=== PATIENT | female | born 2005 | race Caucasian/White ===

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

== ENCOUNTER → 2023-01-26 | Outpatient (CLI) | payer OTHER, SELFPAY | END | disposition home or self-care (01) | PROVIDERS: PCP Pediatrics; Referring Provider Physician Assistant; Visit Provider Physician Assistant | DX: R59.9 Enlarged lymph nodes, unspecified (principal); J02.9 Acute pharyngitis, unspecified | CPT/HCPCS: 87070 ==

== ENCOUNTER → 2024-11-27 | Outpatient (CLI) | payer OTHER, SELFPAY ==
[2024-11-29 06:07] LABS: Chlamydia By Nucleic Acid AMP Negative (Negative); Gonococcus By Nucleic Acid AMP Negative (Negative)
== END | disposition home or self-care (01) ==
LOC: BWCLAB 09:25
PROVIDERS: PCP Pediatrics; Referring Provider Nurse Practitioner Women's Health; Visit Provider Nurse Practitioner Women's Health
DX: Z11.3 Encounter for screening for infections with a predominantly sexual mode of transmission (principal); N89.8 Other specified noninflammatory disorders of vagina
CPT/HCPCS: 87070; 87077; 87186; 87205; 87491; 87591

== ENCOUNTER → 2025-01-10 | Outpatient (CLI) | payer OTHER, SELFPAY ==
[2025-01-10 17:33] LABS: Amphetamine Urine NEGATIVE (<1000 ng/mL); Barbiturate Urine NEGATIVE (< 200 ng/mL); Benzodiazepine Urine NEGATIVE (< 200 ng/mL); Buprenorphine Urine NEGATIVE (< 200 ng/mL); Cocaine Urine NEGATIVE (< 300 ng/mL); Fentanyl, Urine NEGATIVE; Methadone Urine NEGATIVE (< 300 ng/mL); Opiates Urine NEGATIVE (< 300 ng/mL); Oxycodone, Urine NEGATIVE (< 100 ng/mL); PCP Urine NEGATIVE (< 25 ng/mL); THC Urine NEGATIVE (< 50 ng/mL)
[2025-01-14 22:06] LABS: Chlamydia By Nucleic Acid AMP Negative (Negative); Gonococcus By Nucleic Acid AMP Negative (Negative)
[2025-01-16 08:26] LABS: HPV Reflexed? NOT INDICATED
== END | disposition home or self-care (01) ==
LOC: LABSPEC 16:28
PROVIDERS: Obstetrics & Gynecology; PCP Pediatrics; Referring Provider Nurse Practitioner Women's Health; Visit Provider Nurse Practitioner Women's Health
DX: Z34.00 Encounter for supervision of normal first pregnancy, unspecified trimester (principal); F12.90 Cannabis use, unspecified, uncomplicated
CPT/HCPCS: 80307; 87086; 87088; 87491; 87591; 88175; G0145

== ENCOUNTER → 2025-01-21 | Outpatient (CLI) | payer OTHER, SELFPAY ==
[2025-01-21 16:16] LABS: Absolute Lymphocyte Count 2.89 X10^3/uL (0.83-4.51); Absolute Neutrophil Count 8.4 X10^3/uL (2.0-7.7); Basophil# 0.07 X10^3/uL; Basophil% 0.6 % (0-1); Eosinophil# 0.23 X10^3/uL; Eosinophils% 1.8 % (0-5); Hematocrit 40.7 % (37-47); Hemoglobin 14.2 g/dL (12.0-15.0); Lymphocyte # 2.89 X10^3/ul (0.83-4.51); Lymphocyte % 23.2 % (19-41); Mean Corp Hgb Conc 34.9 g/dL (32-36); Mean Corpuscular Hgb 30.5 pg (27.0-32.0); Mean Corpuscular Volume 87.5 fL (81-99); Mean Platelet Vol. 9.4 fl (6.2-12.0); Monocyte# 0.82 X10^3/uL; Monocyte% 6.6 % (0-10); NRBC Flagged by Analyzer 0 % (0-5); Neutrophil # 8.38 X10^3/uL (2.7-7.7); Neutrophil % 67.4 % (47-70); Platelet Count 332 K/mm3 (150-450); RBC Distribution Width CV 12.4 % (11.6-14.6); Red Blood Count 4.65 M/mm3 (4.2-5.4); White Blood Count 12.4 K/mm3 (4.4-11.0)
[2025-01-21 17:02] LABS: HIV Nonreactive (Nonreactive); Hepatitis B Surface Antigen Nonreactive (Nonreactive); Hepatitis C Antibody Nonreactive (Nonreactive); Rubella IgG REAC (Nonreactive); Syphilis Antibodies Nonreactive (Nonreactive)
[2025-01-21 17:16] LABS: hCG Titer Quant., Serum 47887 mIU/mL (<9 non-preg)
== END | disposition home or self-care (01) ==
LOC: LAB 15:31
PROVIDERS: Nurse Practitioner Women's Health; PCP Pediatrics; Referring Provider Obstetrics & Gynecology; Visit Provider Obstetrics & Gynecology
DX: Z34.00 Encounter for supervision of normal first pregnancy, unspecified trimester (principal)
CPT/HCPCS: 36415; 83036; 84702; 85025; 86703; 86762; 86780; 86803; 86850; 86900; 86901; 87340

== ENCOUNTER → 2025-03-26 | Outpatient (CLI) | payer OTHER, SELFPAY ==
--- NOTE | 2025-03-26 15:26 | US_ITS ---
PROCEDURE: OB ANATOMY SCAN 03/26/2025 REASON FOR EXAM: ANATOMY/CERVICAL LENGTH TECHNIQUE: OB ANATOMY SCAN. Transabdominal and transvaginal imaging of the maternal pelvis and a > 14 week gestation with image documentation. COMPARISON: None. FINDINGS FETUS: There is a single living intrauterine gestation. POSITION: position is cephalic. HEART RATE: The heart rate is 144 BPM and regular. BIOMETRICS: Based on composite biometry, the composite estimated gestational age by ultrasound is 20 weeks 1 day. LMP gestational age: 20 weeks 0 days LMP LAZARA: August 13, 2025 Sonographic gestational age: 20 weeks 1 day Sonographic LAZARA: August 12, 2025 ANATOMIC SURVEY: The visualized anatomy is unremarkable. No gross anatomic abnormality is identified, including intracranial structures, orbits, profile, nose/lips, 4 chamber heart, fluid-filled stomach and urinary bladder, kidneys, spine, 3-vessel cord, cord insertion, and extremities. PLACENTA: The placenta is posterior, grade 0, with central cord insertion. No demonstrated evidence of abruption. The lower margin of the placenta is 1.7 cm away from the internal os compatible with a low lying placenta. AMNIOTIC FLUID: Within normal limits. Maximum vertical pocket (MVP) measuring 6.0 cm. CERVIX: Long and closed measuring 4.1 cm in length. Unremarkable as visualized. SONOGRAPHIC MEASUREMENTS: Bi-Parietal Diameter (BPD): 4.7 cm; 20 weeks 1 day Head Circumference (HC): 17.5 cm; 20 weeks 0 days Abdominal Circumference (AC): 15.5 cm; 20 weeks 5 days Femur Length (FL): 3.3 cm; 20 weeks 2 days Estimated weight: 355 grams +/-53 grams (0 lb, 13 oz) EFW percentile: 71.1 % US/OB Anatomy Scan IMPRESSION: 1. Single living intrauterine gestation estimated at 20 weeks 1 day by today's ultrasound criteria. Size equals dates. 2. Low-lying placenta. Reading Location: [id number]
== END | disposition home or self-care (01) ==
LOC: US 15:25
PROVIDERS: PCP Pediatrics; Referring Provider Obstetrics & Gynecology; Visit Provider Obstetrics & Gynecology
DX: Z34.00 Encounter for supervision of normal first pregnancy, unspecified trimester (principal)
CPT/HCPCS: 76805

== ENCOUNTER → 2025-05-09 | Outpatient (CLI) | payer OTHER, SELFPAY ==
[2025-05-09 12:28] LABS: Hematocrit 39.3 % (37-47); Hemoglobin 13.4 g/dL (12.0-15.0); Immature Granulocytes Count 0.120 X10^3/uL (0.0-0.0); Mean Corp Hgb Conc 34.1 g/dL (32-36); Mean Corpuscular Volume 91.0 fL (81-99); Mean Platelet Vol. 9.9 fl (6.2-12.0); NRBC Flagged by Analyzer 0 % (0-5); Platelet Count 288 K/mm3 (150-450); RBC Distribution Width CV 12.4 % (11.6-14.6); RBC Distribution Width SD 41.0 fl (35.1-43.9); Red Blood Count 4.32 M/mm3 (4.2-5.4); White Blood Count 11.1 K/mm3 (4.4-11.0)
[2025-05-09 13:47] LABS: Glucose Challenge Gest 1H 50g 85 mg/dL (70-140); HIV Nonreactive (Nonreactive); Syphilis Antibodies Nonreactive (Nonreactive)
== END | disposition home or self-care (01) ==
PROVIDERS: Advanced Practice Midwife; PCP Pediatrics; Referring Provider Obstetrics & Gynecology; Visit Provider Obstetrics & Gynecology
DX: O99.212 Obesity complicating pregnancy, second trimester (principal); Z3A.22 22 weeks gestation of pregnancy; Z13.1 Encounter for screening for diabetes mellitus
CPT/HCPCS: 36415; 82950; 85025; 86703; 86780

== ENCOUNTER → 2025-05-21 | Outpatient (CLI) | payer OTHER, SELFPAY ==
--- NOTE | 2025-05-21 16:13 | US_ITS ---
PROCEDURE: OB LIMITED WITH BIOMETRICS 05/21/2025 REASON FOR EXAM: PLACENTA LOCATION TECHNIQUE: Procedure Code: [id number] Modality: US Procedure: OB LIMITED WITH BIOMETRICS. Transabdominal imaging of the maternal pelvis and a > 14 week gestation with image documentation. FINDINGS FETUS: There is a single living intrauterine gestation. POSITION: position is cephalic. HEART RATE: The heart rate is 148 BPM and regular. BIOMETRICS: Based on composite biometry, the composite estimated gestational age by ultrasound is 28 weeks 4 days. LMP gestational age: 28 weeks 0 days LMP LAZARA: August 13, 2025 Sonographic gestational age: 28 weeks 4 days Sonographic LAZARA: August 09, 2025 ANATOMIC SURVEY: anatomy survey not performed. PLACENTA: The placenta is posterior, grade 2. No demonstrated evidence of previa or abruption. AMNIOTIC FLUID: Within normal limits. MAGO measuring 9.9 cm. Deepest vertical pocket (DVP) measuring 3.5 cm. CERVIX: Long and closed measuring 4.5 cm in length. Unremarkable as visualized. SONOGRAPHIC MEASUREMENTS: Bi-Parietal Diameter (BPD): 7.2 cm; 29 weeks 0 days Head Circumference (HC): 26.6 cm; 29 weeks 0 days Abdominal Circumference (AC): 23.9 cm; 28 weeks 2 days Femur Length (FL): 5.3 cm; 28 weeks 0 days Estimated weight: 1204 grams +/- 178 grams (2 lb, 7 oz) EFW percentile: 48.5 % MATERNAL OVARIES: Not visualized. US/OB Limited With Biometrics IMPRESSION: 1. Single living intrauterine gestation estimated at 28 weeks 4 days by today's ultrasound criteria. Size equals dates with normal interval growth. 2. No acute abnormality detected. Reading Location: [id number]
== END | disposition home or self-care (01) ==
LOC: US 16:12
PROVIDERS: PCP Pediatrics; Referring Provider Advanced Practice Midwife; Visit Provider Advanced Practice Midwife
DX: O99.212 Obesity complicating pregnancy, second trimester (principal); O44.40 Low lying placenta NOS or without hemorrhage, unspecified trimester; Z3A.22 22 weeks gestation of pregnancy
CPT/HCPCS: 76816

== ENCOUNTER → 2025-06-17 | Outpatient (CLI) | payer OTHER, SELFPAY | END | disposition home or self-care (01) | LOC: LABSPEC 16:23 | PROVIDERS: PCP Pediatrics; Visit Provider Advanced Practice Midwife | DX: O99.891 Other specified diseases and conditions complicating pregnancy (principal); R30.0 Dysuria; Z3A.00 Weeks of gestation of pregnancy not specified | CPT/HCPCS: 87086; 87088 ==

== ENCOUNTER → 2025-07-18 | Outpatient (CLI) | payer OTHER, SELFPAY | END | disposition home or self-care (01) | LOC: LABSPEC 16:08 | PROVIDERS: PCP Pediatrics; Visit Provider Obstetrics & Gynecology | DX: Z34.03 Encounter for supervision of normal first pregnancy, third trimester (principal) | CPT/HCPCS: 87077; 87081; 87186 ==

== ENCOUNTER 2025-08-07 14:55 | Inpatient (IN) | payer OTHER, SELFPAY ==
[2025-08-07] VITALS (43 sets, daily range): BP systolic 101–157; BP diastolic 50–95; PULSE 73–137; RESP 14–16; TEMP 36.2–36.9; O2SAT 81–100; BMI 36.2
[2025-08-07] MEDS: Lactated Ringers 1,000 ML 50 ML IV (15:25)
[2025-08-07] MEDS: Penicillin G Pot 5,000,000 UNITS in 0.9% Normal Saline (100mL MB+) 100 ML 150 UNITS IV (15:36)
[2025-08-07 15:51] LABS: Hematocrit 40.3 % (37-47); Hemoglobin 14.1 g/dL (12.0-15.0); Immature Granulocytes Count 0.190 X10^3/uL (0.0-0.0); Mean Corp Hgb Conc 35.0 g/dL (32-36); Mean Corpuscular Volume 85.4 fL (81-99); Mean Platelet Vol. 9.4 fl (6.2-12.0); NRBC Flagged by Analyzer 0 % (0-5); Platelet Count 314 K/mm3 (150-450); RBC Distribution Width CV 13.1 % (11.6-14.6); RBC Distribution Width SD 40.8 fl (35.1-43.9); Red Blood Count 4.72 M/mm3 (4.2-5.4); White Blood Count 17.1 K/mm3 (4.4-11.0)
--- OUTSIDE RECORDS SUMMARY | 2025-08-07 16:55 | XMS RPT_ITS | CCD ---
Author Organization [facility] Care Team Providers Care Juvenile Justice Specialist Name Role Phone Dr. Isi Justice Primary Care Provider Dr. Isi Justice Referring Provider Rosamaria MARIANO, MONTSERRAT Portillo Attending Provider Ann SPLITTER HEAD, SPLITTER HEAD-C Yahaira Attending Provider Isi Justice MD Primary Care Provider ISI JUSTICE Primary Care Unavailable JUAN SCRUGGS Attending Unavailable ISI JUSTICE Referring Unavailable ISI JUSTICE Primary Care Unavailable BRYAN CALLAHAN Attending Unavailable Isi Justice MD Primary Care Provider Dr. Isi Justice MD Primary Care Provider Dr. Isi Justice MD Referring Provider Ann SPLITTER HEAD-CYahaira Attending Provider Ann SPLITTER HEAD-C, Yahaira Referring Provider Dr. Nida Martinez DC Attending Provider Dr. Eugenia Moncada DO Attending Provider Dr. Viki Case MD Attending Provider Dr. Viki Case MD Referring Provider [phone] Ann SPLITTER HEAD-C, Yahaira Other Provider [phone] Dr. Isi Justice MD Primary Care Provider Dr. Isi Justice MD Referring Provider Ann SPLITTER HEAD-C, Yahaira Attending Provider [phone] Anthony SPLITTER HEAD-C, Yahaira Referring Provider [phone] Kiran Nicole DO, Dr. Bello Referring Provider Nitin MERINO, Gabriela Attending Provider [phone] Reshma GUIDO, Dr. Snowden Primary Care Provider Reshma GUIDO, Dr. Snowden Referring Provider Ann SPLITTER HEAD-C, Yahaira Attending Provider [phone] Dossi DC, Dr. Alva Attending Provider [phone] Reshma GUIDO, Dr. Snowden Primary Care Physician Reshma GUIDO, Dr. Snowden Referring Provider [phone] Dossi DC, Dr. Alva Attending Physician [phone] Kiran Nicole DO, Dr. Bello Attending Physician Ann SPLITTER HEAD-C, Yahaira Attending Physician [phone] Nitin MERINO, Gabriela Attending Physician [phone] Manpreet GUIDO, Dr. Drew Attending Physician Manpreet GUIDO, Dr. Drew Referring Provider Nitin MERINO, Gabriela Referring Provider [phone] Reshma GIUDO, Dr. Snowden Primary Care Physician Reshma GUIDO, Dr. Snowden Referring Provider [phone] Dosjeremias HOFFMAN, Dr. Alva Attending Physician [phone] Reshma GUIDO, Dr. Snowden Primary Care Physician Reshma GUIDO, Dr. Snowden Referring Provider [phone] Kiran Nicole DO, Dr. Bello Attending Physician Seifjennifer, Isi Referring Unavailable Ann SPLITTER HEAD, Yahaira Attending Unavailable Seifried, Isi Primary Care Unavailable Seifried, Isi Referring Unavailable Nida Martinez Attending Unavailable Seifried, Isi Primary Care Unavailable Seifried, Isi Referring Unavailable Gabriela Taveras Attending Unavailable Seifried, Isi Primary Care Unavailable Seifried, Isi Primary Care Unavailable Seifried, Isi Referring Unavailable Gabriela Taveras Attending Unavailable Seifried, Isi Primary Care Unavailable Viki Case Attending Unavailable ZarinaonyViki Referring Unavailable Anthony SPLITTER HEAD, Yahaira Attending Unavailable Anthony SPLITTER HEAD, Yahaira Referring Unavailable Seifried, Isi Primary Care Unavailable Vande Velde Eugenia Referring Unavailabl e Seifried, Isi Primary Care Unavailable Vande VeldeEugenia Attending Unavailabl e Seifried, Isi Primary Care Unavailable Seifried, Isi Referring Unavailable Dossi, Nida Attending Unavailable Seifried, Isi Referring Unavailable Seifried, Isi Primary Care Unavailable Eugenia Moncada Attending Unavailabl e Seifried, Isi Referring Unavailable Dossi, Nida Attending Unavailable Seifried, Isi Primary Care Unavailable Seifried, Isi Referring Unavailable Seifried, Isi Primary Care Unavailable Eugenia Moncada Attending Unavailabl e Seifried, Isi Referring Unavailable Dossi, Nida Attending Unavailable Seifried, Isi Primary Care Unavailable Seifried, Isi Referring Unavailable Viki Case Attending Unavailable Seifried, Isi Primary Care Unavailable Seifried, Isi Referring Unavailable Dossi, Nida Attending Unavailable Seifried, Isi Primary Care Unavailable Seifried, Isi Referring Unavailable Dossi, Nida Attending Unavailable Seifried, Isi Primary Care Unavailable Seifried, Isi Referring Unavailable Seifried, Isi Primary Care Unavailable Eugenia Moncada Attending Unavailabl e Gabriela Taveras Attending Unavailable Seifried, Isi Primary Care Unavailable Ann SPLITTER HEAD, Yahaira Attending Unavailable Anthony SPLITTER HEAD, Yahaira Referring Unavailable Seifried, Isi Primary Care Unavailable Seifried, Isi Primary Care Unavailable Seifried, Isi Referring Unavailable Viki Case Attending Unavailable Seifried, Isi Referring Unavailable Dossi, Nida Attending Unavailable Seifried, Isi Primary Care Unavailable Anthony SPLITTER HEAD, Yahaira Consulting Unavailable Viki Case Attending Unavailable Viki Case Referring Unavailable Seifried, Isi Primary Care Unavailable Seifried, Isi Primary Care Unavailable Gabriela Taveras Attending Unavailable Gabriela Taveras Referring Unavailable Seifried, Isi Primary Care Unavailable Seifried, Isi Referring Unavailable Ann SPLITTER HEAD, Yahaira Attending Unavailable Seifried, Isi Primary Care Unavailable Seifried, Isi Referring Unavailable Dosjeremias, Nida Attending Unavailable Seifried, Isi Primary Care Unavailable Seifried, Isi Referring Unavailable Gabriela Taveras Attending Unavailable Seifried, Isi Primary Care Unavailable Seifried, Isi Referring Unavailable Dossi, Nida Attending Unavailable Seifried, Isi Referring Unavailable Ann SPLITTER HEAD, Yahaira Attending Unavailable Seifried, Isi Primary Care Unavailable Reshma GUIDO, Dr. Snowden Primary Care Physician Dr. Eugenia Moncada DO Attending Physician Dr. Eugenia Moncada DO Referring Provider Dr. Isi Justice MD Referring Provider Dr. Nida Martinez DC Attending Physician Gabriela Taveras CNM Attending Physician [phone] Dr. Viki Case MD Attending Physician Dr. Viki Case MD Referring Provider [phone] Gabriela Taveras CNM Referring Provider [phone] Allergies Allergy Classification Reported Allergen(s) Allergy Type Date of Onset Reaction(s) Facility (20 sources) nickel; Translations: [NICKEL] Drug Allergy 12-28-2018 [facility] (1 source) nickel Drug Allergy 07-09-2025 [facility] Medications Current Medications Medication Drug Class(es) Dates Sig (Normalized) Sig (Original) famotidine 20 mg oral tablet (1 source) Histamine-2 Receptor Antagonist Start: 07-05-2025 take 1 tablet by mouth twice daily Famotidine (Pepcid) 20 mg tablet Active 20 mg PO TWICE A DAY 60 July 04, 2025 11:00pm Complies with drug therapy Start: 07-05-2025 take 1 tablet by deng th twice daily Famotidine (Pepcid) 20 mg tablet Active 20 mg PO TWICE A DAY 60 July 04, 2025 11:00pm Complies with drug therapy Magnesium (19 sources) Start: 11-27-2024 take 1 tablet by deng th once daily Magnesium 250 mg tablet Active 250 mg PO daily November 26, 2024 11:00pm Complies with drug therapy Start: 11-27-2024 take 1 tablet by deng th once daily Start: 11-27-2024 take 1 tablet by deng th once daily Magnesium 250 mg tablet Active 250 mg PO daily November 27, 2024 12:00am Complies with drug therapy Start: 11-27-2024 take 1 tablet by deng once daily Magnesium 250 mg tablet Active 250 mg PO daily November 27, 2024 12:00am metoclopramide 10 mg oral tablet (14 sources) Dopamine-2 Receptor Antagonist Start: 02-13-2025 take 1 tablet by mouth at bedtime as needed for nausea and vomiting Metoclopramide Hcl (Reglan) 10 mg tablet Active 10 mg PO before meals and at bedtime as needed for nausea and vomiting 60 3 February 12, 2025 11:00pm Complies with drug therapy Multivit 99-Iict-Cenhyl 1-Dha (Pnv-Dha) 27 mg iron-1 mg -300 mg capsule (18 sources) Start: 12-18-2024 Multivit 96-Qune-Hfzdtl 1-Dha (Pnv-Dha) 27 mg iron-1 mg -300 mg capsule Active NMA PO December 17, 2024 11:00pm Complies with drug therapy Start: 12-18-2024 Start: 12-18-2024 Multivit 47-Ir on-Folate 1-Dha (Pnv-Dha) 27 mg iron-1 mg -300 mg capsule Active NMA PO December 18, 2024 12:00am Complies with drug therapy Start: 12-18-2024 Multivit 47-Ir on-Folate 1-Dha (Pnv-Dha) 27 mg iron-1 mg -300 mg capsule Active NMA PO December 18, 2024 12:00am saccharomyces boulardii 250 mg oral capsule (20 sources) Start: 11-27-2024 End: 12-18-2024 take 1 capsule by mouth at bedtime Saccharomyces Boulardii (Digest Probiotic (S.Boulardii)) 250 mg capsule Active 250 mg PO AT BEDTIME December 18, 2024 10:06am Complies with drug therapy Completed/Discontinued Medications Medication Drug Class(es) Dates Sig (Normalized) Sig (Original) acetaminophen 325 mg / oxyCODONE hydrochloride 5 mg oral tablet (20 sources) Opioid Agonist Start: 04-25-2020 End: 04-30-2020 Oxycodone-Acetaminoph en 1 TABLET tablet Discontinued 1 - 2 {tbl} PO EVERY 6 HOURS NEEDED as needed for Pain 30 01April 25, 2020 April 28, 2020 11:00pm April 29, 2020 11:02pm Postoperative pain Other acute postprocedural pain Start: 04-25-2020 End: 04-30-2020 take 1 tablet by mouth every six hours as needed Oxycodone-Acetaminophen Discontinued 1 - 2 TABLET PO EVERY 6 HOURS NEEDED 30 01April 25, 2020 10:21am April 30, 2020 12:02am amoxicillin 500 mg oral capsule (20 sources) Penicillin-class Antibacterial Start: 01-13-2023 End: 01-23-2023 take 1 capsule by mouth three times daily Amoxicillin 500 mg capsule Discontinued 500 mg PO THREE TIMES A DAY 30 10 January 12, 2023 11:00pm January 21, 2023 11:00pm January 22, 2023 11:04pm Start: 01-16-2021 End: 01-26-2021 take 1000 mg by mouth twice daily Amoxicillin Discontinued 1000 MG PO TWICE A DAY 40 January 16, 2021 11:14am January 26, 2021 12:01am Start: 01-16-2021 End: 01-26-2021 take 2 capsules by mouth twice daily Amoxicillin 500 mg capsule Discontinued 1000 mg PO TWICE A DAY 40 January 15, 2021 11:00pm January 24, 2021 11:00pm January 25, 2021 11:01pm amoxicillin 875 mg / clavulanate 125 mg oral tablet (20 sources) Penicillin-class Antibacterial Start: 04-15-2023 End: 04-25-2023 Amoxicillin-Pot Clavulanate 875-125 mg tablet Discontinued 1 {tbl} PO Q12H 20 10 April 14, 2023 11:00pm April 23, 2023 11:00pm April 24, 2023 11:03pm Acute sinusitis, unspecified Start: 02-02-2023 End: 02-12-2023 take 1 tablet by mouth twice daily amoxicillin-clavulanic acid (AUGMENTIN) 875-125 mg per tablet Indications: Streptococcal pharyngitis Take 1 tablet by mouth twice daily for 10 days. 20 tablet 0 02/02/2023 02/12/2023 Active Comment on above: Take 1 tablet by deng twice daily for 10 days. Desogestrel-Ethinyl Estradiol (20 sources) Progestin, Estrogen Start: 10-27-2023 End: 05-22-2024 take 0.15 tablet by mouth once daily Desogestrel-Ethinyl Estradiol (Apri) 0.15-0.03 mg tablet Discontinued 1 {tbl} PO daily 84 4 October 27, 2023 12:00am May 22, 2024 8:10am Start: 10-27-2023 End: 05-22-2024 take 0.15 tablet by mouth once daily Desogestrel-Ethinyl Estradiol (Apri) 0.15-0.03 mg tablet Discontinued 1 {tbl} PO daily 84 4 October 27, 2023 1:00am May 22, 2024 9:10am Start: 10-27-2023 End: 05-22-2024 take 0.15 tablet by mouth once daily Desogestrel-Ethinyl Estradiol (Apri) 0.15-0.03 mg tablet Discontinued 1 {tbl} PO daily 84 October 27, 2023 1:00am May 22, 2024 9:10am Start: 11-29-2019 End: 03-11-2020 Desogestrel-Ethinyl Estradio l (Apri) 0.15-0.03 mg tablet Discontinued 1 TABLET PO daily 84 November 29, 2019 2:44pm March 11, 2020 1:22pm Start: 11-29-2019 End: 03-11-2020 take 0.15 tablet by mouth once daily Desogestrel-Ethinyl Estradiol (Apri) 0.15-0.03 mg tablet Discontinued 1 {tbl} PO daily 84 November 28, 2019 11:00pm March 11, 2020 12:22pm Start: 11-29-2019 End: 03-11-2020 take 0.15 tablet by mouth once daily Desogestrel-Ethinyl Estradiol (Apri) 0.15-0.03 mg tablet Discontinued 1 {tbl} PO daily 84 4 November 29, 2019 12:00am March 11, 2020 1:22pm Start: 11-29-2019 End: 03-11-2020 take 0.15 tablet by mouth once daily Desogestrel-Ethinyl Estradiol (Apri) 0.15-0.03 mg tablet Discontinued 1 {tbl} PO daily 84 November 29, 2019 12:00am March 11, 2020 1:22pm dexamethasone 4 mg oral tablet (20 sources) Corticosteroid Start: 09-09-2021 End: 10-05-2021 take 1 tablet by mouth once daily Dexamethasone (Decadron) 4 mg tablet Discontinued 4 mg PO DAILY 5 0 September 09, 2021 12:00am October 05, 2021 8:15am Norgestimate-Ethiny l Estradiol (20 sources) Progestin, Estrogen Start: 10-06-2022 End: 10-27-2023 Norgestimate-Ethin yl Estradiol (Sprintec (28)) 0.25-35 mg-mcg tablet Discontinued 1 {tbl} PO daily 84 October 06, 2022 2:08pm October 27, 2023 8:21am Start: 10-06-2022 End: 10-27-2023 Norgestimate-Ethinyl Estradi ol (Sprintec (28)) 0.25-35 mg-mcg tablet Discontinued 1 {tbl} PO daily 84 4 October 06, 2022 3:08pm October 27, 2023 9:21am Start: 10-06-2022 End: 10-27-2023 Norgestimate-Ethinyl Estradi ol (Sprintec (28)) 0.25-35 mg-mcg tablet Discontinued 1 {tbl} PO daily 84 October 06, 2022 3:08pm October 27, 2023 9:21am Start: 10-05-2021 End: 10-06-2022 Norgestimate-Ethinyl Estradi ol (Sprintec (28)) 0.25-35 mg-mcg tablet Discontinued 1 {tbl} PO daily 84 October 05, 2021 8:32am October 06, 2022 2:08pm Start: 10-05-2021 End: 10-06-2022 Norgestimate-Ethinyl Estradi ol (Sprintec (28)) 0.25-35 mg-mcg tablet Discontinued 1 {tbl} PO daily 84 October 05, 2021 9:32am October 06, 2022 3:08pm Start: 10-05-2021 End: 10-06-2022 Norgestimate-Ethinyl Estradi ol (Sprintec (28)) 0.25-35 mg-mcg tablet Discontinued 1 {tbl} PO daily 84 October 05, 2021 9:32am October 06, 2022 3:08pm Start: 10-05-2021 take 1 tablet by deng once daily Norgestimate-Ethinyl Estradiol (Sprintec (28)) 0.25-35 mg-mcg tablet Active 1 TABLET PO daily 84 October 05, 2021 9:32am Start: 10-01-2020 End: 10-05-2021 Norgestimate-Ethinyl Estradi ol (Sprintec (28)) 0.25-35 mg-mcg tablet Discontinued 1 {tbl} PO daily 84 October 01, 2020 1:38pm October 05, 2021 8:32am Start: 10-01-2020 End: 10-05-2021 Norgestimate-Ethinyl Estradi ol (Sprintec (28)) 0.25-35 mg-mcg tablet Discontinued 1 {tbl} PO daily 84 4 October 01, 2020 2:38pm October 05, 2021 9:32am Start: 10-01-2020 End: 10-05-2021 Norgestimate-Ethinyl Estradi ol (Sprintec (28)) 0.25-35 mg-mcg tablet Discontinued 1 {tbl} PO daily 84 October 01, 2020 2:38pm October 05, 2021 9:32am Start: 10-01-2020 End: 10-05-2021 take 1 tablet by mouth once daily Norgestimate-Ethinyl Estradiol (Sprintec (28)) 0.25-35 mg-mcg tablet Discontinued 1 TABLET PO daily 84 October 01, 2020 2:38pm October 05, 2021 9:32am Start: 03-11-2020 End: 10-01-2020 take 1 tablet by mouth once daily Norgestimate-Ethinyl Estradiol (Sprintec (28)) 0.25-35 mg-mcg tablet Discontinued 1 TABLET PO daily 84 March 11, 2020 1:22pm October 01, 2020 2:38pm Start: 03-11-2020 End: 10-01-2020 Norgestimate-Ethinyl Estradi ol (Sprintec (28)) 0.25-35 mg-mcg tablet Discontinued 1 {tbl} PO daily 84 2 March 10, 2020 11:00pm October 01, 2020 1:38pm Start: 03-11-2020 End: 10-01-2020 Norgestimate-Ethinyl Estradi ol (Sprintec (28)) 0.25-35 mg-mcg tablet Discontinued 1 {tbl} PO daily 84 March 11, 2020 12:00am October 01, 2020 2:38pm Start: 03-11-2020 End: 10-01-2020 Norgestimate-Ethinyl Estradi ol (Sprintec (28)) 0.25-35 mg-mcg tablet Discontinued 1 {tbl} PO daily 84 March 11, 2020 12:00am October 01, 2020 2:38pm Start: 09-11-2019 End: 11-29-2019 take 1 tablet by mouth once daily Norgestimate-Ethinyl Estradiol (Sprintec (28)) 0.25-35 mg-mcg tablet Discontinued 1 TABLET PO daily September 11, 2019 10:12am November 29, 2019 2:45pm Start: 09-11-2019 End: 11-29-2019 Norgestimate-Ethinyl Estradi ol (Sprintec (28)) 0.25-35 mg-mcg tablet Discontinued 1 {tbl} PO daily 28 September 11, 2019 12:00am November 29, 2019 1:45pm Start: 09-11-2019 End: 11-29-2019 Norgestimate-Ethinyl Estradi ol (Sprintec (28)) 0.25-35 mg-mcg tablet Discontinued 1 {tbl} PO daily 28 September 11, 2019 1:00am November 29, 2019 2:45pm Start: 09-11-2019 End: 11-29-2019 Norgestimate-Ethinyl Estradi ol (Sprintec (28)) 0.25-35 mg-mcg tablet Discontinued 1 {tbl} PO daily September 11, 2019 1:00am November 29, 2019 2:45pm fluconazole 150 mg oral tablet (20 sources) Azole Antifungal Start: 11-29-2024 End: 12-18-2024 take 1 tablet by mouth every other day Fluconazole 150 mg tablet Discontinued 150 mg PO .COMPLEX 3 0 November 29, 2024 10:31am December 18, 2024 10:06am 150 mg PO take one po every other day x 3 doses. Start: 08-01-2024 End: 11-27-2024 Fluconazole 150 mg tablet Di scontinued 150 mg PO .COMPLEX 2 0 September 25, 2024 3:23pm November 27, 2024 7:17am 150 mg PO take one po now and repeat in 3 days ibuprofen 400 mg oral tablet (20 sources) Nonsteroidal Anti-inflammatory Drug Start: 11-13-2017 End: 09-11-2019 take 1 tablet by mouth every four hours as needed for pain Ibuprofen 400 MG tablet Discontinued 400 mg PO EVERY 4 HOURS NEEDED as needed for Mild Pain (-11/12) 0 November 13, 2017 12:00am September 11, 2019 8:59am ketotifen 0.25 mg/ml ophthalmic solution (3 sources) Histamine-1 Receptor Inhibitor Start: 01-20-2022 ketotifen fumarate (ZADITOR) 0.025 % (0.035 %) ophthalmic solution Indications: Seasonal allergies Use 1 Drop in both eyes twice daily. 5 mL 5 01/20/2022 Active Comment on above: Use 1 Drop in both e yes twice daily. levocetirizine dihydrochloride 5 mg oral tablet (3 sources) Histamine-1 Receptor Antagonist Start: 01-20-2022 take 1 tablet by mouth once daily levocetirizine (XYZAL) 5 mg tablet Indications: Seasonal allergies Take 1 tablet by mouth once daily. 30 tablet 5 01/20/2022 Active Comment on above: Take 1 tablet by deng th once daily. mometasone furoate 1 mg/ml topical cream (3 sources) Corticosteroid Start: 08-26-2021 mometasone (ELOCON) 0.1 % cream Indications: Dyshidrosis (pompholyx) Apply to affected area once daily. APPLY TO AFFECTED AREA 45 g 0 08/26/2021 Active Comment on above: Apply to affected ar ea once daily. APPLY TO AFFECTED AREA nitrofurantoin, macrocrystals 25 mg / nitrofurantoin, monohydrate 75 mg oral capsule (20 sources) Nitrofuran Antibacterial Start: 04-11-2021 End: 04-16-2021 take 1 capsule by mouth every twelve hours at mealtime Nitrofurantoin Monohyd/M-Cryst 100 mg capsule Discontinued 100 mg PO Q12H 10 5 0 April 10, 2021 11:00pm April 14, 2021 11:00pm April 15, 2021 11:01pm must administer with a meal/food Start: 09-03-2020 End: 09-10-2020 take 1 capsule by mouth every twelve hours at mealtime Nitrofurantoin Monohyd/M-Cryst 100 mg capsule Discontinued 1 NMA PO Q12H 14 7 0 September 03, 2020 12:00am September 09, 2020 12:00am September 10, 2020 12:02am administer with a meal/food; swallow whole; do not open, crush, dissolve , or chew Start: 07-08-2020 End: 07-15-2020 take 1 capsule by mouth every twelve hours at mealtime Nitrofurantoin Monohyd/M-Cryst 100 mg capsule Discontinued 1 NMA PO Q12H 14 7 0 July 08, 2020 12:00am July 14, 2020 12:00am July 15, 2020 12:02am administer with a meal/food; swallow whole; do not open, crush, dissolve , or chew NORGESTIMATE-ETHINYL ESTRADIOL ORAL (3 sources) Start: 09-11-2019 NORGESTIMATE-ETHINYL ESTRADIOL ORAL Norgestimate-Ethinyl Estradiol Norgestimate-Ethinyl Estradiol Active 1 TAB daily September 11, 2019 9:12am 09-11-2019 [facility] (86365) 0 09/11/2019 Active Comment on above: Norgestimate-Ethinyl Estradiol Norgestimate-Ethinyl Estradiol Active 1 TAB daily September 11, 2019 9:12am 09-11-2019 [facility] (12016) nystatin [id number] unt/ml oral suspension (20 sources) Polyene Antifungal Start: 08-23-2019 End: 09-17-2019 take 1 dose by mouth every six hours Nystatin Discontinued 5 ML PO EVERY 6 HOURS 500 August 23, 2019 6:17pm September 17, 2019 1:08am swish and swallow, not eating/drinking for 30 minutes after each dose Start: 08-23-2019 End: 09-17-2019 take 1 dose by mouth every six hours Nystatin 100,000 unit/mL suspension Discontinued 5 mL PO EVERY 6 HOURS 500 25 0 August 23, 2019 12:00am September 16, 2019 12:00am September 17, 2019 12:08am swish and swallow, not eating/drinking for 30 minutes after each dose ondansetron 8 mg oral tablet (20 sources) Serotonin-3 Receptor Antagonist Start: 04-25-2020 End: 08-05-2020 take 1 tablet by mouth every eight hours as needed for nausea Ondansetron Hcl 8 MG tablet Discontinued 8 mg PO EVERY 8 HOURS NEEDED as needed for Nausea 20 0 April 24, 2020 11:00pm August 05, 2020 12:35pm oxyCODONE hydrochloride 5 mg oral tablet (20 sources) Opioid Agonist Start: 11-13-2017 End: 10-14-2018 take 1 tablet by mouth every six hours as needed for pain Oxycodone 5 MG tablet Discontinued 5 mg PO EVERY 6 HOURS NEEDED as needed for Severe Pain (-06/14) 16 5 0 November 13, 2017 8:54am October 14, 2018 12:14pm Appendicitis Unspecified appendicitis phenazopyridine hydrochloride 200 mg oral tablet (20 sources) Start: 04-11-2021 End: 04-13-2021 take 1 tablet by mouth three times daily Phenazopyridine (Pyridium) 200 mg tablet Discontinued 200 mg PO THREE TIMES A DAY 6 2 0 April 10, 2021 11:00pm April 11, 2021 11:00pm April 12, 2021 11:01pm pain Start: 09-03-2020 End: 10-01-2020 take 1 tablet by mouth three times daily at mealtime for pain Phenazopyridine (Pyridium) 100 mg tablet Discontinued 100 mg PO THREE TIMES A DAY as needed for pain 7 0 0 September 03, 2020 12:00am October 01, 2020 1:36pm administer with a full glass of water after each meal sertraline 50 mg oral tablet (20 sources) Serotonin Reuptake Inhibitor Start: 09-11-2019 End: 04-11-2021 take 1 tablet by mouth once daily Sertraline (Zoloft) 50 mg tablet Discontinued 50 mg PO DAILY September 11, 2019 12:00am April 11, 2021 12:10pm Comment on above: Take 1 tablet by deng th once daily. sulfamethoxazole 800 mg / trimethoprim 160 mg oral tablet (20 sources) Dihydrofolate Reductase Inhibitor Antibacterial, Sulfonamide Antimicrobial Start: 06-08-2021 End: 06-15-2021 Sulfamethoxazole- Trimethoprim (Bactrim Ds) 800-160 mg tablet Discontinued 1 {tbl} PO Q12H 14 0 June 07, 2021 11:00pm June 15, 2021 8:01am triamcinolone acetonide 0.055 mg/actuat metered dose nasal spray (3 sources) Corticosteroid Start: 01-20-2022 take 2 spray(s) by inhalation once daily at bedtime triamcinolone acetonide (NASACORT AQ) 55 mcg nasal inhaler Indications: Seasonal allergies Use 2 Sprays in the nose daily at bedtime. 16.9 mL 5 01/20/2022 Active Comment on above: Use 2 Sprays in the nose daily at bedtime. Problems Active Problems Problem Classification Problem Date Documented Da te Episodic/Chronic Allergic reactions (1 source) Eczema; Translations: [Dermatitis, unspecified] Episodic Anxiety disorders (3 sources) Anxiety; Translations: [Anxiety disorder, unspecified] Onset: 11-05-2020 11-05-2020 Chronic Inflammation; infection of eye (except that caused by tuberculosis or sexually transmitteddisease) (1 source) Allergic conjunctivitis; Translations: [Acute atopic conjunctivitis, unspecified eye] Episodic Inflammatory diseases of female pelvic organs (7 sources) Vaginitis; Translations: [Acute vaginitis] 11-27-2024 Episodic Menstrual disorders (20 sources) Menorrhagia; Translations: [Excessive and frequent menstruation with regular cycle] Onset: 01-10-2025 Chronic Comment on above: OCP +UPT Other bone disease and musculoskeletal deformities (20 sources) Segmental and somatic dysfunction; Translations: [Segmental and somatic dysfunction of cervical region] 05-22-2024 Episodic Other bone disease and musculoskeletal deformities (1 source) Segmental and somatic dysfunction of sacral region; Translations: [Segmental and somatic dysfunction of sacral region] Onset: 06-24-2025 Episodic Other bone disease and musculoskeletal deformities (1 source) Segmental and somatic dysfunction of lumbar region; Translations: [Segmental and somatic dysfunction of lumbar region] Onset: 06-24-2025 Episodic Other bone disease and musculoskeletal deformities (1 source) Segmental and somatic dysfunction of pelvic region; Translations: [Segmental and somatic dysfunction of pelvic region] Onset: 06-24-2025 Episodic Other bone disease and musculoskeletal deformities (1 source) Segmental and somatic dysfunction of thoracic region; Translations: [Segmental and somatic dysfunction of thoracic region] Onset: 06-24-2025 Episodic Other bone disease and musculoskeletal deformities (1 source) Segmental and somatic dysfunction of cervical region; Translations: [Segmental and somatic dysfunction of cervical region] Onset: 06-24-2025 Episodic Other complications of (20 sources) Maternal obesity complicating , childbirth and the puerperium, antepartum; Translations: [Obesity complicating , unspecified trimester] 12-18-2024 Chronic Comment on above: [id number] Other complications of (1 source) Obesity complicating , second trimester; Translations: [Obesity complicating , second trimester] Onset: 06-17-2025 Chronic Other complications of (1 source) Obesity complicating , unspecified trimester; Translations: [Obesity complicating , unspecified trimester] Onset: 01-10-2025 Chronic Other and delivery including normal (20 sources) Normal ; Translations: [Encounter for supervision of normal first , unspecified trimester] Onset: 01-10-2025 12-18-2024 Episodic Comment on above: , LAZARA 08/05/25Tricia discussed NIPT & Car rier testing PRR, , LAZARA , Adri Kelly Declines NIPT & Barriga ier testing; declines AFP PRR, , LAZARA , Adri Kelly. Low lying placenta <2cm from os, pelvic rest, report bleeding and rpt US 28 wk. Other skin disorders (20 sources) Acne; Translations: [Acne, unspecified] 09-11-2019 Episodic Other upper respiratory disease (2 sources) Seasonal allergy; Translations: [Other seasonal allergic rhinitis] Chronic Other upper respiratory disease (1 source) Allergic rhinitis due to pollen; Translations: [Allergic rhinitis due to pollen] Chronic Other upper respiratory disease (1 source) Other seasonal allergic rhinitis; Translations: [Seasonal allergies] Onset: 02-23-2022 Chronic Other upper respiratory infections (20 sources) Acute maxillary sinusitis; Translations: [Acute maxillary sinusitis, unspecified] Onset: 02-02-2023 Episodic Residual codes; unclassified (1 source) 31 weeks gestation of ; Translations: [31 weeks gestation of ] Onset: 06-17-2025 Episodic Residual codes; unclassified (1 source) 30 weeks gestation of ; Translations: [30 weeks gestation of ] Onset: 06-05-2025 Episodic Residual codes; unclassified (1 source) 28 weeks gestation of ; Translations: [28 weeks gestation of ] Onset: 05-23-2025 Episodic Residual codes; unclassified (1 source) 26 weeks gestation of ; Translations: [26 weeks gestation of ] Onset: 05-09-2025 Episodic Substance-related disorders (20 sources) Marijuana user; Translations: [Cannabis use, unspecified, uncomplicated] Onset: 06-17-2025 01-14-2025 Episodic Comment on above: laquita one time 19st birthday, discussed random drug testing with pt. NEG at [facility] Unclassified (1 source) Other specified diseases and conditions complicating ; Translations: [Other specified diseases and conditions complicating ] Onset: 07-01-2025 Viral infection (2 sources) Disease caused by 2019-nCoV; Translations: [COVID-19] Episodic Past or Other Problems Problem Classification Problem Date Documented Date Episodic/Chronic Blindness and vision defects (3 sources) Myopia; Translations: [Myopia, unspecified eye] Onset: 10-08-2013 10-08-2013 Episodic Immunizations and screening for infectious disease (1 source) Encounter for screening for infections with a predominantly sexual mode of transmission; Translations: [Encounter for screening for infections with a predominantly sexual mode of transmission] Onset: 2024 Episodic Other skin disorders (2 sources) Acne, unspecified; Translations: [Other acne] Onset: 01-10-2025 Episodic Residual codes; unclassified (1 source) 22 weeks gestation of ; Translations: [22 weeks gestation of ] Onset: 04-09-2025 Episodic Results Test Name Value Interpretation Reference Range Facility Chiropractic Reporton 2024 Chiropractic Report [facility] [address] [place] [address] [id number] OFFICE VISIT Date of Service: 07/09/25 MR#: [id number] Acct: [id number] Name: REESE PASTOR Rep #: [id number] : 2005 Provider: DALTON Casas Age/Sex: 19/F Location: [facility] [place] Status: Signed Intake Vital Signs 06/17/25 14:21 07/05/25 15:54 Height 5 ft 9 in 5 ft 9 in Weight: 240 lb BMI 35.4 BP 130/79 H Intake Visit Reasons: ADJUSTMENT 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: B/L hip pain, LBP, pelvic and pubic pain Plant Mechanic Required: No Accompanied by: Self Is patient in pain?: Yes Pain scale (1-10): 3 Allergies nickel Allergy (Mild, Verified 07/09/25 13:24) unknown Medications ???Medication ???Instructions ???Recorded ???Confirmed ???Type magnesium 250 mg tablet 250 mg PO QDAY 11/27/24 07/09/25 H istory Saccharomyces boulardii 250 mg 250 mg PO QHS 12/18/24 07/09/25 Hi story capsule (Digest Probiotic (S.boulardii)) multivitamin no.47-iron fum 27 cap PO 12/18/24 07/09/25 History mg-folate no.1 1 mg-dha 300 mg capsule (PNV-DHA) metoclopramide HCl 10 mg tablet 10 mg PO QACHS PRN nausea and 02/0307/09/25 Rx (Reglan) vomiting #60 tabs famotidine 20 mg tablet (Pepcid) 20 mg PO BID #60 tabs 07/05/2512/28 Rx PFSH Medical History Acne Dysmenorrhea Seasonal allergies Hx of recurrent urinary tract infection Chronic neck and back pain Asthma Surgical History [place] teeth extracted H/O shoulder surgery History of appendectomy Family History Mother Hypertension Gestational diabetes 2nd only Grandmother Hypertension Maternal Blood clot in leg Diabetes Paternal Grandfather Cancer, Onset Age: 70 Paternal- Smoker Social History adopted: No household members: significant other housing: house number of children: 0 current occupational status: employed current occupation: [employer] current occupational exposures/hazards: No pets and animals: Yes pets and animals: dog(s) and farm animals history of recent travel: No sexually active: Yes Smoking Status: Never smoker alcohol intake: current alcohol intake frequency: holidays/special occasions only details: Not while substance use type: marijuana and other details: Pt tried a gummy one time 19st birthday. Didn't like it. 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 Pt. is currently 35 weeks . Continued pelvic pressure and dull achy pubic pain. Recent low back and B/L hip dull and achy pain especially after being awake and moving for couple hours. Generalized back tightness. Denies sharp pain. Rates pain 3 out of ten today. Her neck and upper back get tight and sore often. She denies new injury, numbness, tingling or radiculopathy. She treats her pain at home with ice and stretching. She states chiropractic treatments are effective to relieve her pain but it gradually returns. Location: neck and low back Duration: intermittent Aggravating or associated factors: sleeping, walking, Relieving factors: chiro Pain Quality: aching and dull Exam Musc General: Yes normal posture, normal gait, joint tenderness and decreased range of motion; No muscle weakness Cervical Spine: Yes normal cervical lordosis, Yes cervical muscular tenderness right greater than left lower , Yes cervical spasm right greater than left lower trapezius and paracervical muscles and Yes misalignment misalignment: C5, C6 and C7 Thoracic/Lumber: Yes thoracic and lumbar spine normal to inspection, Yes paraspinal tenderness on the left greater than right (upper thoracic, lumbopelvic), Yes thoraco-lumbar spasm bilaterally (lumbar paraspinal L3-L5) in the lower lumbar, on the right greater than left (trap) and on the left greater than right (QL) and Yes misalignment T3, T4, T5, T6, L3, L4, L5, RIL and LIL Sacrum: Yes misalignment (left) Yes Office Procedures Procedures - Chiropractic Procedures Manipulatio (more content not included)... Normal [facility] - Chemistry and C hemistry - challengeOrdered By: Viki Case on 07-05-2025 Glucose Ql (U) Negative [facility] - UrinalysisOrder ed By: Viki Case on 07-05-2025 Protein Ql (U) Negative [facility] Elevator Constructor Office Visit Reporton 07-05-2025 Elevator Constructor Office Visit Report [facility] [address], [address] [place] [address] OFFICE VISIT Date of Service: 07/05/25 MR#: [id number] Acct: [id number] Name: REESE WILLIS Rep #: [id number] : 2005 Provider: Dr. Viki rankin MD Age/Sex: 19/F [place] [facility] [place]: Signed Intake Vital Signs 05/23/25 11:25 06/17/25 14:21 07/05/25 15:54 Height 5 ft 9 in 5 ft 9 in 5 ft 9 in Weight: 240 lb BMI 35.4 BP 130/79 H Intake Visit Reasons: 34wk ob Plant Mechanic Required: No Is patient in pain?: No Allergies nickel Allergy (Mild, Verified 07/05/25 15:56) unknown Medications ???Medication ???Instructions ???Recorded ???Confirmed ???Type magnesium 250 mg tablet 250 mg PO QDAY 11/27/24 07/05/25 H istory Saccharomyces boulardii 250 mg 250 mg PO QHS 12/18/24 07/05/25 Hi story capsule (Digest Probiotic (S.boulardii)) multivitamin no.47-iron fum 27 cap PO 12/18/24 07/05/25 History mg-folate no.1 1 mg-dha 300 mg capsule (PNV-DHA) metoclopramide HCl 10 mg tablet 10 mg PO QACHS PRN nausea and 02/0307/05/25 Rx (Reglan) vomiting #60 tabs famotidine 20 mg tablet (Pepcid) 20 mg PO BID #60 tabs 07/05/25 Rx Last Menstrual Period: 10/29/24 Zika: Zika virus screening: Negative : No PFSH PFSH Medical History Acne Dysmenorrhea Seasonal allergies Hx of recurrent urinary tract infection Chronic neck and back pain Asthma Surgical History [place] teeth extracted H/O shoulder surgery History of appendectomy Family History Mother Hypertension Gestational diabetes 2nd only Grandmother Hypertension Maternal Blood clot in leg Diabetes Paternal Grandfather Cancer, Onset Age: 70 Paternal- Smoker Social History adopted: No household members: significant other housing: house number of children: 0 current occupational status: employed 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 Didn't like it. 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 OB Visit LAZARA Calculator Estimated Delivery Date Method Current WG Current Estimate 08/13/25 Ultrasound #1 34w 3d Other Estimates 08/05/25 LMP (Certain) 35w 4d Expected Delivery Route/Plan Labor Preferences- CB/BF classes: [] labor support person: [] labor intervention preferences: [] pain management options preferred: [] cut cord/dad catch: [] : [] PP control planned: [] discussed possible routes of delivery and associated risks: [] special requests: [] Specific Issue/Plans Covid status: unvaccinated Flu vaccine: unvaccinated Tdap vaccine: not up to date Rhogam: [] LARC form signed: [] Problem list reviewed and updated with the most current plan of care details and appropriate orders placed. Relevant counseling for the gestational age provided. Continue routine care and follow up unless otherwise noted in visit notes/problem list details Initial Weight: Not Recorded Date -???-???-???-???-???- ???-???-???-???-???-? ??-???- EGA Weight BP Urine Prot -???-???-???-???-???- ???-???-???-???-???-? ??-???- Glucose FHR FuHt Pres Dilation -???-???-???-???-???- ???-???-???-???-???-? ??-???- Effaced St Visit Note 01/10/25 -???-???-???-???-???- ???-???-???-???-???-? ??-???- 9w 2d 220 lb 6 oz 134/80 -???-???-???-???-???- ???-???-???-???-???-? ??-???- 178 -???-???-???-???-???- ???-???-???-???-???-? ??-???- JV- CRL is 8 day (more content not included)... Normal [facility] Reporton 2024 Chiropractic Report [facility] [address] [place] [address] OFFICE VISIT Date of Service: 06/24/25 MR#: [id number] Acct: [id number] Name: REESE WILLIS Rep #: [id number] : 2005 Provider: DALTON Casas Age/Sex: 19/F Location: [facility] [place] Status: Signed Intake Vital Signs 05/23/25 11:25 06/17/25 14:21 Height 5 ft 9 in 5 ft 9 in Weight: 238 lb 5 oz BMI 35.2 BP 117/75 Intake Visit Reasons: ADJUSTMENT 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: pubis pain Is patient in pain?: Yes (pubic bone) Pain scale (1-10): 7 Allergies nickel Allergy (Mild, Verified 06/24/25 13:04) unknown Medications ???Medication ???Instructions ???Recorded ???Confirmed ???Type magnesium 250 mg tablet 250 mg PO QDAY 11/27/24 06/24/25 H istory Saccharomyces boulardii 250 mg 250 mg PO QHS 12/18/24 06/24/25 Hi story capsule (Digest Probiotic (S.boulardii)) multivitamin no.47-iron fum 27 cap PO 12/18/24 06/24/25 History mg-folate no.1 1 mg-dha 300 mg capsule (PNV-DHA) metoclopramide HCl 10 mg tablet 10 mg PO QACHS PRN nausea and 02/0306/24/25 Rx (Reglan) vomiting #60 tabs PFSH Medical History Acne Dysmenorrhea Seasonal allergies Hx of recurrent urinary tract infection Chronic neck and back pain Asthma Surgical History [place] teeth extracted H/O shoulder surgery History of appendectomy Family History Mother Hypertension Gestational diabetes 2nd only Grandmother Hypertension Maternal Blood clot in leg Diabetes Paternal Grandfather Cancer, Onset Age: 70 Paternal- Smoker Social History adopted: No household members: significant other housing: house number of children: 0 current occupational status: employed 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 Didn't like it. 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 Pt. is currently 33 weeks . She states she continues to experience pubic pain and pressure especially when rolling over in bed and when she first stands up from sitting, L>R. She states this is a sharp pain and rates it 7/10 when it occurs. She also c/o some neck and upper back tightness equal bilaterally. She states she experiences pelvic pressure when she lifts her legs to put her pants on. She denies new injury, numbness, tingling or radiculopathy. She treats her pain at home with ice and stretching. She states chiropractic treatments are effective to relieve her pain but it gradually returns. Location: neck and low back Duration: intermittent Aggravating or associated factors: sleeping, walking Relieving factors: chiro Pain Quality: aching and dull Exam Musc General: Yes normal posture, normal gait, joint tenderness and decreased range of motion; No muscle weakness Cervical Spine: Yes normal cervical lordosis, Yes cervical muscular tenderness left greater than right diffuse paracervical muscle, trapezius and other, Yes cervical spasm left greater than right diffuse trapezius, paracervical muscles and intrinsics and Yes misalignment misalignment: C2, C3, C4, C5 and C6 Thoracic/Lumber: Yes thoracic and lumbar spine normal to inspection, Yes paraspinal tenderness on the left greater than right (upper thoracic, lumbopelvic), Yes thoraco-lumbar spasm bilaterally (lumbar paraspinal L3-L5) in the lower lumbar and on the left greater than right (trap, QL) and Yes misalignment T3, T4, T5, T6, L3, L4, L5, RIL and LIL Sacrum: Yes misalignment (left) Yes Office Procedures Procedures - Chiropractic Procedures Manipulation: Cervical C5, Lumbar L4, Sacrum (left) and Thoracic T4 Manipulation (more content not included)... Normal [facility] Urine Cultureon 06-19-2025 URC Mixed Gram Positive Organisms [place] Count 11,000-25,000 MIXC Mixed contaminants. Submit a new specimen if indicated. Normal [facility] Comment on above: Performed By: #### M [id number] #### [facility] [address] [place] [address]. [place], [place], [id number] Urine cultureOrdered By: Pablo Taveras on 06-18-2025 Bacteria identified Cx Nom (U) Positive Abnormal [facility] - Chemistry and C hemistry - challengeOrdered By: Gabriela Taveras on 06-17-2025 Bilirubin Ql (U) Negative [facility] Glucose Ql (U) Negative [facility] Ketones Ql (U) Negative [facility] pH (U) 8 [pH] [facility] Specific gravity (U) [Rel density] 1.010 [facility] Urobilinogen (U) [Mass/Vol] Negative [facility] - Hematology and Cell countsOrdered By: Gabriela Taveras on 06-17-2025 Hemoglobin Ql (U) Negative [facility] - Specimen inform ationOrdered By: Gabriela Taveras on 06-17-2025 Clarity (U) Cloudy [facility] Color (U) YELLOW [facility] - UrinalysisOrder ed By: Gabriela Taveras on 06-17-2025 Nitrite Ql (U) Negative [facility] Protein Ql (U) Negative [facility] No Panel InformationOrdered By: Gabriela Taveras on 06-17-2025 Urine Leukocytes Positive [facility] Urine Non-Hemolyzed Blood [facility] Elevator Constructor Office Visit Reporton 06-17-2025 Elevator Constructor Office Visit Report [facility] [address], [address] [place] [address] OFFICE VISIT Date of Service: 06/17/25 MR#: [id number] Acct: [id number] Name: REESE MCDONALD Rep #: [id number] : 2005 Provider: WILBER Chavira ams Age/Sex: 19/F [place] [facility] [place]: Signed Intake Vital Signs 05/09/25 10:59 06/05/25 14:54 06/17/25 14:21 Height 5 ft 9 in 5 ft 9 in 5 ft 9 in Weight: 238 lb 5 oz BMI 35.2 BP 117/75 Intake Visit Reasons: 32 WK OB 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 Is patient in pain?: No Allergies nickel Allergy (Mild, Verified 06/17/25 14:19) unknown Medications ???Medication ???Instructions ???Recorded ???Confirmed ???Type magnesium 250 mg tablet 250 mg PO QDAY 11/27/24 06/17/25 H istory Saccharomyces boulardii 250 mg 250 mg PO QHS 12/18/24 06/17/25 Hi story capsule (Digest Probiotic (S.boulardii)) multivitamin no.47-iron fum 27 cap PO 12/18/24 06/17/25 History mg-folate no.1 1 mg-dha 300 mg capsule (PNV-DHA) metoclopramide HCl 10 mg tablet 10 mg PO QACHS PRN nausea and 02/0306/17/25 Rx (Reglan) vomiting #60 tabs Last Menstrual Period: 10/29/24 : No Have you fallen in the past year?: No PFSH PFSH Medical History Acne Dysmenorrhea Seasonal allergies Hx of recurrent urinary tract infection Chronic neck and back pain Asthma Surgical History [place] teeth extracted H/O shoulder surgery History of appendectomy Family History Mother Hypertension Gestational diabetes 2nd only Grandmother Hypertension Maternal Blood clot in leg Diabetes Paternal Grandfather Cancer, Onset Age: 70 Paternal- Smoker Social History adopted: No household members: significant other housing: house number of children: 0 current occupational status: employed current occupation: [employer] current occupational exposures/hazards: No pets and animals: Yes pets and animals: dog(s) and farm animals history of recent travel: No sexually active: Yes Smoking Status: Never smoker alcohol intake: current alcohol intake frequency: holidays/special occasions only details: Not while substance use type: marijuana and other details: Pt tried a gummy one time 19st birthday. Didn't like it. 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 OB Visit LAZARA Calculator Estimated Delivery Date Method Current WG Current Estimate 08/13/25 Ultrasound #1 31w 6d Other Estimates 08/05/25 LMP (Certain) 33w 0d Expected Delivery Route/Plan Labor Preferences- CB/BF classes: [] labor support person: [] labor intervention preferences: [] pain management options preferred: [] cut cord/dad catch: [] : [] PP control planned: [] discussed possible routes of delivery and associated risks: [] special requests: [] Specific Issue/Plans Covid status: unvaccinated Flu vaccine: unvaccinated Tdap vaccine: not up to date Rhogam: [] LARC form signed: [] Problem list reviewed and updated with the most current plan of care details and appropriate orders placed. Relevant counseling for the gestational age provided. Continue routine care and follow up unless otherwise noted in visit notes/problem list details Initial Weight: Not Recorded Date -???-???-???-???-???- ???-???-???-???-???-? ??-???- EGA Weight BP Urine Prot -???-???-???-???-???- ???-???-???-???-???-? ??-???- Glucose FHR FuHt Pres Dilation -???-???-???-???-???- ???-???-???-???-???-? ??-???- Effaced St Visit Note 01/10/25 -???-???-???-???-???- ???-???-???-???-???-? ??-???- 9w 2d 220 lb 6 oz 134/80 -???-???-???-???-???- ???-???-???-???-???-? ??-???- 178 -???-???-???-???-???- ???-???-???-???-???-? ??-???- JV- CRL is 8 days off from LMP. declines NIPT. wants to return for new ob labs. 06 (more content not included)... Normal [facility] Urine cultureOrdered By: Pablo Taveras on 06-17-2025 Bacteria identified Cx Nom (U) Positive Abnormal [facility] - Chemistry and C hemistry - challengeOrdered By: Eugenia Nicole on 06-05-2025 Glucose Ql (U) Negative [facility] - UrinalysisOrder ed By: Eugenia Nicole on 06-05-2025 Protein Ql (U) Negative [facility] Elevator Constructor Office Visit Reporton 06-05-2025 Elevator Constructor Office Visit Report [facility] [address], [address] [place] [address] OFFICE VISIT Date of Service: 06/05/25 MR#: [id number] Acct: [id number] Name: REESE MCDONALD Rep #: [id number] : 2005 Provider: Dr. Eugenia Cordoba DO Age/Sex: 19/F Location: [facility] [place] Status: Signed Intake Vital Signs 05/09/25 10:59 05/23/25 11:25 06/05/25 14:54 Height 5 ft 9 in 5 ft 9 in 5 ft 9 in Weight: 237 lb 2 oz BMI 35.0 BP 121/71 H Intake Visit Reasons: 30 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 Is patient in pain?: No Allergies nickel Allergy (Mild, Verified 06/05/25 14:57) unknown Medications ???Medication ???Instructions ???Recorded ???Confirmed ???Type magnesium 250 mg tablet 250 mg PO QDAY 11/27/24 06/05/25 H istory Saccharomyces boulardii 250 mg 250 mg PO QHS 12/18/24 06/05/25 Hi story capsule (Digest Probiotic (S.boulardii)) multivitamin no.47-iron fum 27 cap PO 12/18/24 06/05/25 History mg-folate no.1 1 mg-dha 300 mg capsule (PNV-DHA) metoclopramide HCl 10 mg tablet 10 mg PO QACHS PRN nausea and 02/0306/05/25 Rx (Reglan) vomiting #60 tabs Last Menstrual Period: 10/29/24 Zika: Zika virus screening: Negative : No Have you fallen in the past year?: No PFSH PFSH Medical History Acne Dysmenorrhea Seasonal allergies Hx of recurrent urinary tract infection Chronic neck and back pain Asthma Surgical History [place] teeth extracted H/O shoulder surgery History of appendectomy Family History Mother Hypertension Gestational diabetes 2nd only Grandmother Hypertension Maternal Blood clot in leg Diabetes Paternal Grandfather Cancer, Onset Age: 70 Paternal- Smoker Social History adopted: No household members: significant other housing: house number of children: 0 current occupational status: employed 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 Didn't like it. 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 OB Visit LAZARA Calculator Estimated Delivery Date Method Current WG Current Estimate 08/13/25 Ultrasound #1 30w 1d Other Estimates 08/05/25 LMP (Certain) 31w 2d Expected Delivery Route/Plan Labor Preferences- CB/BF classes: [] labor support person: [] labor intervention preferences: [] pain management options preferred: [] cut cord/dad catch: [] : [] PP control planned: [] discussed possible routes of delivery and associated risks: [] special requests: [] Specific Issue/Plans Covid status: unvaccinated Flu vaccine: unvaccinated Tdap vaccine: not up to date Rhogam: [] LARC form signed: [] Problem list reviewed and updated with the most current plan of care details and appropriate orders placed. Relevant counseling for the gestational age provided. Continue routine care and follow up unless otherwise noted in visit notes/problem list details Initial Weight: Not Recorded Date -???-???-???-???-???- ???-???-???-???-???-? ??-???- EGA Weight BP Urine Prot -???-???-???-???-???- ???-???-???-???-???-? ??-???- Glucose FHR FuHt Pres Dilation -???-???-???-???-???- ???-???-???-???-???-? ??-???- Effaced St Visit Note 01/10/25 -???-???-???-???-???- ???-???-???-???-???-? ??-???- 9w 2d 220 lb 6 oz 134/80 -???-???-???-???-???- ???-???-???-???-???-? ??-???- 178 -???-???-???-???-???- ???-???-???-???-???-? ??-???- JV- CRL is 8 days off from LMP. declines NIPT. wants to re (more content not included)... Normal [facility] Chiropractic Reporton 2024 Chiropractic Report [facility] [address] [place] [address] OFFICE VISIT Date of Service: 05/27/25 MR#: [id number] Acct: [id number] Name: REESE MCDONALD Rep #: [id number] : 2005 Provider: DALTON Casas Age/Sex: 19/F Location: [facility] [place] Status: Signed Intake Vital Signs 04/09/25 14:14 05/23/25 11:25 Height 5 ft 9 in 5 ft 9 in Intake Visit Reasons: ADJUSTMENT 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: pubic pain, neck discomfort Is patient in pain?: Yes (pubis, pelvis) Pain scale (1-10): 7 Allergies nickel Allergy (Mild, Verified 05/27/25 13:48) unknown Medications ???Medication ???Instructions ???Recorded ???Confirmed ???Type magnesium 250 mg tablet 250 mg PO QDAY 11/27/24 05/27/25 H istory Saccharomyces boulardii 250 mg 250 mg PO QHS 12/18/24 05/27/25 Hi story capsule (Digest Probiotic (S.boulardii)) multivitamin no.47-iron fum 27 cap PO 12/18/24 05/27/25 History mg-folate no.1 1 mg-dha 300 mg capsule (PNV-DHA) metoclopramide HCl 10 mg tablet 10 mg PO QACHS PRN nausea and 02/0305/27/25 Rx (Reglan) vomiting #60 tabs PFSH Medical History Acne Dysmenorrhea Seasonal allergies Hx of recurrent urinary tract infection Chronic neck and back pain Asthma Surgical History [place] teeth extracted H/O shoulder surgery History of appendectomy Family History Mother Hypertension Gestational diabetes 2nd only Grandmother Hypertension Maternal Blood clot in leg Diabetes Paternal Grandfather Cancer, Onset Age: 70 Paternal- Smoker Social History adopted: No household members: significant other housing: house number of children: 0 current occupational status: employed current occupation: [employer] current occupational exposures/hazards: No pets and animals: Yes pets and animals: dog(s) and farm animals history of recent travel: No sexually active: Yes Smoking Status: Never smoker alcohol intake: current alcohol intake frequency: holidays/special occasions only details: Not while substance use type: marijuana and other details: Pt tried a gummy one time 19st birthday. Didn't like it. 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 Pt. is currently 29 weeks . She states she continues to experience pubic pressure especially when rolling over in bed and when she first stands up from sitting. She states this is a sharp pain and rates it 7/10 when it occurs. She also c/o some neck and upper back tightness equal bilaterally. She states she experiences pelvic pressure when she lifts her legs to put her pants on. She denies new injury, numbness, tingling or radiculopathy. She treats her pain at home with ice and stretching. She states chiropractic treatments are effective to relieve her pain but it gradually returns. Location: neck and low back Duration: intermittent Aggravating or associated factors: sleeping, walking Relieving factors: chiro Pain Quality: aching and dull Exam Musc General: Yes normal posture, normal gait, joint tenderness and decreased range of motion; No muscle weakness Cervical Spine: Yes normal cervical lordosis, Yes cervical muscular tenderness left greater than right diffuse paracervical muscle, trapezius and other, Yes cervical spasm left greater than right diffuse trapezius, paracervical muscles and intrinsics and Yes misalignment misalignment: C2, C3, C4, C5 and C6 Thoracic/Lumber: Yes thoracic and lumbar spine normal to inspection, Yes paraspinal tenderness on the left greater than right (upper thoracic, lumbopelvic), Yes thoraco-lumbar spasm bilaterally (lumbar paraspinal L3-L5) in the lower lumbar and on the left greater than right (trap, QL) and Yes misalignment T3, T4, T5, T6, L3, L4, L5, RIL and LIL Sacrum: Yes misalignment (left) Yes Office Procedures Procedures - Chiropractic Procedures Manipulation: Cervical C5, Lumbar L4, Sacrum (left) and Thoracic T4 Manipulation: 3-4 regions (right) Patient Response: po (more content not included)... Normal [facility] - Chemistry and C hemistry - challengeOrdered By: Gabriela Taveras on 05-23-2025 Glucose Ql (U) Negative [facility] - UrinalysisOrder ed By: Gabriela Taveras on 05-23-2025 Protein Ql (U) Negative [facility] Elevator Constructor Office Visit Reporton 05-23-2025 Elevator Constructor Office Visit Report [facility], [address] [place] [address] OFFICE VISIT Date of Service: 05/23/25 MR#: [id number] Acct: [id number] Name: REESE MCDONALD Rep #: [id number] : 2005 Provider: WILBER Chavira ams Age/Sex: 19/F Location: [facility] [place] Status: Signed Intake Vital Signs 03/12/25 14:50 05/09/25 10:59 05/23/25 11:17 05/23/25 11:25 Height 5 ft 9 in 5 ft 9 in 5 ft 9 in 5 ft 9 in Weight: 233 lb BMI 34.4 BP 116/68 Intake Visit Reasons: 28 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 Is patient in pain?: No Allergies nickel Allergy (Mild, Verified 05/23/25 11:20) unknown Medications ???Medication ???Instructions ???Recorded ???Confirmed ???Type magnesium 250 mg tablet 250 mg PO QDAY 11/27/24 05/23/25 H istory Saccharomyces boulardii 250 mg 250 mg PO QHS 12/18/24 05/23/25 Hi story capsule (Digest Probiotic (S.boulardii)) multivitamin no.47-iron fum 27 cap PO 12/18/24 05/23/25 History mg-folate no.1 1 mg-dha 300 mg capsule (PNV-DHA) metoclopramide HCl 10 mg tablet 10 mg PO QACHS PRN nausea and 02/0305/23/25 Rx (Reglan) vomiting #60 tabs Last Menstrual Period: 10/29/24 Zika: Zika virus screening: Negative : No Have you fallen in the past year?: No PFSH PFSH Medical History Acne Dysmenorrhea Seasonal allergies Hx of recurrent urinary tract infection Chronic neck and back pain Asthma Surgical History [place] teeth extracted H/O shoulder surgery History of appendectomy Family History Mother Hypertension Gestational diabetes 2nd only Grandmother Hypertension Maternal Blood clot in leg Diabetes Paternal Grandfather Cancer, Onset Age: 70 Paternal- Smoker Social History adopted: No household members: significant other housing: house number of children: 0 current occupational status: employed 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 Didn't like it. 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 OB Visit LAZARA Calculator Estimated Delivery Date Method Current WG Current Estimate 08/13/25 Ultrasound #1 28w 2d Other Estimates 08/05/25 LMP (Certain) 29w 3d Expected Delivery Route/Plan Labor Preferences- CB/BF classes: [] labor support person: [] labor intervention preferences: [] pain management options preferred: [] cut cord/dad catch: [] : [] PP control planned: [] discussed possible routes of delivery and associated risks: [] special requests: [] Specific Issue/Plans Covid status: unvaccinated Flu vaccine: unvaccinated Tdap vaccine: not up to date Rhogam: [] LARC form signed: [] Problem list reviewed and updated with the most current plan of care details and appropriate orders placed. Relevant counseling for the gestational age provided. Continue routine care and follow up unless otherwise noted in visit notes/problem list details Initial Weight: Not Recorded Date -???-???-???-???-???- ???-???-???-???-???-? ??-???- EGA Weight BP Urine Prot -???-???-???-???-???- ???-???-???-???-???-? ??-???- Glucose FHR FuHt Pres Dilation -???-???-???-???-???- ???-???-???-???-???-? ??-???- Effaced St Visit Note 01/10/25 -???-???-???-???-???- ???-???-???-???-???-? ??-???- 9w 2d 220 lb 6 oz 134/80 -???-???-???-???-???- ???-???-???-???-???-? ??-???- 178 -???-???-???-???-???- ???-???-???-???-???-? ??-???- JV- CRL is 8 days off from LMP. declines (more content not included)... Normal [facility] OB Limited With Biometricson 05-21-2025 OB Limited With Biometrics [facility] Imaging Services [address] [place], [place] [id number] OB Limited With Biometrics MR#: [id number] Acct: [id number] Name: REESE MCDONALD Rep #: [id number] : 2005 F 19 From: Tennille Sherwood MD PCP: Dr. Isi Justice MD Status: [facility] CLI Study: OB Limited With Biometrics Date of Exam: 05/21 Exam# [id number] Ordering Dr: Gabriela Taveras CNM ADDENDUM by Dr. Tennille Sherwood MD on 05/29/25 at 2329 The lower margin of the placenta is 2.3 cm from the internal os. No evidence of a low lying placenta. Reading Location: [id number] 05/29/25 9050 Date cc: WILBER Taveras; Dr. Isi Justice MD * Signed PROCEDURE: OB LIMITED WITH BIOMETRICS 05/21/2025 REASON FOR EXAM: PLACENTA LOCATION TECHNIQUE: Procedure Code: USOBGROWTH Modality: US Procedure: OB LIMITED WITH BIOMETRICS. Transabdominal imaging of the maternal pelvis and a > 14 week gestation with image documentation. FINDINGS FETUS: There is a single living intrauterine gestation. POSITION: position is cephalic. HEART RATE: The heart rate is 148 BPM and regular. BIOMETRICS: Based on composite biometry, the composite estimated gestational age by ultrasound is 28 weeks 4 days. LMP gestational age: 28 weeks 0 days LMP LAZARA: August 13, 2025 Sonographic gestational age: 28 weeks 4 days Sonographic LAZARA: August 09, 2025 ANATOMIC SURVEY: anatomy survey not performed. PLACENTA: The placenta is posterior, grade 2. No demonstrated evidence of previa or abruption. AMNIOTIC FLUID: Within normal limits. MAGO measuring 9.9 cm. Deepest vertical pocket (DVP) measuring 3.5 cm. CERVIX: Long and closed measuring 4.5 cm in length. Unremarkable as visualized. SONOGRAPHIC MEASUREMENTS: Bi-Parietal Diameter (BPD): 7.2 cm; 29 weeks 0 days Head Circumference (HC): 26.6 cm; 29 weeks 0 days Abdominal Circumference (AC): 23.9 cm; 28 weeks 2 days Femur Length (FL): 5.3 cm; 28 weeks 0 days Estimated weight: 1204 grams +/- 178 grams (2 lb, 7 oz) EFW percentile: 48.5 % MATERNAL OVARIES: Not visualized. US/OB Limited With Biometrics IMPRESSION: 1. Single living intrauterine gestation estimated at 28 weeks 4 days by today's ultrasound criteria. Size equals dates with normal interval growth. 2. No acute abnormality detected. Reading Location: [facility] [place] CC: WILBER Taveras; Dr. Isi Justice MD Java Security Architect: Signed Normal [facility] Absolute lymphocyte countOrd ered By: Gabriela Taveras on 05-09-2025 Lymphocytes Auto (Unsp spec) [#/Vol] 1.66 10*3/uL 0.83-4.51 [facility] Absolute neutrophil countOrd ered By: Gabriela Taveras on 05-09-2025 Neutrophils (Bld) [#/Vol] 8.5 10*3/uL High 2.0-7.7 [facility] Automated lymphocyte count a s percentage of total leukocytesOrdered By: Gabriela Taveras on 05-09-2025 Lymphocytes/100 WBC Auto (Unsp spec) 14.9 % Low 19-41 [facility] Basophil percentageOrdered B y: Gabriela Taveras on 05-09-2025 Basophils/100 WBC (Bld) 0.5 % 0-1 [facility] CBC W/Diff, Automatedon Absolute Lymph 1.66 X10 3/uL Normal 0.83-4.51 [facility] Comment on above: Performed By: #### L 3890.6006, L501.0250, L509.8002, L100.0100 ####[facility] [address] [place], [address] Absolute Neut 8.5 X10 3/uL High 2.0-7.7 [facility] Comment on above: Performed By: #### L 3890.6006, L501.0250, L509.8002, L100.0100 ####[facility] [address] [place], [address] Basophils/100 WBC (Bld) 0.5 % Normal 0-1 [facility] Comment on above: Performed By: #### L 3890.6006, L501.0250, L509.8002, L100.0100 ####[facility] [address] [place], [address] Eosinophils/100 WBC (Bld) 0.6 % Normal 0-5 [facility] Comment on above: Performed By: #### L 3890.6006, L501.0250, L509.8002, L100.0100 ####[facility] [address] [place], [address] Erythrocyte distribution width (RBC) [Ratio] 12.4 % Normal 11.6-14.6 [facility] Comment on above: Performed By: #### L 3890.6006, L501.0250, L509.8002, L100.0100 ####[facility] [address] [place], [address] Hematocrit (Bld) [Volume fraction] 39.3 % Normal 37-47 [facility] Comment on above: Performed By: #### L 3890.6006, L501.0250, L509.8002, L100.0100 ####[facility] [address] [place], [address] Hemoglobin (Bld) [Mass/Vol] 13.4 g/dL Normal 12.0-15.0 [facility] Comment on above: Performed By: #### L 3890.6006, L501.0250, L509.8002, L100.0100 ####[facility] [address] [place], [address] IG% 1.100 High 0.0-0.9 [facility] Comment on above: Result Comment: IG% - Immature Granulocytes (promyelocytes, myelocytes and metamyelocytes) > 1% indicates that a LEFT SHIFT is Present. Performed By: #### L 3890.6006, L501.0250, L509.8002, L100.0100 ####[facility] [address] [place], [address] Lymphocytes/100 WBC (Bld) 14.9 % Low 19-41 [facility] Comment on above: Performed By: #### L 3890.6006, L501.0250, L509.8002, L100.0100 ####[facility] [address] [place], [address] MCH (RBC) [Entitic mass] 31.0 pg Normal 27.0-32.0 [facility] Comment on above: Performed By: #### L 3890.6006, L501.0250, L509.8002, L100.0100 ####[facility] [address] [place], [address] MCHC (RBC) [Mass/Vol] 34.1 g/dL Normal 32-36 [facility] Comment on above: Performed By: #### L 3890.6006, L501.0250, L509.8002, L100.0100 ####[facility] [address] [place], [address] MCV (RBC) [Entitic vol] 91.0 fL Normal 81-99 [facility] Comment on above: Performed By: #### L 3890.6006, L501.0250, L509.8002, L100.0100 ####[facility] [address] [place], [address] Monocytes/100 WBC (Bld) 7.0 % Normal 0-10 [facility] Comment on above: Performed By: #### L 3890.6006, L501.0250, L509.8002, L100.0100 ####[facility] [address] [place], [address] Neutrophils/100 WBC (Bld) 75.9 % High 47-70 [facility] Comment on above: Performed By: #### L 3890.6006, L501.0250, L509.8002, L100.0100 ####[facility] [address] [place], [address] Nucleated RBC (Bld) [#/Vol] 0 10*3/uL Normal 0-5 [facility] Comment on above: Performed By: #### L 3890.6006, L501.0250, L509.8002, L100.0100 ####[facility] [address] [place], [address] Platelet mean volume (Bld) [Entitic vol] 9.9 fL Normal 6.2-12.0 [facility] Comment on above: Performed By: #### L 3890.6006, L501.0250, L509.8002, L100.0100 ####[facility] [address] [place], [address] Platelets (Bld) [#/Vol] 288 10*3/uL Normal 150-450 [facility] Comment on above: Performed By: #### L 3890.6006, L501.0250, L509.8002, L100.0100 ####[facility] [address] [place], [address] RBC (Bld) [#/Vol] 4.32 10*6/uL Normal 4.2-5.4 [facility] Comment on above: Performed By: #### L 3890.6006, L501.0250, L509.8002, L100.0100 ####[facility] [address] [place], [address] RDW SD 41.0 fl Normal 35.1-43.9 [facility] Comment on above: Performed By: #### L 3890.6006, L501.0250, L509.8002, L100.0100 ####[facility] [address] [place], [address] WBC (Bld) [#/Vol] 11.1 10*3/uL High 4.4-11.0 [facility] Comment on above: Performed By: #### L 3890.6006, L501.0250, L509.8002, L100.0100 ####[facility] [address] [place], [address] Eosinophil percentageOrdered By: Gabriela Taveras on 05-09-2025 Eosinophils/100 WBC (Bld) 0.6 % 0-5 [facility] Erythrocyte distribution wid th ratioOrdered By: Gabriela Taveras on 05-09-2025 Erythrocyte distribution width (RBC) [Ratio] 12.4 % 11.6-14.6 [facility] Erythrocyte distribution wid th standard deviationOrdered By: Gabriela Taveras on 05-09-2025 Erythrocyte distribution width (RBC) [Ratio] 41.0 fl 35.1-43.9 [facility] Glucose Challenge Gest 1H 50 [place] 05-09-2025 GLU GEST 50g 1H 85 mg/dL Normal 70-140 [facility] Comment on above: Performed By: #### L 3890.6006, L501.0250, L509.8002, L100.0100 ####[facility] [address] [place], [address] Glucose measurement at 2 yoana rs post-dose gestational glucose tolerance testOrdered By: Gabriela Taversa on 05-09-2025 Glucose [Mass/Vol] 85 mg/dL 70-140 [facility] HIVon 05-09-2025 HIV Non-Reactive Normal Nonreactive [facility] Comment on above: Result Comment: Non- Reactive Reactive Repeatedly reactive samples must be confirmed according to CDC recommended confirmatory algorithms. The subresults for either HIVAG or AHIV can be used as an aid in the selection of the confirmation algorithm for reactive samples. Send out specimens with Reactive results to [facility] for confirmation. Order the HIV antibody detection and differentiation: lc#[id number] Performed By: #### L 3890.6006, L501.0250, L509.8002, L100.0100 ####[facility] [address] [place], [address] Hematocrit Auto (Bld) [Volum e fraction]Ordered By: Gabriela Taveras on 05-09-2025 Hematocrit (Bld) [Volume fraction] 39.3 % 37-47 [facility] Hemoglobin measurementOrdere d By: Gabriela Taveras on 05-09-2025 Hemoglobin (Bld) [Mass/Vol] 13.4 g/dL 12.0-15.0 [facility] Immature granulocytes/100 WB C Auto (Bld)Ordered By: Gabriela Taveras on 05-09-2025 Immature granulocytes/100 WBC (Bld) 1.100 % High 0.0-0.9 [facility] Comment on above: IG% - Immature Granu locytes (promyelocytes, myelocytes and metamyelocytes) > 1% indicates that a LEFT SHIFT is Present. Laboratory - Chemistry and C hemistry - challengeOrdered By: Viki Case on 05-09-2025 Glucose Ql (U) Negative [facility] - UrinalysisOrder ed By: Viki Case on 05-09-2025 Protein Ql (U) Negative [facility] MCV (mean corpuscular volume ) determinationOrdered By: Gabriela Taveras on 05-09-2025 MCV (RBC) [Entitic vol] 91.0 fL 81-99 [facility] Mean corpuscular hemoglobin (MCH) determinationOrdered By: Gabriela Taveras on 05-09-2025 MCH (RBC) [Entitic mass] 31.0 pg 27.0-32.0 [facility] Mean corpuscular hemoglobin concentration (MCHC) determinationOrdered By: Gabriela Taveras on 05-09-2025 MCHC (RBC) [Mass/Vol] 34.1 g/dL 32-36 [facility] Mean platelet volume determi nationOrdered By: Gabriela Taveras on 05-09-2025 Platelet mean volume (Bld) [Entitic vol] 9.9 fL 6.2-12.0 [facility] Monocyte percentageOrdered B y: Gabriela Taveras on 05-09-2025 Monocytes/100 WBC (Bld) 7.0 % 0-10 [facility] Neutrophil percentageOrdered By: Gabriela Taveras on 05-09-2025 Neutrophils/100 WBC (Bld) 75.9 % High 47-70 [facility] No Panel InformationOrdered By: Gabriela Taveras on 05-09-2025 HIV (1&2) Antibody Non-Reactive Nonreactive [facility] Comment on above: Non-ReactiveReactive Repeatedly reactive samples must be confirmed according to CDC recommended confirmatory algorithms. The subresults for either HIVAG or AHIV can be used as an aid in the selection of the confirmation algorithm for reactive samples.Send out specimens with Reactive results to [facility] for confirmation.Order the HIV antibody detection and differentiation: #[id number] Nucleated red blood cell per centageOrdered By: Gabriela Taveras on 05-09-2025 Nucleated RBC/100 WBC (Bld) [Ratio] 0 % 0-5 [facility] Elevator Constructor Office Visit Reporton 05-09-2025 Elevator Constructor Office Visit Report [facility] [address], [address] [place] [address] OFFICE VISIT Date of Service: 05/09/25 MR#: [id number] Acct: [id number] Name: REESE MCDONALD Rep #: [id number] : 2005 Provider: Dr. 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 Is patient in pain?: No Allergies nickel Allergy (Mild, Verified 05/09/25 10:58) unknown Medications ???Medication ???Instructions ???Recorded ???Confirmed ???Type magnesium 250 mg tablet 250 mg PO QDAY 11/27/24 05/09/25 H istory Saccharomyces boulardii 250 mg 250 mg PO QHS 12/18/24 05/09/25 Hi story capsule (Digest Probiotic (S.boulardii)) multivitamin no.47-iron fum 27 cap PO 12/18/24 05/09/25 History mg-folate no.1 1 mg-dha 300 mg capsule (PNV-DHA) metoclopramide HCl 10 mg tablet 10 mg PO QACHS PRN nausea and 02/0305/09/25 Rx (Reglan) vomiting #60 tabs Last Menstrual Period: 10/29/24 Zika: Zika virus screening: Negative : No PFSH PFSH Medical History Acne Dysmenorrhea Seasonal allergies Hx of recurrent urinary tract infection Chronic neck and back pain Asthma Surgical History [place] teeth extracted H/O shoulder surgery History of appendectomy Family History Mother Hypertension Gestational diabetes 2nd only Grandmother Hypertension Maternal Blood clot in leg Diabetes Paternal Grandfather Cancer, Onset Age: 70 Paternal- Smoker Social History adopted: No household members: significant other housing: house number of children: 0 current occupational status: employed current occupation: [employer] current occupational exposures/hazards: No pets and animals: Yes pets and animals: dog(s) and farm animals history of recent travel: No sexually active: Yes Smoking Status: Never smoker alcohol intake: current alcohol intake frequency: holidays/special occasions only details: Not while substance use type: marijuana and other details: Pt tried a gummy one time 19st birthday. Didn't like it. 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 OB Visit LAZARA Calculator Estimated Delivery Date Method Current WG Current Estimate 08/13/25 Ultrasound #1 26w 2d Other Estimates 08/05/25 LMP (Certain) 27w 3d Expected Delivery Route/Plan Labor Preferences- CB/BF classes: [] labor support person: [] labor intervention preferences: [] pain management options preferred: [] cut cord/dad catch: [] : [] PP control planned: [] discussed possible routes of delivery and associated risks: [] special requests: [] Specific Issue/Plans Covid status: unvaccinated Flu vaccine: unvaccinated Tdap vaccine: not up to date Rhogam: [] LARC form signed: [] Problem list reviewed and updated with the most current plan of care details and appropriate orders placed. Relevant counseling for the gestational age provided. Continue routine care and follow up unless otherwise noted in visit notes/problem list details Initial Weight: Not Recorded Date -???-???-???-???-???- ???-???-???-???-???-? ??-???- EGA Weight BP Urine Prot -???-???-???-???-???- ???-???-???-???-???-? ??-???- Glucose FHR FuHt Pres Dilation -???-???-???-???-???- ???-???-???-???-???-? ??-???- Effaced St Visit Note 01/10/25 -???-???-???-???-???- ???-???-???-???-???-? ??-???- 9w 2d 220 lb 6 oz 134/80 -???-???-???-???-???- ???-???-???-???-???-? ??-???- 178 -???-???-???-???-???- ???-???-???-???-???-? ??-???- JV- CRL is 8 days off from LMP. declines NIPT. wants to return fo (more content not included)... Normal [facility] Platelet countOrdered By: Isra Taveras on 05-09-2025 Platelets (Bld) [#/Vol] 288 10*3/uL 150-450 [facility] RBC Auto (Bld) [#/Vol]Ordere d By: Gabriela Taveras on 05-09-2025 RBC (Bld) [#/Vol] 4.32 10*6/uL 4.2-5.4 [facility] Syphilis Antibodieson 2024 Syphilis Abs Non-Reactive Normal Nonreactive [facility] Comment on above: Performed By: #### L 3890.6006, L501.0250, L509.8002, L100.0100 ####[facility] [id number] [place], [place], [id number] White blood cell (WBC) count Ordered By: Gabriela Taveras on 05-09-2025 WBC (Bld) [#/Vol] 11.1 10*3/uL High 4.4-11.0 [facility] Chiropractic Reporton 2024 Chiropractic Report [facility] [address] [place] [id number] OFFICE VISIT Date of Service: 05/01/25 MR#: [id number] Acct: [id number] Name: REESE MCDONALD Rep #: [id number] : 2005 Provider: DALTON Casas Age/Sex: 19/F Location[place] [facility] [place] Status: Signed Intake Vital Signs 03/12/25 14:50 04/09/25 14:14 Height 5 ft 9 in 5 ft 9 in Weight: 223 lb 1 oz BMI 32.9 BP 124/76 H Intake Visit Reasons: ADJUSTMENT 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: 22wk OB Allergies nickel Allergy (Mild, Verified 04/09/25 14:10) unknown [facility] Medical History Acne Dysmenorrhea Seasonal allergies Hx of recurrent urinary tract infection Chronic neck and back pain Asthma Surgical History [place] teeth extracted H/O shoulder surgery History of appendectomy Family History Mother Hypertension Gestational diabetes 2nd only Grandmother Hypertension Maternal Blood clot in leg Diabetes Paternal Grandfather Cancer, Onset Age: 70 Paternal- Smoker Social History adopted: No household members: significant other housing: house number of children: 0 current occupational status: employed current occupation: [employer] current occupational exposures/hazards: No pets and animals: Yes pets and animals: dog(s) and farm animals history of recent travel: No sexually active: Yes Smoking Status: Never smoker alcohol intake: current alcohol intake frequency: holidays/special occasions only details: Not while substance use type: marijuana and other details: Pt tried a gummy one time 19st birthday. Didn't like it. 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 Pt. is currently 25 weeks . She states she continues to experience some neck and upper back tightness equal bilaterally which makes it difficult to sleep well. She states her low back is feeling great. She has been experiencing pelvic pressure over the last few weeks especially when she lifts her legs to put her pants on. She denies new injury, numbness, tingling or radiculopathy. She treats her pain at home with ice and stretching. She states chiropractic treatments are effective to relieve her pain. Location: neck and low back Duration: intermittent Aggravating or associated factors: sleeping, walking Relieving factors: chiro Pain Quality: aching and dull Exam Musc General: Yes normal posture, normal gait, joint tenderness and decreased range of motion; No muscle weakness Cervical Spine: Yes normal cervical lordosis, Yes cervical muscular tenderness left greater than right diffuse paracervical muscle, trapezius and other, Yes cervical spasm left greater than right diffuse trapezius, paracervical muscles and intrinsics and Yes misalignment misalignment: C2, C3, C4, C5 and C6 Thoracic/Lumber: Yes thoracic and lumbar spine normal to inspection, Yes paraspinal tenderness on the left greater than right (upper thoracic, lumbopelvic), Yes thoraco-lumbar spasm bilaterally (lumbar paraspinal L3-L5) in the lower lumbar and on the left greater than right (trap, QL) and Yes misalignment T3, T4, T5, T6, L3, L4, L5, RIL and LIL Sacrum: Yes misalignment (right) Yes Office Procedures Procedures - Chiropractic Procedures Manipulation: Cervical C5, Lumbar L4, Sacrum (right) and Thoracic T4 Manipulation: 3-4 regions Patient Response: positive Assessment and Plan Assessment and Plan (1) Segmental and somatic dysfunction of cervical region: Status: Acute (2) Segmental and somatic dysfunction of thoracic region: Status: Acute (3) Segmental and somatic dysfunction of lumbar region: Status: Acute (4) Segmental and somatic dysfunction of sacral region: Status: Acute (5) : Status: Acute Qualifiers: Weeks of gestation: 22 weeks Qualified Code(s): Z3A.22 - 22 weeks gestation of Comment: Declines NIPT Carrier testing; declines AFP Orders: Orders Chiropractic Treatments Today M99.01 - Segmental and somatic dysfunction of cervi (more content not included)... Normal [facility] - Chemistry and C hemistry - challengeOrdered By: Gabriela Taveras on 04-09-2025 Glucose Ql (U) Negative [facility] - UrinalysisOrder ed By: Gabriela Taveras on 04-09-2025 Protein Ql (U) Negative [facility] Elevator Constructor Office Visit Reporton 04-09-2025 Elevator Constructor Office Visit Report [facility] [address], [address] [place] [address] OFFICE VISIT Date of Service: 04/09/25 MR#: [id number] Acct: [id number] Name: REESE MCDONALD Rep #: [id number] : 2005 Provider: WILBER Chavira ams Age/Sex: 19/F [place] [facility] [place]: Signed Intake Vital Signs 03/12/25 14:50 04/09/25 14:14 Height 5 ft 9 in 5 ft 9 in Weight: 218 lb 223 lb 1 oz BMI 32.1 32.9 BP 113/72 124/76 H Intake Visit Reasons: 22 wk ob 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 Is patient in pain?: No Allergies nickel Allergy (Mild, Verified 04/09/25 14:10) unknown Medications ???Medication ???Instructions ???Recorded ???Confirmed ???Type magnesium 250 mg tablet 250 mg PO QDAY 11/27/24 04/09/25 H istory Saccharomyces boulardii 250 mg 250 mg PO QHS 12/18/24 04/09/25 Hi story capsule (Digest Probiotic (S.boulardii)) multivitamin no.47-iron fum 27 cap PO 12/18/24 04/09/25 History mg-folate no.1 1 mg-dha 300 mg capsule (PNV-DHA) metoclopramide HCl 10 mg tablet 10 mg PO QACHS PRN nausea and 02/0304/09/25 Rx (Reglan) vomiting #60 tabs Last Menstrual Period: 10/29/24 : No PFSH PFSH Medical History Acne Dysmenorrhea Seasonal allergies Hx of recurrent urinary tract infection Chronic neck and back pain Asthma Surgical History [place] teeth extracted H/O shoulder surgery History of appendectomy Family History Mother Hypertension Gestational diabetes 2nd only Grandmother Hypertension Maternal Blood clot in leg Diabetes Paternal Grandfather Cancer, Onset Age: 70 Paternal- Smoker Social History adopted: No household members: significant other housing: house number of children: 0 current occupational status: employed current occupation: [employer] current occupational exposures/hazards: No pets and animals: Yes pets and animals: dog(s) and farm animals history of recent travel: No sexually active: Yes Smoking Status: Never smoker alcohol intake: current alcohol intake frequency: holidays/special occasions only details: Not while substance use type: marijuana and other details: Pt tried a gummy one time 19st birthday. Didn't like it. 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 OB Visit LAZARA Calculator Estimated Delivery Date Method Current WG Current Estimate 08/13/25 Ultrasound #1 22w 0d Other Estimates 08/05/25 LMP (Certain) 23w 1d Expected Delivery Route/Plan Labor Preferences- CB/BF classes: [] labor support person: [] labor intervention preferences: [] pain management options preferred: [] cut cord/dad catch: [] : [] PP control planned: [] discussed possible routes of delivery and associated risks: [] special requests: [] Specific Issue/Plans Covid status: unvaccinated Flu vaccine: unvaccinated Tdap vaccine: not up to date Rhogam: [] LARC form signed: [] Problem list reviewed and updated with the most current plan of care details and appropriate orders placed. Relevant counseling for the gestational age provided. Continue routine care and follow up unless otherwise noted in visit notes/problem list details Initial Weight: Not Recorded Date -???-???-???-???-???- ???-???-???-???-???-? ??-???- EGA Weight BP Urine Prot -???-???-???-???-???- ???-???-???-???-???-? ??-???- Glucose FHR FuHt Pres Dilation -???-???-???-???-???- ???-???-???-???-???-? ??-???- Effaced St Visit Note 01/10/25 -???-???-???-???-???- ???-???-???-???-???-? ??-???- 9w 2d 220 lb 6 oz 134/80 -???-???-???-???-???- ???-???-???-???-???-? ??-???- 178 -???-???-???-???-???- ???-???-???-???-???-? ??-???- JV- CRL is 8 days off from LMP. declines NIPT. wants to return for new ob labs. 02/13/25 -???-???-???-???-???- ???-???-???-???- (more content not included)... Normal [facility] Reporton 2024 Chiropractic Report [facility] [address] [place] [address] OFFICE VISIT Date of Service: 04/03/25 MR#: [id number] Acct: [id number] Name: REESE MCDONALD Rep #: [id number] : 2005 Provider: DALTON Casas Age/Sex: 19/F Location: [facility] [place] Status: Signed Intake Vital Signs 02/13/25 09:50 03/12/25 14:50 Height 5 ft 9 in 5 ft 9 in Weight: 218 lb BMI 32.1 BP 113/72 Intake Visit Reasons: ADJUSTMENT 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: neck, upper back Allergies nickel Allergy (Mild, Verified 04/03/25 08:09) unknown Medications ???Medication ???Instructions ???Recorded ???Confirmed ???Type magnesium 250 mg tablet 250 mg PO QDAY 11/27/24 04/03/25 H istory Saccharomyces boulardii 250 mg 250 mg PO QHS 12/18/24 04/03/25 Hi story capsule (Digest Probiotic (S.boulardii)) multivitamin no.47-iron fum 27 cap PO 12/18/24 04/03/25 History mg-folate no.1 1 mg-dha 300 mg capsule (PNV-DHA) metoclopramide HCl 10 mg tablet 10 mg PO QACHS PRN nausea and 02/0304/03/25 Rx (Reglan) vomiting #60 tabs PFSH Medical History Acne Dysmenorrhea Seasonal allergies Hx of recurrent urinary tract infection Chronic neck and back pain Asthma Surgical History [place] teeth extracted H/O shoulder surgery History of appendectomy Family History Mother Hypertension Gestational diabetes 2nd only Grandmother Hypertension Maternal Blood clot in leg Diabetes Paternal Grandfather Cancer, Onset Age: 70 Paternal- Smoker Social History adopted: No household members: significant other housing: house number of children: 0 current occupational status: employed current occupation: [employer] current occupational exposures/hazards: No pets and animals: Yes pets and animals: dog(s) and farm animals history of recent travel: No sexually active: Yes Smoking Status: Never smoker alcohol intake: current alcohol intake frequency: holidays/special occasions only details: Not while substance use type: marijuana and other details: Pt tried a gummy one time 19st birthday. Didn't like it. 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 Pt. is currently 21 weeks . She states she continues to have difficulty sleeping well and has been experiencing some neck and upper back tightness equal bilaterally. She states her low back is feeling great. She did some yard work and swam yesterday so she is tired but feels good otherwise. She got stung by a bee yesterday and her left hand is swollen and painful. She denies new injury, numbness, tingling or radiculopathy. She treats her pain at home with ice and stretching. She states chiropractic treatments are effective to relieve her pain. Location: neck and low back Duration: intermittent Aggravating or associated factors: sleeping, walking, lifting Relieving factors: chiro Pain Quality: aching and dull Exam Musc General: Yes normal posture, normal gait, joint tenderness and decreased range of motion; No muscle weakness Cervical Spine: Yes normal cervical lordosis, Yes cervical muscular tenderness left greater than right diffuse paracervical muscle, trapezius and other, Yes cervical spasm left greater than right diffuse trapezius, paracervical muscles and intrinsics and Yes misalignment misalignment: C2, C3, C4, C5 and C6 Thoracic/Lumber: Yes thoracic and lumbar spine normal to inspection, Yes paraspinal tenderness on the left greater than right (upper thoracic, lumbopelvic), Yes thoraco-lumbar spasm bilaterally (lumbar paraspinal L3-L5) in the lower lumbar and on the left greater than right (trap, QL) and Yes misalignment T3, T4, T5, T6, L3, L4, L5, RIL and LIL Sacrum: Yes misalignment (right) Yes Office Procedures Procedures - Chiropractic Procedures Manipulation: Cervical C5, Lumbar L4, Sacrum (right) and Thoracic T4 Manipulation: 3-4 regions Patient Response: positive Details: marked inflammation on L hand from bee sting. (more content not included)... Normal [facility] OB Anatomy Scanon 03-26-2025 OB Anatomy Scan [facility] [address] [place] [address] OB Anatomy Scan MR#: [id number] Acct: [id number] Name: REESE MCDONALD Rep #: [id number] : 2005 F 19 From: Tennille Sherwood MD PCP: Dr. Isi Justice MD Status: REG CLI Study: OB Anatomy Scan Date of Exam: 03/26/25 Exam# [id number] Ordering Dr: Eugenia Moncada DO PROCEDURE: OB ANATOMY SCAN 03/26/2025 REASON FOR EXAM: ANATOMY/CERVICAL LENGTH TECHNIQUE: OB ANATOMY SCAN. Transabdominal and transvaginal imaging of the maternal pelvis and a > 14 week gestation with image documentation. COMPARISON: None. FINDINGS FETUS: There is a single living intrauterine gestation. POSITION: position is cephalic. HEART RATE: The heart rate is 144 BPM and regular. BIOMETRICS: Based on composite biometry, the composite estimated gestational age by ultrasound is 20 weeks 1 day. LMP gestational age: 20 weeks 0 days LMP LAZARA: August 13, 2025 Sonographic gestational age: 20 weeks 1 day Sonographic LAZARA: August 12, 2025 ANATOMIC SURVEY: The visualized anatomy is unremarkable. No gross anatomic abnormality is identified, including intracranial structures, orbits, profile, nose/lips, 4 chamber heart, fluid-filled stomach and urinary bladder, kidneys, spine, 3-vessel cord, cord insertion, and extremities. PLACENTA: The placenta is posterior, grade 0, with central cord insertion. No demonstrated evidence of abruption. The lower margin of the placenta is 1.7 cm away from the internal os compatible with a low lying placenta. AMNIOTIC FLUID: Within normal limits. Maximum vertical pocket (MVP) measuring 6.0 cm. CERVIX: Long and closed measuring 4.1 cm in length. Unremarkable as visualized. SONOGRAPHIC MEASUREMENTS: Bi-Parietal Diameter (BPD): 4.7 cm; 20 weeks 1 day Head Circumference (HC): 17.5 cm; 20 weeks 0 days Abdominal Circumference (AC): 15.5 cm; 20 weeks 5 days Femur Length (FL): 3.3 cm; 20 weeks 2 days Estimated weight: 355 grams +/-53 grams (0 lb, 13 oz) EFW percentile: 71.1 % US/OB Anatomy Scan IMPRESSION: 1. Single living intrauterine gestation estimated at 20 weeks 1 day by today's ultrasound criteria. Size equals dates. 2. Low-lying placenta. Reading Location: [id number] CC: Dr. Eugenia Moncada DO; Dr. Isi Justice MD Java Security Architect: Signed Normal [facility] - Chemistry and C hemistry - challengeOrdered By: Yahaira Juarez on 03-12-2025 Glucose Ql (U) Negative [facility] - UrinalysisOrder ed By: Yahaira Juarez on 03-12-2025 Protein Ql (U) Negative [facility] Elevator Constructor Office Visit Reporton 03-12-2025 Elevator Constructor Office Visit Report [facility] [address], [address] [place] [address] OFFICE VISIT Date of Service: 03/12/25 MR#: [id number] Acct: [id number] Name: REESE MCDONALD Rep #: [id number] : 2005 Provider: VERA campo Age/Sex: 19/F Location: [facility] [place] Status: Signed Intake Vital Signs 01/10/25 14:19 02/13/25 09:50 03/12/25 14:50 Height 5 ft 9 in 5 ft 9 in 5 ft 9 in Weight: 218 lb BMI 32.1 BP 113/72 Intake Visit Reasons: 18wk ob 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: 18 Week 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 Is patient in pain?: No Allergies nickel Allergy (Mild, Verified 03/12/25 14:51) unknown Medications ???Medication ???Instructions ???Recorded ???Confirmed ???Type magnesium 250 mg tablet 250 mg PO QDAY 11/27/24 03/12/25 H istory Saccharomyces boulardii 250 mg 250 mg PO QHS 12/18/24 03/12/25 Hi story capsule (Digest Probiotic (S.boulardii)) multivitamin no.47-iron fum 27 cap PO 12/18/24 03/12/25 History mg-folate no.1 1 mg-dha 300 mg capsule (PNV-DHA) metoclopramide HCl 10 mg tablet 10 mg PO QACHS PRN nausea and 02/0303/12/25 Rx (Reglan) vomiting #60 tabs Last Menstrual Period: 10/29/24 Zika: Zika virus screening: Negative : No PFSH PFSH Medical History Acne Dysmenorrhea Seasonal allergies Hx of recurrent urinary tract infection Chronic neck and back pain Asthma Surgical History [place] teeth extracted H/O shoulder surgery History of appendectomy Family History Mother Hypertension Gestational diabetes 2nd only Grandmother Hypertension Maternal Blood clot in leg Diabetes Paternal Grandfather Cancer, Onset Age: 70 Paternal- Smoker Social History adopted: No household members: significant other housing: house number of children: 0 current occupational status: employed current occupation: [employer] current occupational exposures/hazards: No pets and animals: Yes pets and animals: dog(s) and farm animals history of recent travel: No sexually active: Yes Smoking Status: Never smoker alcohol intake: current alcohol intake frequency: holidays/special occasions only details: Not while substance use type: marijuana and other details: Pt tried a gummy one time 19st birthday. Didn't like it. 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 frequency: daily duration: > 90 minutes/day cara/latter-day: None seatbelt use: always do you feel safe at home: Yes additional social history: Fiance- Robin- mechanical service specialist History 1 Elective abortions Hx Para 0 Spontaneous abortions Hx # Term Pregnancies Ectopic pregnancies Hx # Pregnancies Multiple births # of living children HPI 18wk ob Details: REESE MCDONALD is a 19 year old who presents for routine OB visit. OB Visit LAZARA Calculator Estimated Delivery Date Method Current WG Current Estimate 08/13/25 Ultrasound #1 18w 0d Other Estimates 08/05/25 LMP (Certain) 19w 1d Expected Delivery Route/Plan Labor Preferences- CB/BF classes: [] labor support person: [] labor intervention preferences: [] pain management options preferred: [] cut cord/dad catch: [] : [] PP control planned: [] discussed possible routes of delivery and associated risks: [] special requests: [] Specific Issue/Plans Covid status: unvaccinated Flu vaccine: unvaccinated Tdap vaccine: not up to date Rhogam: [] LARC form signed: [] Problem list reviewed and updated with the most current plan of care details and appropriate orders placed. Relevant counseling for the gestational age provided. Continue routine care and follow up unless otherwise noted in visit notes/problem list details Initial Weight: Not Recorded Date -???-???-???-???-???- ???-???-???-???-???-? ??-???- EGA Weight BP Urine Prot -???-???-???-???-???- ???-???-???-???-???-? ??-???- Glucose FHR FuHt Pres Dilation -???-???-???-???-???- ???-???-???-???-???-? ??-???- Effaced St Visit Note 01/10/25 -???-???-???-???-???- ???-???-???-???-???-? ??-???- 9w 2d 220 lb 6 oz 134/80 -???-???-???-???-???- ???-???-???-???-???-? ??-???- 178 -???-???-???-???-???- ???-???-???-???-???-? ??-???- JV- CRL is 8 days off from LMP. declines NIPT. wants to return for (more content not included)... Normal [facility] Reporton 2024 Chiropractic Report [facility] [place] [address] OFFICE VISIT Date of Service: 03/05/25 MR#: [id number] Acct: [id number] Name: REESE MCDONALD Rep #: [id number] : 2005 Provider: DALTON Casas Age/Sex: 19/F Location: [facility] [place] Status: Signed Intake Vital Signs 01/10/25 14:19 02/13/25 09:50 Height 5 ft 9 in 5 ft 9 in Intake Visit Reasons: ADJUSTMENT 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: Adjustment Allergies nickel Allergy (Mild, Verified 03/05/25 08:17) unknown Medications ???Medication ???Instructions ???Recorded ???Confirmed ???Type magnesium 250 mg tablet 250 mg PO QDAY 11/27/24 03/05/25 H istory Saccharomyces boulardii 250 mg 250 mg PO QHS 12/18/24 03/05/25 Hi story capsule (Digest Probiotic (S.boulardii)) multivitamin no.47-iron fum 27 cap PO 12/18/24 03/05/25 History mg-folate no.1 1 mg-dha 300 mg capsule (PNV-DHA) metoclopramide HCl 10 mg tablet 10 mg PO QACHS PRN nausea and 02/0303/05/25 Rx (Reglan) vomiting #60 tabs PFSH Medical History Seasonal allergies Hx of recurrent urinary tract infection Chronic neck and back pain Asthma Surgical History [place] teeth extracted H/O shoulder surgery History of appendectomy Family History Mother Hypertension Gestational diabetes 2nd only Grandmother Hypertension Maternal Blood clot in leg Diabetes Paternal Grandfather Cancer, Onset Age: 70 Paternal- Smoker Social History adopted: No household members: significant other housing: house number of children: 0 current occupational status: employed 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 Didn't like it. 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 Pt. is currently 17 weeks . She states she has not been sleeping well and has been experiencing some neck soreness and tightness. She states the left side is slightly worse. She states her low back is feeling great. She denies new injury, numbness, tingling or radiculopathy. She treats her pain at home with ice and stretching. She states chiropractic treatments are effective to relieve her pain. Location: neck and low back Duration: intermittent Aggravating or associated factors: sleeping, walking, lifting Relieving factors: chiro Pain Quality: aching and dull Exam Musc General: Yes normal posture, normal gait, joint tenderness and decreased range of motion; No muscle weakness Cervical Spine: Yes normal cervical lordosis, Yes cervical muscular tenderness left greater than right diffuse paracervical muscle, trapezius and other, Yes cervical spasm left greater than right diffuse trapezius, paracervical muscles and intrinsics and Yes misalignment misalignment: C2, C3, C4, C5 and C6 Thoracic/Lumber: Yes thoracic and lumbar spine normal to inspection, Yes paraspinal tenderness on the left greater than right (upper thoracic, lumbopelvic), Yes thoraco-lumbar spasm bilaterally (lumbar paraspinal L3-L5) in the lower lumbar and on the left greater than right (trap, QL) and Yes misalignment T3, T4, T5, T6, L3, L4, L5, RIL and LIL Sacroiliac joints: on the left tender to palpation Sacrum: Yes misalignment (right) Yes Office Procedures Procedures - Chiropractic Procedures Manipulation: Cervical C5, Lumbar L4, Sacrum (right) and Thoracic T4 Manipulation: 3-4 regions Patient Response: positive Assessment and Plan Assessment and Plan (1) Segmental and somatic dysfunction of cervical region: Status: Acute (2) Segmental and somatic dysfunction of thoracic region: Status: Acute (3) (more content not included)... Normal [facility] - Chemistry and C hemistry - challengeOrdered By: Eugenia Nicole on 02-13-2025 Glucose Ql (U) Negative [facility] - UrinalysisOrder ed By: Eugenia Nicole on 02-13-2025 Protein Ql (U) Negative [facility] Elevator Constructor Office Visit Reporton 02-13-2025 Elevator Constructor Office Visit Report [address], [address] [place] [address] OFFICE VISIT Date of Service: 02/13/25 MR#: [id number] Acct: [id number] Name: REESE MCDONALD Rep #: [id number] : 2005 Provider: Dr. 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 Is patient in pain?: No Allergies nickel Allergy (Mild, Verified 02/13/25 09:47) unknown Medications ???Medication ???Instructions ???Recorded ???Confirmed ???Type magnesium 250 mg tablet 250 mg PO QDAY 11/27/24 02/13/25 H istory Saccharomyces boulardii 250 mg 250 mg PO QHS 12/18/24 02/13/25 Hi story capsule (Digest Probiotic (S.boulardii)) multivitamin no.47-iron fum 27 cap PO 12/18/24 02/13/25 History mg-folate no.1 1 mg-dha 300 mg capsule (PNV-DHA) metoclopramide HCl 10 mg tablet 10 mg PO QACHS PRN nausea and 02/0302/13/25 Rx (Reglan) vomiting #60 tabs Last Menstrual Period: 10/29/24 Zika: Zika virus screening: Negative : No PFSH PFSH Medical History Seasonal allergies Hx of recurrent urinary tract infection Chronic neck and back pain Asthma Surgical History [place] teeth extracted H/O shoulder surgery History of appendectomy Family History Mother Hypertension Gestational diabetes 2nd only Grandmother Hypertension Maternal Blood clot in leg Diabetes Paternal Grandfather Cancer, Onset Age: 70 Paternal- Smoker Social History adopted: No household members: significant other housing: house number of children: 0 current occupational status: employed current occupation: [employer] current occupational exposures/hazards: No pets and animals: Yes pets and animals: dog(s) and farm animals history of recent travel: No sexually active: Yes Smoking Status: Never smoker alcohol intake: current alcohol intake frequency: holidays/special occasions only details: Not while substance use type: marijuana and other details: Pt tried a gummy one time 19st birthday. Didn't like it. 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 OB Visit LAZARA Calculator Estimated Delivery Date Method Current WG Current Estimate 08/13/25 Ultrasound #1 14w 1d Other Estimates 08/05/25 LMP (Certain) 15w 2d Expected Delivery Route/Plan Labor Preferences- CB/BF classes: [] labor support person: [] labor intervention preferences: [] pain management options preferred: [] cut cord/dad catch: [] : [] PP control planned: [] discussed possible routes of delivery and associated risks: [] special requests: [] Specific Issue/Plans Covid status: unvaccinated Flu vaccine: unvaccinated Tdap vaccine: not up to date Rhogam: [] LARC form signed: [] Problem list reviewed and updated with the most current plan of care details and appropriate orders placed. Relevant counseling for the gestational age provided. Continue routine care and follow up unless otherwise noted in visit notes/problem list details Initial Weight: Not Recorded Date -???-???-???-???-???- ???-???-???-???-???-? ??-???- EGA Weight BP Urine Prot -???-???-???-???-???- ???-???-???-???-???-? ??-???- Glucose FHR FuHt Pres Dilation -???-???-???-???-???- ???-???-???-???-???-? ??-???- Effaced St Visit Note 01/10/25 -???-???-???-???-???- ???-???-???-???-???-? ??-???- 9w 2d 220 lb 6 oz 134/80 -???-???-???-???-???- ???-???-???-???-???-? ??-???- 178 -???-???-???-???-???- ???-???-???-???-???-? ??-???- JV- CRL is 8 days off from LMP. declines NIPT. wants to return for new ob labs. (more content not included)... Normal [facility] Reporton 2024 Chiropractic Report [facility] [address] [place] [address] OFFICE VISIT Date of Service: 01/29/25 MR#: [id number] Acct: [id number] Name: REESE MCDONALD Rep #: [id number] : 2005 Provider: DALTON Alva Do ssi Age/Sex: 19/F Location: [facility] [place] Status: Signed Intake Vital Signs 12/31/24 09:36 01/10/25 14:19 Height 5 ft 9 in 5 ft 9 in Intake Visit Reasons: ADJUSTMENT 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: Adjustment Allergies nickel Allergy (Mild, Verified 01/10/25 14:16) unknown [facility] Medical History Seasonal allergies Hx of recurrent urinary tract infection Chronic neck and back pain Asthma Surgical History [place] teeth extracted H/O shoulder surgery History of appendectomy Family History Mother Hypertension Gestational diabetes 2nd only Grandmother Hypertension Maternal Blood clot in leg Diabetes Paternal Grandfather Cancer, Onset Age: 70 Paternal- Smoker Social History adopted: No household members: significant other housing: house number of children: 0 current occupational status: employed current occupation: [employer] current occupational exposures/hazards: No pets and animals: Yes pets and animals: dog(s) and farm animals history of recent travel: No sexually active: Yes Smoking Status: Never smoker alcohol intake: current alcohol intake frequency: holidays/special occasions only details: Not while substance use type: marijuana and other details: Pt tried a gummy one time 19st birthday. Didn't like it. 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 She was seen by her PRE CERTIFICATION SPECIALIST and confirmed she is currently 12 weeks . She reports her last adjustment was effective in relieving her low back pain and she is feeling great. She would like her spine checked for alignment today. She c/o stiffness in her neck and upper back especially in the mornings. She denies new injury, numbness, tingling or radiculopathy. She treats her pain at home with ice and stretching. She states chiropractic treatments are helpful to alleviate her pain. Location: neck and low back Duration: frequent Aggravating or associated factors: sleeping, walking, lifting Relieving factors: chiro Pain Quality: aching and dull Exam Musc General: Yes normal posture, normal gait, joint tenderness and decreased range of motion; No muscle weakness Cervical Spine: Yes normal cervical lordosis, Yes cervical muscular tenderness left greater than right diffuse paracervical muscle, trapezius and other, Yes cervical spasm left greater than right diffuse trapezius, paracervical muscles and intrinsics and Yes misalignment misalignment: C2, C3, C4, C5 and C6 Thoracic/Lumber: Yes thoracic and lumbar spine normal to inspection, Yes paraspinal tenderness on the left greater than right (upper thoracic, lumbopelvic), Yes thoraco-lumbar spasm bilaterally (lumbar paraspinal L3-L5) in the lower lumbar and on the left greater than right (trap, QL) and Yes misalignment T3, T4, T5, T6, L3, L4, L5 and LIL Sacroiliac joints: on the left tender to palpation Office Procedures Procedures - Chiropractic Procedures Manipulation: Cervical C5, Lumbar L4, Thoracic T4 and Pelvis LIL Manipulation: 3-4 regions Patient Response: positive Assessment and Plan Assessment and Plan (1) Segmental and somatic dysfunction of cervical region: Status: Acute (2) Segmental and somatic dysfunction of thoracic region: Status: Acute (3) Segmental and somatic dysfunction of pelvic region: Status: Acute (4) Segmental and somatic dysfunction of lumbar region: Status: Acute Orders: Orders Chiropractic Treatments Today M99.01 - Segmental and somatic dysfunction of cervical region, M99.02 - Segmental and somatic dysfunction of thoracic region, M99.03 - Segmental and somatic dysfunction of lumbar region, M99.05 - Segmental and somatic dysfunction of pelvic region Plan Patient was treated without incident. She is showing improve (more content not included)... Normal [facility] Absolute lymphocyte countOrd ered By: Yahaira Juarez on 01-21-2025 Lymphocytes Auto (Unsp spec) [#/Vol] 2.89 10*3/uL 0.83-4.51 [facility] Absolute neutrophil countOrd ered By: Yahaira Juarez on 01-21-2025 Neutrophils (Bld) [#/Vol] 8.4 10*3/uL High 2.0-7.7 [facility] Automated lymphocyte count a s percentage of total leukocytesOrdered By: Yahaira Juarez on 01-21-2025 Lymphocytes/100 WBC Auto (Unsp spec) 23.2 % - [facility] Basophil percentageOrdered B y: Yahaira Juarez on 01-21-2025 Basophils/100 WBC (Bld) 0.6 % 0-1 [facility] CBC W/Diff, Automatedon 01-03 Absolute Lymph 2.89 X10 3/uL Normal 0.83-4.51 [facility] Comment on above: Performed By: #### L 3890.6102, L3890.6006, L509.8002, L509.4006, L501.9985, BTS, L100.0100, L3890.6301 #### [facility] [address] [place], [address] Absolute Neut 8.4 X10 3/uL High 2.0-7.7 [facility] Comment on above: Performed By: #### L 3890.6102, L3890.6006, L509.8002, L509.4006, L501.9985, BTS, L100.0100, L3890.6301 #### [facility] [address] [place], [address] Basophils/100 WBC (Bld) 0.6 % Normal 0-1 [facility] Comment on above: Performed By: #### L 3890.6102, L3890.6006, L509.8002, L509.4006, L501.9985, BTS, L100.0100, L3890.6301 #### [facility] [address] [place], [address] Eosinophils/100 WBC (Bld) 1.8 % Normal 0-5 [facility] Comment on above: Performed By: #### L 3890.6102, L3890.6006, L509.8002, L509.4006, L501.9985, BTS, L100.0100, L3890.6301 #### [facility] [address] [place], [address] Erythrocyte distribution width (RBC) [Ratio] 12.4 % Normal 11.6-14.6 [facility] Comment on above: Performed By: #### L 3890.6102, L3890.6006, L509.8002, L509.4006, L501.9985, BTS, L100.0100, L3890.6301 #### [facility] [address] [place], [address] Hematocrit (Bld) [Volume fraction] 40.7 % Normal 37-47 [facility] Comment on above: Performed By: #### L 3890.6102, L3890.6006, L509.8002, L509.4006, L501.9985, BTS, L100.0100, L3890.6301 #### [facility] [address] [place], [address] Hemoglobin (Bld) [Mass/Vol] 14.2 g/dL Normal 12.0-15.0 [facility] Comment on above: Performed By: #### L 3890.6102, L3890.6006, L509.8002, L509.4006, L501.9985, BTS, L100.0100, L3890.6301 #### [facility] [address] [place], [address] IG% 0.400 Normal 0.0-0.9 [facility] Comment on above: Result Comment: IG% - Immature Granulocytes (promyelocytes, myelocytes and metamyelocytes) > 1% indicates that a LEFT SHIFT is Present. Performed By: #### L 3890.6102, L3890.6006, L509.8002, L509.4006, L501.9985, BTS, L100.0100, L3890.6301 #### [facility] [address] [place], [address] Lymphocytes/100 WBC (Bld) 23.2 % Normal 19-41 [facility] Comment on above: Performed By: #### L 3890.6102, L3890.6006, L509.8002, L509.4006, L501.9985, BTS, L100.0100, L3890.6301 #### [facility] [address] [place], [address] MCH (RBC) [Entitic mass] 30.5 pg Normal 27.0-32.0 [facility] Comment on above: Performed By: #### L 3890.6102, L3890.6006, L509.8002, L509.4006, L501.9985, BTS, L100.0100, L3890.6301 #### [facility] [address] [place], [address] MCHC (RBC) [Mass/Vol] 34.9 g/dL Normal 32-36 [facility] Comment on above: Performed By: #### L 3890.6102, L3890.6006, L509.8002, L509.4006, L501.9985, BTS, L100.0100, L3890.6301 #### [facility] [address] [place], [address] MCV (RBC) [Entitic vol] 87.5 fL Normal 81-99 [facility] Comment on above: Performed By: #### L 3890.6102, L3890.6006, L509.8002, L509.4006, L501.9985, BTS, L100.0100, L3890.6301 #### [facility] [address] [place], [address] Monocytes/100 WBC (Bld) 6.6 % Normal 0-10 [facility] Comment on above: Performed By: #### L 3890.6102, L3890.6006, L509.8002, L509.4006, L501.9985, BTS, L100.0100, L3890.6301 #### [facility] [address] [place], [address] Neutrophils/100 WBC (Bld) 67.4 % Normal 47-70 [facility] Comment on above: Performed By: #### L 3890.6102, L3890.6006, L509.8002, L509.4006, L501.9985, BTS, L100.0100, L3890.6301 #### [facility] [address] [facility] [place], [address] Nucleated RBC (Bld) [#/Vol] 0 10*3/uL Normal 0-5 [facility] Comment on above: Performed By: #### L 3890.6102, L3890.6006, L509.8002, L509.4006, L501.9985, BTS, L100.0100, L3890.6301 #### [facility] [address] [facility] [place], [address] Platelet mean volume (Bld) [Entitic vol] 9.4 fL Normal 6.2-12.0 [facility] Comment on above: Performed By: #### L 3890.6102, L3890.6006, L509.8002, L509.4006, L501.9985, BTS, L100.0100, L3890.6301 #### [facility] [address] [place], [address] Platelets (Bld) [#/Vol] 332 10*3/uL Normal 150-450 [facility] Comment on above: Performed By: #### L 3890.6102, L3890.6006, L509.8002, L509.4006, L501.9985, BTS, L100.0100, L3890.6301 #### [facility] [address] [place], [address] RBC (Bld) [#/Vol] 4.65 10*6/uL Normal 4.2-5.4 [facility] Comment on above: Performed By: #### L 3890.6102, L3890.6006, L509.8002, L509.4006, L501.9985, BTS, L100.0100, L3890.6301 #### [facility] [address] [place], [address] RDW SD 39.0 fl Normal 35.1-43.9 [facility] Comment on above: Performed By: #### L 3890.6102, L3890.6006, L509.8002, L509.4006, L501.9985, BTS, L100.0100, L3890.6301 #### [facility] [address] [place], [address] WBC (Bld) [#/Vol] 12.4 10*3/uL High 4.4-11.0 [facility] Comment on above: Performed By: #### L 3890.6102, L3890.6006, L509.8002, L509.4006, L501.9985, BTS, L100.0100, L3890.6301 #### [facility] [address] [place], [address] Eosinophil percentageOrdered By: Yahaira Juarez on 01-21-2025 Eosinophils/100 WBC (Bld) 1.8 % 0-5 [facility] Erythrocyte distribution wid th ratioOrdered By: Yahaira Juarez on 01-21-2025 Erythrocyte distribution width (RBC) [Ratio] 12.4 % 11.6-14.6 [facility] Erythrocyte distribution wid th standard deviationOrdered By: Yahaira Juarez on 01-21-2025 Erythrocyte distribution width (RBC) [Ratio] 39.0 fl 35.1-43.9 [facility] HIVon 01-21-2025 HIV Non-Reactive Normal Nonreactive [facility] Comment on above: Result Comment: Non- Reactive Reactive Repeatedly reactive samples must be confirmed according to CDC recommended confirmatory algorithms. The subresults for either HIVAG or AHIV can be used as an aid in the selection of the confirmation algorithm for reactive samples. Send out specimens with Reactive results to [facility] for confirmation. Order the HIV antibody detection and differentiation: [id number] Performed By: #### L 3890.6102, L3890.6006, L509.8002, L509.4006, L501.9985, BTS, L100.0100, L3890.6301 ####[facility] [address] [place], [place], [id number] Hematocrit Auto (Bld) [Volum e fraction]Ordered By: Yahaira Juarez on 01-21-2025 Hematocrit (Bld) [Volume fraction] 40.7 % 37-47 [facility] Hemoglobin A1con 01-21-2025 HbA1c (Bld) [Mass fraction] 5.0 % Normal <=5.6 [facility] Comment on above: Result Comment: Norm al < 5.7 % Prediabetic 5.7 - 6.4 % Diabetic >or= 6.5 % Please note range changes. Performed By: #### L 3890.6102, L3890.6006, L509.8002, L509.4006, L501.9985, BTS, L100.0100, L3890.6301 #### [facility] [address] [place], [place], [id number] Hemoglobin A1c percentageOrd ered By: Yahaira Juarez on 01-21-2025 HbA1c (Bld) [Mass fraction] 5.0 % <5.7 [facility] Comment on above: Normal < 5.7 % Predi abetic 5.7 - 6.4 % Diabetic >or= 6.5 % Please note range changes. Hemoglobin measurementOrdere d By: Yahaira Juarez on 01-21-2025 Hemoglobin (Bld) [Mass/Vol] 14.2 g/dL 12.0-15.0 [facility] Hepatitis C Antibodyon 01-21 Hepatitis C Ab Non-Reactive Normal Nonreactive [facility] Comment on above: Result Comment: Reac tive: Presumptive evidence of antibodies to HCV. Follow CDC recommendations for supplemental testing. Non-Reactive: Antibodies to HCV were not detected; does not exclude the possibility of exposure to HCV Reactive Results are presumptive evidence of antibodies to HCV. Follow CDC recommendations for supplemental testing. Order confirmation testing: HCV Quant by PCR testing - HCVPCR #[id number] Non Reactive: < 0.8 Equivocal: >/= 0.8 to < 1.0 Reactive: >/= 1.0 The [facility] requires that a reactive/equivocal HCV antibody result be sent out for confirmation. HCV Quant by PCR testing. Performed By: #### L 3890.6102, L3890.6006, L509.8002, L509.4006, L501.9985, BTS, L100.0100, L3890.6301 ####[facility] [address] [facility] [place], [address] Immature granulocytes/100 WB C Auto (Bld)Ordered By: Yahaira Juarez on 01-21-2025 Immature granulocytes/100 WBC (Bld) 0.400 % 0.0-0.9 [facility] Comment on above: IG% - Immature Granu locytes (promyelocytes, myelocytes and metamyelocytes) > 1% indicates that a LEFT SHIFT is Present. L3890.6102on 01-21-2025 HEP B Surf Ag Non-Reactive Normal Nonreactive [facility] Comment on above: Result Comment: Reac tive: Presumptive evidence of HBV. Repeatedly reactive samples must be confirmed using a neutralization test ([employer]ys HBsAg Confirmatory Test) Non-Reactive: HBsAg not detected; does not exclude the possibility of exposure to HBV Performed By: #### L 3890.6102, L3890.6006, L509.8002, L509.4006, L501.9985, BTS, L100.0100, L3890.6301 ####[facility] [address] [place], [address] L509.4006on 01-21-2025 Rubella IgG REAC Normal Nonreactive [facility] Comment on above: Result Comment: Anti body Result: Interpretation Non-Reactive: Non-Immune Reactive: Immune The following results were obtained with the Elecsys Rubella IgG assay. Results from assays of other manufacturers cannot be used interchangeably. Performed By: #### L 3890.6102, L3890.6006, L509.8002, L509.4006, L501.9985, BTS, L100.0100, L3890.6301 #### [facility] [address] [place], [address] Laboratory - Microbiology an d Antimicrobial susceptibilityOrdered By: Yahaira Juarez on 01-21-2025 HBV surface Ag Ql (S) Non-Reactive Nonreactive [facility] Comment on above: Reactive: Presumptiv e evidence of HBV. Repeatedly reactive samples must be confirmed using a neutralization test ([employer]ys HBsAg Confirmatory Test)Non-Reactive: HBsAg not detected; does not exclude the possibility of exposure to HBV MCV (mean corpuscular volume ) determinationOrdered By: Yahaira Juarez on 01-21-2025 MCV (RBC) [Entitic vol] 87.5 fL 81-99 [facility] Mean corpuscular hemoglobin (MCH) determinationOrdered By: Yahaira Juarez on 01-21-2025 MCH (RBC) [Entitic mass] 30.5 pg 27.0-32.0 [facility] Mean corpuscular hemoglobin concentration (MCHC) determinationOrdered By: Yahaira Juarez on 01-21-2025 MCHC (RBC) [Mass/Vol] 34.9 g/dL 32-36 [facility] Mean platelet volume determi nationOrdered By: Yahaira Juarez on 01-21-2025 Platelet mean volume (Bld) [Entitic vol] 9.4 fL 6.2-12.0 [facility] Monocyte percentageOrdered B y: Yahaira Juarez on 01-21-2025 Monocytes/100 WBC (Bld) 6.6 % 0-10 [facility] Neutrophil percentageOrdered By: Yahaira Juarez on 01-21-2025 Neutrophils/100 WBC (Bld) 67.4 % 47-70 [facility] No Panel InformationOrdered By: Yahaira Juarez on 01-21-2025 HIV (1&2) Antibody Non-Reactive Nonreactive [facility] Comment on above: Non-ReactiveReactive Repeatedly reactive samples must be confirmed according to CDC recommended confirmatory algorithms. The subresults for either HIVAG or AHIV can be used as an aid in the selection of the confirmation algorithm for reactive samples.Send out specimens with Reactive results to [facility] for confirmation.Order the HIV antibody detection and differentiation: #[id number] Nucleated red blood cell per centageOrdered By: Yahaira Juarez on 01-21-2025 Nucleated RBC/100 WBC (Bld) [Ratio] 0 % 0-5 [facility] Platelet countOrdered By: Eran Juarez on 01-21-2025 Platelets (Bld) [#/Vol] 332 10*3/uL 150-450 [facility] RBC Auto (Bld) [#/Vol]Ordere d By: Yahaira Juarez on 01-21-2025 RBC (Bld) [#/Vol] 4.65 10*6/uL 4.2-5.4 [facility] Serum human chorionic gonado tropin detection for pregnancyOrdered By: Viki Case on 01-21-2025 HCG ( test) [place]l [address] mIU/mL High <9 [facility] Comment on above: Gestational Age0.2-1 Week: 5-50 mIU/mL1-2 Weeks: 50-500 mIU/mL2-3 Weeks: 100-5000 mIU/mL3-4 Weeks: 500-10,000 mIU/mL4-5 Weeks:1000-50,000 mIU/mL5-6 Weeks: 10,000-100,000 mIU/mL6-8 Weeks: 15,000-200,000 mIU/mL2-3 Months:10,000-100,000 mIU/mL Syphilis Antibodieson 2024 Syphilis Abs Non-Reactive Normal Nonreactive [facility] Comment on above: Performed By: #### L 3890.6102, L3890.6006, L509.8002, L509.4006, L501.9985, BTS, L100.0100, L3890.6301 #### [facility] [address] [place], [address] Type AND Screenon 01-21-2025 ABO and Rh group Nom (Bld) Blood group A Rh(D) positive Normal [facility] Comment on above: Order Comment: PN Performed By: #### L 3890.6102, L3890.6006, L509.8002, L509.4006, L501.9985, BTS, L100.0100, L3890.6301 ####[facility] [address] [place], [address] White blood cell (WBC) count Ordered By: Yahaira Juarez on 01-21-2025 WBC (Bld) [#/Vol] 12.4 10*3/uL High 4.4-11.0 [facility] hCG Titer Quant., Serumon HCG QUANT. 14005 mIU/mL High <9 non-preg [facility] Comment on above: Order Comment: Seria l quants 48 hours apart Result Comment: Gest ational Age 0.2-1 Week: 5-50 mIU/mL 1-2 Weeks: 50-500 mIU/mL 2-3 Weeks: 100-5000 mIU/mL 3-4 Weeks: 500-10,000 mIU/mL 4-5 Weeks:1000-50,000 mIU/mL 5-6 Weeks: 10,000-100,000 mIU/mL 6-8 Weeks: 15,000-200,000 mIU/mL 2-3 Months:10,000-100,000 mIU/mL Performed By: #### L 700.8000 ####[facility] [address] [place], [address] PAP I-G w/rfx hrHPV-Aptimaon 01-15-2025 ADEQ Comment Normal . [facility] Comment on above: Order Comment: Speci men Comment: [id number] Comment: No. of containers..01 ThinPrep Vial Result Comment: Sati sfactory for evaluation. Endocervical and/or squamous metaplastic cells (endocervical component) are present. Performed By: #### L 7400.0353 ####[facility] [address] [place], [place], [address] COMM . Normal . [facility] Comment on above: Order Comment: Speci men Comment: [id number] Comment: No. of containers..01 ThinPrep Vial Performed By: #### L 7400.0353 ####[facility] [address] [place], [address] COMMENT Comment Normal . [facility] Comment on above: Order Comment: Speci men Comment: [id number] Comment: No. of containers..01 ThinPrep Vial Result Comment: This liquid based ThinPrep(R) pap test was screened with the use of an image guided system. Performed By: #### L 7400.0353 ####[facility] [address] [place], [address] DIAG Comment Normal . [facility] Comment on above: Order Comment: Speci men Comment: [id number] Comment: No. of containers..01 ThinPrep Vial Result Comment: NEGA TIVE FOR INTRAEPITHELIAL LESION OR MALIGNANCY. Performed By: #### L 7400.0353 ####[facility] [address] [place], [address] HPV RFLX Comment Normal . [facility] Comment on above: Order Comment: Speci men Comment: [id number] Comment: No. of containers..01 ThinPrep Vial Result Comment: The HPV DNA reflex criteria were not met with this specimen result therefore, no HPV testing was performed. Performed at: [address] [id number] Keg Inspector: Gudelia Cook MD, Phone: [phone] Performed By: #### L 7400.0353 ####[facility] [address] [place], [address] PAPSMR Comment Normal . [facility] Comment on above: Order Comment: Speci men Comment: [id number] Comment: No. of containers..01 ThinPrep Vial Result Comment: The Pap smear is a screening test designed to aid in the detection of premalignant and malignant conditions of the uterine cervix. It is not a diagnostic procedure and should not be used as the sole means of detecting cervical cancer. Both false-positive and false-negative reports do occur. Performed By: #### L 7400.0353 ####[facility] [address] [place], [address] PERFORM Comment Normal . [facility] Comment on above: Order Comment: Speci men Comment: [id number] Comment: No. of containers..01 ThinPrep Vial Result Comment: Malika Paul Infrastructure Engineer (ASCP) Performed By: #### L 7400.0353 ####[facility] [address] [place], [address] Chlamydia/GC CARA aptimaon CHLAMY,NUC ACID Negative Normal Negative [facility] Comment on above: Performed By: #### L 505.5000, L7000.1800, M100.2200 ####[facility] [address] [place], [address] GC BY NUC ACID Negative Normal Negative [facility] Comment on above: Result Comment: Perf ormed at: =G - [facility] [address] [id number] Keg Inspector: Gudelia Cook MD, Phone: [phone] Performed By: #### L 505.5000, L7000.1800, M100.2200 ####[facility] [address] [place], [address] Urine Cultureon 01-12-2025 URC Below infection level. Mixed Gram Positive Organisms Marne Count 1000-10,000 MIXC Mixed contaminants. Submit a new specimen if indicated. Normal [facility] Comment on above: Performed By: #### L 505.5000, L7000.1800, M100.2200 ####[facility] [address] [place], [address] Amphetamine detection with 1 000 ng/mL as cutoffOrdered By: Yahaira Juarez on 01-10-2025 Amphetamines Screen method >1000 ng/mL Ql (U) Negative < 200 ng/mL [facility] Cervical or vagninal specime n microscopic examination by cytology stain (reported asOrdered By: Eugenia Nicole on 01-10-2025 Cytology report Cyto stain Doc (Cvx/Vag) Comment . [facility] Comment on above: The Pap smear is a s creening test designed to aid in thedetection of premalignant and malignant conditions of theuterine cervix. It is not a diagnostic procedure andshould not be used as the sole means of detecting cervicalcancer. Both false-positive and false-negative reports dooccur. Chlamydia trachomatis rRNA d etection by probe and target amplification methodOrdered By: Yahaira Juarez on 01-10-2025 C. trachomatis rRNA CARA+probe Ql (Unsp spec) Negative Negative [facility] - CytologyOrdered By: Eugenia Nicole on 01-10-2025 Infrastructure Engineer Cyto stain Nom (Cvx/Vag) [ID] Comment . [facility] Comment on above: Logan Escobedo (ASCP) Laboratory - Miscellaneous t estsOrdered By: Eugenia Nicole on 01-10-2025 Service comment (Unsp spec) [Interp] . . [facility] Neisseria gonorrhoeae nuclei c acid detection by amplified probe techniqueOrdered By: Yahaira Juarez on 01-10-2025 N. gonorrhoeae DNA CARA+probe Ql (Unsp spec) Negative Negative [facility] Comment on above: Performed at: [address] [id number] Director: Gudelia Cook MD, Phone: [phone] No Panel InformationOrdered By: Eugenia Nicole on 01-10-2025 Pap Smear Specimen Adequacy Comment . [facility] Comment on above: Satisfactory for gary luation. Endocervical and/or squamous metaplasticcells (endocervical component) are present. No Panel InformationOrdered By: Yahaira Juarez on 01-10-2025 Urine Buprenorphine Qualitative Negative < 200 ng/mL [facility] Urine Oxycodone Screen Negative < 100 ng/mL [facility] Elevator Constructor Office Visit Reporton 01-10-2025 Elevator Constructor Office Visit Report [facility] [address], [address] [place] [address] OFFICE VISIT Date of Service: 01/10/25 MR#: [id number] Acct: [id number] Name: REESE MCDONALD Rep #: [id number] : 2005 Provider: Dr. 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: No Is patient in pain?: No Allergies nickel Allergy (Mild, Verified 01/10/25 14:16) unknown Medications ???Medication ???Instructions ???Recorded ???Confirmed ???Type magnesium 250 mg tablet 250 mg PO QDAY 11/27/24 01/10/25 H istory Saccharomyces boulardii 250 mg 250 mg PO QHS 12/18/24 01/10/25 Hi story capsule (Digest Probiotic (S.boulardii)) multivitamin no.47-iron fum 27 cap PO 12/18/24 01/10/25 History mg-folate no.1 1 mg-dha 300 mg capsule (PNV-DHA) Last Menstrual Period: 10/29/24 Zika: Zika virus screening: Negative : No PFSH PFSH Medical History Seasonal allergies Hx of recurrent urinary tract infection Chronic neck and back pain Asthma Surgical History [place] teeth extracted H/O shoulder surgery History of appendectomy Family History Mother Hypertension Gestational diabetes 2nd only Grandmother Hypertension Maternal Blood clot in leg Diabetes Paternal Grandfather Cancer, Onset Age: 70 Paternal- Smoker Social History adopted: No household members: significant other housing: house financial difficulty paying for basics: decline to answer service: No current occupational status: employed current occupation: [employer] current occupational exposures/hazards: No pets and animals: Yes pets and animals: dog(s) and farm animals history of recent travel: No sexually active: Yes do you think of yourself as: straight/heterosexual Smoking Status: Never smoker alcohol intake: current alcohol intake frequency: holidays/special occasions only details: Not while substance use type: marijuana and other details: Pt tried a gummy one time 19st birthday. Didn't like it. 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 OB Visit LAZARA Calculator Estimated Delivery Date Method Current WG Current Estimate 08/13/25 Ultrasound #1 9w 2d Other Estimates 08/05/25 LMP (Certain) 10w 3d Estimated Due Date: 08/05/25 Expected Delivery Route/Plan Labor Preferences- CB/BF classes: [] labor support person: [] labor intervention preferences: [] pain management options preferred: [] cut cord/dad catch: [] : [] PP control planned: [] discussed possible routes of delivery and associated risks: [] special requests: [] Specific Issue/Plans Covid status: unvaccinated Flu vaccine: unvaccinated Tdap vaccine: not up to date Rhogam: [] LARC form signed: [] Problem list reviewed and updated with the most current plan of care details and appropriate orders placed. Relevant counseling for the gestational age provided. Continue routine care and follow up unless otherwise noted in visit notes/problem list details Initial Weight: Not Recorded Date -???-???-???-???-???- ???-???-???-???-???-? ??-???- EGA Weight BP Urine Prot -???-???-???-???-???- ???-???-???-???-???-? ??-???- Glucose FHR FuHt Pres Dilation -???-???-???-???-???- ???-???-???-???-???-? ??-???- Effaced St Visit Note 01/10/25 -???-???-???-???-???- ???-???-???-???-???-? ??-???- 9w 2d 220 lb 6 oz 134/80 -???-???-???-???-???- ???-???-???-???-???-? ??-???- 178 (more content not included)... Normal [facility] Quantitative urine opiates m easurementOrdered By: Yahaira Juarez on 01-10-2025 Opiates Ql (U) Negative < 300 ng/mL [facility] Screening urine fentanyl yvonne surementOrdered By: Yahairacarolina Juarez on 01-10-2025 fentaNYL Screen Ql (U) Negative [facility] Urine Drug Screen (VISTA)on 01-10-2025 AMPHETAMINES Negative Normal <1000 ng/mL [facility] Comment on above: Order Comment: UNK Performed By: #### L 505.5000, L7000.1800, M100.2200 ####[facility] [address] [place], [address] BARBITIURATES Negative Normal < 200 ng/mL [facility] Comment on above: Order Comment: UNK Performed By: #### L 505.5000, L7000.1800, M100.2200 ####[facility] [address] [place], [address] BENZODIAZIPINE Negative Normal < 200 ng/mL [facility] Comment on above: Order Comment: UNK Performed By: #### L 505.5000, L7000.1800, M100.2200 ####[facility] [address] [place], [address] BUP Ur Drug Scr Negative Normal < 200 ng/mL [facility] Comment on above: Order Comment: UNK Performed By: #### L 505.5000, L7000.1800, M100.2200 ####[facility] [address] [place], [address] COCAINE Negative Normal < 300 ng/mL [facility] Comment on above: Order Comment: UNK Performed By: #### L 505.5000, L7000.1800, M100.2200 ####[facility] [address] [place], [address] Fentanyl Negative Normal [facility] Comment on above: Order Comment: UNK Performed By: #### L 505.5000, L7000.1800, M100.2200 ####[facility] [address] [place], [address] METHADONE Negative Normal < 300 ng/mL [facility] Comment on above: Order Comment: UNK Performed By: #### L 505.5000, L7000.1800, M100.2200 ####[facility] [address] [place], [address] OPIATES Negative Normal < 300 ng/mL [facility] Comment on above: Order Comment: UNK Performed By: #### L 505.5000, L7000.1800, M100.2200 ####[facility] [address] [place], [address] OXYCODONE Negative Normal < 100 ng/mL [facility] Comment on above: Order Comment: UNK Performed By: #### L 505.5000, L7000.1800, M100.2200 ####[facility] [address] [place], [address] PCP Negative Normal < 25 ng/mL [facility] Comment on above: Order Comment: UNK Performed By: #### L 505.5000, L7000.1800, M100.2200 ####[facility] [address] [place], [address] THC Negative Normal < 50 ng/mL [facility] Comment on above: Order Comment: UNK Performed By: #### L 505.5000, L7000.1800, M100.2200 ####[facility] [address] [place], [address] Urine benzodiazepine levelOr dered By: Yahaira Juarez on 01-10-2025 Benzodiazepines Ql (U) Negative < 200 ng/mL [facility] Urine cocaine levelOrdered B y: Yahaira Juarez on 01-10-2025 Cocaine Ql (U) Negative < 300 ng/mL [facility] Urine cultureOrdered By: Andi Juarez on 01-10-2025 Bacteria identified Cx Nom (U) Positive Abnormal [facility] Urine ocmrd-4-dtbyzqgyxbiuwa abinol (THC) measurementOrdered By: Yahaira Juarez on 01-10-2025 Cannabinoids Screen Ql (U) Negative < 50 ng/mL [facility] Urine phencyclidine (PCP) de tectionOrdered By: Yahaira Juarez on 01-10-2025 Phencyclidine Ql (U) Negative < 25 ng/mL [facility] Chiropractic Reporton 2024 Chiropractic Report [facility] [address] [place] [address] OFFICE VISIT Date of Service: 12/31/24 MR#: [id number] Acct: [id number] Name: REESE MCDONALD Rep #: [id number] : 2005 Provider: DALTON Casas Age/Sex: 19/F Location: [facility] [place] Status: Signed Intake Vital Signs 11/27/24 08:17 12/11/24 10:07 12/18/24 11:03 12/31/24 09:36 Height 5 ft 8.5 in 5 ft 8.5 in 5 ft 8.5 in 5 ft 9 in Weight: 217 lb BMI 32.0 BP 128/82 H Blood Pressure Location Lt brachial Position Sitting Intake Visit Reasons: REEVAL 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: Adjustment Allergies nickel Allergy (Mild, Verified 12/31/24 09:37) unknown Medications ???Medication ???Instructions ???Recorded ???Confirmed ???Type magnesium 250 mg tablet 250 mg PO QDAY 11/27/24 12/31/24 H istory Saccharomyces boulardii 250 mg 250 mg PO QHS 12/18/24 12/31/24 Hi story capsule (Digest Probiotic (S.boulardii)) multivitamin no.47-iron fum 27 cap PO 12/18/24 12/31/24 History mg-folate no.1 1 mg-dha 300 mg capsule (PNV-DHA) PFSH Medical History Seasonal allergies Hx of recurrent urinary tract infection Chronic neck and back pain Asthma Surgical History [place] teeth extracted H/O shoulder surgery History of appendectomy Family History Mother Hypertension Gestational diabetes 2nd only Grandmother Hypertension Maternal Blood clot in leg Diabetes Paternal Grandfather Cancer, Onset Age: 70 Paternal- Smoker Social History adopted: No household members: significant other housing: house current occupational status: employed 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 Didn't like it. 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 She is currently 9 weeks . Two weeks ago she woke up with bilateral low back pain, insidious onset. The pain is worse on the left side and was radiating down into her leg. She had to brace herself when she was walking because the pain was severe and she felt as though she could fall. She would like her spine checked for alignment today. She denies pain today but reports stiffness. Her neck and upper back get tight at times. She denies new injury, numbness or tingling. She treats her pain at home with ice and stretching. She states previous chiropractic treatments have helped alleviate her pain. Onset: 12/10/24 Location: low back Duration: frequent Aggravating or associated factors: walking, standing,lifting Relieving factors: chiro Treatment: ice Pain Quality: aching, dull and radiating Exam Musc General: Yes normal posture, normal gait, joint tenderness and decreased range of motion; No muscle weakness Cervical Spine: Yes normal cervical lordosis, Yes cervical muscular tenderness left greater than right diffuse paracervical muscle, trapezius and other, Yes cervical spasm left greater than right diffuse trapezius, paracervical muscles and intrinsics and Yes misalignment misalignment: C2, C3, C4, C5 and C6 Thoracic/Lumber: Yes thoracic and lumbar spine normal to inspection, Yes thoraco-lumbar ROM normal, Yes Lasegue's sign negative, Yes straight leg raise negative bilaterally, Yes paraspinal tenderness on the left greater than right (upper thoracic, lumbopelvic), Yes thoraco-lumbar spasm on the left greater than right (trap, levator, lumbar paraspinal, glute) and Yes misalignment T3, T4, T5, T6, L3, L4, L5 and LIL Sacroiliac joints: on the left tender to palpation Office Procedures Procedures - Chiropractic Procedures Manipulation: Cervical C2 and C5, Lumbar L4, Thoracic T4 and Pelvis LIL Manipulation: 3- (more content not included)... Normal [facility] - Chemistry and C hemistry - challengeOrdered By: Yahaira Juarez on 12-18-2024 HCG ( test) Ql (U) Positive [facility] Office Visit Reporton 2024 Office Visit Report [facility] [address] [place] [address] OFFICE VISIT Date of Service: 12/18/24 MR#: [id number] Acct: [id number] Patient: REESE MCDONALD Rep #: [id number] : 2005 Provider: VERA campo Age/Sex: 19/F [place] [facility] [place]: Signed Intake Vital Signs 12/11/24 10:07 12/18/24 11:03 Height 5 ft 8.5 in 5 ft 8.5 in Weight: 218 lb 6 oz BMI 32.7 BP 108/58 L Blood Pressure Location Lt brachial Position Sitting Intake Visit Reasons: PNOB nurse visit 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: Annual Plant Mechanic Required: No Is patient in pain?: Yes (mild central cramping for 3 weeks, low back sore) Pain scale (1-10): 3 Allergies nickel Allergy (Mild, Verified 12/18/24 11:12) unknown Medications ???Medication ???Instructions ???Recorded ???Confirmed ???Type magnesium 250 mg tablet 250 mg PO QDAY 11/27/24 12/18/24 H istory Saccharomyces boulardii 250 mg 250 mg PO QHS 12/18/24 12/18/24 Hi story capsule (Digest Probiotic (S.boulardii)) multivitamin no.47-iron fum 27 cap PO 12/18/24 12/18/24 History mg-folate no.1 1 mg-dha 300 mg capsule (PNV-DHA) Is last menstrual period known: Yes Last menstrual period: 10/29/24 Post menopausal: No Patient : Yes Current gender identity: female Nurse's Note: Pt here for PNOB. Office UPT: positive. Vitals WNL. PNOB questions completed. Problem list, allergies, and medications updated. Results POC Urine Office , Urine Positive Last Edit by Radha Wong on 12/18/24 11:08 Assessment and Plan Assessment and Plan (1) Amenorrhea: Status: Acute Comment: +UPT Orders: Orders POC Urine Today N91.2 - Amenorrhea, unspecified Plan confirmed NOB scheduled Plan Details Goals Barriers: Goals Decrease spasm Decrease inflammation Improve intersegmental motion Improve ROM 12/18/24 1212 Date Yahaira Juarez NP SPLITTER HEAD-C Cosigner Signature: Date (if applicable) CC: Normal [facility] [place] Gen[place] Culture Comprehensiv dari 11-30-2024 VAC Reason for Exam: vaginal irritation Genital Culture Comprehensive Genital Culture Comprehensive Streptococcus agalactiae (B) Amount Growth 1+ Presumptive C albicans Presumptive C albicans Streptococcus agalactiae (B): REACTION Ampicillin Islt MIL <=0.25 S cefTRIAXone Islt MIL <=0.12 Clindamycin Islt MIL >=1 R Clindamycin.induced Susc Islt NEG Linezolid Islt MIL <=2 S Vancomycin Islt MIL 0.5 S Normal [facility] Comment on above: Performed By: #### L 7000.1800, M1.1999, M100.3200 ####[facility] [address] [place], [address] Chlamydia/GC CARA aptimaon CHLAMY,NUC ACID Negative Normal Negative [facility] Comment on above: Performed By: #### L 7000.1800, .1999, M100.3200 ####[facility] [address] [place], [address] GC BY NUC ACID Negative Normal Negative [facility] Comment on above: Result Comment: Perf ormed at: =G - [facility] [address] [id number] Keg Inspector: Gudelia Cook MD, Phone: [phone] Performed By: #### L 7000.1800, .1999, M100.3200 ####[facility] [address] [place], [address] C. trachomatis rRNA CARA+prob e Ql (Unsp spec)Ordered By: Yahaira Juarez on 11-27-2024 Chlamydia DNA (CARA) Negative Negative [facility] Chlamydia trachomatis rRNA d etection by probe and target amplification methodOrdered By: Yahaira Juarez on 11-27-2024 C. trachomatis rRNA CARA+probe Ql (Unsp spec) Negative Negative [facility] Genital cultureOrdered By: Bandar Juarez on 11-27-2024 Genital Culture Streptococcus agalactiae (B) Abnormal [facility] Genital Culture Presumptive C albicans Abnormal [facility] Source specific culture Streptococcus agalactiae (B) Abnormal [facility] Gram Stainon 11-27-2024 GS Reason for Exam: vaginal irritation Gram Stain 1+ Epithelial cells No Gram negative diplococci 4+ Gram positive rods Score = 0 Interpretation: 0-3 Normal, 4-6 Intermediate, 7-10 Positive BV Normal [facility] Comment on above: Performed By: #### L 7000.1800, M100.2000, M100.3200 ####[facility] [address] [place], [address] Gram stainOrdered By: Yahaira Juarez on 11-27-2024 Microscopic observation Gram stain Nom (Unsp spec) [facility] Neisseria gonorrhoeae nuclei c acid detection by amplified probe techniqueOrdered By: Yahaira Juarez on 11-27-2024 N. gonorrhoeae DNA CARA+probe Ql (Unsp spec) Negative Negative [facility] Comment on above: Performed at: =[address] [id number] Director: Gudelia Cook MD, Phone: [phone] No Panel InformationOrdered By: Yahaira Juarez on 11-27-2024 POC Bacterial Vaginitis (Rapid) Negative [facility] POC Trichomonas (Rapid) Negative 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) 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: Annual Plant Mechanic Required: No Is patient in pain?: No Allergies nickel Allergy (Mild, Verified 11/27/24 08:12) unknown Medications ???Medication ???Instructions ???Recorded ???Confirmed ???Type Saccharomyces boulardii 250 mg 250 mg PO BID 11/27/24 11/27/24 Hi story capsule (Digest Probiotic (S.boulardii)) magnesium 250 mg tablet 250 mg PO QDAY 11/27/24 11/27/24 H istory Is last menstrual period known: Yes Last Menstrual Period: 11/06/24 Post menopausal: No Patient : No : No PFSH Medical History Chronic neck and back pain Asthma Surgical History H/O shoulder surgery History of appendectomy Family History Other Hypertension Social History current occupation: [employer] agency Smoking Status: Never smoker alcohol intake: never substance use type: does not use caffeine: Yes what type of physical activity do you participate in: walking seatbelt use: always additional social history: BF- Robin History 0 Elective abortions Hx Para Spontaneous abortions Hx # Term Pregnancies Ectopic pregnancies Hx # Pregnancies Multiple births # of living children HPI Encounter for routine gynecological examination Details: REESE MCDONALD is a 18 year old who presents for annual exam. Having recurrent vaginal irritation. No change in discharge. Same partner X 4 years. Planning elopement in next year. No contraception, ok. Last PAP: age 19 Female Reproductive History Last Menstrual Period: 11/06/24 Cycle Length: 21-35 Questions: metorrhagia: No, sexually active: Yes, dyspareunia: No and PCB: No ROS Const Constitutional: Denies fatigue, weight gain or weight loss Cardio Card: Denies chest pain Resp Resp: Denies cough or dyspnea on exertion GI GI: Denies abdominal pain, bloating, change in stool character, constipation or vomiting : Reports as per HPI; Denies difficulty voiding, pelvic pain, urinary frequency, urinary incontinence or urinary urgency Exam Const General: cooperative, healthy appearing, no acute distress and well developed Orientation: alert, oriented to person and oriented to place HENSC Head: normal to inspection Neck Neck: normal visual inspection Resp Effort Inspection: normal respiratory effort GI Palpation: soft, no masses and nontender Rectal Exam: deferred External Female Exam: normal external appearance and normal appearance of the urethra Urethra: normal appearance of the urethra and normal palpation Speculum Exam - Vagina: normal appearance of the vagina and normal vaginal discharge Speculum Exam - Cervix: normal appearance of the cervix Bimanual Exam- Vagina Uterus: normal bimanual exam, uterine size normal, uterine shape normal and non-tender Bimanual Exam- Adnexa, other: normal adnexae, no masses, normal and non-tender Pelvic Support: normal Neuro General: patient alert and patient oriented x3 Psych Affect: normal affect Coding Level of Care Code Off vis,est,prev 18-39yrs Diagnoses Encounter for gynecological examination with abnormal finding Z01.411 Gynecological examination findings: abnormal findings PRESENT Acute vaginitis N76.0 Chronicity: acute Assessment and Plan Assessment and Plan (1) Encounter for routine gynecological examination: Qualifiers: Gynecological examination findings: abnormal findings PRESENT Qualified Code(s): Z01.411 - Encounter for gynecological examination (general) (routine) with abnormal findings (2) Vaginitis: Qualifiers: Chronicity: acute Qualified Code(s): N76.0 - Acute vaginitis Orders: Orders Chlamydia/GC CARA aptima Today N89.8 - Other specified noninflammatory disorders of vagina, Z11.3 - Encounter for screening for infections with a predominantly sexual mode of transmission POC BV Blue Test Today N89.8 - Other specified noninflammatory disorders of vagina, Z11.3 - Encounter for screening for infections with a predominantly sexual mode of transmission POC Trichomonas Vaginalis Today N89.8 - Other specifie (more content not included)... Normal [facility] CNOVon 02-02-2023 CNOV Office Visit (PEDSWS ) REESE MCDONALD ([id number]) 1 F Date Time Provider Department 02/02/23 8:30 AM JUAN SCRUGGS PEDJOSÉ MIGUELS During your visit today, we recorded the following information about you: Temperature Pulse Respiration Blood pressure 98.5 degrees 60/minute 12/minute 112/70 Weight 99 kg Juan Scruggs APRN.CNP 02/03/2023 9:48 AM Signed PEDIATRIC SICK VISIT SUBJECTIVE: Reese Mcdonald is a 17 year old presenting to clinic. Patient presents with: Sore Throat: Onset on 01/12, diagnosed with strep per provider on 01/13 (testing was not done per patient)-Throat worse in the mornings and still bothering her. She has had a follow up strep testing that was negative. Fatigue: Has been feeling drained fatigued since 01/12 at the onset of illness. Has been having intermittent low grade fevers. Lymph node changes : Has been having some soreness in lymph nodes and possible swollen at times per patient. decreased appetite : Has been having decrease in appetite with current illness symptoms Completed 10 day course of amoxicillin and sx were improving. When symptoms returned, tested for strep a second time and rapid test and culture were negative. Ibuprofen helping with swelling feeling in throat Difficult to swallow. Throat pain improved some last week but is worse again in the past few days History was obtained from: patient Current symptoms: FEVER: not present at this time, intermittent low grade fevers with tmax 100.3F EYE SYMPTOMS: not present at this time, intermittent watery eyes NASAL CONGESTION: intermittent, has seasonal allergies EAR SYMPTOMS: not present at this time COUGH: intermittent, for a few days, seems r/t tickle in throat SORE THROAT: for 3 week(s) HEADACHE: not present at this time VOMITING: not present at this time NAUSEA: not present at this time, but reports nausea for the past 3 days DIARRHEA: not present at this time, 1 episode 1 week ago ABDOMINAL PAIN: not present at this time, reports aching feeling overall RASH: not present at this time, intermittent rash in antecubital spaces GENERAL: Decreased activity Appetite: decreased Pain in lymph nodes of neck and left axillary area Sick contacts: No known sick contacts HISTORY: ACTIVE PROBLEM LIST Myopia Anxiety PAST MEDICAL HISTORY Diagnosis Date Myopia PAST SURGICAL HISTORY Procedure Laterality Date LAPAROSCOPIC APPENDECTOMY 11/12/2017 early appendicitis and a right hemorrhagic ovarian cyst SHOULDER SURGERY HX Right 05/04/2020 Allergies: ALLERGIES Allergen Reactions Nickel Hives Medications: NORGESTIMATE-ETHINYL ESTRADIOL ORAL Norgestimate-Ethinyl Estradiol Norgestimate-Ethinyl Estradiol Active 1 TAB daily September 11, 2019 9:12am 09-11-2019 [facility] ([id number]) amoxicillin-clavulani c acid (AUGMENTIN) 875-125 mg per tablet Take 1 tablet by mouth twice daily for 10 days. levocetirizine (XYZAL) 5 mg tablet Take 1 tablet by mouth once daily. ketotifen fumarate (ZADITOR) 0.025 % (0.035 %) ophthalmic solution Use 1 Drop in both eyes twice daily. triamcinolone acetonide (NASACORT AQ) 55 mcg nasal inhaler Use 2 Sprays in the nose daily at bedtime. mometasone (ELOCON) 0.1 % cream Apply to affected area once daily. APPLY TO AFFECTED AREA sertraline (ZOLOFT) 50 mg tablet Take 1 tablet by mouth once daily. OBJECTIVE: BP 112/70 Pulse 60 Temp 36.9 ?C (98.5 ?F) (Temporal Artery) Resp 12 Wt 99 kg (218 lb 3.2 oz) LMP 01/13/2022 General: alert and active in no apparent distress Eyes: conjunctiva clear, PERRL Ears: TMs translucent bilaterally, normal landmarks noted Nose: no rhinorrhea, no mucosal edema OP: tonsils mildly erythematous 3+ bilaterally, no exudates, uvula midline, no trismus, moist mucous membranes Neck: supple, no adenopathy Lymph: no occipital, supraclavicular, epitrochlear, or axillary adenopathy Lungs: clear to auscultation bilaterally, good air exchange, no retractions, no wheezes or crackles CVS: Normal rate, regular rhythm, no murmur Abdomen: soft, nondistended, nontender, no hepatosplenomegaly or masses, and no rebound or guarding Skin: No rashes, lesions or skin changes ASSESSMENT/PLAN: Encounter Diagnosis ICD-10-CM 1. Streptococcal pharyngitis J02.0 STREP A MOLECULAR (POC) amoxicillin-clavulani c acid (AUGMENTIN) 875-125 mg per tablet --Molecular strep test positive in office --Start antibiotics; finish entire course (continue even when child is feeling better) --Treatment with augmentin d/t recent amoxicillin treatment (within past 30 days) --Acetaminophen (Tylenol) or ibuprofen (Motrin or Advil) as needed for pain or discomfort --Warm liquids, ice pops, or honey PRN; may try salt water gargles --Return to clinic for re-evaluation if no improvement or symptoms worsen after 48 hours of treatment, or fo (more content not included)... Normal [facility] [place] STREP A MOLECULAR (POC)on Procedural Control Valid [facility] Strep A (POCT) Positive Abnormal Negative [facility] CNOVon 02-23-2022 CNOV Office Visit (ALLMED ) REESE MCDONALD ([id number]) 1 F Date Time Provider Department 02/23/22 8:30 AM BRYAN CALLAHAN During your visit today, we recorded the following information about you: Pulse Blood pressure Weight 61/minute 116/64 99.8 kg Bryan Callahan MD 02/24/2022 3:13 PM Signed This is a consultation requested by Dr. Justice for an allergy and immunology evaluation. My final recommendations will be communicated back to the requesting healthcare provider(s) by way of shared medical record or via [place]. mail. Reese Merlosaristeo Mcdonald is a 16 year old female who has symptoms of itchy eyes, watery eyes, clear rhinorrhea, nasal congestion, sneezing, postnasal drip. These symptoms are seasonal with symptoms occuring in the Spring (December, January, February.) Current triggers include exposure to pollens. The patient has been suffering from these symptoms 5 year(s). Symptoms have been getting worse. She takes Xyzal with fair relief of symptoms. Previously used Nasacort for 1.5 weeks without relief. She has previously taken Claritin, Zyrtec and Olga without relief. No prior allergy testing or allergy immunotherapy. Requires treatment with approx 1 course of antibiotics for sinusitis per year. Denies a history of nasal polyposis or nasal trauma. No prior imaging of the sinuses. She complains of intermittent skin rash involving the antecubital fossa and palmar surface of her hands. Rash on her hands is described as pea-sized erythematous bumps. Also with itching of the anterior neck. She complained of burning associated with use of mometasone cream 0.1%. She bathes using Suave body wash. Denies use of emollients. REVIEW OF SYSTEMS: SINUSITIS: The patient does not suffer from frequent sinopulmonary infections. ASTHMA: The patient has no history of asthma. ECZEMA: See [facility] [place] URTICARIA:The patient does not have a history of urticaria and/or angioedema. GERD: The patient does not have a history of GERD. INSECT STING: The patient does not have a history of systemic reaction to insect sting. FOOD ALLERGY:The patient denies history of food allergy. LATEX: The patient does not have a history of adverse reaction to latex. All other review of systems negative except for those listed above. PAST MEDICAL HISTORY Diagnosis Date - Myopia MEDICATIONS: levocetirizine (XYZAL) 5 mg tablet Take 1 tablet by mouth once daily. ketotifen fumarate (ZADITOR) 0.025 % (0.035 %) ophthalmic solution Use 1 Drop in both eyes twice daily. triamcinolone acetonide (NASACORT AQ) 55 mcg nasal inhaler Use 2 Sprays in the nose daily at bedtime. mometasone (ELOCON) 0.1 % cream Apply to affected area once daily. APPLY TO AFFECTED AREA sertraline (ZOLOFT) 50 mg tablet Take 1 tablet by mouth once daily. NORGESTIMATE-ETHINYL ESTRADIOL ORAL Norgestimate-Ethinyl Estradiol Norgestimate-Ethinyl Estradiol Active 1 TAB daily September 11, 2019 9:12am 09-11-2019 [facility] ([id number]) ALLERGIES: Allergies As of Date: 02/23/2022 Allergen Noted Reaction NICKEL 12/28/2018 Hives Fully Assessed 01/20/2022 PAST SURGICAL HISTORY Procedure Laterality Date - LAPAROSCOPIC APPENDECTOMY 11/12/2017 early appendicitis and a right hemorrhagic ovarian cyst - NONE - SHOULDER SURGERY HX Right 05/04/2020 FAMILY HISTORY: Allergic rhinitis:yes: mom. Asthma: no. Eczema: no. Cystic fibrosis: no. Immunodeficiency: no. SOCIAL HISTORY: Employer And Job Title: None on file Years Of Education Completed: Not specified Marital Status: Single Social History Tobacco Use Smoking status: Never Smoker Smokeless tobacco: Never Used Graduated from [employer]. 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 Pets in the home: 5 dogs Outdoor animals: 2 horses, 25 goats,1 alpacas, 2 cats, 10 chickens, 4 ducks, 6 lambs Tobacco smoke: No exposure in the home. Physical Exam: GENERAL APPEARANCE:Well appearing, alert, in no acute distress, well-hydrated, well nourished. HEENT: NCAT. EYES: conjunctiva and sclera normal. EARS: External ears normal. Canals clear. TM's normal. NOSE/SINUS: pallor and moderate edema of the nasal mucosa with scant clear secretions bilaterally THROAT: no erythema NECK:neck supple, no adenopathy HEART:RRR with normal S1 and S2 ,no murmurs, no gallops, no rubs LUNGS: clear to auscultation bilaterally, no wheezes, rales or rhonchi ABDOMEN:soft, nontender, nondistended, without organomegaly or palpable masses EXTREMITIES:Extremiti es normal, No deformities, No skin discoloration and No edema SKIN: Skin color, texture, (more content not included)... Normal [facility] CNCOon 02-15-2022 CNCO Letter Text Normal [facility] Basophil percentageon 2021 C. trachomatis DNA CARA+probe Ql (Unsp spec) Negative Negative [facility] Work Phone: Neisseria gonorrhoeae detect ion by PCRon 10-05-2021 N. gonorrhoeae DNA CARA+probe Ql (Cervical mucus) Negative Negative [facility] Work Phone: No Panel Informationon 09-09 Influenza Types A,B Rapid (Clinic) Negative [facility] Work Phone: POC SARS CoV-2 Antigen Positive [facility] Work Phone: Vital Signs Date Time Vital Sign Value Performing Clinician Facility 07-05-2025 15:54-0400 Body height 175.[address] Isi Justice MD Work Phone: 0(243)[phone] [place] [address] 07-05-2025 15:54-0400 Body mass index (BMI) [Ratio] 35.4 kg/m2 Dr. Isi Justice MD Work Phone: 4(642)935-624453 [place] [address] 07-05-2025 15:54-0400 Body weight 108.[address] Isi Justice MD Work Phone: 6(499)910-683053 [place] [address] 07-05-2025 15:54-0400 Diastolic blood pressure 79 mm[Hg] Dr. Isi Justice MD Work Phone: 8(656)049-379653 [place] [address] 07-05-2025 15:54-0400 Systolic blood pressure 130 mm[Hg] Dr. Isi Justice MD Work Phone: 6(930)939-492453 [place] [address] 06-17-2025 14:21-0400 Body height 175.[address] Isi Justice MD Work Phone: 5(207)727-574353 [place] [address] 06-17-2025 14:21-0400 Body mass index (BMI) [Ratio] 35.2 kg/m2 Dr. Isi Justice MD Work Phone: 6(565)784-193753 [place] [address] 06-17-2025 14:21-0400 Body weight 108.[address] Isi Justice MD Work Phone: 2(462)540-184453 [place] [address] 06-17-2025 14:21-0400 Diastolic blood pressure 75 mm[Hg] Dr. Isi Justice MD Work Phone: 9(501)235-979553 [place] [address] 06-17-2025 14:21-0400 Systolic blood pressure 117 mm[Hg] Dr. Isi Justice MD Work Phone: 5(698)261-928853 [place] [address] 06-05-2025 14:54-0400 Body height 175.[address] Isi Justice MD Work Phone: 2(655)335-069053 [place] [address] 06-05-2025 14:54-0400 Body mass index (BMI) [Ratio] 35 kg/m2 Dr. Isi Justice MD Work Phone: 4(560)888-909253 [place] [address] 06-05-2025 14:54-0400 Body weight 107.[address] Isi Justice MD Work Phone: 0(099)865-408153 [place] [address] 06-05-2025 14:54-0400 Diastolic blood pressure 71 mm[Hg] Dr. Isi Justice MD Work Phone: 0(082)154-545553 [place] [address] 06-05-2025 14:54-0400 Systolic blood pressure 121 mm[Hg] Dr. Isi Justice MD Work Phone: 1(133)256-321553 [place] [address] 05-23-2025 11:25-0400 Body height 175.[address] Isi Justice MD Work Phone: 1(554)230-246453 [place] [address] 05-23-2025 11:17-0400 Body mass index (BMI) [Ratio] 34.4 kg/m2 Dr. Isi Justice MD Work Phone: 8(807)884-213553 [place] [address] 05-23-2025 11:17-0400 Body weight 105.[address] Isi Justice MD Work Phone: 2(807)636-151453 [place] [address] 05-23-2025 11:17-0400 Diastolic blood pressure 68 mm[Hg] Dr. Isi Justice MD Work Phone: 0(614)360-579153 [place] [address] 05-23-2025 11:17-0400 Systolic blood pressure 116 mm[Hg] Dr. Isi Justice MD Work Phone: 9(169)993-527553 [place] [address] 05-09-2025 10:59-0400 Body height 175.[address] Isi Justice MD Work Phone: 2(305)480-991453 [place] [address] 05-09-2025 10:59-0400 Body mass index (BMI) [Ratio] 34 kg/m2 Dr. Isi Justice MD Work Phone: 3(353)623-727953 [place] [address] 05-09-2025 10:59-0400 Body weight 104.[address] Isi Justice MD Work Phone: 2(471)036-071453 [place] [address] 05-09-2025 10:59-0400 Diastolic blood pressure 82 mm[Hg] Dr. Isi Justice MD Work Phone: 0(985)481-526753 [place] [address] 05-09-2025 10:59-0400 Systolic blood pressure 143 mm[Hg] Dr. Isi Justice MD Work Phone: 9(792)808-362253 [place] [address] 04-09-2025 14:14-0400 Body height 175.[address] Isi Justice MD Work Phone: 5(596)305-013153 [place] [address] 04-09-2025 14:14-0400 Body mass index (BMI) [Ratio] 32.9 kg/m2 Dr. Isi Justice MD Work Phone: 0(346)138-036553 [place] [address] 04-09-2025 14:14-0400 Body weight 101.[address] Isi Justice MD Work Phone: 7(080)787-922053 [place] [address] 04-09-2025 14:14-0400 Diastolic blood pressure 76 mm[Hg] Dr. Isi Justice MD Work Phone: 0(011)640-461053 [place] [address] 04-09-2025 14:14-0400 Systolic blood pressure 124 mm[Hg] Dr. Isi Justice MD Work Phone: 0(257)382-571953 [place] [address] 03-12-2025 14:50-0400 Body height 175.[address] Isi Justice MD Work Phone: 8(934)672-250053 [place] [address] 03-12-2025 14:50-0400 Body mass index (BMI) [Ratio] 32.1 kg/m2 Dr. Isi Justice MD Work Phone: 5(975)485-488953 [place] [address] 03-12-2025 14:50-0400 Body weight 98.[address] Isi Justice MD Work Phone: 4(907)549-862553 [place] [address] 03-12-2025 14:50-0400 Diastolic blood pressure 72 mm[Hg] Dr. Isi Justice MD Work Phone: 1(431)607-161353 [place] [address] 03-12-2025 14:50-0400 Systolic blood pressure 113 mm[Hg] Dr. Isi Justice MD Work Phone: 7(345)639-265853 [place] [address] 02-13-2025 09:50-0400 Body height 175.[address] Isi Justice MD Work Phone: 0(229)714-455653 [place] [address] 02-13-2025 09:47-0400 Body mass index (BMI) [Ratio] 32.3 kg/m2 Dr. Isi Justice MD Work Phone: 2(889)539-801153 [place] [address] 02-13-2025 09:47-0400 Body weight 99.[address] Isi Justice MD Work Phone: 4(526)733-947953 [place] [address] 02-13-2025 09:47-0400 Diastolic blood pressure 79 mm[Hg] Dr. Isi Justice MD Work Phone: 1(220)016-766353 [place] [address] 02-13-2025 09:47-0400 Systolic blood pressure 127 mm[Hg] Dr. Isi Justice MD Work Phone: 8(836)273-002653 [place] [address] 01-10-2025 14:19-0400 Body height 175.[address] Isi Justice MD Work Phone: 0(211)901-787353 [place] [address] 01-10-2025 14:16-0400 Body mass index (BMI) [Ratio] 33 kg/m2 Dr. Isi Justice MD Work Phone: 6(703)411-260553 [place] [address] 01-10-2025 14:16-0400 Body weight 99.[address] Isi Justice MD Work Phone: 7(534)295-944853 [place] [address] 01-10-2025 14:16-0400 Diastolic blood pressure 80 mm[Hg] Dr. Isi Justice MD Work Phone: 3(699)276-347753 [place] [address] 01-10-2025 14:16-0400 Systolic blood pressure 134 mm[Hg] Dr. Isi Justice MD Work Phone: 3(513)290-206853 [place] [address] 12-31-2024 09:36-0400 Body mass index (BMI) [Ratio] 32 kg/m2 Dr. Isi Justice MD Work Phone: 9(209)091-833253 [place] [address] 12-31-2024 09:36-0400 Body weight 98.[address] Isi Justice MD Work Phone: 4(307)408-101253 [place] [address] 12-31-2024 09:36-0400 Diastolic blood pressure 82 mm[Hg] Dr. Isi Justice MD Work Phone: 7(077)111-495053 [place] [address] 12-31-2024 09:36-0400 Systolic blood pressure 128 mm[Hg] Dr. Isi Justice MD Work Phone: 8(244)747-165353 [place] [address] 12-18-2024 11:03-0400 Body mass index (BMI) [Ratio] 32.7 kg/m2 Dr. Isi Justice MD Work Phone: 2(728)507-257853 [place] [address] 12-18-2024 11:03-0400 Body weight 99.[address] Isi Justice MD Work Phone: 0(883)525-835153 [place] [address] 12-18-2024 11:03-0400 Diastolic blood pressure 58 mm[Hg] Dr. Isi Justice MD Work Phone: 4(180)901-790953 [place] [address] 12-18-2024 11:03-0400 Systolic blood pressure 108 mm[Hg] Dr. Isi Justice MD Work Phone: 6(587)165-263053 [place] [address] 11-27-2024 08:17-0400 Body height 173.[address] Isi Justice MD Work Phone: 6(848)921-989753 [place] [address] 11-27-2024 08:12-0400 Body mass index (BMI) [Ratio] 33.1 kg/m2 Dr. Isi Justice MD Work Phone: 1(935)967-862553 [place] [address] 11-27-2024 08:12-0400 Body weight 100.[address] Isi Justice MD Work Phone: 5(430)255-022553 [place] [address] 11-27-2024 08:12-0400 Diastolic blood pressure 72 mm[Hg] Dr. Isi Justice MD Work Phone: 8(835)120-369053 [place] [address] 11-27-2024 08:12-0400 Systolic blood pressure 126 mm[Hg] Dr. Isi Justice MD Work Phone: 5(821)478-761653 [place] [address] 02-02-2023 08:33-0400 Body temperature 98.49 [degF] Juan Scruggs GREASE BUFFER.GUIDE DOG INSTRUCTOR Work Phone: [facility] 02-02-2023 08:33-0400 Body weight 98.97 kg Juan Scruggs GREASE BUFFER.GUIDE DOG INSTRUCTOR Work Phone: [facility] 02-02-2023 08:33-0400 Diastolic blood pressure 70 mm[Hg] Juan Scruggs GREASE BUFFER.GUIDE DOG INSTRUCTOR Work Phone: [facility] 02-02-2023 08:33-0400 Heart rate 60 /min Juan Scruggs GREASE BUFFER.GUIDE DOG INSTRUCTOR Work Phone: [facility] 02-02-2023 08:33-0400 Respiratory rate 12 /min Juan Scruggs GREASE BUFFER.GUIDE DOG INSTRUCTOR Work Phone: [facility] 02-02-2023 08:33-0400 Systolic blood pressure 112 mm[Hg] Juan Scruggs GREASE BUFFER.GUIDE DOG INSTRUCTOR Work Phone: [facility] 02-23-2022 08:37-0400 Body weight 99.79 kg Bryan Callahan MD Work Phone: [facility] 02-23-2022 08:37-0400 Diastolic blood pressure 64 mm[Hg] Bryan Callahan MD Work Phone: [facility] 02-23-2022 08:37-0400 Heart rate 61 /min Bryan Callahan MD Work Phone: [facility] 02-23-2022 08:37-0400 SaO2% (BldA) [Mass fraction] 98 % Bryan Callahan MD Work Phone: [facility] 02-23-2022 08:37-0400 Systolic blood pressure 116 mm[Hg] Bryan Callahan MD Work Phone: [facility] 01-20-2022 13:46-0400 Body temperature 99 [degF] Isi Justice MD Work Phone: [facility] 01-20-2022 13:46-0400 Body weight 99.85 kg Isi Justice MD Work Phone: [facility] 01-20-2022 13:46-0400 Diastolic blood pressure 72 mm[Hg] Isi Justice MD Work Phone: [facility] 01-20-2022 13:46-0400 Heart rate 76 /min Isi Justice MD Work Phone: [facility] 01-20-2022 13:46-0400 Respiratory rate 18 /min Isi Justice MD Work Phone: [facility] 01-20-2022 13:46-0400 Systolic blood pressure 122 mm[Hg] Isi Justice MD Work Phone: [facility] 10-05-2021 07:16-0500 Body height 172.[address] Isi Justice Work Phone: [facility] Work Phone: 10-05-2021 07:16-0500 Body mass index (BMI) [Ratio] 32.8 kg/m2 Dr. Isi Justice Work Phone: [facility] Work Phone: 10-05-2021 07:16-0500 Body weight 97.[address] Isi Justice Work Phone: [facility] Work Phone: 10-05-2021 07:16-0500 Diastolic blood pressure 62 mm[Hg] Dr. Isi Justice Work Phone: [facility] Work Phone: 10-05-2021 07:16-0500 Systolic blood pressure 108 mm[Hg] Dr. Isi Justice Work Phone: [facility] Work Phone: 09-09-2021 08:38-0500 Body mass index (BMI) [Ratio] 32.1 kg/m2 Dr. Isi Justice Work Phone: [facility] Work Phone: 09-09-2021 08:38-0500 Body temperature 97.9 [degF] Dr. Isi Justice Work Phone: [facility] Work Phone: 09-09-2021 08:38-0500 Body weight 95.[address] Isi Justice Work Phone: [facility] Work Phone: 09-09-2021 08:38-0500 Diastolic blood pressure 80 mm[Hg] Dr. Isi Justice Work Phone: [facility] Work Phone: 09-09-2021 08:38-0500 Heart rate 86 /min Dr. Isi Justice Work Phone: [facility] Work Phone: 09-09-2021 08:38-0500 Respiratory rate 16 /min Dr. Isi Justice Work Phone: [facility] Work Phone: 09-09-2021 08:38-0500 SaO2% (BldA) [Mass fraction] 97 % Dr. Isi Justice Work Phone: [facility] Work Phone: 09-09-2021 08:38-0500 Systolic blood pressure 126 mm[Hg] Dr. Isi Justice Work Phone: [facility] Work Phone: Encounters Encounter Date Encounter Type Care Provider Facility Start: 07-09-2025 End: 07-09-2025 ambulatory Isi Justice Facility:[facility] Start: 07-05-2025 End: 07-05-[facility] Start: 06-24-2025 End: 06-24-[address] Nida Martinez [facility] Work Phone: Start: 06-24-2025 End: [facility] Start: 06-17-2025 End: 06-17-2025 Patient encounter procedure Gabriela Taveras CNM -Laboratory Specimen Work Phone: Start: 06-17-2025 End: 06-17-2025 Patient encounter procedure Gabriela CRUZ -[facility] Work Phone: Start: 06-17-2025 End: 06-17-[address] Isi Justice MD Work Phone: [facility] Start: 06-17-2025 End: 06-17-2025 ambulatory Gabriela Taveras Facility:[facility] Start: 06-05-2025 End: 06-05-[address] Isi Justice MD Work Phone: [facility] Start: 06-05-2025 End: 06-05-[address] Eugenia Moncada DO -[facility] Work Phone: Start: 05-27-2025 End: 05-27-[address] Nida Martinez [place] -[facility] Work Phone: Start: 05-27-2025 End: 05-27-[address] Isi Justice MD Work Phone: [facility] Start: 05-23-2025 End: 05-23-2025 Patient encounter procedure Gabriela Taveras CNM -[facility] Work Phone: Start: 05-23-2025 End: 05-23-[address] Iis Justice MD Work Phone: [facility] Start: 05-21-2025 End: 05-21-[address] Isi Justice MD Work Phone: -[facility]trasound [facility] Start: 05-21-2025 End: 05-21-2025 Patient encounter procedure Gabriela Taveras CNM -[facility]trasound [facility] Work Phone: Start: 05-21-2025 End: 05-21-2025 ambulatory Isi Justice Facility:[facility] Start: 05-09-2025 End: 05-09-[address] Viki Case MD -[facility] Work Phone: Start: 05-09-2025 End: 05-09-[address] Isi Justice MD Work Phone: [facility] Start: 05-09-2025 End: 05-09-2025 ambulatory Isi Justice Facility:[facility] Start: 05-01-2025 End: 05-01-[address] Nida Martinez [place] -[facility] Work Phone: Start: 05-01-2025 End: 05-01-[address] Isi Justice MD Work Phone: -[facility] Start: 04-09-2025 End: 04-09-2025 Patient encounter procedure Gabriela Taveras CNM -[facility] Work Phone: Start: 04-09-2025 End: 04-09-[address] Isi Justice MD Work Phone: [facility] Start: 04-03-2025 End: 04-03-[address] Nida Martinez [place] -[facility] Work Phone: Start: 04-03-2025 End: 04-03-[address] Isi Justice MD Work Phone: [facility] Start: 03-26-2025 End: 03-26-[address] Isi Justice MD Work Phone: -Ultrasound [facility] Start: 03-26-2025 End: 03-26-[address] Eugenia Moncada DO -Ultrasound [facility] Work Phone: Start: 03-26-2025 End: 03-26-2025 ambulatory Eugenia Moncada Facility:[facility] Start: 03-12-2025 End: 03-12-2025 Patient encounter procedure Yahaira Juarez SPLITTER HEAD-C -[facility] Work Phone: Start: 03-12-2025 End: 03-12-[address] Isi Justice MD Work Phone: -[facility] Start: 03-05-2025 End: 03-05-[address] Nida Martinez DC -[facility] Work Phone: Start: 03-05-2025 End: 03-05-[address] Isi Justice MD Work Phone: -[facility] Start: 02-13-2025 End: 02-13-[address] Eugenia Moncada DO -[facility] Work Phone: Start: 02-13-2025 End: 02-13-[address] Isi Justice MD Work Phone: [facility] Work Phone: Start: 01-29-2025 End: 01-29-[address] Nida Martinez [place] -[facility] Work Phone: Start: 01-29-2025 End: 01-29-[address] Iis Justice MD Work Phone: [facility] Work Phone: Start: 01-21-2025 End: 01-21-[address] Isi Justice MD Work Phone: [facility] Work Phone: Start: 01-21-2025 End: 01-21-[address] Viki Case MD -Laboratory Work Phone: Start: 01-21-2025 End: 01-21-2025 ambulatory Yahaira Juarez SPLITTER HEAD Facility:[facility] Start: 01-10-2025 End: 01-10-[address] Isi Justice MD Work Phone: [facility] Work Phone: Start: 01-10-2025 End: 01-10-2025 Patient encounter procedure Yahaira Juarez SPLITTER HEAD-C -Laboratory, Specimen Work Phone: Start: 01-10-2025 End: 01-10-[address] Eugenia Moncada DO -[facility] Work Phone: Start: 01-10-2025 End: 01-10-2025 ambulatory Isi Justice Facility:[facility] Start: 01-10-2025 End: 01-10-2025 ambulatory Yahaira Juarez SPLITTER HEAD Facility:[facility] Start: 12-31-2024 End: 12-31-[address] Nida Martinez [place] -[facility] Work Phone: Start: 12-31-2024 End: 12-31-2024 ambulatory Isi Justice Facility:[facility] Start: 12-18-2024 End: 12-18-2024 Patient encounter procedure Yahaira Juarez SPLITTER HEAD-C -[facility] Work Phone: Start: 12-18-2024 End: 12-18-2024 ambulatory Isi Justice Facility:[facility] Start: 11-27-2024 End: 11-27-[address] Isi Justice MD Work Phone: [facility] Work Phone: Start: 11-27-2024 End: 11-27-2024 Patient encounter procedure Yahaira Juarez SPLITTER HEAD-C -Lab, [facility] Start: 11-27-2024 End: 11-27-2024 Patient encounter procedure Yahaira Juarez SPLITTER HEAD-C -[facility] Work Phone: Start: 11-27-2024 End: 11-27-2024 Patient encounter status Yahaira Juarez SPLITTER HEAD-C [facility] Start: 11-27-2024 End: 11-27-2024 ambulatory Isi Justice Facility:[facility] Start: 11-27-2024 End: 11-27-2024 ambulatory Yahairacarolina Lindas SPLITTER HEAD Facility:[facility] Start: 07-25-2024 ambulatory Isi Justice Facili ty:[facility] Start: 02-02-2023 End: 02-03-2023 ambulatory ISI JUSTICE Facility:[facility] Start: 02-02-2023 End: 02-02-2023 Patient encounter procedure Juan Scruggs APRN.CNP Work Phone: [facility] Comment on above: Streptococcal pharyn gitis (Primary Dx) Start: 02-23-2022 End: 02-23-2022 ambulatory [place] JENNIFER Facility:[facility] Start: 02-23-2022 End: 02-23-2022 Patient encounter procedure Bryan Callahan MD Work Phone: Allergy Comment on above: Seasonal allergic rh initis due to pollen (Primary Dx); Allergic conjunctivitis, unspecified laterality; Eczema, unspecified type; Seasonal allergies Start: 01-20-2022 End: 01-20-2022 Patient encounter procedure Isi Justice MD Work Phone: [facility] Comment on above: Seasonal allergies ( Primary Dx) Start: 12-25-2021 End: 12-25-[address] Isi Justice Work Phone: [facility]-Ultrasound, [facility] Start: 10-05-2021 End: 10-05-[address] Isi Justice Work Phone: [facility]-Laboratory, Specimen Start: 10-05-2021 End: 10-05-[address] Isi Justice Work Phone: [facility] Start: 09-09-2021 End: 09-09-[address] Isi Justice Work Phone: [facility] Procedures Date Procedure Procedure Detail Performing Clinician Start: 06-17-[address] Yuli Justice MD Work Phone: Start: 05-21-2025 Ultrasound scan for growth Dr. Isi Justice MD Work Phone: Start: 05-09-2025 Serologic test for syphilis Dr. Isi Justice MD Work Phone: Start: 03-26-[address] Isi Justice MD Work Phone: Start: 01-21-2025 Hepatitis C antibody measurement Dr. Iis Justice MD Work Phone: Comment on above: Reactive: Presumptiv e evidence of antibodies to HCV. Follow CDC recommendations for supplemental testing.Non-Reactive: Antibodies to HCV were not detected; does not exclude the possibility of exposure to HCVReactive Results are presumptive evidence of antibodies to HCV. Follow CDC recommendations for supplemental testing.Order confirmation testing: HCV Quant by PCR testing - HCVPCR lc#[id number] Non Reactive: < 0.8 Equivocal: >/= 0.8 to < 1.0 Reactive: >/= 1.0The CDC requires that a reactive/equivocal HCV antibody result be sent out for confirmation. HCV Quant by PCR testing. Start: 01-21-[address] Isi Justice MD Work Phone: Comment on above: Antibody Result: Int erpretationNon-Reactive: Non- ImmuneReactive: ImmuneThe following results were obtained with the [employer] Rubella IgG assay. Results from assays of other manufacturers cannot be used interchangeably. Start: 01-21-2025 Serologic test for syphilis Dr. Isi Justice MD Work Phone: Start: 01-10-2025 Liquid based cervica l cytology screening Dr. Isi Justice MD Work Phone: Comment on above: NEGATIVE FOR INTRAEP ITHELIAL LESION OR MALIGNANCY. This liquid based Th inPrep(R) pap test was screened withthe use of an image guided system. The HPV DNA reflex c riteria were not met with this specimenresult therefore, no HPV testing was performed.Performed at: [address] [id number] Director: Gudelia Cook MD, Phone: [phone] Start: 01-10-2025 Methadone measurement, urine Dr. Isi Justice MD Work Phone: Start: 01-10-[address] Yuli Justice MD Work Phone: Start: 11-27-2024 Gram stain microscopy D fabi Justice MD Work Phone: Start: 11-27-2024 End: 11-27-[address] Isi rodriguez MD Work Phone: Start: 02-02-2023 STREP A MOLECULAR (POC) Juan Scruggs APRN.GUIDE DOG INSTRUCTOR Work Phone: Start: 12-25-[address] Bandar Justice Work Phone: Start: 12-25-[address] Isi Justice Work Phone: Start: 11-05-2020 Adult depression scr eening assessment Isi Justice MD Work Phone: Plan of Treatment Date Care Activity Detail Author Start: 08-11-2025 Urine microalbumin profile DTAP,TDAP,TD (7 - Td or Tdap) [facility] Start: 07-09-2025 End: 07-09-2025 Patient encounter procedure -[facility] Work Phone: Start: 07-05-2025 End: 07-05-2025 Patient encounter procedure Marijuana use -[facility] Work Phone: Start: 06-24-2025 End: 06-24-2025 Patient encounter procedure -[facility] Work Phone: Start: 05-27-2025 End: 05-27-2025 Patient encounter procedure Segmental and somatic dysfunction of cervical region -[facility] Work Phone: Start: 05-09-2025 CBC W Auto Differential panel - Blood [facility] Start: 05-09-2025 Measurement of glucose 2 hours after glucose challenge for glucose tolerance test [facility] Start: 05-09-2025 Serologic test for syphilis [facility] Start: 05-09-2025 [facility] Start: 05-06-2023 Influenza vaccination INFLUENZA (Season Ended) [facility] patricia Start: 09-05-2022 DEPRESSION ASSESSMENT DEPRESSION ASSESSMENT [facility] Start: 05-06-2022 Influenza vaccination INFLUENZA (Season Ended) [facility] Start: 12-02-2021 CHLAMYDIA SCREENING (18-24) CHLAMYDIA SCREENING (18-24) [facility] Start: 12-02-2021 GC (GONORRHEA) SCREENING (18-24) GC (GONORRHEA) SCREENING (18-24) [facility] Start: 12-02-2021 HEPATITIS C SCREENING HEPATITIS C SCREENING [facility] Start: 12-02-2021 HIV SCREENING HIV SCREENING [facility] Start: 11-05-2021 Adult depression screening assessment DEPRESSION SCREENING [facility] Start: 12-02-2017 PEDS TO ADULT TRANSITION ANNUAL ASSESSMENT PEDS TO ADULT TRANSITION ANNUAL ASSESSMENT [facility] Start: 2015 PEDS TO ADULT TRANSITION INITIAL DISCUSSION PEDS TO ADULT TRANSITION INITIAL DISCUSSION [facility] Start: 12-02-2013 MENINGOCOCCAL B: Consider based on risk (1 of 2 - Risk Bexsero 2-dose series) MENINGOCOCCAL B: Consider based on risk (1 of 2 - Risk Bexsero 2-dose series) [facility] Start: 12-02-2008 COVID-19 VACCINE (#1) COVID-19 VACCINE (#1) [facility] Start: 06-04-2004 COVID-19 VACCINE (#1) COVID-19 VACCINE (#1) [facility] CBC W Auto Different ial panel - Blood [facility] CBC W Auto Different ial panel - Blood [facility] Erythrocyte mean corpuscular volume determination [facility] anatomy study [facility] Hematocrit [Volume Fraction] of Blood [facility] Hemoglobin [Mass/vol ume] in Blood [facility] Hemoglobin A1c/Hemoglobin.total in Blood [facility] Hepatitis C antibody measurement [facility] Leukocytes [#/volume ] in Blood [facility] Mean corpuscular hemoglobin concentration determination [facility] Mean corpuscular hemoglobin determination [facility] Measurement of gluco se 2 hours after glucose challenge for glucose tolerance test [facility] Neutrophil count [facility] Neutrophil percent differential count [facility] Platelets [#/volume] in Blood [facility] Red blood cell count [facility] Red cell distributio n width determination [facility] Rubella IgG measurement [facility] Serologic test for syphilis [facility] Serologic test for syphilis [facility] Ultrasound scan for growth [facility] Immunizations Immunization Date Immunization Notes Care Provider Bobby cerrato 11-05-2020 meningococcal polysaccharide (groups A, C, Y and W-135) diphtheria toxoid conjugate vaccine (MCV4P) Isi Justice MD Work Phone: [facility] 07-31-2018 Human Papillomavirus 9-valent vaccine Isi Justice MD Work Phone: [facility] 04-03-2018 hepatitis A vaccine, pediatric/adolescent dosage, 2 dose schedule Isi Justice MD Work Phone: [facility] 11-01-2017 Human Papillomavirus 9-valent vaccine Isi Jsutice MD Work Phone: [facility] 08-11-2015 influenza, injectabl e, quadrivalent, contains preservative Isi Justice MD Work Phone: [facility] Work Phone: 08-11-2015 meningococcal polysaccharide (groups A, C, Y and W-135) diphtheria toxoid conjugate vaccine (MCV4P) Isi Justice MD Work Phone: [facility] Work Phone: 08-11-2015 tetanus toxoid, redu doni diphtheria toxoid, and acellular pertussis vaccine, adsorbed Isi Justice MD Work Phone: [facility] Work Phone: 04-12-2011 hepatitis A vaccine, pediatric/adolescent dosage, 2 dose schedule Isi Justice MD Work Phone: [facility] Work Phone: 07-20-2008 measles, mumps and rubella virus vaccine Isi Justice MD Work Phone: [facility] Work Phone: 07-17-2008 Diphtheria, tetanus toxoids and acellular pertussis vaccine, and poliovirus vaccine, inactivated Isi Justice MD Work Phone: [facility] Work Phone: 07-17-2008 poliovirus vaccine, inactivated Isi Justice MD Work Phone: [facility] Work Phone: 07-17-2008 varicella virus vaccine Sivan Justice MD Work Phone: [facility] Work Phone: 06-08-2005 poliovirus vaccine, inactivated Isi Justice MD Work Phone: [facility] Work Phone: 03-10-2005 diphtheria, tetanus toxoids and acellular pertussis vaccine Isi Justice MD Work Phone: [facility] Work Phone: 03-10-2005 pneumococcal Conjuga te, unspecified formulation Isi Justice MD Work Phone: [facility] Work Phone: 12-10-2004 haemophilus influenz ae type b vaccine, HbOC conjugate Isi Justice MD Work Phone: [facility] Work Phone: 12-10-2004 hepatitis B vaccine, pediatric or pediatric/adolescent dosage Isi Justice MD Work Phone: [facility] Work Phone: 12-10-2004 measles, mumps and rubella virus vaccine Isi Justice MD Work Phone: [facility] Work Phone: 12-10-2004 varicella virus vaccine Sivan Justice MD Work Phone: [facility] Work Phone: 08-08-2004 influenza virus vacc ine, unspecified formulation Isi Justice MD Work Phone: [facility] Work Phone: 06-12-2004 diphtheria, tetanus toxoids and acellular pertussis vaccine Isi Justice MD Work Phone: [facility] Work Phone: 06-12-2004 influenza virus vacc ine, unspecified formulation Isi Justice MD Work Phone: [facility] Work Phone: 06-12-2004 pneumococcal Conjuga te, unspecified formulation Isi Justice MD Work Phone: [facility] Work Phone: 03-30-2004 diphtheria, tetanus toxoids and acellular pertussis vaccine Isi Justice MD Work Phone: [facility] Work Phone: 03-30-2004 haemophilus influenz ae type b vaccine, HbOC conjugate Isi Justice MD Work Phone: [facility] Work Phone: 03-30-2004 hepatitis B vaccine, pediatric or pediatric/adolescent dosage Isi Justice MD Work Phone: [facility] Work Phone: 03-30-2004 pneumococcal Conjuga te, unspecified formulation Isi Justice MD Work Phone: [facility] Work Phone: 03-30-2004 poliovirus vaccine, inactivated Isi Justice MD Work Phone: [facility] Work Phone: 01-23-2004 diphtheria, tetanus toxoids and acellular pertussis vaccine Isi Justice MD Work Phone: [facility] Work Phone: 01-23-2004 haemophilus influenz ae type b vaccine, HbOC conjugate Isi Justice MD Work Phone: [facility] Work Phone: 01-23-2004 hepatitis B vaccine, pediatric or pediatric/adolescent dosage Isi Justice MD Work Phone: [facility] Work Phone: 01-23-2004 pneumococcal Conjuga te, unspecified formulation Isi Justice MD Work Phone: [facility] Work Phone: 01-23-2004 poliovirus vaccine, inactivated Isi Justice MD Work Phone: [facility] Work Phone: 2003 hepatitis B vaccine, pediatric or pediatric/adolescent dosage Isi Justice MD Work Phone: [facility] Work Phone: Payers Date Payer Category Payer Self-pay [id number] 2022 Private Health Insurance [id number] 2022 [facility] Health [facility] [place] [employer] [id number] 2022-Present [phone] [address] [place] [address] PPO [id number] 2019 Unknown [id number] 2019 Unknown MMO MMO TPA [id number] 2019-Present [address] [place] [address] PPO [id number] Unknown [id number] 2.16.840.1.674480.3.579.2.4 62 Unknown [id number] 2.16.840.1.060378.3.579.2.4 62 Unknown [id number] 2.16.840.1.430128.3.579.2.4 62 Unknown [id number] 2.16.840.1.745195.3.579.2.4 62 Unknown [id number] 2.16.840.1.754489.3.579.2.4 62 Unknown [id number] 2.16.840.1.877012.3.579.2.4 62 Unknown [id number] 2.16.840.1.116153.3.579.2.4 62 Unknown [id number] 2.16.840.1.613028.3.579.2.4 62 Unknown [id number] 2.16.840.1.100418.3.579.2.4 62 Unknown [id number] 2.16.840.1.994596.3.579.2.4 62 Unknown [id number] 2.16.840.1.805252.3.579.2.4 62 Unknown [id number] 2.16.840.1.277888.3.579.2.4 62 Unknown [id number] 2.16.840.1.950297.3.579.2.4 62 Unknown [id number] 2.16.840.1.208468.3.579.2.4 62 Unknown [id number] 2.16.840.1.710905.3.579.2.4 62 Unknown [id number] 2.16.840.1.814248.3.579.2.4 62 Unknown [id number] 2.16.840.1.063282.3.579.2.4 62 Unknown [id number] 2.16.840.1.392093.3.579.2.4 62 Unknown [id number] 2.16.840.1.729715.3.579.2.4 62 Unknown [id number] 2.16.840.1.713869.3.579.2.4 62 Unknown [id number] 2.16.840.1.506650.3.579.2.4 62 Unknown [id number] 2.16.840.1.724970.3.579.2.4 62 Unknown [id number] 2.16.840.1.972112.3.579.2.4 62 Unknown [id number] 2.16.840.1.073838.3.579.2.4 62 Unknown [id number] 2.16.840.1.781241.3.579.2.4 62 Unknown [id number] 2.16.840.1.494273.3.579.2.4 62 Unknown [id number] 2.16.840.1.600942.3.579.2.4 62 Social History Date Type Detail Facility Start: 10-05-2021 Tobacco smoking stat us TNIS Unknown if ever smoked [facility] Work Phone: Start: 04-14-2020 Non-smoker [facility] Start: 2003 Sex Assigned At Female [facility] Start: 07-16-2015 End: 01-04-2025 Tobacco smoking status TNIS Never smoked tobacco [facility] Start: 07-16-2015 End: 02-02-2023 Tobacco use and exposure Smokeless tobacco non-user [facility] Start: 01-20-2022 End: 02-02-2023 Alcohol intake Current non-drinker of alcohol (finding) [facility] Start: 11-05-2020 History SDOH Physica l Activity DPW 5 [facility] Start: 11-05-2020 History SDOH Physica l Activity MPS 3 [facility] Start: 11-05-2020 History SDOH Financial 4 [facility] Start: 11-05-2020 History SDOH Food Worry 1 [facility] Start: 11-05-2020 History SDOH Transpo rt Med 2 [facility] Start: 01-09-2022 End: 01-19-2022 Exposure to SARS-CoV-2 (event) Not sure [facility] Work Phone: Start: 11-12-2017 None None [facility] Start: 11-12-2017 With Family With Family [facility] Start: 2024 Sex Female (finding) [facility] Gender Identity Identifies as fe male gender (finding) [facility] Sexual Orientation Heterosexual (finding) [facility] NEGATED: Highlighted rowStart: NINF History of tobacco use Passive smoker [facility] Medical Equipment Procedure Code Equipment Code Equipment Origin al Text Equipment Identifier Dates Arthroscopy, shoulder, with SLAP lesion repair FIBERTAK SUTURE ANCHOR DBL LD FDA Start: 04-25-2020 Arthroscopy, shoulder, with SLAP lesion repair FIBERTAK SUTURE ANCHOR DBL LD FDA Start: 04-25-2020 Arthroscopy, shoulder, with SLAP lesion repair FIBERTAPE [id number] FDA Start: 04-25-2020 Arthroscopy, shoulder, with SLAP lesion repair KNOTLESS FIBER MATEO FDA Start: 04-25-2020 Arthroscopy, shoulder, with SLAP lesion repair PUSHLOCK, 2.9MM BIOCOM FDA Start: 04-25-2020 Arthroscopy, shoulder, with SLAP lesion repair SUTURE ANCHOR, PEEK SUTURE MATEO FDA Start: 04-25-2020 Arthroscopy, shoulder, with SLAP lesion repair FIBERTAK SUTURE ANCHOR DBL LD FDA Start: 04-25-2020 Arthroscopy, shoulder, with SLAP lesion repair FIBERTAK SUTURE ANCHOR DBL LD FDA Start: 04-25-2020 Arthroscopy, shoulder, with SLAP lesion repair FIBERTAPE [id number] FDA Start: 04-25-2020 Arthroscopy, shoulder, with SLAP lesion repair KNOTLESS FIBER MATEO FDA Start: 04-25-2020 Arthroscopy, shoulder, with SLAP lesion repair PUSHLOCK, 2.9MM BIOCOM FDA Start: 04-25-2020 Arthroscopy, shoulder, with SLAP lesion repair SUTURE ANCHOR, PEEK SUTURE MATEO FDA Start: 04-25-2020 Arthroscopy, shoulder, with SLAP lesion repair FIBERTAK SUTURE ANCHOR DBL LD FDA Start: 04-25-2020 Arthroscopy, shoulder, with SLAP lesion repair FIBERTAK SUTURE ANCHOR DBL LD FDA Start: 04-25-2020 Arthroscopy, shoulder, with SLAP lesion repair FIBERTAPE [id number] FDA Start: 04-25-2020 Arthroscopy, shoulder, with SLAP lesion repair KNOTLESS FIBER MATEO FDA Start: 04-25-2020 Arthroscopy, shoulder, with SLAP lesion repair PUSHLOCK, 2.9MM BIOCOM FDA Start: 04-25-2020 Arthroscopy, shoulder, with SLAP lesion repair SUTURE ANCHOR, PEEK SUTURE MATEO FDA Start: 04-25-2020 Arthroscopy, shoulder, with SLAP lesion repair FIBERTAK SUTURE ANCHOR DBL LD FDA Start: 04-25-2020 Arthroscopy, shoulder, with SLAP lesion repair FIBERTAK SUTURE ANCHOR DBL LD FDA Start: 04-25-2020 Arthroscopy, shoulder, with SLAP lesion repair FIBERTAPE [id number] FDA Start: 04-25-2020 Arthroscopy, shoulder, with SLAP lesion repair KNOTLESS FIBER MATEO FDA Start: 04-25-2020 Arthroscopy, shoulder, with SLAP lesion repair PUSHLOCK, 2.9MM BIOCOM FDA Start: 04-25-2020 Arthroscopy, shoulder, with SLAP lesion repair SUTURE ANCHOR, PEEK SUTURE MATEO FDA Start: 04-25-2020 Arthroscopy, shoulder, with SLAP lesion repair FIBERTAK SUTURE ANCHOR DBL LD FDA Start: 04-25-2020 Arthroscopy, shoulder, with SLAP lesion repair FIBERTAK SUTURE ANCHOR DBL LD FDA Start: 04-25-2020 Arthroscopy, shoulder, with SLAP lesion repair FIBERTAPE [id number] FDA Start: 04-25-2020 Arthroscopy, shoulder, with SLAP lesion repair KNOTLESS FIBER MATEO FDA Start: 04-25-2020 Arthroscopy, shoulder, with SLAP lesion repair PUSHLOCK, 2.9MM BIOCOM FDA Start: 04-25-2020 Arthroscopy, shoulder, with SLAP lesion repair SUTURE ANCHOR, PEEK SUTURE MATEO FDA Start: 04-25-2020 Arthroscopy, shoulder, with SLAP lesion repair FIBERTAK SUTURE ANCHOR DBL LD FDA Start: 04-25-2020 Arthroscopy, shoulder, with SLAP lesion repair FIBERTAK SUTURE ANCHOR DBL LD FDA Start: 04-25-2020 Arthroscopy, shoulder, with SLAP lesion repair FIBERTAPE [id number] FDA Start: 04-25-2020 Arthroscopy, shoulder, with SLAP lesion repair KNOTLESS FIBER MATEO FDA Start: 04-25-2020 Arthroscopy, shoulder, with SLAP lesion repair PUSHLOCK, 2.9MM BIOCOM FDA Start: 04-25-2020 Arthroscopy, shoulder, with SLAP lesion repair SUTURE ANCHOR, PEEK SUTURE MATEO FDA Start: 04-25-2020 Arthroscopy, shoulder, with SLAP lesion repair FIBERTAK SUTURE ANCHOR DBL LD FDA Start: 04-25-2020 Arthroscopy, shoulder, with SLAP lesion repair FIBERTAK SUTURE ANCHOR DBL LD FDA Start: 04-25-2020 Arthroscopy, shoulder, with SLAP lesion repair FIBERTAPE [id number] FDA Start: 04-25-2020 Arthroscopy, shoulder, with SLAP lesion repair KNOTLESS FIBER MATEO FDA Start: 04-25-2020 Arthroscopy, shoulder, with SLAP lesion repair PUSHLOCK, 2.9MM BIOCOM FDA Start: 04-25-2020 Arthroscopy, shoulder, with SLAP lesion repair SUTURE ANCHOR, PEEK SUTURE MATEO FDA Start: 04-25-2020 Arthroscopy, shoulder, with SLAP lesion repair FIBERTAK SUTURE ANCHOR DBL LD FDA Start: 04-25-2020 Arthroscopy, shoulder, with SLAP lesion repair FIBERTAK SUTURE ANCHOR DBL LD FDA Start: 04-25-2020 Arthroscopy, shoulder, with SLAP lesion repair FIBERTAPE [id number] FDA Start: 04-25-2020 Arthroscopy, shoulder, with SLAP lesion repair KNOTLESS FIBER MATEO FDA Start: 04-25-2020 Arthroscopy, shoulder, with SLAP lesion repair PUSHLOCK, 2.9MM BIOCOM FDA Start: 04-25-2020 Arthroscopy, shoulder, with SLAP lesion repair SUTURE ANCHOR, PEEK SUTURE MATEO FDA Start: 04-25-2020 Arthroscopy, shoulder, with SLAP lesion repair FIBERTAK SUTURE ANCHOR DBL LD FDA Start: 04-25-2020 Arthroscopy, shoulder, with SLAP lesion repair FIBERTAK SUTURE ANCHOR DBL LD FDA Start: 04-25-2020 Arthroscopy, shoulder, with SLAP lesion repair FIBERTAPE [id number] FDA Start: 04-25-2020 Arthroscopy, shoulder, with SLAP lesion repair KNOTLESS FIBER MATEO FDA Start: 04-25-2020 Arthroscopy, shoulder, with SLAP lesion repair PUSHLOCK, 2.9MM BIOCOM FDA Start: 04-25-2020 Arthroscopy, shoulder, with SLAP lesion repair SUTURE ANCHOR, PEEK SUTURE MATEO FDA Start: 04-25-2020 Arthroscopy, shoulder, with SLAP lesion repair FIBERTAK SUTURE ANCHOR DBL LD FDA Start: 04-25-2020 Arthroscopy, shoulder, with SLAP lesion repair FIBERTAK SUTURE ANCHOR DBL LD FDA Start: 04-25-2020 Arthroscopy, shoulder, with SLAP lesion repair FIBERTAPE [id number] FDA Start: 04-25-2020 Arthroscopy, shoulder, with SLAP lesion repair KNOTLESS FIBER MATEO FDA Start: 04-25-2020 Arthroscopy, shoulder, with SLAP lesion repair PUSHLOCK, 2.9MM BIOCOM FDA Start: 04-25-2020 Arthroscopy, shoulder, with SLAP lesion repair SUTURE ANCHOR, PEEK SUTURE MATEO FDA Start: 04-25-2020 Arthroscopy, shoulder, with SLAP lesion repair FIBERTAK SUTURE ANCHOR DBL LD FDA Start: 04-25-2020 Arthroscopy, shoulder, with SLAP lesion repair FIBERTAK SUTURE ANCHOR DBL LD FDA Start: 04-25-2020 Arthroscopy, shoulder, with SLAP lesion repair FIBERTAPE [id number] FDA Start: 04-25-2020 Arthroscopy, shoulder, with SLAP lesion repair KNOTLESS FIBER MATEO FDA Start: 04-25-2020 Arthroscopy, shoulder, with SLAP lesion repair PUSHLOCK, 2.9MM BIOCOM FDA Start: 04-25-2020 Arthroscopy, shoulder, with SLAP lesion repair SUTURE ANCHOR, PEEK SUTURE MATEO FDA Start: 04-25-2020 Arthroscopy, shoulder, with SLAP lesion repair FIBERTAK SUTURE ANCHOR DBL LD FDA Start: 04-25-2020 Arthroscopy, shoulder, with SLAP lesion repair FIBERTAK SUTURE ANCHOR DBL LD FDA Start: 04-25-2020 Arthroscopy, shoulder, with SLAP lesion repair FIBERTAPE [id number] FDA Start: 04-25-2020 Arthroscopy, shoulder, with SLAP lesion repair KNOTLESS FIBER MATEO FDA Start: 04-25-2020 Arthroscopy, shoulder, with SLAP lesion repair PUSHLOCK, 2.9MM BIOCOM FDA Start: 04-25-2020 Arthroscopy, shoulder, with SLAP lesion repair SUTURE ANCHOR, PEEK SUTURE MATEO FDA Start: 04-25-2020 Arthroscopy, shoulder, with SLAP lesion repair FIBERTAK SUTURE ANCHOR DBL LD FDA Start: 04-25-2020 Arthroscopy, shoulder, with SLAP lesion repair FIBERTAK SUTURE ANCHOR DBL LD FDA Start: 04-25-2020 Arthroscopy, shoulder, with SLAP lesion repair FIBERTAPE [id number] FDA Start: 04-25-2020 Arthroscopy, shoulder, with SLAP lesion repair KNOTLESS FIBER MATEO FDA Start: 04-25-2020 Arthroscopy, shoulder, with SLAP lesion repair PUSHLOCK, 2.9MM BIOCOM FDA Start: 04-25-2020 Arthroscopy, shoulder, with SLAP lesion repair SUTURE ANCHOR, PEEK SUTURE MATEO FDA Start: 04-25-2020 Arthroscopy, shoulder, with SLAP lesion repair FIBERTAK SUTURE ANCHOR DBL LD FDA Start: 04-25-2020 Arthroscopy, shoulder, with SLAP lesion repair FIBERTAK SUTURE ANCHOR DBL LD FDA Start: 04-25-2020 Arthroscopy, shoulder, with SLAP lesion repair FIBERTAPE [id number] FDA Start: 04-25-2020 Arthroscopy, shoulder, with SLAP lesion repair KNOTLESS FIBER MATEO FDA Start: 04-25-2020 Arthroscopy, shoulder, with SLAP lesion repair PUSHLOCK, 2.9MM BIOCOM FDA Start: 04-25-2020 Arthroscopy, shoulder, with SLAP lesion repair SUTURE ANCHOR, PEEK SUTURE MATEO FDA Start: 04-25-2020 Arthroscopy, shoulder, with SLAP lesion repair FIBERTAK SUTURE ANCHOR DBL LD FDA Start: 04-25-2020 Arthroscopy, shoulder, with SLAP lesion repair FIBERTAK SUTURE ANCHOR DBL LD FDA Start: 04-25-2020 Arthroscopy, shoulder, with SLAP lesion repair FIBERTAPE [id number] FDA Start: 04-25-2020 Arthroscopy, shoulder, with SLAP lesion repair KNOTLESS FIBER MATEO FDA Start: 04-25-2020 Arthroscopy, shoulder, with SLAP lesion repair PUSHLOCK, 2.9MM BIOCOM FDA Start: 04-25-2020 Arthroscopy, shoulder, with SLAP lesion repair SUTURE ANCHOR, PEEK SUTURE MATEO FDA Start: 04-25-2020 Arthroscopy, shoulder, with SLAP lesion repair FIBERTAK SUTURE ANCHOR DBL LD FDA Start: 04-25-2020 Arthroscopy, shoulder, with SLAP lesion repair FIBERTAK SUTURE ANCHOR DBL LD FDA Start: 04-25-2020 Arthroscopy, shoulder, with SLAP lesion repair FIBERTAPE [id number] FDA Start: 04-25-2020 Arthroscopy, shoulder, with SLAP lesion repair KNOTLESS FIBER MATEO FDA Start: 04-25-2020 Arthroscopy, shoulder, with SLAP lesion repair PUSHLOCK, 2.9MM BIOCOM FDA Start: 04-25-2020 Arthroscopy, shoulder, with SLAP lesion repair SUTURE ANCHOR, PEEK SUTURE MATEO FDA Start: 04-25-2020 Arthroscopy, shoulder, with SLAP lesion repair FIBERTAK SUTURE ANCHOR DBL LD FDA Start: 04-25-2020 Arthroscopy, shoulder, with SLAP lesion repair FIBERTAK SUTURE ANCHOR DBL LD FDA Start: 04-25-2020 Arthroscopy, shoulder, with SLAP lesion repair FIBERTAPE [id number] FDA Start: 04-25-2020 Arthroscopy, shoulder, with SLAP lesion repair KNOTLESS FIBER MATEO FDA Start: 04-25-2020 Arthroscopy, shoulder, with SLAP lesion repair PUSHLOCK, 2.9MM BIOCOM FDA Start: 04-25-2020 Arthroscopy, shoulder, with SLAP lesion repair SUTURE ANCHOR, PEEK SUTURE MATEO FDA Start: 04-25-2020 Arthroscopy, shoulder, with SLAP lesion repair FIBERTAK SUTURE ANCHOR DBL LD FDA Start: 04-25-2020 Arthroscopy, shoulder, with SLAP lesion repair FIBERTAK SUTURE ANCHOR DBL LD FDA Start: 04-25-2020 Arthroscopy, shoulder, with SLAP lesion repair FIBERTAPE [id number] FDA Start: 04-25-2020 Arthroscopy, shoulder, with SLAP lesion repair KNOTLESS FIBER MATEO FDA Start: 04-25-2020 Arthroscopy, shoulder, with SLAP lesion repair PUSHLOCK, 2.9MM BIOCOM FDA Start: 04-25-2020 Arthroscopy, shoulder, with SLAP lesion repair SUTURE ANCHOR, PEEK SUTURE MATEO FDA Start: 04-25-2020 Arthroscopy, shoulder, with SLAP lesion repair FIBERTAK SUTURE ANCHOR DBL LD FDA Start: 04-25-2020 Arthroscopy, shoulder, with SLAP lesion repair FIBERTAK SUTURE ANCHOR DBL LD FDA Start: 04-25-2020 Arthroscopy, shoulder, with SLAP lesion repair FIBERTAPE [id number] FDA Start: 04-25-2020 Arthroscopy, shoulder, with SLAP lesion repair KNOTLESS FIBER MATEO FDA Start: 04-25-2020 Arthroscopy, shoulder, with SLAP lesion repair PUSHLOCK, 2.9MM BIOCOM FDA Start: 04-25-2020 Arthroscopy, shoulder, with SLAP lesion repair SUTURE ANCHOR, PEEK SUTURE MATEO FDA Start: 04-25-2020 Arthroscopy, shoulder, with SLAP lesion repair FIBERTAK SUTURE ANCHOR DBL LD FDA Start: 04-25-2020 Arthroscopy, shoulder, with SLAP lesion repair FIBERTAK SUTURE ANCHOR DBL LD FDA Start: 04-25-2020 Arthroscopy, shoulder, with SLAP lesion repair FIBERTAPE [id number] FDA Start: 04-25-2020 Arthroscopy, shoulder, with SLAP lesion repair KNOTLESS FIBER MATEO FDA Start: 04-25-2020 Arthroscopy, shoulder, with SLAP lesion repair PUSHLOCK, 2.9MM BIOCOM FDA Start: 04-25-2020 Arthroscopy, shoulder, with SLAP lesion repair SUTURE ANCHOR, PEEK SUTURE MATEO FDA Start: 04-25-2020 RELOAD,STANDARD 45 [id number] ETH FDA Start: 11-12-2017 RELOAD,STANDARD 45 6R45B ETH FDA Start: 11-12-2017 RELOAD,STANDARD 45 6R45B ETH FDA Start: 11-12-2017 RELOAD,STANDARD 45 6R45B ETH FDA Start: 11-12-2017 RELOAD,STANDARD 45 6R45B ETH FDA Start: 11-12-2017 RELOAD,STANDARD 45 6R45B ETH FDA Start: 11-12-2017 RELOAD,STANDARD 45 6R45B ETH FDA Start: 11-12-2017 RELOAD,STANDARD 45 6R45B ETH FDA Start: 11-12-2017 RELOAD,STANDARD 45 6R45B ETH FDA Start: 11-12-2017 RELOAD,STANDARD 45 6R45B ETH FDA Start: 11-12-2017 RELOAD,STANDARD 45 6R45B ETH FDA Start: 11-12-2017 RELOAD,STANDARD 45 6R45B ETH FDA Start: 11-12-2017 RELOAD,STANDARD 45 6R45B ETH FDA Start: 11-12-2017 RELOAD,STANDARD 45 6R45B ETH FDA Start: 11-12-2017 RELOAD,STANDARD 45 6R45B ETH FDA Start: 11-12-2017 RELOAD,STANDARD 45 6R45B ETH FDA Start: 11-12-2017 RELOAD,STANDARD 45 6R45B ETH FDA Start: 11-12-2017 RELOAD,STANDARD 45 6R45B ETH FDA Start: 11-12-2017 RELOAD,STANDARD 45 6R45B ETH FDA Start: 11-12-2017 RELOAD,STANDARD 45 6R45B ETH FDA Start: 11-12-2017 Goals Date Patient Goal Desired Activity /State Clinical Notes 01-20-2022 to 06-24-2025 Note Date & Type Note Facility 06-24-2025 Progress note [facility] 06-24-2025 Progress note Note Date/Time June 24, 2025 2:35pm [facility] [address] [place] [id number] OFFICE VISIT Date of Service: 06/24/25 MR#: [id number] Acct: [id number] Name: REESE WILLIS Rep #: [id number] : 2005 Provider: DALTON Martinez Age/Sex: 19/F Location: [facility] [place] Status: Signed Intake Vital Signs 05/23/25 11:25 06/17/25 14:21 Height 5 ft 9 in 5 ft 9 in Weight: 238 lb 5 oz BMI 35.2 BP 117/75 Intake Visit Reasons: ADJUSTMENT 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: pubis pain Is patient in pain?: Yes (pubic bone) Pain scale (1-10): 7 Allergies nickel Allergy (Mild, Verified 06/24/25 13:04) unknown Medications ?Medication ?Instructions ?Recorded ?Confirmed ?Type magnesium 250 mg tablet 250 mg PO QDAY 11/27/2406/06 History Saccharomyces boulardii 250 mg 250 mg PO QHS 12/18/24 06/24/25 History capsule (Digest Probiotic (S.boulardii)) multivitamin no.47-iron fum 27 cap PO 12/18/24 5 History mg-folate no.1 1 mg-dha 300 mg capsule (PNV-DHA) metoclopramide HCl 10 mg tablet 10 mg PO QACHS PRN reji sea and 02/13/25 06/24/25 Rx (Reglan) vomiting #60 tabs PFSH Medical History Acne Dysmenorrhea Seasonal allergies Hx of recurrent urinary tract infection Chronic neck and back pain Asthma Surgical History [place] teeth extracted H/O shoulder surgery History of appendectomy Family History Mother Hypertension Gestational diabetes 2nd only Grandmother Hypertension Maternal Blood clot in leg Diabetes Paternal Grandfather Cancer, Onset Age: 70 Paternal- Smoker Social History adopted: No household members: significant other housing: house number of children: 0 current occupational status: employed current occupation: [employer] current occupational exposures/hazards: No pets and animals: Yes pets and animals: dog(s) and farm animals history of recent travel: No sexually active: Yes Smoking Status: Never smoker alcohol intake: current alcohol intake frequency: holidays/special occasions only details: Not while substance use type: marijuana and other details: Pt tried a gummy one time 19stbirthday. Didn't like it. 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 Pt. is currently 33 weeks . She states she continues to experience pubic pain and pressure especially when rolling over in bed and when she first stands up from sitting, L>R. She states this is a sharp pain and rates it 7/10 when it occurs. She also c/o some neck and upper back tightness equal bilaterally. She states she experiences pelvic pressure when she lifts her legs to put her pants on. She denies new injury, numbness, tingling or radiculopathy. She treats her pain at home with ice and stretching. She states chiropractic treatments are effective to relieve her pain but it gradually returns. Location: neck and low back Duration: intermittent Aggravating or associated factors: sleeping, walking Relieving factors: chiro Pain Quality: aching and dull Exam Musc General: Yes normal posture, normal gait, joint tenderness and decreased range of motion; No muscle weakness Cervical Spine: Yes normal cervical lordosis, Yes cervical muscular tenderness left greater than right diffuse paracervical muscle, trapezius and other, Yes cervical spasm left greater than right diffuse trapezius, paracervical muscles and intrinsics and Yes misalignment misalignment: C2, C3, C4, C5 and C6 Thoracic/Lumber: Yes thoracic and lumbar spine normal to inspection, Yes paraspinal tenderness on the left greater than right (upper thoracic, lumbopelvic), Yes thoraco-lumbar spasm bilaterally (lumbar paraspinal L3-L5) in the lower lumbar and on the left greater than right (trap, QL) and Yes misalignment T3, T4, T5, T6, L3, L4, L5, RIL and LIL Sacrum: Yes misalignment (left) Yes Office Procedures Procedures - Chiropractic Procedures Manipulation: Cervical C5, Lumbar L4, Sacrum (left) and Thoracic T4 Manipulation: 3-4 regions Patient Response: positive Assessment and Plan Assessment and Plan (1) Segmental and somatic dysfunction of cervical region: Status: Acute (2) Segmental and somatic dysfunction of thoracic region: Status: Acute (3) Segmental and somatic dysfunction of lumbar region: Status: Acute (4) Segmental and somatic dysfunction of sacral region: Status: Acute (5) : Status: Acute Qualifiers: Weeks of gestation: 31 weeks Qualified Code(s): Z3A.31 - 31 weeks gestation of Comment: Declines NIPT & Carrier testing; declines AFP Orders: Orders Chiropractic Treatments Today M99.01 - Segmental and somatic dysfunction of cervical region, M99.02 - Segmental and somatic dysfunction of thoracic region, M99.03 - Segmental and somatic dysfunction of lumbar region, M99.04 - Segmental and somatic dysfunction of sacral region, M99.05 - Segmental and somatic dysfunction of pelvic region Plan Patient was treated without incident. Reviewed different stretches to be performed to address L LBP. Continue care in 2 weeks. Plan Details Goals & Barriers: Goals Decrease spasm Decrease inflammation Improve intersegmental motion Improve ROM Follow Up: 2 Weeks Coding Level of Care Code No Charge Diagnoses Segmental and somatic dysfunction of cervical region M99.01 Segmental and somatic dysfunction of thoracic region M99.02 Segmental and somatic dysfunction of lumbar region M99.03 Segmental and somatic dysfunction of sacral region M99.04 31 weeks gestation of Z3A.31 Weeks of gestation: 31 weeks CPT Codes Procedures - Manipulation: 3-4 regions (02403) 06/24/25 1425 <Electronically signed by Nida Gonzales> Date _ Nida Martinez D.C. Cosigner Signature: Date (if applicable) CC: ~ [facility] Work Phone: 1(569) 511-344710-13-2025 Progress [facility] [address] [place] [address], [address] [place] [address] OFFICE VISIT Date of Service: 06/17/25 MR#: [id number] Acct: [id number] Name: REESE MCDONALD Rep #: [id number] : 2005 Provider: WILBER Taveras Age/Sex: 19/F [place] [facility] [place]: Signed Intake Vital Signs 05/09/25 10:59 06/05/25 14:54 06/17/25 14:21 Height 5 ft 9 in 5 ft 9 in 5 ft 9 in Weight: 238 lb 5 oz BMI 35.2 BP 117/75 Intake Visit Reasons: 32 WK OB 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 Is patient in pain?: No Allergies nickel Allergy (Mild, Verified 06/17/25 14:19) unknown Medications ?Medication ?Instructions ?Recorded ?Confirmed ?Type magnesium 250 mg tablet 250 mg PO QDAY 11/27/2406/05 History Saccharomyces boulardii 250 mg 250 mg PO QHS 12/18/24 06/17/25 History capsule (Digest Probiotic (S.boulardii)) multivitamin no.47-iron fum 27 cap PO 12/18/24 5 History mg-folate no.1 1 mg-dha 300 mg capsule (PNV-DHA) metoclopramide HCl 10 mg tablet 10 mg PO QACHS PRN reji sea and 02/13/25 06/17/25 Rx (Reglan) vomiting #60 tabs Last Menstrual Period: 10/29/24 : No Have you fallen in the past year?: No PFSH PFSH Medical History Acne Dysmenorrhea Seasonal allergies Hx of recurrent urinary tract infection Chronic neck and back pain Asthma Surgical History [place] teeth extracted H/O shoulder surgery History of appendectomy Family History Mother Hypertension Gestational diabetes 2nd only Grandmother Hypertension Maternal Blood clot in leg Diabetes Paternal Grandfather Cancer, Onset Age: 70 Paternal- Smoker Social History adopted: No household members: significant other housing: house number of children: 0 current occupational status: employed current occupation: [employer] current occupational exposures/hazards: No pets and animals: Yes pets and animals: dog(s) and farm animals history of recent travel: No sexually active: Yes Smoking Status: Never smoker alcohol intake: current alcohol intake frequency: holidays/special occasions only details: Not while substance use type: marijuana and other details: Pt tried a gummy one time birth. Didn't like it. 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 OB Visit LAZARA Calculator Estimated Delivery Date Method Current WG Current Estimate 08/13/25 Ultrasound #1 31w 6d Other Estimates 08/05/25 LMP (Certain) 33w 0d Expected Delivery Route/Plan Labor Preferences- CB/BF classes: [] labor support person: [] labor intervention preferences: [] pain management options preferred: [] cut cord/dad catch: [] : [] PP control planned: [] discussed possible routes of delivery and associated risks: [] special requests: [] Specific Issue/Plans Covid status: unvaccinated Flu vaccine: unvaccinated Tdap vaccine: not up to date Rhogam: [] LARC form signed: [] Problem list reviewed and updated with the most current plan of care details and appropriate ordersplaced. Relevant counseling for the gestational age provided. Continue routine care and follow up unless otherwise noted in visit notes/problem list details Initial Weight: Not Recorded Date -?-?-?-?-?-?-?-?-?-?-?-?- EGA Weight BP Urine Prot -?-?-?-?-?-?-?-?-?-?-?-?- Glucose FHR FuHt Pres Dilation -?-?-?-?-?-?-?-?-?-?-?-?- Effaced St Visit Note 01/10/25 -?-?-?-?-?--?-?-?-?-?-?-?- 9w 2d 220 lb 6 oz 134/80 -?-?-?-?-?-?-?-?-?-?-?-?- 178 -?-?-?-?-?-?-?-?-?-?-?-?- JV- CRL is 8 day s off from LMP. declines NIPT. wants to return for new ob labs. 02/13/25 -?-?-?-?-?-?-?-?-?-?-?-?- 14w 1d 219 lb 127/79 Negative -?-?-?-?-?-?-?-?-?-?-?-?- Negative 150 -?-?-?-?-?-?-?-?-?-?-?-?- JV- still has na usea. worse after meals. will try reglan. labs reviewed. is a + 03/12/25 -?-?-?-?-?-?-?-?-?-?-?-?- 18w 0d 218 lb 113/72 Negative -?-?-?-?-?-?-?-?-?-?-?-?- Negative 148 -?-?-?-?-?-?-?-?-?-?-?-?- MH-No VB. Feelin g flutters. Nausea mostly resolved. No other concerns 04/09/25 -?-?-?-?-?-?-?-?-?-?-?-?- 22w 0d 223 lb 1 oz 124/76 Nega tive -?-?-?-?-?-?-?-?-?-?-?-?- Negative 145 -?-?-?-?-?-?-?-?-?-?-?-?- KW- no vb/crampi ng. good fm. glucose instructions reviewed. US reviewed. 05/09/25 -?-?-?-?-?-?-?-?-?-?-?-?- 26w 2d 230 lb 5 oz 143/82 Nega tive -?-?-?-?--?-?-?-?-?-?-?-?- Negative 145 26 -?-?-?-?-?-?-?-?-?-?-?-?- SM- no vb lof go od fm no regular ctx cbc gct 05/23/25 -?-?-?-?-?-?-?-?-?-?-?-?- 28w 2d 233 lb 116/68 Negative -?-?-?-?-?-?-?-?-?-?-?-?- Negative 145 29 -?-?-?-?-?-?-?-?-?-?-?-?- KW- no vb/lof/ct x. good fm. passed 28 week labs. unsure on Tdap. LARC done 06/05/25 -?-?-?-?-?-?-?-?-?-?-?-?- 30w 1d 237 lb 2 oz 121/71 Nega tive -?-?-?-?-?-?-?-?-?-?-?-?- Negative 140 31 -?-?-?-?-?-?-?-?-?-?-?-?- JV- no lof, vagi nal bleeding, or dec fm. declines flu and tdap today 06/17/25 -?-?-?-?-?-?-?-?-?-?-?-?- 31w 6d 238 lb 5 oz 117/75 Nega tive -?-?-?-?-?-?-?-?-?-?-?-?- Negative 135 33 -?-?-?-?-?-?-?-?-?-?-?-?- KW- no vb/lof/ct x. does have increased back cramping and pelvic pressure. UA for possible UTI. good fm ACOG First Trimester First Trimester: Desire for , Environmental/Work Hazards, Anticipated Course of Care, Sexual activity, Exercise, Sauna/Hot tub use, Seat Belt use, Childbirth classes/Hospital facilities, Indications for Ultrasound and Screening for Aneuploidy; Discussed ROS Const Reports system reviewed and no additional complaints, except as documented Eyes Reports system reviewed and no additional complaints, except as documented ENT Reports system reviewed and no additional complaints, except as documented Card Reports system reviewed and no additional complaints, except as documented Resp Reports system reviewed and no additional complaints, except as documented GI Reports system reviewed and no additional complaints, except as documented, Denies nausea and Denies vomiting Reports system reviewed and no additional complaints, except as documented Musc Reports system reviewed and no additional complaints, except as documented Skin/Breast Reports system reviewed and no additional complaints, except as documented Neuro Yes system reviewed and no additional complaints, except as documented Psych Reports system reviewed and no additional complaints, except as documented Endo Reports system reviewed and no additional complaints, except as documented Armaan/Lymph Reports system reviewed and no additional complaints, except as documented Aller/Immun Reports system reviewed and no additional complaints, except as documented Exam Const General: cooperative, healthy appearing and no acute distress Orientation: alert, awake and oriented x3 Neck Neck: normal visual inspection and full ROM Resp Effort & Inspection: normal respiratory effort, able to speak in complete sentences and symmetric chest movement GI Inspection: normal to inspection Palpation: soft and other Other: gravid Skin General: no rashes or lesions noted Neuro General: patient alert, patient awake and patient oriented x3 Cognition: normal cognition Speech: speech normal Gait: normal gait Motor: muscle tone normal throughout Extrem General: normal to inspection and full ROM Psych Appearance: grossly normal Mental Status: mental status grossly normal Mood: congruent mood Affect: normal affect Speech and Movement: speech and movement normal Attitude: cooperative Thought Process: normal Thought Content: normal Judgment: judgment good Results POC Urinalysis 2 Dip (Clinic) Office Urine Glucose Negative Last Edit by Carrie Hay on 06/17/25 14:26 Office Urine Protein Negative Last Edit by Carrie Hay on 06/17/25 14:26 Coding Level of Care Code OB Routine Diagnoses Segmental and somatic dysfunction of sacral region M99.04 Marijuana use F12.90 Obesity affecting in second trimester, unspecified obesity type O99.212 Obesity type affecting : unspecified obesity Trimester: second trimester Encounter for supervision of normal first in second trimester Z34.02 Trimester: second trimester 31 weeks gestation of Z3A.31 Weeks of gestation: 31 weeks Segmental and somatic dysfunction of lumbar region M99.03 Segmental and somatic dysfunction of pelvic region M99.05 Segmental and somatic dysfunction of thoracic region M99.02 Segmental and somatic dysfunction of cervical region M99.01 Assessment and Plan Assessment and Plan (1) Segmental and somatic dysfunction of sacral region: Status: Acute (2) Marijuana use: Status: Acute Comment: laquita one time 19st birthday, discussed random drug testing with pt. NEG at NO (3) Obesity affecting : Status: Acute Qualifiers: Obesity type affecting : unspecified obesity Trimester: second trimester Qualified Code(s): O99.212 - Obesity complicating , second trimester Comment: [id number] (4) Supervision of normal first : Status: Acute Qualifiers: Trimester: second trimester Qualified Code(s): Z34.02 - Encounter for supervision of normal first , second trimester Comment: PRR, , LAZARA 08/05/25, Adri Kelly. Low lying placenta <2cm from os, pelvic rest, report bleeding and rpt US 28 wk. (5) : Status: Acute Qualifiers: Weeks of gestation: 31 weeks Qualified Code(s): Z3A.31 - 31 weeks gestation of Comment: Declines NIPT & Carrier testing; declines AFP (6) Segmental and somatic dysfunction of lumbar region: Status: Acute (7) Segmental and somatic dysfunction of pelvic region: Status: Acute (8) Segmental and somatic dysfunction of thoracic region: Status: Acute (9) Segmental and somatic dysfunction of cervical region: Status: Acute Orders: Orders POC Urinalysis 2 Dip (Clinic) Today Plan Details Additional Comments: ACOG trimester education reviewed and updated. see problem list details for updated plan management information and see below for orders placed atthis visit. [place] appropriate handout given. Goals & Barriers: Goals Decrease spasm Decrease inflammation Improve intersegmental motion Improve ROM Clinical Quality Measures Falls Risk Screening/Assistive Devices Have you fallen in the past year?: No 06/17/25 1436 s CNM> Date _ Gabriela Taveras CNM Cosigner Signature: Date (if applicable) CC: ~ [facility]10-13-2025 Progress note Author Gabriela Taveras [facility] Note Date/Time June 17, 2025 2 :36pm [facility] [address], [address] [place] [address] OFFICE VISIT Date of Service: 06/17/25 MR#: [id number] Acct: [id number] Name: REESE MCDONALD Rep #: [id number] : 2005 Provider: WILBER Taveras Age/Sex: 19/F [place] [facility] [place]: Signed Intake Vital Signs 05/09/25 10:59 06/05/25 14:54 06/17/25 14:21 Height 5 ft 9 in 5 ft 9 in 5 ft 9 in Weight: 238 lb 5 oz BMI 35.2 BP 117/75 Intake Visit Reasons: 32 WK OB 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 Is patient in pain?: No Allergies nickel Allergy (Mild, Verified 06/17/25 14:19) unknown Medications ?Medication ?Instructions ?Recorded ?Confirmed ?Type magnesium 250 mg tablet 250 mg PO QDAY 11/27/2406/05 History Saccharomyces boulardii 250 mg 250 mg PO QHS 12/18/24 06/17/25 History capsule (Digest Probiotic (S.boulardii)) multivitamin no.47-iron fum 27 cap PO 12/18/24 5 History mg-folate no.1 1 mg-dha 300 mg capsule (PNV-DHA) metoclopramide HCl 10 mg tablet 10 mg PO QACHS PRN reji sea and 02/13/25 06/17/25 Rx (Reglan) vomiting #60 tabs Last Menstrual Period: 10/29/24 : No Have you fallen in the past year?: No PFSH PFSH Medical History Acne Dysmenorrhea Seasonal allergies Hx of recurrent urinary tract infection Chronic neck and back pain Asthma Surgical History [place] teeth extracted H/O shoulder surgery History of appendectomy Family History Mother Hypertension Gestational diabetes 2nd only Grandmother Hypertension Maternal Blood clot in leg Diabetes Paternal Grandfather Cancer, Onset Age: 70 Paternal- Smoker Social History adopted: No household members: significant other housing: house number of children: 0 current occupational status: employed current occupation: [employer] current occupational exposures/hazards: No pets and animals: Yes pets and animals: dog(s) and farm animals history of recent travel: No sexually active: Yes Smoking Status: Never smoker alcohol intake: current alcohol intake frequency: holidays/special occasions only details: Not while substance use type: marijuana and other details: Pt tried a gummy one time birthday. Didn't like it. 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 OB Visit LAZARA Calculator Estimated Delivery Date Method Current WG Current Estimate 08/13/25 Ultrasound #1 31w 6d Other Estimates 08/05/25 LMP (Certain) 33w 0d Expected Delivery Route/Plan Labor Preferences- CB/BF classes: [] labor support person: [] labor intervention preferences: [] pain management options preferred: [] cut cord/dad catch: [] : [] PP control planned: [] discussed possible routes of delivery and associated risks: [] special requests: [] Specific Issue/Plans Covid status: unvaccinated Flu vaccine: unvaccinated Tdap vaccine: not up to date Rhogam: [] LARC form signed: [] Problem list reviewed and updated with the most current plan of care details and appropriate orders placed. Relevant counseling for the gestational age provided. Continue routine care and follow up unless otherwise noted in visit notes/problem list details Initial Weight: Not Recorded Date -?-?-?-?-?-?-?-?-?-?-?-?- EGA Weight BP Urine Prot -?-?-?-?-?-?-?-?-?-?-?-?- Glucose FHR FuHt Pres Dilation -?-?-?-?-?-?-?-?-?-?-?-?- Effaced St Visit Note 01/10/25 -?-?-?-?-?--?-?-?-?-?-?-?- 9w 2d 220 lb 6 oz 134/80 -?-?-?-?-?-?-?-?-?-?-?-?- 178 -?-?-?-?-?-?-?-?-?-?-?-?- JV- CRL is 8 day s off from LMP. declines NIPT. wants to return for new ob labs. 02/13/25 -?-?-?-?-?-?-?-?-?-?-?-?- 14w 1d 219 lb 127/79 Negative -?-?-?-?-?-?-?-?-?-?-?-?- Negative 150 -?-?-?-?-?-?-?-?-?-?-?-?- JV- still has na usea. worse after meals. will try reglan. labs reviewed. is a + 03/12/25 -?-?-?-?-?-?-?-?-?-?-?-?- 18w 0d 218 lb 113/72 Negative -?-?-?-?-?-?-?-?-?-?-?-?- Negative 148 -?-?-?-?-?-?-?-?-?-?-?-?- MH-No VB. Jonah miranda fluttannabel. Nausea mostly resolved. No other concerns 04/09/25 -?-?-?-?-?-?-?-?-?-?-?-?- 22w 0d 223 lb 1 oz 124/76 Nega tive -?-?-?-?-?-?-?-?-?-?-?-?- Negative 145 -?-?-?-?-?-?-?-?-?-?-?-?- KW- no vb/sachin ng. gricelda fm. glucose instructions reviewed. US reviewed. 05/09/25 -?-?-?-?-?-?-?-?-?-?-?-?- 26w 2d 230 lb 5 oz 143/82 Nega tive -?-?-?-?--?-?-?-?-?-?-?-?- Negative 145 26 -?-?-?-?-?-?-?-?-?-?-?-?- SM- no vb lof go od fm no regular ctx cbc gct 05/23/25 -?-?-?-?-?-?-?-?-?-?-?-?- 28w 2d 233 lb 116/68 Negative -?-?-?-?-?-?-?-?-?-?-?-?- Negative 145 29 -?-?-?-?-?-?-?-?-?-?-?-?- KW- no vb/lof/ct x. good fm. passed 28 week labs. unsure on Tdap. LARC done 06/05/25 -?-?-?-?-?-?-?-?-?-?-?-?- 30w 1d 237 lb 2 oz 121/71 Nega tive -?-?-?-?-?-?-?-?-?-?-?-?- Negative 140 31 -?-?-?-?-?-?-?-?-?-?-?-?- JV- no lof, vagi nal bleeding, or dec fm. declines flu and tdap today 06/17/25 -?-?-?-?-?-?-?-?-?-?-?-?- 31w 6d 238 lb 5 oz 117/75 Nega tive -?-?-?-?-?-?-?-?-?-?-?-?- Negative 135 33 -?-?-?-?-?-?-?-?-?-?-?-?- KW- no vb/lof/ct x. does have increased back cramping and pelvic pressure. UA for possible UTI. good fm ACOG First Trimester First Trimester: Desire for , Environmental/Work Hazards, Anticipated Course of Care, Sexual activity, Exercise, Sauna/Hot tub use, Seat Belt use, Childbirth classes/Hospital facilities, Indications for Ultrasound and Screening for Aneuploidy; Discussed ROS Const Reports system reviewed and no additional complaints, except as documented Eyes Reports system reviewed and no additional complaints, except as documented ENT Reports system reviewed and no additional complaints, except as documented Card Reports system reviewed and no additional complaints, except as documented Resp Reports system reviewed and no additional complaints, except as documented GI Reports system reviewed and no additional complaints, except as documented, Denies nausea and Denies vomiting Reports system reviewed and no additional complaints, except as documented Musc Reports system reviewed and no additional complaints, except as documented Skin/Breast Reports system reviewed and no additional complaints, except as documented Neuro Yes system reviewed and no additional complaints, except as documented Psych Reports system reviewed and no additional complaints, except as documented Endo Reports system reviewed and no additional complaints, except as documented Armaan/Lymph Reports system reviewed and no additional complaints, except as documented Aller/Immun Reports system reviewed and no additional complaints, except as documented Exam Const General: cooperative, healthy appearing and no acute distress Orientation: alert, awake and oriented x3 Neck Neck: normal visual inspection and full ROM Resp Effort & Inspection: normal respiratory effort, able to speak in complete sentences and symmetric chest movement GI Inspection: normal to inspection Palpation: soft and other Other: gravid Skin General: no rashes or lesions noted Neuro General: patient alert, patient awake and patient oriented x3 Cognition: normal cognition Speech: speech normal Gait: normal gait Motor: muscle tone normal throughout Extrem General: normal to inspection and full ROM Psych Appearance: grossly normal Mental Status: mental status grossly normal Mood: congruent mood Affect: normal affect Speech and Movement: speech and movement normal Attitude: cooperative Thought Process: normal Thought Content: normal Judgment: judgment good Results POC Urinalysis 2 Dip (Clinic) Office Urine Glucose Negative Last Edit by Carrie Hay on 06/17/25 14:26 Office Urine Protein Negative Last Edit by Carrie Hay on 06/17/25 14:26 Coding Level of Care Code OB Routine Diagnoses Segmental and somatic dysfunction of sacral region M99.04 Marijuana use F12.90 Obesity affecting in second trimester, unspecified obesity type O99.212 Obesity type affecting : unspecified obesity Trimester: second trimester Encounter for supervision of normal first in second trimester Z34.02 Trimester: second trimester 31 weeks gestation of Z3A.31 Weeks of gestation: 31 weeks Segmental and somatic dysfunction of lumbar region M99.03 Segmental and somatic dysfunction of pelvic region M99.05 Segmental and somatic dysfunction of thoracic region M99.02 Segmental and somatic dysfunction of cervical region M99.01 Assessment and Plan Assessment and Plan (1) Segmental and somatic dysfunction of sacral region: Status: Acute (2) Marijuana use: Status: Acute Comment: laquita one time 19st birthday, discussed random drug testing with pt. NEG at NO (3) Obesity affecting : Status: Acute Qualifiers: Obesity type affecting : unspecified obesity Trimester: second trimester Qualified Code(s): O99.212 - Obesity complicating , second trimester Comment: [id number] (4) Supervision of normal first : Status: Acute Qualifiers: Trimester: second trimester Qualified Code(s): Z34.02 - Encounter for supervision of normal first , second trimester Comment: PRR, , LAZARA 08/05/25, Adri Kelly. Low lying placenta <2cm from os, pelvic rest, report bleeding and rpt US 28 wk. (5) : Status: Acute Qualifiers: Weeks of gestation: 31 weeks Qualified Code(s): Z3A.31 - 31 weeks gestation of Comment: Declines NIPT & Carrier testing; declines AFP (6) Segmental and somatic dysfunction of lumbar region: Status: Acute (7) Segmental and somatic dysfunction of pelvic region: Status: Acute (8) Segmental and somatic dysfunction of thoracic region: Status: Acute (9) Segmental and somatic dysfunction of cervical region: Status: Acute Orders: Orders POC Urinalysis 2 Dip (Clinic) Today Plan Details Additional Comments: ACOG trimester education reviewed and updated. see problem list details for updated plan management information and see below for orders placed at this visit. [place] appropriate handout given. Goals & Barriers: Goals Decrease spasm Decrease inflammation Improve intersegmental motion Improve ROM Clinical Quality Measures Falls Risk Screening/Assistive Devices Have you fallen in the past year?: No 06/17/25 1436 <Electronically signed by Gabriela zarate CNM> Date _ Gabriela Taveras CNM Cosigner Signature: Date (if applicable) CC: ~ [facility] Work Phone: [phone]) 550-334710-01-2025 Progress [facility] [address] [place] [address], [address] [place] [address] OFFICE VISIT Date of Service: 06/05/25 MR#: [id number] Acct: [id number] Name: REESE MCDONALD Rep #: [id number] : 2005 Provider: Dr. 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 Is patient in pain?: No Allergies nickel Allergy (Mild, Verified 06/05/25 14:57) unknown Medications ?Medication ?Instructions ?Recorded ?Confirmed ?Type magnesium 250 mg tablet 250 mg PO QDAY 11/27/24 10/0 09/29 History Saccharomyces boulardii 250 mg 250 mg PO QHS 12/18/24 06/05/25 History capsule (Digest Probiotic (S.boulardii)) multivitamin no.47-iron fum 27 cap PO 12/18/24 5 History mg-folate no.1 1 mg-dha 300 mg capsule (PNV-DHA) metoclopramide HCl 10 mg tablet 10 mg PO QACHS PRN reji sea and 02/13/25 06/05/25 Rx (Reglan) vomiting #60 tabs Last Menstrual Period: 10/29/24 Zika: Zika virus screening: Negative : No Have you fallen in the past year?: No PFSH PFSH Medical History Acne Dysmenorrhea Seasonal allergies Hx of recurrent urinary tract infection Chronic neck and back pain Asthma Surgical History [place] teeth extracted H/O shoulder surgery History of appendectomy Family History Mother Hypertension Gestational diabetes 2nd only Grandmother Hypertension Maternal Blood clot in leg Diabetes Paternal Grandfather Cancer, Onset Age: 70 Paternal- Smoker Social History adopted: No household members: significant other housing: house number of children: 0 current occupational status: employed current occupation: [employer] agency current occupational exposures/hazards: No pets and animals: Yes pets and animals: dog(s) and farm animals history of recent travel: No sexually active: Yes Smoking Status: Never smoker alcohol intake: current alcohol intake frequency: holidays/special occasions only details: Not while substance use type: marijuana and other details: Pt tried a gummy one time 19stbirthday. Didn't like it. 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 OB Visit LAZARA Calculator Estimated Delivery Date Method Current WG Current Estimate 08/13/25 Ultrasound #1 30w 1d Other Estimates 08/05/25 LMP (Certain) 31w 2d Expected Delivery Route/Plan Labor Preferences- CB/BF classes: [] labor support person: [] labor intervention preferences: [] pain management options preferred: [] cut cord/dad catch: [] : [] PP control planned: [] discussed possible routes of delivery and associated risks: [] special requests: [] Specific Issue/Plans Covid status: unvaccinated Flu vaccine: unvaccinated Tdap vaccine: not up to date Rhogam: [] LARC form signed: [] Problem list reviewed and updated with the most current plan of care details and appropriate ordersplaced. Relevant counseling for the gestational age provided. Continue routine care and follow up unless otherwise noted in visit notes/problem list details Initial Weight: Not Recorded Date -?-?-?-?-?-?-?-?-?-?-?-?- EGA Weight BP Urine Prot -?-?-?-?-?-?-?-?-?-?-?-?- Glucose FHR FuHt Pres Dilation -?-?-?-?-?-?-?-?-?-?-?-?- Effaced St Visit Note 01/10/25 -?-?-?-?-?-?-?-?-?-?-?-?- 9w 2d 220 lb 6 oz 134/80 -?-?-?-?-?-?-?-?-?-?-?-?- 178 -?-?-?-?-?-?-?-?-?-?-?-?- JV- CRL is 8 day s off from LMP. declines NIPT. wants to return for new ob labs. 02/13/25 -?-?-?-?-?-?-?-?-?-?-?-?- 14w 1d 219 lb 127/79 Negative -?-?-?-?-?-?-?-?-?-?-?-?- Negative 150 -?-?-?-?-?-?-?-?-?-?-?-?- JV- still has na usea. worse after meals. will try reglan. labs reviewed. is a + 03/12/25 -?-?-?-?-?-?-?-?-?-?-?-?- 18w 0d 218 lb 113/72 Negative -?-?-?-?-?-?-?-?-?-?-?-?- Negative 148 -?-?-?-?-?-?-?-?-?-?-?-?- MH-No VB. Jonah gordon. Nausea mostly resolved. No other concerns 04/09/25 -?-?-?-?-?-?-?-?-?-?-?-?- 22w 0d 223 lb 1 oz 124/76 Nega tive -?-?-?-?-?-?-?-?-?-?-?-?- Negative 145 -?-?-?-?-?-?-?-?-?-?-?-?- KW- no vb/crampi ng. good fm. glucose instructions reviewed. US reviewed. 05/09/25 -?-?-?-?-?-?-?-?-?-?-?-?- 26w 2d 230 lb 5 oz 143/82 Nega tive -?-?-?-?-?-?-?-?-?-?-?-?- Negative 145 26 -?-?-?-?-?-?-?-?-?-?-?-?- SM- no vb lof go od fm no regular ctx cbc gct 05/23/25 -?-?--?-?-?-?-?-?-?-?-?-?- 28w 2d 233 lb 116/68 Negative -?-?-?-?-?-?-?-?-?-?-?-?- Negative 145 29 -?-?-?-?-?-?-?-?-?-?-?-?- KW- no vb/lof/ct x. good fm. passed 28 week labs. unsure on Tdap. LARC done 06/05/25 -?-?-?-?-?-?-?-?-?-?-?-?- 30w 1d 237 lb 2 oz 121/71 Nega tive -?-?-?-?-?-?-?-?-?-?-?-?- Negative 140 31 -?-?-?-?-?-?-?-?-?-?-?-?- JV- no lof, vagi nal bleeding, or dec fm. declines flu and tdap today ACOG First Trimester First Trimester: Desire for , Environmental/Work Hazards, Anticipated Course of Care, Sexual activity, Exercise, Sauna/Hot tub use, Seat Belt use, Childbirth classes/Hospital facilities, Indications for Ultrasound and Screening for Aneuploidy; Discussed Results POC Urinalysis 2 Dip (Clinic) Office Urine Glucose Negative Last Edit by Meagan Morin on 06/05/25 15:00 Office Urine Protein Negative Last Edit by Meagan Morin on 06/05/25 15:00 Coding Level of Care Code OB Routine Diagnoses Segmental and somatic dysfunction of sacral region M99.04 Marijuana use F12.90 Obesity affecting in second trimester, unspecified obesity type O99.212 Obesity type affecting : unspecified obesity Trimester: second trimester Encounter for supervision of normal first in second trimester Z34.02 Trimester: second trimester 30 weeks gestation of Z3A.30 Weeks of gestation: 30 weeks Segmental and somatic dysfunction of lumbar region M99.03 Segmental and somatic dysfunction of pelvic region M99.05 Segmental and somatic dysfunction of thoracic region M99.02 Segmental and somatic dysfunction of cervical region M99.01 Assessment and Plan Assessment and Plan (1) Segmental and somatic dysfunction of sacral region: Status: Acute (2) Marijuana use: Status: Acute Comment: gummy one time 19st birthday, discussed random drug testing with pt. NEG at NOB (3) Obesity affecting : Status: Acute Qualifiers: Obesity type affecting : unspecified obesity Trimester: second trimester Qualified Code(s): O99.212 - Obesity complicating , second trimester Comment: [id number] (4) Supervision of normal first : Status: Acute Qualifiers: Trimester: second trimester Qualified Code(s): Z34.02 - Encounter for supervision of normal first , second trimester Comment: PRR, , LAZARA 08/05/25, Adri Kelly. Low lying placenta <2cm from os, pelvic rest, report bleeding and rpt US 28 wk. (5) : Status: Acute Qualifiers: Weeks of gestation: 30 weeks Qualified Code(s): Z3A.30 - 30 weeks gestation of Comment: Declines NIPT & Carrier testing; declines AFP (6) Segmental and somatic dysfunction of lumbar region: Status: Acute (7) Segmental and somatic dysfunction of pelvic region: Status: Acute (8) Segmental and somatic dysfunction of thoracic region: Status: Acute (9) Segmental and somatic dysfunction of cervical region: Status: Acute Orders: Orders POC Urinalysis 2 Dip (Clinic) Today Plan Details Goals & Barriers: Goals Decrease spasm Decrease inflammation Improve intersegmental motion Improve ROM Clinical Quality Measures Falls Risk Screening/Assistive Devices Have you fallen in the past year?: No 06/05/25 1524 aristeo Nicole DO> Date _ Eugenia Moncada DO [facility] Signature: Date (if applicable) CC: ~ [facility]10-01-2025 Progress note Author Eugenia Nicole [facility] Note Date/Time June 05, 2025 3: 24pm [facility] [address] [place] [address], [address] [place] [address] OFFICE VISIT Date of Service: 06/05/25 MR#: [id number] Acct: [id number] Name: REESE MCDONALD Rep #: [id number] : 2005 Provider: Dr. 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 Is patient in pain?: No Allergies nickel Allergy (Mild, Verified 06/05/25 14:57) unknown Medications ?Medication ?Instructions ?Recorded ?Confirmed ?Type magnesium 250 mg tablet 250 mg PO QDAY 11/27/2409/29 History Saccharomyces boulardii 250 mg 250 mg PO QHS 12/18/24 06/05/25 History capsule (Digest Probiotic (S.boulardii)) multivitamin no.47-iron fum 27 cap PO 12/18/24 5 History mg-folate no.1 1 mg-dha 300 mg capsule (PNV-DHA) metoclopramide HCl 10 mg tablet 10 mg PO QACHS PRN reji sea and 02/13/25 06/05/25 Rx (Reglan) vomiting #60 tabs Last Menstrual Period: 10/29/24 Zika: Zika virus screening: Negative : No Have you fallen in the past year?: No PFSH PFSH Medical History Acne Dysmenorrhea Seasonal allergies Hx of recurrent urinary tract infection Chronic neck and back pain Asthma Surgical History [place] teeth extracted H/O shoulder surgery History of appendectomy Family History Mother Hypertension Gestational diabetes 2nd only Grandmother Hypertension Maternal Blood clot in leg Diabetes Paternal Grandfather Cancer, Onset Age: 70 Paternal- Smoker Social History adopted: No household members: significant other housing: house number of children: 0 current occupational status: employed current occupation: [employer] current occupational exposures/hazards: No pets and animals: Yes pets and animals: dog(s) and farm animals history of recent travel: No sexually active: Yes Smoking Status: Never smoker alcohol intake: current alcohol intake frequency: holidays/special occasions only details: Not while substance use type: marijuana and other details: Pt tried a gummy one time birthday. Didn't like it. 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 OB Visit LAZARA Calculator Estimated Delivery Date Method Current WG Current Estimate 08/13/25 Ultrasound #1 30w 1d Other Estimates 08/05/25 LMP (Certain) 31w 2d Expected Delivery Route/Plan Labor Preferences- CB/BF classes: [] labor support person: [] labor intervention preferences: [] pain management options preferred: [] cut cord/dad catch: [] : [] PP control planned: [] discussed possible routes of delivery and associated risks: [] special requests: [] Specific Issue/Plans Covid status: unvaccinated Flu vaccine: unvaccinated Tdap vaccine: not up to date Rhogam: [] LARC form signed: [] Problem list reviewed and updated with the most current plan of care details and appropriate orders placed. Relevant counseling for the gestational age provided. Continue routine care and follow up unless otherwise noted in visit notes/problem list details Initial Weight: Not Recorded Date -?-?-?-?-?-?-?-?-?-?-?-?- EGA Weight BP Urine Prot -?-?-?-?-?-?-?-?-?-?-?-?- Glucose FHR FuHt Pres Dilation -?-?-?-?-?-?-?-?-?-?-?-?- Effaced St Visit Note 01/10/25 -?-?-?-?-?-?-?-?-?-?-?-?- 9w 2d 220 lb 6 oz 134/80 -?-?-?-?-?-?-?-?-?-?-?-?- 178 -?-?-?-?-?-?-?-?-?-?-?-?- JV- CRL is 8 day s off from LMP. declines NIPT. wants to return for new ob labs. 02/13/25 -?-?-?-?-?-?-?-?-?-?-?-?- 14w 1d 219 lb 127/79 Negative -?-?-?-?-?-?-?-?-?-?-?-?- Negative 150 -?-?-?-?-?-?-?-?-?-?-?-?- JV- still has na usea. worse after meals. will try reglan. labs reviewed. is a + 03/12/25 -?-?-?-?-?-?-?-?-?-?-?-?- 18w 0d 218 lb 113/72 Negative -?-?-?-?-?-?-?-?-?-?-?-?- Negative 148 -?-?-?-?-?-?-?-?-?-?-?-?- MH-No VB. Feelin g flutters. Nausea mostly resolved. No other concerns 04/09/25 -?-?-?-?-?-?-?-?-?-?-?-?- 22w 0d 223 lb 1 oz 124/76 Nega tive -?-?-?-?-?-?-?-?-?-?-?-?- Negative 145 -?-?-?-?-?-?-?-?-?-?-?-?- KW- no vb/sachin tanner. good fm. glucose instructions reviewed. US reviewed. 05/09/25 -?-?-?-?-?-?-?-?-?-?-?-?- 26w 2d 230 lb 5 oz 143/82 Nega tive -?-?-?-?-?-?-?-?-?-?-?-?- Negative 145 26 -?-?-?-?-?-?-?-?-?-?-?-?- SM- no vb lof go od fm no regular ctx cbc gct 05/23/25 -?-?--?-?-?-?-?-?-?-?-?-?- 28w 2d 233 lb 116/68 Negative -?-?-?-?-?-?-?-?-?-?-?-?- Negative 145 29 -?-?-?-?-?-?-?-?-?-?-?-?- KW- no vb/lof/ct x. good fm. passed 28 week labs. unsure on Tdap. LARC done 06/05/25 -?-?-?-?-?-?-?-?-?-?-?-?- 30w 1d 237 lb 2 oz 121/71 Nega tive -?-?-?-?-?-?-?-?-?-?-?-?- Negative 140 31 -?-?-?-?-?-?-?-?-?-?-?-?- JV- no lof, vagi nal bleeding, or dec fm. declines flu and tdap today ACOG First Trimester First Trimester: Desire for , Environmental/Work Hazards, Anticipated Course of Care, Sexual activity, Exercise, Sauna/Hot tub use, Seat Belt use, Childbirth classes/Hospital facilities, Indications for Ultrasound and Screening for Aneuploidy; Discussed Results POC Urinalysis 2 Dip (Clinic) Office Urine Glucose Negative Last Edit by Meagan Morin on 06/05/25 15:00 Office Urine Protein Negative Last Edit by Meagan Morin on 06/05/25 15:00 Coding Level of Care Code OB Routine Diagnoses Segmental and somatic dysfunction of sacral region M99.04 Marijuana use F12.90 Obesity affecting in second trimester, unspecified obesity type O99.212 Obesity type affecting : unspecified obesity Trimester: second trimester Encounter for supervision of normal first in second trimester Z34.02 Trimester: second trimester 30 weeks gestation of Z3A.30 Weeks of gestation: 30 weeks Segmental and somatic dysfunction of lumbar region M99.03 Segmental and somatic dysfunction of pelvic region M99.05 Segmental and somatic dysfunction of thoracic region M99.02 Segmental and somatic dysfunction of cervical region M99.01 Assessment and Plan Assessment and Plan (1) Segmental and somatic dysfunction of sacral region: Status: Acute (2) Marijuana use: Status: Acute Comment: laquita one time 19st birthday, discussed random drug testing with ptFrancisco ALLEN at NOB (3) Obesity affecting : Status: Acute Qualifiers: Obesity type affecting : unspecified obesity Trimester: second trimester Qualified Code(s): O99.212 - Obesity complicating , second trimester Comment: [id number] (4) Supervision of normal first : Status: Acute Qualifiers: Trimester: second trimester Qualified Code(s): Z34.02 - Encounter for supervision of normal first , second trimester Comment: PRR, , LAZARA 08/05/25, Adri Kelly. Low lying placenta <2cm from os, pelvic rest, report bleeding and rpt US 28 wk. (5) : Status: Acute Qualifiers: Weeks of gestation: 30 weeks Qualified Code(s): Z3A.30 - 30 weeks gestation of Comment: Declines NIPT & Carrier testing; declines AFP (6) Segmental and somatic dysfunction of lumbar region: Status: Acute (7) Segmental and somatic dysfunction of pelvic region: Status: Acute (8) Segmental and somatic dysfunction of thoracic region: Status: Acute (9) Segmental and somatic dysfunction of cervical region: Status: Acute Orders: Orders POC Urinalysis 2 Dip (Clinic) Today Plan Details Goals & Barriers: Goals Decrease spasm Decrease inflammation Improve intersegmental motion Improve ROM Clinical Quality Measures Falls Risk Screening/Assistive Devices Have you fallen in the past year?: No 06/05/25 1524 <Electronically signed by Eugenia Bennett DO> Date _ Eugenia Moncada DO Cosigner Signature: Date (if applicable) CC: ~ [facility] Work Phone: [phone]) 972-249809-24-2025 Radiology Diagnostic study note [facility] Imaging Services [address] [place], [place] [address] OB Limited With Biometrics MR#: [id number] Acct: [id number] Name: REESE MCDONALD Rep #: [id number] : 2005 F 19 From: Misty Sherwood MD PCP: Dr. Isi Justice MD Status: R EG CLI Study:OB Limited With Biometrics Date of Exam : 05/21/25 Exam# [id number] Ordering Dr: Gabriela Taveras CNM ADDENDUM by Dr. Tennille Sherwood MD on 05/29/25 at 2329 The lower margin of the placenta is 2.3 cm from the internal os. No evidence ofa low lying placenta. Reading Location: [id number] 05/29/25 4045 Date cc: WILBER Taveras; Dr. Isi Justice MD ~* Signed PROCEDURE: OB LIMITED WITH BIOMETRICS 05/21/2025 REASON FOR EXAM: PLACENTA LOCATION TECHNIQUE: Procedure Code: USOBGROWTH Modality: US Procedure: OB LIMITED WITH BIOMETRICS. Transabdominal imaging of the maternal pelvis and a > 14 week gestation with image documentation. FINDINGS FETUS: There is a single living intrauterine gestation. POSITION: position is cephalic. HEART RATE: The heart rate is 148 BPM and regular. BIOMETRICS: Based on composite biometry, the composite estimated gestational age by ultrasound is 28 weeks 4 days. LMP gestational age: 28 weeks 0 days LMP LAZARA: August 13, 2025 Sonographic gestational age: 28 weeks 4 days Sonographic LAZARA: August 09, 2025 ANATOMIC SURVEY: anatomy survey not performed. PLACENTA: The placenta is posterior, grade 2. No demonstrated evidence of previa or abruption. AMNIOTIC FLUID: Within normal limits. MAGO measuring 9.9 cm. Deepest vertical pocket (DVP) measuring 3.5 cm. CERVIX: Long and closed measuring 4.5 cm in length. Unremarkable as visualized. SONOGRAPHIC MEASUREMENTS: Bi-Parietal Diameter (BPD): 7.2 cm; 29 weeks 0 days Head Circumference (HC): 26.6 cm; 29 weeks 0 days Abdominal Circumference (AC): 23.9 cm; 28 weeks 2 days Femur Length (FL): 5.3 cm; 28 weeks 0 days Estimated weight: 1204 grams +/- 178 grams (2 lb, 7 oz) EFW percentile: 48.5 % MATERNAL OVARIES: Not visualized. US/OB Limited With Biometrics IMPRESSION: 1. Single living intrauterine gestation estimated at 28 weeks 4 days by today's ultrasound criteria. Size equals dates with normal interval growth. 2. No acute abnormality detected. Reading Location: [id number] CC: WILBER Taveras; Dr. Isi Justice MD ~ Java Security Architect: Signed [facility]09-22-2025 Progress [facility] [address] [place] [address] OFFICE VISIT Date of Service: 05/27/25 MR#: [id number] Acct: [id number] Name: REESE MCDONALD Rep #: [id number] : 2005 Provider: DALTON Martinez Age/Sex: 19/F Location: [facility] [place] Status: Signed Intake Vital Signs 04/09/25 14:14 05/23/25 11:25 Height 5 ft 9 in 5 ft 9 in Intake Visit Reasons: ADJUSTMENT 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: pubic pain, neck discomfort Is patient in pain?: Yes (pubis, pelvis) Pain scale (1-10): 7 Allergies nickel Allergy (Mild, Verified 05/27/25 13:48) unknown Medications ?Medication ?Instructions ?Recorded ?Confirmed ?Type magnesium 250 mg tablet 250 mg PO QDAY 11/27/2405/07 History Saccharomyces boulardii 250 mg 250 mg PO QHS 12/18/24 05/27/25 History capsule (Digest Probiotic (S.boulardii)) multivitamin no.47-iron fum 27 cap PO 12/18/24 5 History mg-folate no.1 1 mg-dha 300 mg capsule (PNV-DHA) metoclopramide HCl 10 mg tablet 10 mg PO QACHS PRN reji sea and 02/13/25 05/27/25 Rx (Reglan) vomiting #60 tabs PFSH Medical History Acne Dysmenorrhea Seasonal allergies Hx of recurrent urinary tract infection Chronic neck and back pain Asthma Surgical History [place] teeth extracted H/O shoulder surgery History of appendectomy Family History Mother Hypertension Gestational diabetes 2nd only Grandmother Hypertension Maternal Blood clot in leg Diabetes Paternal Grandfather Cancer, Onset Age: 70 Paternal- Smoker Social History adopted: No household members: significant other housing: house number of children: 0 current occupational status: employed 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 Didn't like it. 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 Pt. is currently 29 weeks . She states she continues to experience pubic pressure especially when rolling over in bed and when she first stands up from sitting. She states this is a sharp pain and rates it 7/10 when it occurs. She also c/o some neck and upper back tightness equal bilaterally. She states she experiencespelvic pressure when she lifts her legs to put her pants on. She denies new injury, numbness, tingling or radiculopathy. She treats her pain at home with ice and stretching. She states chiropractic treatments are effective to relieve her pain but it gradually returns. Location: neck and low back Duration: intermittent Aggravating or associated factors: sleeping, walking Relieving factors: chiro Pain Quality: aching and dull Exam Musc General: Yes normal posture, normal gait, joint tenderness and decreased range of motion; No muscle weakness Cervical Spine: Yes normal cervical lordosis, Yes cervical muscular tenderness left greater than right diffuse paracervical muscle, trapezius and other, Yes cervical spasm left greater than right diffuse trapezius, paracervical muscles and intrinsics and Yes misalignment misalignment: C2, C3, C4, C5 and C6 Thoracic/Lumber: Yes thoracic and lumbar spine normal to inspection, Yes paraspinal tenderness on the left greater than right (upper thoracic, lumbopelvic), Yes thoraco-lumbar spasm bilaterally (lumbar paraspinal L3-L5) in the lower lumbar and on the left greater than right (trap, QL) and Yes misali gnment T3, T4, T5, T6, L3, L4, L5, RIL and LIL Sacrum: Yes misalignment (left) Yes Office Procedures Procedures - Chiropractic Procedures Manipulation: Cervical C5, Lumbar L4, Sacrum (left) and Thoracic T4 Manipulation: 3-4 regions (right) Patient Response: positive Assessment and Plan Assessment and Plan (1) Segmental and somatic dysfunction of cervical region: Status: Acute (2) Segmental and somatic dysfunction of thoracic region: Status: Acute (3) Segmental and somatic dysfunction of pelvic region: Status: Acute (4) Segmental and somatic dysfunction of lumbar region: Status: Acute (5) Segmental and somatic dysfunction of sacral region: Status: Acute Orders: Orders Chiropractic Treatments Today M99.01 - Segmental and somatic dysfunction of cervical region, M99.02- Segmental and somatic dysfunction of thoracic region, M99.03 - Segmental and somatic dysfunction of lumbar region, M99.04 - Segmental and somatic dysfunction of sacral region, M99.05 - Segmental and somatic dysfunction of pelvic region Plan Patient was treated without incident. Continue care as needed. She is showing improvement after herchiro visits, continue care. Plan Details Goals & Barriers: Goals Decrease spasm Decrease inflammation Improve intersegmental motion Improve ROM Follow Up: 1 Month Coding Level of Care Code No Charge Diagnoses Segmental and somatic dysfunction of cervical region M99.01 Segmental and somatic dysfunction of thoracic region M99.02 Segmental and somatic dysfunction of pelvic region M99.05 Segmental and somatic dysfunction of lumbar region M99.03 Segmental and somatic dysfunction of sacral region M99.04 CPT Codes Procedures - Manipulation: 3-4 regions (36910) 05/27/25 1404 .C.> Date _ Nida Locke Signature: Date (if applicable) CC: ~ [facility]09-18-2025 Progress [facility] Women[facility] [address], [facility] [address] [place] [address] OFFICE VISIT Date of Service: 05/23/25 MR#: [id number] Acct: [id number] Name: REESE MCDONALD Rep #: [id number] : 2005 Provider: WILBER Taveras Age/Sex: 19/F Location: [facility] [place] Status: Signed Intake Vital Signs 03/12/25 14:50 05/09/25 10:59 05/23/25 11:17 05/23/25 11:25 Height 5 ft 9 in 5 ft 9 in 5 ft 9 in 5 ft 9 in Weight: 233 lb BMI 34.4 BP 116/68 Intake Visit Reasons: 28 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 Is patient in pain?: No Allergies nickel Allergy (Mild, Verified 05/23/25 11:20) unknown Medications ?Medication ?Instructions ?Recorded ?Confirmed ?Type magnesium 250 mg tablet 250 mg PO QDAY 11/27/2405/06 History Saccharomyces boulardii 250 mg 250 mg PO QHS 12/18/24 05/23/25 History capsule (Digest Probiotic (S.boulardii)) multivitamin no.47-iron fum 27 cap PO 12/18/24 5 History mg-folate no.1 1 mg-dha 300 mg capsule (PNV-DHA) metoclopramide HCl 10 mg tablet 10 mg PO QACHS PRN reji sea and 02/13/25 05/23/25 Rx (Reglan) vomiting #60 tabs Last Menstrual Period: 10/29/24 Zika: Zika virus screening: Negative : No Have you fallen in the past year?: No PFSH PFSH Medical History Acne Dysmenorrhea Seasonal allergies Hx of recurrent urinary tract infection Chronic neck and back pain Asthma Surgical History [place] teeth extracted H/O shoulder surgery History of appendectomy Family History Mother Hypertension Gestational diabetes 2nd only Grandmother Hypertension Maternal Blood clot in leg Diabetes Paternal Grandfather Cancer, Onset Age: 70 Paternal- Smoker Social History adopted: No household members: significant other housing: house number of children: 0 current occupational status: employed current occupation: [employer] current occupational exposures/hazards: No pets and animals: Yes pets and animals: dog(s) and farm animals history of recent travel: No sexually active: Yes Smoking Status: Never smoker alcohol intake: current alcohol intake frequency: holidays/special occasions only details: Not while substance use type: marijuana and other details: Pt tried a gummy one time birthday. Didn't like it. 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 OB Visit LAZARA Calculator Estimated Delivery Date Method Current WG Current Estimate 08/13/25 Ultrasound #1 28w 2d Other Estimates 08/05/25 LMP (Certain) 29w 3d Expected Delivery Route/Plan Labor Preferences- CB/BF classes: [] labor support person: [] labor intervention preferences: [] pain management options preferred: [] cut cord/dad catch: [] : [] PP control planned: [] discussed possible routes of delivery and associated risks: [] special requests: [] Specific Issue/Plans Covid status: unvaccinated Flu vaccine: unvaccinated Tdap vaccine: not up to date Rhogam: [] LARC form signed: [] Problem list reviewed and updated with the most current plan of care details and appropriate ordersplaced. Relevant counseling for the gestational age provided. Continue routine care and follow up unless otherwise noted in visit notes/problem list details Initial Weight: Not Recorded Date -?-?-?-?-?-?-?-?-?-?-?-?- EGA Weight BP Urine Prot -?-?-?-?-?-?-?-?-?-?-?-?- Glucose FHR FuHt Pres Dilation -?-?-?-?-?-?-?-?-?-?-?-?- Effaced St Visit Note 01/10/25 -?-?-?-?-?-?-?-?-?-?-?-?- 9w 2d 220 lb 6 oz 134/80 -?-?-?-?-?-?-?-?-?-?-?-?- 178 -?-?-?-?-?-?-?-?-?-?-?-?- JV- CRL is 8 day s off from LMP. declines NIPT. wants to return for new ob labs. 02/13/25 -?-?-?-?-?-?-?-?-?-?-?-?- 14w 1d 219 lb 127/79 Negative -?-?-?-?-?-?-?-?-?-?-?-?- Negative 150 -?-?-?-?-?-?-?-?-?-?-?-?- JV- still has na usea. worse after meals. will try reglan. labs reviewed. is a + 03/12/25 -?-?-?-?-?-?-?-?-?-?-?-?- 18w 0d 218 lb 113/72 Negative -?-?-?-?-?-?-?-?-?-?-?-?- Negative 148 -?-?-?-?-?-?-?-?-?-?-?-?- MH-No VB. Jonah gordon. Nausea mostly resolved. No other concerns 04/09/25 -?-?-?-?-?-?-?-?-?-?-?-?- 22w 0d 223 lb 1 oz 124/76 Nega tive -?-?-?-?-?-?-?-?-?-?-?-?- Negative 145 -?-?-?-?-?-?-?-?-?-?-?-?- KW- no vb/crampi ng. good fm. glucose instructions reviewed. US reviewed. 05/09/25 -?-?-?-?-?-?-?-?-?-?-?-?- 26w 2d 230 lb 5 oz 143/82 Nega tive -?-?-?-?-?-?-?-?-?-?-?-?- Negative 145 26 -?-?-?-?-?-?-?-?-?-?-?-?- SM- no vb lof go od fm no regular ctx cbc gct 05/23/25 -?-?-?-?-?-?-?-?-?-?-?-?- 28w 2d 233 lb 116/68 Negative -?-?-?-?-?-?-?-?-?-?-?-?- Negative 145 29 -?-?-?-?-?-?-?-?-?-?-?-?- KW- no vb/lof/ct x. good fm. passed 28 week labs. unsure on Tdap. LARC done ACOG First Trimester First Trimester: Desire for , Environmental/Work Hazards, Anticipated Course of Care, Sexual activity, Exercise, Sauna/Hot tub use, Seat Belt use, Childbirth classes/Hospital facilities, Indications for Ultrasound and Screening for Aneuploidy; Discussed ROS Const Reports system reviewed and no additional complaints, except as documented Eyes Reports system reviewed and no additional complaints, except as documented ENT Reports system reviewed and no additional complaints, except as documented Card Reports system reviewed and no additional complaints, except as documented Resp Reports system reviewed and no additional complaints, except as documented GI Reports system reviewed and no additional complaints, except as documented, Denies nausea and Denies vomiting Reports system reviewed and no additional complaints, except as documented Musc Reports system reviewed and no additional complaints, except as documented Skin/Breast Reports system reviewed and no additional complaints, except as documented Neuro Yes system reviewed and no additional complaints, except as documented Psych Reports system reviewed and no additional complaints, except as documented Endo Reports system reviewed and no additional complaints, except as documented Armaan/Lymph Reports system reviewed and no additional complaints, except as documented Aller/Immun Reports system reviewed and no additional complaints, except as documented Exam Const General: cooperative, healthy appearing and no acute distress Orientation: alert, awake and oriented x3 Neck Neck: normal visual inspection and full ROM Resp Effort & Inspection: normal respiratory effort, able to speak in complete sentences and symmetric chest movement GI Inspection: normal to inspection Palpation: soft and other Other: gravid Skin General: no rashes or lesions noted Neuro General: patient alert, patient awake and patient oriented x3 Cognition: normal cognition Speech: speech normal Gait: normal gait Motor: muscle tone normal throughout Extrem General: normal to inspection and full ROM Psych Appearance: grossly normal Mental Status: mental status grossly normal Mood: congruent mood Affect: normal affect Speech and Movement: speech and movement normal Attitude: cooperative Thought Process: normal Thought Content: normal Judgment: judgment good Results POC Urinalysis 2 Dip (Clinic) Office Urine Glucose Negative Last Edit by Delmy Colón RN on 05/23/25 11:27 Office Urine Protein Negative Last Edit by Delmy Colón RN on 05/23/25 11:27 Coding Level of Care Code OB Routine Diagnoses Segmental and somatic dysfunction of sacral region M99.04 Marijuana use F12.90 Obesity affecting in second trimester, unspecified obesity type O99.212 Obesity type affecting : unspecified obesity Trimester: second trimester Encounter for supervision of normal first in second trimester Z34.02 Trimester: second trimester 28 weeks gestation of Z3A.28 Weeks of gestation: 28 weeks Segmental and somatic dysfunction of lumbar region M99.03 Segmental and somatic dysfunction of pelvic region M99.05 Segmental and somatic dysfunction of thoracic region M99.02 Segmental and somatic dysfunction of cervical region M99.01 Assessment and Plan Assessment and Plan (1) Segmental and somatic dysfunction of sacral region: Status: Acute (2) Marijuana use: Status: Acute Comment: laquita one time 19st birthday, discussed random drug testing with pt. NEG at NO (3) Obesity affecting : Status: Acute Qualifiers: Obesity type affecting : unspecified obesity Trimester: second trimester Qualified Code(s): O99.212 - Obesity complicating , second trimester Comment: [id number] (4) Supervision of normal first : Status: Acute Qualifiers: Trimester: second trimester Qualified Code(s): Z34.02 - Encounter for supervision of normal first , second trimester Comment: PRR, , LAZARA 08/05/25, Adri Kelly. Low lying placenta <2cm from os, pelvic rest, report bleeding and rpt US 28 wk. (5) : Status: Acute Qualifiers: Weeks of gestation: 28 weeks Qualified Code(s): Z3A.28 - 28 weeks gestation of Comment: Declines NIPT & Carrier testing; declines AFP (6) Segmental and somatic dysfunction of lumbar region: Status: Acute (7) Segmental and somatic dysfunction of pelvic region: Status: Acute (8) Segmental and somatic dysfunction of thoracic region: Status: Acute (9) Segmental and somatic dysfunction of cervical region: Status: Acute Orders: Orders POC Urinalysis 2 Dip (Clinic) Today Plan Details Additional Comments: ACOG trimester education reviewed and updated. see problem list details for updated plan management information and see below for orders placed atthis visit. GA appropriate handout given. Goals & Barriers: Goals Decrease spasm Decrease inflammation Improve intersegmental motion Improve ROM Clinical Quality Measures Falls Risk Screening/Assistive Devices Have you fallen in the past year?: No 05/23/25 1142 s CNM> Date _ Gabriela Chisamlinda Signature: Date (if applicable) CC: ~ [facility]09-04-2025 Progress [facility] [address] [place] [address], [address] [place] [address] OFFICE VISIT Date of Service: 05/09/25 MR#: [id number] Acct: [id number] Name: REESE MCDONALD Rep #: [id number] : 2005 Provider: Dr. 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 Is patient in pain?: No Allergies nickel Allergy (Mild, Verified 05/09/25 10:58) unknown Medications ?Medication ?Instructions ?Recorded ?Confirmed ?Type magnesium 250 mg tablet 250 mg PO QDAY 11/27/24 09/0 12/28 History Saccharomyces boulardii 250 mg 250 mg PO QHS 12/18/24 05/09/25 History capsule (Digest Probiotic (S.boulardii)) multivitamin no.47-iron fum 27 cap PO 12/18/24 5 History mg-folate no.1 1 mg-dha 300 mg capsule (PNV-DHA) metoclopramide HCl 10 mg tablet 10 mg PO QACHS PRN reji sea and 02/13/25 05/09/25 Rx (Reglan) vomiting #60 tabs Last Menstrual Period: 10/29/24 Zika: Zika virus screening: Negative : No PFSH PFSH Medical History Acne Dysmenorrhea Seasonal allergies Hx of recurrent urinary tract infection Chronic neck and back pain Asthma Surgical History [place] teeth extracted H/O shoulder surgery History of appendectomy Family History Mother Hypertension Gestational diabetes 2nd only Grandmother Hypertension Maternal Blood clot in leg Diabetes Paternal Grandfather Cancer, Onset Age: 70 Paternal- Smoker Social History adopted: No household members: significant other housing: house number of children: 0 current occupational status: employed 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 Didn't like it. 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 OB Visit LAZARA Calculator Estimated Delivery Date Method Current WG Current Estimate 08/13/25 Ultrasound #1 26w 2d Other Estimates 08/05/25 LMP (Certain) 27w 3d Expected Delivery Route/Plan Labor Preferences- CB/BF classes: [] labor support person: [] labor intervention preferences: [] pain management options preferred: [] cut cord/dad catch: [] : [] PP control planned: [] discussed possible routes of delivery and associated risks: [] special requests: [] Specific Issue/Plans Covid status: unvaccinated Flu vaccine: unvaccinated Tdap vaccine: not up to date Rhogam: [] LARC form signed: [] Problem list reviewed and updated with the most current plan of care details and appropriate ordersplaced. Relevant counseling for the gestational age provided. Continue routine care and follow up unless otherwise noted in visit notes/problem list details Initial Weight: Not Recorded Date -?-?-?-?-?-?-?-?-?-?-?-?- EGA Weight BP Urine Prot -?-?-?-?-?-?-?-?-?-?-?-?- Glucose FHR FuHt Pres Dilation -?-?-?-?-?-?-?-?-?-?-?-?- Effaced St Visit Note 01/10/25 -?-?-?-?-?-?-?-?-?-?-?-?- 9w 2d 220 lb 6 oz 134/80 -?-?-?-?-?-?-?-?-?-?-?-?- 178 -?-?-?-?-?-?-?-?-?-?-?-?- JV- CRL is 8 day s off from LMP. declines NIPT. wants to return for new ob labs. 02/13/25 -?-?-?-?-?-?-?-?-?-?-?-?- 14w 1d 219 lb 127/79 Negative -?-?-?-?-?-?-?-?-?-?-?-?- Negative 150 -?-?-?-?-?-?-?-?-?-?-?-?- JV- still has na usea. worse after meals. will try reglan. labs reviewed. is a + 03/12/25 -?-?-?-?-?-?-?-?-?-?-?-?- 18w 0d 218 lb 113/72 Negative -?-?-?-?-?-?-?-?-?-?-?-?- Negative 148 -?-?-?-?-?-?-?-?-?-?-?-?- MH-No VB. Feelin g flutters. Nausea mostly resolved. No other concerns 04/09/25 -?-?-?-?-?-?-?-?-?-?-?-?- 22w 0d 223 lb 1 oz 124/76 Nega tive -?-?-?-?-?-?-?-?-?-?-?-?- Negative 145 -?-?-?-?-?-?-?-?--?-?-?-?- KW- no vb/crampi ng. good fm. glucose instructions reviewed. US reviewed. 05/09/25 -?-?-?-?-?-?-?-?-?-?-?-?- 26w 2d 230 lb 5 oz 143/82 Nega tive -?-?-?-?-?-?-?-?-?-?-?-?- Negative 145 26 -?-?-?-?-?-?-?-?-?-?-?-?- SM- no vb lof go od fm no regular ctx cbc gct ACOG First Trimester First Trimester: Desire for , Environmental/Work Hazards, Anticipated Course of Care, Sexual activity, Exercise, Sauna/Hot tub use, Seat Belt use, Childbirth classes/Hospital facilities, Indications for Ultrasound and Screening for Aneuploidy; Discussed Results POC Urinalysis 2 Dip (Clinic) Office Urine Glucose Negative Last Edit by Yahaira Jewell on 05/09/25 11:00 Office Urine Protein Negative Last Edit by Yahaira Jewell on 05/09/25 11:00 Coding Level of Care Code OB Routine Diagnoses Segmental and somatic dysfunction of sacral region M99.04 Marijuana use F12.90 Obesity affecting in second trimester, unspecified obesity type O99.212 Obesity type affecting : unspecified obesity Trimester: second trimester Encounter for supervision of normal first in second trimester Z34.02 Trimester: second trimester 26 weeks gestation of Z3A.26 Weeks of gestation: 26 weeks Segmental and somatic dysfunction of lumbar region M99.03 Segmental and somatic dysfunction of pelvic region M99.05 Segmental and somatic dysfunction of thoracic region M99.02 Segmental and somatic dysfunction of cervical region M99.01 Assessment and Plan Assessment and Plan (1) Segmental and somatic dysfunction of sacral region: Status: Acute (2) Marijuana use: Status: Acute Comment: bethanymy one time 19st birthday, discussed random drug testing with pt. TIFFANY at NOB (3) Obesity affecting : Status: Acute Qualifiers: Obesity type affecting : unspecified obesity Trimester: second trimester Qualified Code(s): O99.212 - Obesity complicating , second trimester Comment: [id number] (4) Supervision of normal first : Status: Acute Qualifiers: Trimester: second trimester Qualified Code(s): Z34.02 - Encounter for supervision of normal first , second trimester Comment: PRR, , LAZARA 08/05/25, Adri Kelly. Low lying placenta <2cm from os, pelvic rest, report bleeding and rpt US 28 wk. (5) : Status: Acute Qualifiers: Weeks of gestation: 26 weeks Qualified Code(s): Z3A.26 - 26 weeks gestation of Comment: Declines NIPT & Carrier testing; declines AFP (6) Segmental and somatic dysfunction of lumbar region: Status: Acute (7) Segmental and somatic dysfunction of pelvic region: Status: Acute (8) Segmental and somatic dysfunction of thoracic region: Status: Acute (9) Segmental and somatic dysfunction of cervical region: Status: Acute Orders: Orders POC Urinalysis 2 Dip (Clinic) Today Plan Details Goals & Barriers: Goals Decrease spasm Decrease inflammation Improve intersegmental motion Improve ROM 05/09/25 1128 santiago GUIDO> Date _ Viki Case MD [facility] Signature: Date (if applicable) CC: ~ [facility]08-05-2025 Progress [facility] [address] [place] [address], [address] [place] [address] OFFICE VISIT Date of Service: 04/09/25 MR#: [id number] Acct: [id number] Name: REESE MCDONALD Rep #: [id number] : 2005 Provider: WILBER Taveras Age/Sex: 19/F [place] [facility] [place]: Signed Intake Vital Signs 03/12/25 14:50 04/09/25 14:14 Height 5 ft 9 in 5 ft 9 in Weight: 218 lb 223 lb 1 oz BMI 32.1 32.9 BP 113/72 124/76 H Intake Visit Reasons: 22 wk ob 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 Is patient in pain?: No Allergies nickel Allergy (Mild, Verified 04/09/25 14:10) unknown Medications ?Medication ?Instructions ?Recorded ?Confirmed ?Type magnesium 250 mg tablet 250 mg PO QDAY 11/27/2401/27 History Saccharomyces boulardii 250 mg 250 mg PO QHS 12/18/24 04/09/25 History capsule (Digest Probiotic (S.boulardii)) multivitamin no.47-iron fum 27 cap PO 12/18/24 5 History mg-folate no.1 1 mg-dha 300 mg capsule (PNV-DHA) metoclopramide HCl 10 mg tablet 10 mg PO QACHS PRN reji sea and 02/13/25 04/09/25 Rx (Reglan) vomiting #60 tabs Last Menstrual Period: 10/29/24 : No PFSH PFSH Medical History Acne Dysmenorrhea Seasonal allergies Hx of recurrent urinary tract infection Chronic neck and back pain Asthma Surgical History [place] teeth extracted H/O shoulder surgery History of appendectomy Family History Mother Hypertension Gestational diabetes 2nd only Grandmother Hypertension Maternal Blood clot in leg Diabetes Paternal Grandfather Cancer, Onset Age: 70 Paternal- Smoker Social History adopted: No household members: significant other housing: house number of children: 0 current occupational status: employed current occupation: [employer] current occupational exposures/hazards: No pets and animals: Yes pets and animals: dog(s) and farm animals history of recent travel: No sexually active: Yes Smoking Status: Never smoker alcohol intake: current alcohol intake frequency: holidays/special occasions only details: Not while substance use type: marijuana and other details: Pt tried a gummy one time birthday. Didn't like it. 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 OB Visit LAZARA Calculator Estimated Delivery Date Method Current WG Current Estimate 08/13/25 Ultrasound #1 22w 0d Other Estimates 08/05/25 LMP (Certain) 23w 1d Expected Delivery Route/Plan Labor Preferences- CB/BF classes: [] labor support person: [] labor intervention preferences: [] pain management options preferred: [] cut cord/dad catch: [] : [] PP control planned: [] discussed possible routes of delivery and associated risks: [] special requests: [] Specific Issue/Plans Covid status: unvaccinated Flu vaccine: unvaccinated Tdap vaccine: not up to date Rhogam: [] LARC form signed: [] Problem list reviewed and updated with the most current plan of care details and appropriate ordersplaced. Relevant counseling for the gestational age provided. Continue routine care and follow up unless otherwise noted in visit notes/problem list details Initial Weight: Not Recorded Date -?--?-?-?-?-?-?-?-?-?-?-?- EGA Weight BP Urine Prot -?-?-?-?-?-?-?-?-?-?-?-?- Glucose FHR FuHt Pres Dilation -?-?-?-?-?-?-?-?-?-?-?-?- Effaced St Visit Note 01/10/25 -?-?-?-?-?-?-?-?-?-?-?-?- 9w 2d 220 lb 6 oz 134/80 -?-?-?-?-?-?-?-?-?-?-?-?- 178 -?-?-?-?-?-?-?-?-?-?-?-?- JV- CRL is 8 day s off from LMP. declines NIPT. wants to return for new ob labs. 02/13/25 -?-?-?-?-?-?-?-?-?-?-?-?- 14w 1d 219 lb 127/79 Negative -?-?-?-?-?-?-?-?-?-?-?-?- Negative 150 -?-?-?-?-?-?-?-?-?-?-?-?- JV- still has na usea. worse after meals. will try reglan. labs reviewed. is a + 03/12/25 -?-?-?-?-?-?-?-?-?-?-?-?- 18w 0d 218 lb 113/72 Negative -?-?-?-?-?-?-?-?-?-?-?-?- Negative 148 -?-?-?-?-?-?-?-?-?-?-?-?- MH-No VB. Feelin g flutters. Nausea mostly resolved. No other concerns 04/09/25 -?-?-?-?-?-?-?-?-?-?-?-?- 22w 0d 223 lb 1 oz 124/76 Nega tive -?-?-?-?-?-?-?-?-?-?-?-?- Negative 145 -?-?-?-?-?-?-?-?-?-?-?-?- KW- no vb/crampi ng. good fm. glucose instructions reviewed. US reviewed. ACOG First Trimester First Trimester: Desire for , Environmental/Work Hazards, Anticipated Course of Care, Sexual activity, Exercise, Sauna/Hot tub use, Seat Belt use, Childbirth classes/Hospital facilities, Indications for Ultrasound and Screening for Aneuploidy; Discussed ROS Const Reports system reviewed and no additional complaints, except as documented Eyes Reports system reviewed and no additional complaints, except as documented ENT Reports system reviewed and no additional complaints, except as documented Card Reports system reviewed and no additional complaints, except as documented Resp Reports system reviewed and no additional complaints, except as documented GI Reports system reviewed and no additional complaints, except as documented, Denies nausea and Denies vomiting Reports system reviewed and no additional complaints, except as documented Musc Reports system reviewed and no additional complaints, except as documented Skin/Breast Reports system reviewed and no additional complaints, except as documented Neuro Yes system reviewed and no additional complaints, except as documented Psych Reports system reviewed and no additional complaints, except as documented Endo Reports system reviewed and no additional complaints, except as documented Armaan/Lymph Reports system reviewed and no additional complaints, except as documented Aller/Immun Reports system reviewed and no additional complaints, except as documented Exam Const General: cooperative, healthy appearing and no acute distress Orientation: alert, awake and oriented x3 Neck Neck: normal visual inspection and full ROM Resp Effort & Inspection: normal respiratory effort, able to speak in complete sentences and symmetric chest movement GI Inspection: normal to inspection Palpation: soft and other Other: gravid Skin General: no rashes or lesions noted Neuro General: patient alert, patient awake and patient oriented x3 Cognition: normal cognition Speech: speech normal Gait: normal gait Motor: muscle tone normal throughout Extrem General: normal to inspection and full ROM Psych Appearance: grossly normal Mental Status: mental status grossly normal Mood: congruent mood Affect: normal affect Speech and Movement: speech and movement normal Attitude: cooperative Thought Process: normal Thought Content: normal Judgment: judgment good Results POC Urinalysis 2 Dip (Clinic) Office Urine Glucose Negative Last Edit by Carrie Hay on 04/09/25 14:18 Office Urine Protein Negative Last Edit by Carrie Hay on 04/09/25 14:18 Coding Level of Care Code OB Routine Diagnoses Segmental and somatic dysfunction of sacral region M99.04 Marijuana use F12.90 Obesity affecting in second trimester, unspecified obesity type O99.212 Obesity type affecting : unspecified obesity Trimester: second trimester Encounter for supervision of normal first in second trimester Z34.02 Trimester: second trimester 22 weeks gestation of Z3A.22 Weeks of gestation: 22 weeks Segmental and somatic dysfunction of lumbar region M99.03 Segmental and somatic dysfunction of pelvic region M99.05 Segmental and somatic dysfunction of thoracic region M99.02 Segmental and somatic dysfunction of cervical region M99.01 Assessment and Plan Assessment and Plan (1) Segmental and somatic dysfunction of sacral region: Status: Acute (2) Marijuana use: Status: Acute Comment: laquita one time 19st birthday, discussed random drug testing with pt. NEG at NOB (3) Obesity affecting : Status: Acute Qualifiers: Obesity type affecting : unspecified obesity Trimester: second trimester Qualified Code(s): O99.212 - Obesity complicating , second trimester Comment: [id number] (4) Supervision of normal first : Status: Acute Qualifiers: Trimester: second trimester Qualified Code(s): Z34.02 - Encounter for supervision of normal first , second trimester Comment: PRR, , LAZARA 08/05/25, Adri Kelly. Low lying placenta <2cm from os, pelvic rest, report bleeding and rpt US 28 wk. (5) : Status: Acute Qualifiers: Weeks of gestation: 22 weeks Qualified Code(s): Z3A.22 - 22 weeks gestation of Comment: Declines NIPT & Carrier testing; declines AFP (6) Segmental and somatic dysfunction of lumbar region: Status: Acute (7) Segmental and somatic dysfunction of pelvic region: Status: Acute (8) Segmental and somatic dysfunction of thoracic region: Status: Acute (9) Segmental and somatic dysfunction of cervical region: Status: Acute Orders: Orders POC Urinalysis 2 Dip (Clinic) Today Plan Details Additional Comments: ACOG trimester education reviewed and updated. see problem list details for updated plan management information and see below for orders placed atthis visit. GA appropriate handout given. Goals & Barriers: Goals Decrease spasm Decrease inflammation Improve intersegmental motion Improve ROM 04/09/25 1441 s CNM> Date _ Gabriela Taveras CNM Cosigner Signature: Date (if applicable) CC: ~ [facility]08-05-2025 Progress note Author Gabriela Taveras [facility] Note Date/Time April 09, 2025 2:4 1pm [facility] [address] [place] [address], [address] [place] [address] OFFICE VISIT Date of Service: 04/09/25 MR#: [id number] Acct: [id number] Name: REESE MCDONALD Rep #: [id number] : 2005 Provider: WILBER Taveras Age/Sex: 19/F [place] [facility] [place]: [place] Intake Vital Signs 03/12/25 14:50 04/09/25 14:14 Height 5 ft 9 in 5 ft 9 in Weight: 218 lb 223 lb 1 oz BMI 32.1 32.9 BP 113/72 124/76 H Intake Visit Reasons: 22 wk ob 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 Is patient in pain?: No Allergies nickel Allergy (Mild, Verified 04/09/25 14:10) unknown Medications ?Medication ?Instructions ?Recorded ?Confirmed ?Type magnesium 250 mg tablet 250 mg PO QDAY 11/27/24 08/01/27 History Saccharomyces boulardii 250 mg 250 mg PO QHS 12/18/24 04/09/25 History capsule (Digest Probiotic (S.boulardii)) multivitamin no.47-iron fum 27 cap PO 12/18/24 5 History mg-folate no.1 1 mg-dha 300 mg capsule (PNV-DHA) metoclopramide HCl 10 mg tablet 10 mg PO QACHS PRN reji sea and 02/13/25 04/09/25 Rx (Reglan) vomiting #60 tabs Last Menstrual Period: 10/29/24 : No PFSH PFSH Medical History Acne Dysmenorrhea Seasonal allergies Hx of recurrent urinary tract infection Chronic neck and back pain Asthma Surgical History [place] teeth extracted H/O shoulder surgery History of appendectomy Family History Mother Hypertension Gestational diabetes 2nd only Grandmother Hypertension Maternal Blood clot in leg Diabetes Paternal Grandfather Cancer, Onset Age: 70 Paternal- Smoker Social History adopted: No household members: significant other housing: house number of children: 0 current occupational status: employed current occupation: [employer] current occupational exposures/hazards: No pets and animals: Yes pets and animals: dog(s) and farm animals history of recent travel: No sexually active: Yes Smoking Status: Never smoker alcohol intake: current alcohol intake frequency: holidays/special occasions only details: Not while substance use type: marijuana and other details: Pt tried a gummy one time birth. Didn't like it. 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 OB Visit LAZARA Calculator Estimated Delivery Date Method Current WG Current Estimate 08/13/25 Ultrasound #1 22w 0d Other Estimates 08/05/25 LMP (Certain) 23w 1d Expected Delivery Route/Plan Labor Preferences- CB/BF classes: [] labor support person: [] labor intervention preferences: [] pain management options preferred: [] cut cord/dad catch: [] : [] PP control planned: [] discussed possible routes of delivery and associated risks: [] special requests: [] Specific Issue/Plans Covid status: unvaccinated Flu vaccine: unvaccinated Tdap vaccine: not up to date Rhogam: [] LARC form signed: [] Problem list reviewed and updated with the most current plan of care details and appropriate orders placed. Relevant counseling for the gestational age provided. Continue routine care and follow up unless otherwise noted in visit notes/problem list details Initial Weight: Not Recorded Date -?--?-?-?-?-?-?-?-?-?-?-?- EGA Weight BP Urine Prot -?-?-?-?-?-?-?-?-?-?-?-?- Glucose FHR FuHt Pres Dilation -?-?-?-?-?-?-?-?-?-?-?-?- Effaced St Visit Note 01/10/25 -?-?-?-?-?-?-?-?-?-?-?-?- 9w 2d 220 lb 6 oz 134/80 -?-?-?-?-?-?-?-?-?-?-?-?- 178 -?-?-?-?-?-?-?-?-?-?-?-?- JV- CRL is 8 day s off from LMP. declines NIPT. wants to return for new ob labs. 02/13/25 -?-?-?-?-?-?-?-?-?-?-?-?- 14w 1d 219 lb 127/79 Negative -?-?-?-?-?-?-?-?-?-?-?-?- Negative 150 -?-?-?-?-?-?-?-?-?-?-?-?- JV- still has na usea. worse after meals. will try reglan. labs reviewed. is a + 03/12/25 -?-?-?-?-?-?-?-?-?-?-?-?- 18w 0d 218 lb 113/72 Negative -?-?-?-?-?-?-?-?-?-?-?-?- Negative 148 -?-?-?-?-?-?-?-?-?-?-?-?- MH-No VB. Feelin g flutters. Nausea mostly resolved. No other concerns 04/09/25 -?-?-?-?-?-?-?-?-?-?-?-?- 22w 0d 223 lb 1 oz 124/76 Nega tive -?-?-?-?-?-?-?-?-?-?-?-?- Negative 145 -?-?-?-?-?-?-?-?-?-?-?-?- KW- no vb/crampi ng. good fm. glucose instructions reviewed. US reviewed. ACOG First Trimester First Trimester: Desire for , Environmental/Work Hazards, Anticipated Course of Care, Sexual activity, Exercise, Sauna/Hot tub use, Seat Belt use, Childbirth classes/Hospital facilities, Indications for Ultrasound and Screening for Aneuploidy; Discussed ROS Const Reports system reviewed and no additional complaints, except as documented Eyes Reports system reviewed and no additional complaints, except as documented ENT Reports system reviewed and no additional complaints, except as documented Card Reports system reviewed and no additional complaints, except as documented Resp Reports system reviewed and no additional complaints, except as documented GI Reports system reviewed and no additional complaints, except as documented, Denies nausea and Denies vomiting Reports system reviewed and no additional complaints, except as documented Musc Reports system reviewed and no additional complaints, except as documented Skin/Breast Reports system reviewed and no additional complaints, except as documented Neuro Yes system reviewed and no additional complaints, except as documented Psych Reports system reviewed and no additional complaints, except as documented Endo Reports system reviewed and no additional complaints, except as documented Armaan/Lymph Reports system reviewed and no additional complaints, except as documented Aller/Immun Reports system reviewed and no additional complaints, except as documented Exam Const General: cooperative, healthy appearing and no acute distress Orientation: alert, awake and oriented x3 Neck Neck: normal visual inspection and full ROM Resp Effort & Inspection: normal respiratory effort, able to speak in complete sentences and symmetric chest movement GI Inspection: normal to inspection Palpation: soft and other Other: gravid Skin General: no rashes or lesions noted Neuro General: patient alert, patient awake and patient oriented x3 Cognition: normal cognition Speech: speech normal Gait: normal gait Motor: muscle tone normal throughout Extrem General: normal to inspection and full ROM Psych Appearance: grossly normal Mental Status: mental status grossly normal Mood: congruent mood Affect: normal affect Speech and Movement: speech and movement normal Attitude: cooperative Thought Process: normal Thought Content: normal Judgment: judgment good Results POC Urinalysis 2 Dip (Clinic) Office Urine Glucose Negative Last Edit by Carrie Hay on 04/09/25 14:18 Office Urine Protein Negative Last Edit by Carrie Hay on 04/09/25 14:18 Coding Level of Care Code OB Routine Diagnoses Segmental and somatic dysfunction of sacral region M99.04 Marijuana use F12.90 Obesity affecting in second trimester, unspecified obesity type O99.212 Obesity type affecting : unspecified obesity Trimester: second trimester Encounter for supervision of normal first in second trimester Z34.02 Trimester: second trimester 22 weeks gestation of Z3A.22 Weeks of gestation: 22 weeks Segmental and somatic dysfunction of lumbar region M99.03 Segmental and somatic dysfunction of pelvic region M99.05 Segmental and somatic dysfunction of thoracic region M99.02 Segmental and somatic dysfunction of cervical region M99.01 Assessment and Plan Assessment and Plan (1) Segmental and somatic dysfunction of sacral region: Status: Acute (2) Marijuana use: Status: Acute Comment: laquita one time 19st birthday, discussed random drug testing with pt. NEG at NOB (3) Obesity affecting : Status: Acute Qualifiers: Obesity type affecting : unspecified obesity Trimester: second trimester Qualified Code(s): O99.212 - Obesity complicating , second trimester Comment: [id number] (4) Supervision of normal first : Status: Acute Qualifiers: Trimester: second trimester Qualified Code(s): Z34.02 - Encounter for supervision of normal first , second trimester Comment: PRR, , LAZARA 08/05/25, Adri Kelly. Low lying placenta <2cm from os, pelvic rest, report bleeding and rpt US 28 wk. (5) : Status: Acute Qualifiers: Weeks of gestation: 22 weeks Qualified Code(s): Z3A.22 - 22 weeks gestation of Comment: Declines NIPT & Carrier testing; declines AFP (6) Segmental and somatic dysfunction of lumbar region: Status: Acute (7) Segmental and somatic dysfunction of pelvic region: Status: Acute (8) Segmental and somatic dysfunction of thoracic region: Status: Acute (9) Segmental and somatic dysfunction of cervical region: Status: Acute Orders: Orders POC Urinalysis 2 Dip (Clinic) Today Plan Details Additional Comments: ACOG trimester education reviewed and updated. see problem list details for updated plan management information and see below for orders placed at this visit. GA appropriate handout given. Goals & Barriers: Goals Decrease spasm Decrease inflammation Improve intersegmental motion Improve ROM 04/09/25 1441 <Electronically signed by Gabriela zarate CNM> Date _ Gabriela Taveras CNM Cosigner Signature: Date (if applicable) CC: ~ [facility] Work Phone: 1(341) 327-339107-30-2025 Evaluation note* Diagnosis Onset Date Resolution Status Admit Date Segmental and somatic dysfunction of cervical region acute April 03, 2025 8:00am Segmental and somatic dysfunction of lumbar region acute Mar 8:00am Segmental and somatic dysfunction of sacral region acute Mar 8:00am Segmental and somatic dysfunction of thoracic region acute April 03, 2025 8:00am Marijuana use acute April 09, 2025 2:07pm Obesity affecting acute April 09, 2025 2:07pm acute April 09 2:07pm Segmental and somatic dysfunction of cervical region acute April 09, 2025 2:07pm Segmental and somatic dysfunction of lumbar region acute Apr 2:07pm Segmental and somatic dysfunction of pelvic region acute Apr 2:07pm Segmental and somatic dysfunction of sacral region acute Apr 2:07pm Segmental and somatic dysfunction of thoracic region acute April 09, 2025 2:07pm Supervision of normal first acute April 09, 2025 2:07pm acute May 01, 2 025 8:58am Segmental and somatic dysfunction of cervical region acute May 01 8:58am Segmental and somatic dysfunction of lumbar region acute Apr 8:58am Segmental and somatic dysfunction of sacral region acute Apr 8:58am Segmental and somatic dysfunction of thoracic region acute May 01 8:58am Marijuana use acute May 092024 10:47am Obesity affecting acute May 09, 2025 10:47am acute May 09, 2025 10:47am Segmental and somatic dysfunction of cervical region acute Katerin 4th, 2 025 10:47am Segmental and somatic dysfunction of lumbar region acute Sep tem2024 10:47am Segmental and somatic dysfunction of pelvic region acute Sep tember 2024 10:47am Segmental and somatic dysfunction of sacral region acute Sep tem2024 10:47am Segmental and somatic dysfunction of thoracic region acute May 09 10:47am Supervision of normal first acute May 09 10:47am Marijuana use acute May 062024 11:14am Obesity affecting acute May 23, 2025 11:14am acute May 11:14am Segmental and somatic dysfunction of cervical region acute May 23, 2025 11:14am Segmental and somatic dysfunction of lumbar region acute Sep tember 2024 11:14am Segmental and somatic dysfunction of pelvic region acute Sep tember 2024 11:14am Segmental and somatic dysfunction of sacral region acute Sep tember 2024 11:14am Segmental and somatic dysfunction of thoracic region acute May 23, 2025 11:14am Supervision of normal first acute May 23, 2025 11:14am Segmental and somatic dysfunction of cervical region acute May 27, 2025 1:27pm Segmental and somatic dysfunction of lumbar region acute Sep tember 2024 1:27pm Segmental and somatic dysfunction of pelvic region acute Sep tember 2024 1:27pm Segmental and somatic dysfunction of sacral region acute Sep tember 2024 1:27pm Segmental and somatic dysfunction of thoracic region acute May 27, 2025 1:27pm Marijuana use acute June 2:46pm Obesity affecting acute June 05, 2025 2:46pm acute June 05 2:46pm Segmental and somatic dysfunction of cervical region acute June 05 2:46pm Segmental and somatic dysfunction of lumbar region acute Jun [email or web address] 2:46pm Segmental and somatic dysfunction of pelvic region acute Jun [email or web address] 2:46pm Segmental and somatic dysfunction of sacral region acute Jun [email or web address] 2:46pm Segmental and somatic dysfunction of thoracic region acute June 05 2:46pm Supervision of normal first acute June 05 2:46pm Marijuana use acute June 2:17pm Obesity affecting acute June 17, 2025 2:17pm acute June 17, 2025 2:17pm Segmental and somatic dysfunction of cervical region acute June 17 2:17pm Segmental and somatic dysfunction of lumbar region acute Juner 2024 2:17pm Segmental and somatic dysfunction of pelvic region acute Jun 2:17pm Segmental and somatic dysfunction of sacral region acute Jun 2:17pm Segmental and somatic dysfunction of thoracic region acute June 17 2:17pm Supervision of normal first acute June 17 2:17pm acute June 24, 2025 12:57pm Segmental and somatic dysfunction of cervical region acute June 24 12:57pm Segmental and somatic dysfunction of lumbar region acute Jun 12:57pm Segmental and somatic dysfunction of sacral region acute Jun 12:57pm Segmental and somatic dysfunction of thoracic region acute June 24 12:57pm Marijuana use acute June 3:42pm Obesity affecting acute July 05, 2025 3:42pm acute July 05, 2025 3:42pm Segmental and somatic dysfunction of cervical region acute July 05 3:42pm Segmental and somatic dysfunction of lumbar region acute Jun 3:42pm Segmental and somatic dysfunction of pelvic region acute Jun 3:42pm Segmental and somatic dysfunction of sacral region acute Jun 3:42pm Segmental and somatic dysfunction of thoracic region acute July 05 3:42pm Supervision of normal first acute July 05 3:42pm acute July 09, 2025 12:58pm Segmental and somatic dysfunction of cervical region acute July 09 12:58pm Segmental and somatic dysfunction of lumbar region acute Jul 12:58pm Segmental and somatic dysfunction of sacral region acute Jul 12:58pm Segmental and somatic dysfunction of thoracic region acute July 09 12:58pm [facility] Work Phone: 1(717) 389-583207-25-2025 Radiology Diagnostic study note [facility] Imaging Services [address] [place], [place] [id number] OB Anatomy Scan MR#: [id number] Acct: [id number] Name: REESE MCDONALD Rep #: [id number] : 2005 F 19 From: Misty Sherwood MD PCP: Dr. Isi Justice MD Status: R EG CLI Study:OB Anatomy Scan Date of Exam: 03/06 10/30 Exam# [id number] Ordering Dr: Eugenia Dorman DO PROCEDURE: OB ANATOMY SCAN 03/26/2025 REASON FOR EXAM: ANATOMY/CERVICAL LENGTH TECHNIQUE: OB ANATOMY SCAN. Transabdominal and transvaginal imaging of the maternal pelvis and a > 14 week gestation with image documentation. COMPARISON: None. FINDINGS FETUS: There is a single living intrauterine gestation. POSITION: position is cephalic. HEART RATE: The heart rate is 144 BPM and regular. BIOMETRICS: Based on composite biometry, the composite estimated gestational age by ultrasound is 20 weeks 1 day. LMP gestational age: 20 weeks 0 days LMP LAZARA: August 13, 2025 Sonographic gestational age: 20 weeks 1 day Sonographic LAZARA: August 12, 2025 ANATOMIC SURVEY: The visualized anatomy is unremarkable. No gross anatomic abnormality is identified, including intracranial structures, orbits, profile, nose/lips, 4 chamber heart, fluid-filled stomach and urinary bladder, kidneys, spine, 3-vessel cord, cord insertion, and extremities. PLACENTA: The placenta is posterior, grade 0, with central cord insertion. No demonstrated evidence of abruption. The lower margin of the placenta is 1.7 cm away from the internal os compatible with a low lying placenta. AMNIOTIC FLUID: Within normal limits. Maximum vertical pocket (MVP) measuring 6.0 cm. CERVIX: Long and closed measuring 4.1 cm in length. Unremarkable as visualized. SONOGRAPHIC MEASUREMENTS: Bi-Parietal Diameter (BPD): 4.7 cm; 20 weeks 1 day Head Circumference (HC): 17.5 cm; 20 weeks 0 days Abdominal Circumference (AC): 15.5 cm; 20 weeks 5 days Femur Length (FL): 3.3 cm; 20 weeks 2 days Estimated weight: 355 grams +/-53 grams (0 lb, 13 oz) EFW percentile: 71.1 % US/OB Anatomy Scan IMPRESSION: 1. Single living intrauterine gestation estimated at 20 weeks 1 day by today's ultrasound criteria.Size equals dates. 2. Low-lying placenta. Reading Location: [id number] CC: Dr. Eugenia Moncada DO; Dr. Isi Justice MD ~ [employer]: Signed [facility]07-01-2025 Evaluation note* Diagnosis Onset Date Resolution Status Admit Date Segmental and somatic dysfunction of cervical region acute March 05, 2025 7 :57am Segmental and somatic dysfunction of lumbar region acute Mar 7:57am Segmental and somatic dysfunction of sacral region acute Mar 7:57am Segmental and somatic dysfunction of thoracic region acute March 05, 2025 7 :57am Marijuana use acute March 12, 025 2:47pm Obesity affecting acute March 12, 2025 2:47pm acute March 12, 2025 2:47pm Supervision of normal first acute March 12, 2025 2 :47pm Segmental and somatic dysfunction of cervical region acute April 03, 2025 8:00am Segmental and somatic dysfunction of lumbar region acute Mar 8:00am Segmental and somatic dysfunction of sacral region acute Mar 8:00am Segmental and somatic dysfunction of thoracic region acute April 03, 2025 8:00am Marijuana use acute April 09, 2025 2:07pm Obesity affecting acute April 09, 2025 2:07pm acute April 09 2:07pm Segmental and somatic dysfunction of cervical region acute April 09, 2025 2:07pm Segmental and somatic dysfunction of lumbar region acute Apr us2024 2:07pm Segmental and somatic dysfunction of pelvic region acute Apr 2:07pm Segmental and somatic dysfunction of sacral region acute Apr 2:07pm Segmental and somatic dysfunction of thoracic region acute April 09, 2025 2:07pm Supervision of normal first acute April 09, 2025 2:07pm acute May 01, 025 8:58am Segmental and somatic dysfunction of cervical region acute May 01 8:58am Segmental and somatic dysfunction of lumbar region acute Apr ust 2024 8:58am Segmental and somatic dysfunction of sacral region acute Aug ust 2024 8:58am Segmental and somatic dysfunction of thoracic region acute May 01 8:58am Marijuana use acute May 092024 10:47am Obesity affecting acute May 09, 2025 10:47am acute May 09, 2025 10:47am Segmental and somatic dysfunction of cervical region acute May 09 10:47am Segmental and somatic dysfunction of lumbar region acute Sep tem2024 10:47am Segmental and somatic dysfunction of pelvic region acute Sep tem2024 10:47am Segmental and somatic dysfunction of sacral region acute Sep tem2024 10:47am Segmental and somatic dysfunction of thoracic region acute May 09 10:47am Supervision of normal first acute May 09 10:47am Marijuana use acute May 062024 11:14am Obesity affecting acute May 23, 2025 11:14am acute May 11:14am Segmental and somatic dysfunction of cervical region acute May 23, 2025 11:14am Segmental and somatic dysfunction of lumbar region acute Sep tem2024 11:14am Segmental and somatic dysfunction of pelvic region acute Sep tember 2024 11:14am Segmental and somatic dysfunction of sacral region acute Sep tem2024 11:14am Segmental and somatic dysfunction of thoracic region acute May 23, 2025 11:14am Supervision of normal first acute May 23, 2025 11:14am Segmental and somatic dysfunction of cervical region acute May 27, 2025 1:27pm Segmental and somatic dysfunction of lumbar region acute Sep tem2024 1:27pm Segmental and somatic dysfunction of pelvic region acute Sep tember 2024 1:27pm Segmental and somatic dysfunction of sacral region acute Sep tember 2024 1:27pm Segmental and somatic dysfunction of thoracic region acute May 27, 2025 1:27pm Marijuana use acute June 2:46pm Obesity affecting acute June 05, 2025 2:46pm acute June 05 2:46pm Segmental and somatic dysfunction of cervical region acute June 05 2:46pm Segmental and somatic dysfunction of lumbar region acute Oct 2024 2:46pm Segmental and somatic dysfunction of pelvic region acute Jun 2:46pm Segmental and somatic dysfunction of sacral region acute Jun 2:46pm Segmental and somatic dysfunction of thoracic region acute June 05 2:46pm Supervision of normal first acute June 05 2:46pm Marijuana use acute June 2:17pm Obesity affecting acute June 17, 2025 2:17pm acute June 17, 2025 2:17pm Segmental and somatic dysfunction of cervical region acute June 17 2:17pm Segmental and somatic dysfunction of lumbar region acute Jun 2:17pm Segmental and somatic dysfunction of pelvic region acute Jun 2:17pm Segmental and somatic dysfunction of sacral region acute Jun 2:17pm Segmental and somatic dysfunction of thoracic region acute June 17 2:17pm Supervision of normal first acute June 17 2:17pm acute June 24, 2025 12:57pm Segmental and somatic dysfunction of cervical region acute June 24 12:57pm Segmental and somatic dysfunction of lumbar region acute Jun 12:57pm Segmental and somatic dysfunction of sacral region acute Jun 12:57pm Segmental and somatic dysfunction of thoracic region acute June 24 12:57pm [facility] Work Phone: 1(966) 106-873606-11-2025 Evaluation note* Diagnosis Onset Date Resolution Status Admit Date Marijuana use acute February 13, 2025 9:34am Obesity affecting acute February 13, 2025 9:34am acute February 13 9:34am Supervision of normal first acute February 13, 2025 9:34am Acne inactive February 13 9:34am Dysmenorrhea inactive February 13, 2 025 9:34am Amenorrhea deleted February 13 9:34am Segmental and somatic dysfunction of cervical region acute March 05, 2025 7 :57am Segmental and somatic dysfunction of lumbar region acute Mar 7:57am Segmental and somatic dysfunction of sacral region acute Mar 7:57am Segmental and somatic dysfunction of thoracic region acute March 05, 2025 7 :57am Marijuana use acute March 12 025 2:47pm Obesity affecting acute March 12, 2025 2:47pm acute March 12, 2025 2:47pm Supervision of normal first acute March 12, 2025 2 :47pm Segmental and somatic dysfunction of cervical region acute April 03, 2025 8:00am Segmental and somatic dysfunction of lumbar region acute Mar 8:00am Segmental and somatic dysfunction of sacral region acute Mar 8:00am Segmental and somatic dysfunction of thoracic region acute April 03, 2025 8:00am Marijuana use acute April 09, 2025 2:07pm Obesity affecting acute April 09, 2025 2:07pm acute April 09 2:07pm Segmental and somatic dysfunction of cervical region acute April 09, 2025 2:07pm Segmental and somatic dysfunction of lumbar region acute Apr 2:07pm Segmental and somatic dysfunction of pelvic region acute Apr 2:07pm Segmental and somatic dysfunction of sacral region acute Apr 2:07pm Segmental and somatic dysfunction of thoracic region acute April 09, 2025 2:07pm Supervision of normal first acute April 09, 2025 2:07pm acute May 01 8:58am Segmental and somatic dysfunction of cervical region acute May 01 8:58am Segmental and somatic dysfunction of lumbar region acute Apr 8:58am Segmental and somatic dysfunction of sacral region acute Apr 8:58am Segmental and somatic dysfunction of thoracic region acute May 01 8:58am Marijuana use acute May [id number] 10:47am Obesity affecting acute May 09, 2025 10:47am acute May 09, 2025 10:47am Segmental and somatic dysfunction of cervical region acute May 09 10:47am Segmental and somatic dysfunction of lumbar region acute Sep 2024 10:47am Segmental and somatic dysfunction of pelvic region acute Sep 2024 10:47am Segmental and somatic dysfunction of sacral region acute Sep 2024 10:47am Segmental and somatic dysfunction of thoracic region acute May 09 10:47am Supervision of normal first acute May 09 10:47am Marijuana use acute May 062024 11:14am Obesity affecting acute May 23, 2025 11:14am acute May 11:14am Segmental and somatic dysfunction of cervical region acute May 23, 2025 11:14am Segmental and somatic dysfunction of lumbar region acute Sep 2024 11:14am Segmental and somatic dysfunction of pelvic region acute Sep 2024 11:14am Segmental and somatic dysfunction of sacral region acute Sep 2024 11:14am Segmental and somatic dysfunction of thoracic region acute May 23, 2025 11:14am Supervision of normal first acute May 23, 2025 11:14am Segmental and somatic dysfunction of cervical region acute May 27, 2025 1:27pm Segmental and somatic dysfunction of lumbar region acute Sep 2024 1:27pm Segmental and somatic dysfunction of pelvic region acute Sep 2024 1:27pm Segmental and somatic dysfunction of sacral region acute Sep 2024 1:27pm Segmental and somatic dysfunction of thoracic region acute May 27, 2025 1:27pm [facility] Work Phone: 1(270) 146-794106-11-2025 Evaluation note* Diagnosis Onset Date Resolution Status Admit Date Marijuana use acute February 13, 2025 9:34am Obesity affecting acute February 13, 2025 9:34am acute February 13 9:34am Supervision of normal first acute February 13, 2025 9:34am Acne inactive February 13 9:34am Dysmenorrhea inactive February 13, 025 9:34am Amenorrhea deleted February 13 9:34am Segmental and somatic dysfunction of cervical region acute March 05, 2025 7 :57am Segmental and somatic dysfunction of lumbar region acute Mar 7:57am Segmental and somatic dysfunction of sacral region acute Mar 7:57am Segmental and somatic dysfunction of thoracic region acute March 05, 2025 7 :57am Marijuana use acute March 12, 2 025 2:47pm Obesity affecting acute March 12, 2025 2:47pm acute March 12, 2025 2:47pm Supervision of normal first acute March 12, 2025 2 :47pm Segmental and somatic dysfunction of cervical region acute April 03, 2025 8:00am Segmental and somatic dysfunction of lumbar region acute Mar 8:00am Segmental and somatic dysfunction of sacral region acute Mar 8:00am Segmental and somatic dysfunction of thoracic region acute April 03, 2025 8:00am Marijuana use acute April 09, 2025 2:07pm Obesity affecting acute April 09, 2025 2:07pm acute April 09 2:07pm Segmental and somatic dysfunction of cervical region acute April 09, 2025 2:07pm Segmental and somatic dysfunction of lumbar region acute Apr 2:07pm Segmental and somatic dysfunction of pelvic region acute Apr 2:07pm Segmental and somatic dysfunction of sacral region acute Apr 2:07pm Segmental and somatic dysfunction of thoracic region acute April 09, 2025 2:07pm Supervision of normal first acute April 09, 2025 2:07pm acute May 01 8:58am Segmental and somatic dysfunction of cervical region acute May 01 8:58am Segmental and somatic dysfunction of lumbar region acute Apr 8:58am Segmental and somatic dysfunction of sacral region acute Apr 8:58am Segmental and somatic dysfunction of thoracic region acute May 01 8:58am Marijuana use acute May [id number] 10:47am Obesity affecting acute May 09, 2025 10:47am acute May 09, 2025 10:47am Segmental and somatic dysfunction of cervical region acute May 09 10:47am Segmental and somatic dysfunction of lumbar region acute Sep tem2024 10:47am Segmental and somatic dysfunction of pelvic region acute Sep tem2024 10:47am Segmental and somatic dysfunction of sacral region acute Sep tem2024 10:47am Segmental and somatic dysfunction of thoracic region acute May 09 10:47am Supervision of normal first acute May 09 10:47am Marijuana use acute May 062024 11:14am Obesity affecting acute May 23, 2025 11:14am acute May 11:14am Segmental and somatic dysfunction of cervical region acute May 23, 2025 11:14am Segmental and somatic dysfunction of lumbar region acute Sep tember 2024 11:14am Segmental and somatic dysfunction of pelvic region acute Sep tember 2024 11:14am Segmental and somatic dysfunction of sacral region acute Sep tember 2024 11:14am Segmental and somatic dysfunction of thoracic region acute May 23, 2025 11:14am Supervision of normal first acute May 23, 2025 11:14am Segmental and somatic dysfunction of cervical region acute May 27, 2025 1:27pm Segmental and somatic dysfunction of lumbar region acute Sep tem2024 1:27pm Segmental and somatic dysfunction of pelvic region acute Sep tember 2024 1:27pm Segmental and somatic dysfunction of sacral region acute Sep 2024 1:27pm Segmental and somatic dysfunction of thoracic region acute May 27, 2025 1:27pm Marijuana use acute June 2:46pm Obesity affecting acute June 05, 2025 2:46pm acute June 05, 2:46pm Segmental and somatic dysfunction of cervical region acute June 05 2:46pm Segmental and somatic dysfunction of lumbar region acute Jun 2:46pm Segmental and somatic dysfunction of pelvic region acute Jun [email or web address] 2:46pm Segmental and somatic dysfunction of sacral region acute Jun [email or web address] 2:46pm Segmental and somatic dysfunction of thoracic region acute June 05 2:46pm Supervision of normal first acute June 05 2:46pm [facility] Work Phone: 1(427) 731-307005-27-2025 Evaluation note* Diagnosis Onset Date Resolution Status Admit Date Segmental and somatic dysfunction of cervical region acute January 29, 2025 8 :01am Segmental and somatic dysfunction of lumbar region acute January 29, 2025 8:01am Segmental and somatic dysfunction of pelvic region acute January 29, 2025 8:01am Segmental and somatic dysfunction of thoracic region acute January 29, 2025 8 :01am Marijuana use acute February 13, 2025 9:34am Obesity affecting acute February 13, 2025 9:34am acute February 13 9:34am Supervision of normal first acute February 13, 2025 9:34am Acne inactive February 13 9:34am Dysmenorrhea inactive February 13 025 9:34am Amenorrhea deleted February 13 9:34am Segmental and somatic dysfunction of cervical region acute March 05, 2025 7 :57am Segmental and somatic dysfunction of lumbar region acute Mar 7:57am Segmental and somatic dysfunction of sacral region acute Mar 7:57am Segmental and somatic dysfunction of thoracic region acute March 05, 2025 7 :57am Marijuana use acute March 12 2:47pm Obesity affecting acute March 12, 2025 2:47pm acute March 12, 2025 2:47pm Supervision of normal first acute March 12, 2025 2 :47pm Segmental and somatic dysfunction of cervical region acute April 03, 2025 8:00am Segmental and somatic dysfunction of lumbar region acute Mar 8:00am Segmental and somatic dysfunction of sacral region acute Mar 8:00am Segmental and somatic dysfunction of thoracic region acute April 03, 2025 8:00am Marijuana use acute April 09, 2025 2:07pm Obesity affecting acute April 09, 2025 2:07pm acute April 09 2:07pm Segmental and somatic dysfunction of cervical region acute April 09, 2025 2:07pm Segmental and somatic dysfunction of lumbar region acute Apr 2:07pm Segmental and somatic dysfunction of pelvic region acute Apr 2:07pm Segmental and somatic dysfunction of sacral region acute Apr 2:07pm Segmental and somatic dysfunction of thoracic region acute April 09, 2025 2:07pm Supervision of normal first acute April 09, 2025 2:07pm acute May 01 025 8:58am Segmental and somatic dysfunction of cervical region acute May 01 8:58am Segmental and somatic dysfunction of lumbar region acute Apr 8:58am Segmental and somatic dysfunction of sacral region acute Apr 8:58am Segmental and somatic dysfunction of thoracic region acute May 01 8:58am Marijuana use acute May [id number] 10:47am Obesity affecting acute May 09, 2025 10:47am acute May 09, 2025 10:47am Segmental and somatic dysfunction of cervical region acute May 09 10:47am Segmental and somatic dysfunction of lumbar region acute Sep 2024 10:47am Segmental and somatic dysfunction of pelvic region acute Sep 2024 10:47am Segmental and somatic dysfunction of sacral region acute Sep 2024 10:47am Segmental and somatic dysfunction of thoracic region acute May 09 10:47am Supervision of normal first acute May 09 10:47am Marijuana use acute May 062024 11:14am Obesity affecting acute May 23, 2025 11:14am acute May 11:14am Segmental and somatic dysfunction of cervical region acute May 23, 2025 11:14am Segmental and somatic dysfunction of lumbar region acute Sep 2024 11:14am Segmental and somatic dysfunction of pelvic region acute Sep 2024 11:14am Segmental and somatic dysfunction of sacral region acute Sep 2024 11:14am Segmental and somatic dysfunction of thoracic region acute May 23, 2025 11:14am Supervision of normal first acute May 23, 2025 11:14am [facility] Work Phone: 1([phone]) 776-923705-08-2025 Evaluation note* Diagnosis Onset Date Resolution Status Admit Date Marijuana use acute January 10 2:11pm Obesity affecting acute January 10, 2025 2:11pm acute January 10, 2025 2:11pm Supervision of normal first acute January 10, 2025 2: 11pm Acne inactive January 10, 2025 2:11pm Dysmenorrhea inactive January 10 2:11pm Amenorrhea deleted January 10, 2025 2:11pm Segmental and somatic dysfunction of cervical region acute [facility] 2024 8:01am Segmental and somatic dysfunction of lumbar region acute January 29, 2025 8:01am Segmental and somatic dysfunction of pelvic region acute January 29, 2025 8:01am Segmental and somatic dysfunction of thoracic region acute [facility] 2024 8:01am Marijuana use acute February 13, 2025 9:34am Obesity affecting acute February 13, 2025 9:34am acute February 13 9:34am Supervision of normal first acute February 13, 2025 9:34am Acne inactive February 13 9:34am Dysmenorrhea inactive February 13 025 9:34am Amenorrhea deleted February 13 9:34am Segmental and somatic dysfunction of cervical region acute J ana2024 7:57am Segmental and somatic dysfunction of lumbar region acute Mar 7:57am Segmental and somatic dysfunction of sacral region acute Mar 7:57am Segmental and somatic dysfunction of thoracic region acute 2024 7:57am Marijuana use acute March 12, 025 2:47pm Obesity affecting acute March 12, 2025 2:47pm acute March 12, 2025 2:47pm Supervision of normal first acute March 12, 2025 2 :47pm Segmental and somatic dysfunction of cervical region acute J ana 2024 8:00am Segmental and somatic dysfunction of lumbar region acute Mar 8:00am Segmental and somatic dysfunction of sacral region acute Mar 8:00am Segmental and somatic dysfunction of thoracic region acute J ana 2024 8:00am Marijuana use acute April 09, 2025 2:07pm Obesity affecting acute April 09, 2025 2:07pm acute April 09 2:07pm Segmental and somatic dysfunction of cervical region acute A ugust 2024 2:07pm Segmental and somatic dysfunction of lumbar region acute Apr ust 2024 2:07pm Segmental and somatic dysfunction of pelvic region acute Apr ust 2024 2:07pm Segmental and somatic dysfunction of sacral region acute Apr ust 2024 2:07pm Segmental and somatic dysfunction of thoracic region acute A ugust 2024 2:07pm Supervision of normal first acute April 09, 2025 2:07pm [facility] Work Phone: 1(211) 476-125805-08-2025 Evaluation note* Diagnosis Onset Date Resolution Status Admit Date Marijuana use acute January 10 2:11pm Obesity affecting acute January 10, 2025 2:11pm acute January 10, 2025 2:11pm Supervision of normal first acute January 10, 2025 2: 11pm Acne inactive January 10, 2025 2:11pm Dysmenorrhea inactive January 10 2:11pm Amenorrhea deleted January 10, 2025 2:11pm Segmental and somatic dysfunction of cervical region acute January 29, 2025 8 :01am Segmental and somatic dysfunction of lumbar region acute January 29, 2025 8:01am Segmental and somatic dysfunction of pelvic region acute January 29, 2025 8:01am Segmental and somatic dysfunction of thoracic region acute January 29, 2025 8 :01am Marijuana use acute February 13, 2025 9:34am Obesity affecting acute February 13, 2025 9:34am acute February 13 9:34am Supervision of normal first acute February 13, 2025 9:34am Acne inactive February 13 9:34am Dysmenorrhea inactive February 13 025 9:34am Amenorrhea deleted February 13 9:34am Segmental and somatic dysfunction of cervical region acute March 05, 2025 7 :57am Segmental and somatic dysfunction of lumbar region acute Mar 7:57am Segmental and somatic dysfunction of sacral region acute Mar 7:57am Segmental and somatic dysfunction of thoracic region acute March 05, 2025 7 :57am Marijuana use acute March 12, 025 2:47pm Obesity affecting acute March 12, 2025 2:47pm acute March 12, 2025 2:47pm Supervision of normal first acute March 12, 2025 2 :47pm Segmental and somatic dysfunction of cervical region acute April 03, 2025 8:00am Segmental and somatic dysfunction of lumbar region acute Mar 8:00am Segmental and somatic dysfunction of sacral region acute Mar 8:00am Segmental and somatic dysfunction of thoracic region acute April 03, 2025 8:00am Marijuana use acute April 09, 2025 2:07pm Obesity affecting acute April 09, 2025 2:07pm acute April 09 2:07pm Segmental and somatic dysfunction of cervical region acute April 09, 2025 2:07pm Segmental and somatic dysfunction of lumbar region acute Apr 2:07pm Segmental and somatic dysfunction of pelvic region acute Apr 2:07pm Segmental and somatic dysfunction of sacral region acute Apr 2:07pm Segmental and somatic dysfunction of thoracic region acute April 09, 2025 2:07pm Supervision of normal first acute April 09, 2025 2:07pm acute May 01 025 8:58am Segmental and somatic dysfunction of cervical region acute May 01 8:58am Segmental and somatic dysfunction of lumbar region acute Apr us2024 8:58am Segmental and somatic dysfunction of sacral region acute Apr 8:58am Segmental and somatic dysfunction of thoracic region acute May 01 8:58am Marijuana use acute May 092024 10:47am Obesity affecting acute May 09, 2025 10:47am acute May 09, 2025 10:47am Segmental and somatic dysfunction of cervical region acute May 09, 10:47am Segmental and somatic dysfunction of lumbar region acute Sep tem2024 10:47am Segmental and somatic dysfunction of pelvic region acute Sep 2024 10:47am Segmental and somatic dysfunction of sacral region acute Sep 2024 10:47am Segmental and somatic dysfunction of thoracic region acute May 09 10:47am Supervision of normal first acute May 09 10:47am [facility] Work Phone: 1(637) 196-635504-15-2025 Evaluation note* Diagnosis Onset Date Resolution Status Admit Date Amenorrhea deleted December 18 10:56am Segmental and somatic dysfunction of cervical region acute A pril 2024 9:27am Segmental and somatic dysfunction of lumbar region acute Apr 2024 9:27am Segmental and somatic dysfunction of pelvic region acute Apr il 2024 9:27am Segmental and somatic dysfunction of thoracic region acute A pril 2024 9:27am Marijuana use acute January 10 2:11pm Obesity affecting acute January 10, 2025 2:11pm acute January 10, 2025 2:11pm Supervision of normal first acute January 10, 2025 2: 11pm Acne inactive January 10, 2025 2:11pm Dysmenorrhea inactive January 10 2:11pm Amenorrhea deleted January 10, 2025 2:11pm Segmental and somatic dysfunction of cervical region acute M ay 2024 8:01am Segmental and somatic dysfunction of lumbar region acute January 29, 2025 8:01am Segmental and somatic dysfunction of pelvic region acute January 29, 2025 8:01am Segmental and somatic dysfunction of thoracic region acute M ay 2024 8:01am Marijuana use acute February 13, 2025 9:34am Obesity affecting acute February 13, 2025 9:34am acute February 13 9:34am Supervision of normal first acute February 13, 2025 9:34am Acne inactive February 13 9:34am Dysmenorrhea inactive February 13 025 9:34am Amenorrhea deleted February 13 9:34am Segmental and somatic dysfunction of cervical region acute J ana2024 7:57am Segmental and somatic dysfunction of lumbar region acute Mar 7:57am Segmental and somatic dysfunction of sacral region acute Mar 7:57am Segmental and somatic dysfunction of thoracic region acute J 2024 7:57am Marijuana use acute March 12, 2:47pm Obesity affecting acute March 12, 2025 2:47pm acute March 12, 2025 2:47pm Supervision of normal first acute March 12, 2025 2 :47pm [facility] Work Phone: 1(925) 543-685904-15-2025 Evaluation note* Diagnosis Onset Date Resolution Status Admit Date Amenorrhea deleted December 18 10:56am Segmental and somatic dysfunction of cervical region acute A pril 2024 9:27am Segmental and somatic dysfunction of lumbar region acute Apr 2024 9:27am Segmental and somatic dysfunction of pelvic region acute Apr il 2024 9:27am Segmental and somatic dysfunction of thoracic region acute A pril 2024 9:27am Marijuana use acute January 10 2:11pm Obesity affecting acute January 10, 2025 2:11pm acute January 10, 2025 2:11pm Supervision of normal first acute January 10, 2025 2: 11pm Acne inactive January 10, 2025 2:11pm Dysmenorrhea inactive January 10 2:11pm Amenorrhea deleted January 10, 2025 2:11pm Segmental and somatic dysfunction of cervical region acute M ay 2024 8:01am Segmental and somatic dysfunction of lumbar region acute January 29, 2025 8:01am Segmental and somatic dysfunction of pelvic region acute January 29, 2025 8:01am Segmental and somatic dysfunction of thoracic region acute M ay 2024 8:01am Marijuana use acute February 13, 2025 9:34am Obesity affecting acute February 13, 2025 9:34am acute February 13 9:34am Supervision of normal first acute February 13, 2025 9:34am Acne inactive February 13 9:34am Dysmenorrhea inactive February 13 9:34am Amenorrhea deleted February 13 9:34am Segmental and somatic dysfunction of cervical region acute J 2024 7:57am Segmental and somatic dysfunction of lumbar region acute Mar 7:57am Segmental and somatic dysfunction of sacral region acute Mar 7:57am Segmental and somatic dysfunction of thoracic region acute J 2024 7:57am Marijuana use acute March 12, 2:47pm Obesity affecting acute March 12, 2025 2:47pm acute March 12, 2025 2:47pm Supervision of normal first acute March 12, 2025 2 :47pm Segmental and somatic dysfunction of cervical region acute J ana2024 8:00am Segmental and somatic dysfunction of lumbar region acute Mar 8:00am Segmental and somatic dysfunction of pelvic region acute Mar 8:00am Segmental and somatic dysfunction of sacral region acute Mar 8:00am Segmental and somatic dysfunction of thoracic region acute J 2024 8:00am [facility] Work Phone: 1(759) 316-167904-15-2025 Evaluation note* Diagnosis Onset Date Resolution Status Admit Date Amenorrhea deleted December 18 10:56am Segmental and somatic dysfunction of cervical region acute A pril 2024 9:27am Segmental and somatic dysfunction of lumbar region acute Apr 2024 9:27am Segmental and somatic dysfunction of pelvic region acute Apr 2024 9:27am Segmental and somatic dysfunction of thoracic region acute A pril 2024 9:27am Marijuana use acute January 10 2:11pm Obesity affecting acute January 10, 2025 2:11pm acute January 10, 2025 2:11pm Supervision of normal first acute January 10, 2025 2: 11pm Acne inactive January 10, 2025 2:11pm Dysmenorrhea inactive January 10 2:11pm Amenorrhea deleted January 10, 2025 2:11pm Segmental and somatic dysfunction of cervical region acute M ay 2024 8:01am Segmental and somatic dysfunction of lumbar region acute January 29, 2025 8:01am Segmental and somatic dysfunction of pelvic region acute January 29, 2025 8:01am Segmental and somatic dysfunction of thoracic region acute M ay 2024 8:01am Marijuana use acute February 13, 2025 9:34am Obesity affecting acute February 13, 2025 9:34am acute February 13 9:34am Supervision of normal first acute February 13, 2025 9:34am Acne inactive February 13 9:34am Dysmenorrhea inactive February 13, 025 9:34am Amenorrhea deleted February 13 9:34am Segmental and somatic dysfunction of cervical region acute J ana2024 7:57am Segmental and somatic dysfunction of lumbar region acute Mar 7:57am Segmental and somatic dysfunction of sacral region acute Mar 7:57am Segmental and somatic dysfunction of thoracic region acute J 2024 7:57am Marijuana use acute March 12, 2 025 2:47pm Obesity affecting acute March 12, 2025 2:47pm acute March 12, 2025 2:47pm Supervision of normal first acute March 12, 2025 2 :47pm Segmental and somatic dysfunction of cervical region acute J ana 2024 8:00am Segmental and somatic dysfunction of lumbar region acute Mar 8:00am Segmental and somatic dysfunction of sacral region acute Mar 8:00am Segmental and somatic dysfunction of thoracic region acute J ana 2024 8:00am Marijuana use acute April 09, 2025 2:07pm Obesity affecting acute April 09, 2025 2:07pm acute April 09 2:07pm Segmental and somatic dysfunction of cervical region acute A ugust 2024 2:07pm Segmental and somatic dysfunction of lumbar region acute Aug ust 2024 2:07pm Segmental and somatic dysfunction of pelvic region acute Aug ust 2024 2:07pm Segmental and somatic dysfunction of sacral region acute Aug ust 2024 2:07pm Segmental and somatic dysfunction of thoracic region acute A ugust 2024 2:07pm Supervision of normal first acute April 09, 2025 2:07pm [facility] Work Phone: 1(930) 464-112403-25-2025 Evaluation note* Diagnosis Onset Date Resolution Status Admit Date Encounter for routine gynecological examination noneactive November 27, 2024 8:09am Vaginitis noneactive November 27 8:09am [facility] Work Phone: 1(713) 212-955503-25-2025 Evaluation note* Diagnosis Onset Date Resolution Status Admit Date Encounter for routine gynecological examination noneactive November 27, 2024 8:09am Vaginitis noneactive November 27 8:09am Amenorrhea acute December 18 10:56am Segmental and somatic dysfunction of cervical region acute A pril 2024 9:27am Segmental and somatic dysfunction of lumbar region acute Apr il 2024 9:27am Segmental and somatic dysfunction of pelvic region acute Apr 2024 9:27am Segmental and somatic dysfunction of thoracic region acute A pril 2024 9:27am Acne acute January 10, 2025 2:11pm Amenorrhea acute January 10, 2025 2:11pm Dysmenorrhea acute January 10 2:11pm Marijuana use acute January 10 2:11pm Obesity affecting acute January 10, 2025 2:11pm acute January 10, 2025 2:11pm Supervision of normal first acute January 10, 2025 2: 11pm [facility] Work Phone: 1(276) 277-545303-25-2025 Evaluation note* Diagnosis Onset Date Resolution Status Admit Date Encounter for routine gynecological examination noneactive November 27, 2024 8:09am Vaginitis noneactive November 27 8:09am Amenorrhea acute December 18 10:56am Segmental and somatic dysfunction of cervical region acute A pril 2024 9:27am Segmental and somatic dysfunction of lumbar region acute Apr il 2024 9:27am Segmental and somatic dysfunction of pelvic region acute Apr il 2024 9:27am Segmental and somatic dysfunction of thoracic region acute A pril 2024 9:27am Acne acute January 10, 2025 2:11pm Amenorrhea acute January 10, 2025 2:11pm Dysmenorrhea acute January 10 2:11pm Marijuana use acute January 10 2:11pm Obesity affecting acute January 10, 2025 2:11pm acute January 10, 2025 2:11pm Supervision of normal first acute January 10, 2025 2: 11pm Segmental and somatic dysfunction of cervical region acute M 2024 8:01am Segmental and somatic dysfunction of lumbar region acute January 29, 2025 8:01am Segmental and somatic dysfunction of pelvic region acute January 29, 2025 8:01am Segmental and somatic dysfunction of thoracic region acute [facility] 2024 8:01am [facility] Work Phone: [phone]) [id number] Evaluation note* Diagnosis Onset Date Resolution Status Admit Date Encounter for routine gynecological examination noneactive November 27, 2024 8:09am Vaginitis noneactive November 27 8:09am Amenorrhea acute December 18 10:56am Segmental and somatic dysfunction of cervical region acute A pril 2024 9:27am Segmental and somatic dysfunction of lumbar region acute Apr il 2024 9:27am Segmental and somatic dysfunction of pelvic region acute Apr il 2024 9:27am Segmental and somatic dysfunction of thoracic region acute A pril 2024 9:27am Acne acute January 10, 2025 2:11pm Amenorrhea acute January 10, 2025 2:11pm Dysmenorrhea acute January 10 2:11pm Marijuana use acute January 10 2:11pm Obesity affecting acute January 10, 2025 2:11pm acute January 10, 2025 2:11pm Supervision of normal first acute January 10, 2025 2: 11pm Segmental and somatic dysfunction of cervical region acute [facility] 2024 8:01am Segmental and somatic dysfunction of lumbar region acute January 29, 2025 8:01am Segmental and somatic dysfunction of pelvic region acute January 29, 2025 8:01am Segmental and somatic dysfunction of thoracic region acute [facility] 2024 8:01am Acne acute February 13 9:34am Amenorrhea acute February 13 9:34am Dysmenorrhea acute February 13 025 9:34am Marijuana use acute February 13, 2025 9:34am Obesity affecting acute February 13, 2025 9:34am acute February 13 9:34am Supervision of normal first acute February 13, 2025 9:34am [employer] Work Phone: 1(134) 263-908003-25-2025 Evaluation note* Diagnosis Onset Date Resolution Status Admit Date Encounter for routine gynecological examination noneactive November 27, 2024 8:09am Vaginitis noneactive November 27 8:09am Amenorrhea deleted December 18 10:56am Segmental and somatic dysfunction of cervical region acute A pril 2024 9:27am Segmental and somatic dysfunction of lumbar region acute Apr il 2024 9:27am Segmental and somatic dysfunction of pelvic region acute Apr il 2024 9:27am Segmental and somatic dysfunction of thoracic region acute A pril 2024 9:27am Marijuana use acute January 10 2:11pm Obesity affecting acute January 10, 2025 2:11pm acute January 10, 2025 2:11pm Supervision of normal first acute January 10, 2025 2: 11pm Acne inactive January 10, 2025 2:11pm Dysmenorrhea inactive January 10 2:11pm Amenorrhea deleted January 10, 2025 2:11pm Segmental and somatic dysfunction of cervical region acute M ay 2024 8:01am Segmental and somatic dysfunction of lumbar region acute January 29, 2025 8:01am Segmental and somatic dysfunction of pelvic region acute January 29, 2025 8:01am Segmental and somatic dysfunction of thoracic region acute M ay 2024 8:01am Marijuana use acute February 13, 2025 9:34am Obesity affecting acute February 13, 2025 9:34am acute February 13 9:34am Supervision of normal first acute February 13, 2025 9:34am Acne inactive February 13 9:34am Dysmenorrhea inactive February 13, 2 025 9:34am Amenorrhea deleted February 13 9:34am Segmental and somatic dysfunction of cervical region acute 2024 7:57am Segmental and somatic dysfunction of lumbar region acute Mar 7:57am Segmental and somatic dysfunction of sacral region acute Mar 7:57am Segmental and somatic dysfunction of thoracic region acute 2024 7:57am Marijuana use acute March 12 2:47pm Obesity affecting acute March 12, 2025 2:47pm acute March 12, 2025 2:47pm Segmental and somatic dysfunction of cervical region acute 2024 2:47pm Segmental and somatic dysfunction of lumbar region acute Mar 2:47pm Segmental and somatic dysfunction of pelvic region acute Mar 2:47pm Segmental and somatic dysfunction of sacral region acute Mar 2:47pm Segmental and somatic dysfunction of thoracic region acute 2024 2:47pm Supervision of normal first acute March 12, 2025 2 :47pm [employer] Work Phone: [phone]) 320-185705-31-2023 NoteHNO ID: [id number] Author: Juan Scruggs APRN.GUIDE DOG INSTRUCTOR Service: ? Author Type: Nurse Practitioner Type: Progress Notes Filed: 02/03/2023 9:48 AM Note Text: PEDIATRIC SICK VISIT SUBJECTIVE: Reese Mcdonald is a 17 year old presenting to clinic. Patient presents with: Sore Throat: Onset on 01/12, diagnosed with strep per provider on 01/13 (testing was not done per patient)-Throat worse in the mornings and still bothering her. She has had a follow up strep testing that was negative. Fatigue: Has been feeling drained fatigued since 01/12 at the onset of illness. Has been having intermittent low grade fevers. Lymph node changes : Has been having some soreness in lymph nodes and possible swollen at times per patient. decreased appetite : Has been having decrease in appetite with current illness symptoms Completed 10 day course of amoxicillin and sx were improving. When symptoms returned, tested for strep a second time and rapid test and culture were negative. Ibuprofen helping with swelling feeling in throat Difficult to swallow. Throat pain improved some last week but is worse again in the past few days History was obtained from: patient Current symptoms: FEVER: not present at this time, intermittent low grade fevers with tmax 100.3F EYE SYMPTOMS: not present at this time, intermittent watery eyes NASAL CONGESTION: intermittent, has seasonal allergies EAR SYMPTOMS: not present at this time COUGH: intermittent, for a few days, seems r/t tickle in throat SORE THROAT: for 3 week(s) HEADACHE: not present at this time VOMITING: not present at this time NAUSEA: not present at this time, but reports nausea for the past 3 days DIARRHEA: not present at this time, 1 episode 1 week ago ABDOMINAL PAIN: not present at this time, reports aching feeling overall RASH: not present at this time, intermittent rash in antecubital spaces GENERAL: Decreased activity Appetite: decreased Pain in lymph nodes of neck and left axillary area Sick contacts: No known sick contacts HISTORY: ACTIVE PROBLEM LIST Myopia Anxiety PAST MEDICAL HISTORY Diagnosis Date Myopia PAST SURGICAL HISTORY Procedure Laterality Date LAPAROSCOPIC APPENDECTOMY 11/12/2017 early appendicitis and a right hemorrhagic ovarian cyst SHOULDER SURGERY HX Right 05/04/2020 Allergies: ALLERGIES Allergen Reactions Nickel Hives Medications: NORGESTIMATE-ETHINYL ESTRADIOL ORAL Norgestimate-Ethinyl Estradiol Norgestimate-Ethinyl Estradiol Active 1 TAB daily September 11, 2019 9:12am 09-11-2019 [facility] ([id number]) amoxicillin-clavulanic acid (AUGMENTIN) 875-125 mg per tablet Take 1 tablet by mouth twice daily for 10 days. levocetirizine (XYZAL) 5 mg tablet Take 1 tablet by mouth once daily. ketotifen fumarate (ZADITOR) 0.025 % (0.035 %) ophthalmic solution Use 1 Drop in both eyes twice daily. triamcinolone acetonide (NASACORT AQ) 55 mcg nasal inhaler Use 2 Sprays in the nose daily at bedtime. mometasone (ELOCON) 0.1 % cream Apply to affected area once daily. APPLY TO AFFECTED AREA sertraline (ZOLOFT) 50 mg tablet Take 1 tablet by mouth once daily. OBJECTIVE: BP 112/70 Pulse 60 Temp 36.9 ?C (98.5 ?F) (Temporal Artery) Resp 12 Wt 99 kg (218 lb 3.2 oz) LMP 01/13/2022 General: alert and active in no apparent distress Eyes: conjunctiva clear, PERRL Ears: TMs translucent bilaterally, normal landmarks noted Nose: no rhinorrhea, no mucosal edema OP: tonsils mildly erythematous 3+ bilaterally, no exudates, uvula midline, no trismus, moist mucous membranes Neck: supple, no adenopathy Lymph: no occipital, supraclavicular, epitrochlear, or axillary adenopathy Lungs: clear to auscultation bilaterally, good air exchange, no retractions, no wheezes or crackles CVS: Normal rate, regular rhythm, no murmur Abdomen: soft, nondistended, nontender, no hepatosplenomegaly or masses, and no rebound or guarding Skin: No rashes, lesions or skin changes ASSESSMENT/PLAN: Encounter Diagnosis ICD-10-CM 1. Streptococcal pharyngitis J02.0 STREP A MOLECULAR (POC) amoxicillin-clavulanic acid (AUGMENTIN) 875-125 mg per tablet --Molecular strep test positive in office --Start antibiotics; finish entire course (continue even when child is feeling better) --Treatment with augmentin d/t recent amoxicillin treatment (within past 30 days) --Acetaminophen (Tylenol) or ibuprofen (Motrin or Advil) as needed for pain or discomfort --Warm liquids, ice pops, or honey PRN; may try salt water gargles --Return to clinic for re-evaluation if no improvement or symptoms worsen after 48 hours of treatment, or for other concerns Juan Scruggs APRN.[facility] History of Present illness Narrative* Juan Scruggs APRN.GUIDE DOG INSTRUCTOR - 02/02/2023 8:30 AM EDT PEDIATRIC SICK VISIT SUBJECTIVE: Reese Mcdonald is a 17 year old presenting to clinic. Patient presents with: Sore Throat: Onset on 01/12, diagnosed with strep per provider on 01/13 (testing was not done per patient)-Throat worse in the mornings and still bothering her. She has had a follow up strep testing that was negative. Fatigue: Has been feeling drained fatigued since 01/12 at the onset of illness. Has been having intermittent low grade fevers. Lymph node changes : Has been having some soreness in lymph nodes and possible swollen at times perpatient. decreased appetite : Has been having decrease in appetite with current illness symptoms Completed 10 day course of amoxicillin and sx were improving. When symptoms returned, tested for strep a second time and rapid test and culture were negative. Ibuprofen helping with swelling feeling in throat Difficult to swallow. Throat pain improved some last week but is worse again in the past few days History was obtained from: patient Current symptoms: FEVER: not present at this time, intermittent low grade fevers with tmax 100.3F EYE SYMPTOMS: not present at this time, intermittent watery eyes NASAL CONGESTION: intermittent, has seasonal allergies EAR SYMPTOMS: not present at this time COUGH: intermittent, for a few days, seems r/t tickle in throat SORE THROAT: for 3 week(s) HEADACHE: not present at this time VOMITING: not present at this time NAUSEA: not present at this time, but reports nausea for the past 3 days DIARRHEA: not present at this time, 1 episode 1 week ago ABDOMINAL PAIN: not present at this time, reports aching feeling overall RASH: not present at this time, intermittent rash in antecubital spaces GENERAL: Decreased activity Appetite: decreased Pain in lymph nodes of neck and left axillary area Sick contacts: No known sick contacts HISTORY: ACTIVE PROBLEM LIST Myopia Anxiety PAST MEDICAL HISTORY Diagnosis Date Myopia PAST SURGICAL HISTORY Procedure Laterality Date LAPAROSCOPIC APPENDECTOMY 11/12/2017 early appendicitis and a right hemorrhagic ovarian cyst SHOULDER SURGERY HX Right 05/04/2020 Allergies: ALLERGIES Allergen Reactions Nickel Hives Medications: NORGESTIMATE-ETHINYL ESTRADIOL ORAL Norgestimate-Ethinyl Estradiol Norgestimate- Ethinyl Estradiol Active 1 TAB daily September 11, 2019 9:12am 09-11-2019 [facility] ([id number]) amoxicillin-clavulanic acid (AUGMENTIN) 875-125 mg per tablet Take 1 tablet by mouth twice daily for 10 days. levocetirizine (XYZAL) 5 mg tablet Take 1 tablet by mouth once daily. ketotifen fumarate (ZADITOR) 0.025 % (0.035 %) ophthalmic solution Use 1 Drop in both eyes twice daily. triamcinolone acetonide (NASACORT AQ) 55 mcg nasal inhaler Use 2 Sprays in the nose daily at bedtime. mometasone (ELOCON) 0.1 % cream Apply to affected area once daily. APPLY TO AFFECTED AREA sertraline (ZOLOFT) 50 mg tablet Take 1 tablet by mouth once daily. OBJECTIVE: BP 112/70 Pulse 60 Temp 36.9 C (98.5 F) (Temporal Artery) Resp 12 Wt 99 kg (218 lb 3.2 oz) LMP 01/13/2022 General: alert and active in no apparent distress Eyes: conjunctiva clear, PERRL Ears: TMs translucent bilaterally, normal landmarks noted Nose: no rhinorrhea, no mucosal edema OP: tonsils mildly erythematous 3+ bilaterally, no exudates, uvula midline, no trismus, moist mucous membranes Neck: supple, no adenopathy Lymph: no occipital, supraclavicular, epitrochlear, or axillary adenopathy Lungs: clear to auscultation bilaterally, good air exchange, no retractions, no wheezes or crackles CVS: Normal rate, regular rhythm, no murmur Abdomen: soft, nondistended, nontender, no hepatosplenomegaly or masses, and no rebound or guarding Skin: No rashes, lesions or skin changes ASSESSMENT/PLAN: Encounter Diagnosis ICD-10-CM 1. Streptococcal pharyngitis J02.0 STREP A MOLECULAR (POC) amoxicillin-clavulanic acid (AUGMENTIN) 875-125 mg per tablet --Molecular strep test positive in office --Start antibiotics; finish entire course (continue even when child is feeling better) --Treatment with augmentin d/t recent amoxicillin treatment (within past 30 days) --Acetaminophen (Tylenol) or ibuprofen (Motrin or Advil) as needed for pain or discomfort --Warm liquids, ice pops, or honey PRN; may try salt water gargles --Return to clinic for re-evaluation if no improvement or symptoms worsen after 48 hours of treatment, or for other concerns Juan Scruggs APRN.CESAR documented in this encounterCommunity [facility]06-[facility]-2022 NoteHNO ID: [id number] Author: Bryan Callahan MD Service: ? Author Type: Physician Type: Progress Notes Filed: 02/24/2022 3:13 PM Note Text: This is a consultation requested by Dr. Justice for an allergy and immunology evaluation. My final recommendations will be communicated back to the requesting healthcare provider(s) by way of shared medical record or via U.S. mail. Reese Riggs Cricket Mcdonald is a 16 year old female who has symptoms of itchy eyes, watery eyes, clear rhinorrhea, nasal congestion, sneezing, postnasal drip. These symptoms are seasonal with symptoms occuring in the Spring (December, January, February.) Current triggers include exposure to pollens. The patient has been suffering from these symptoms 5 year(s). Symptoms have been getting worse. She takes Xyzal with fair relief of symptoms. Previously used Nasacort for 1.5 weeks without relief. She has previously taken Claritin, Zyrtec and Olga without relief. No prior allergy testing or allergy immunotherapy. Requires treatment with approx 1 course of antibiotics for sinusitis per year. Denies a history of nasal polyposis or nasal trauma. No prior imaging of the sinuses. She complains of intermittent skin rash involving the antecubital fossa and palmar surface of her hands. Rash on her hands is described as pea-sized erythematous bumps. Also with itching of the anterior neck. She complained of burning associated with use of mometasone cream 0.1%. She bathes using Suave body wash. Denies use of emollients. REVIEW OF SYSTEMS: SINUSITIS: The patient does not suffer from frequent sinopulmonary infections. ASTHMA: The patient has no history of asthma. ECZEMA: See [place] [place] URTICARIA:The patient does not have a history of urticaria and/or angioedema. GERD: The patient does not have a history of GERD. INSECT STING: The patient does not have a history of systemic reaction to insect sting. FOOD ALLERGY:The patient denies history of food allergy. LATEX: The patient does not have a history of adverse reaction to latex. All other review of systems negative except for those listed above. PAST MEDICAL HISTORY Diagnosis Date - Myopia MEDICATIONS: levocetirizine (XYZAL) 5 mg tablet Take 1 tablet by mouth once daily. ketotifen fumarate (ZADITOR) 0.025 % (0.035 %) ophthalmic solution Use 1 Drop in both eyes twice daily. triamcinolone acetonide (NASACORT AQ) 55 mcg nasal inhaler Use 2 Sprays in the nose daily at bedtime. mometasone (ELOCON) 0.1 % cream Apply to affected area once daily. APPLY TO AFFECTED AREA sertraline (ZOLOFT) 50 mg tablet Take 1 tablet by mouth once daily. NORGESTIMATE-ETHINYL ESTRADIOL ORAL Norgestimate-Ethinyl Estradiol Norgestimate-Ethinyl Estradiol Active 1 TAB daily September 11, 2019 9:12am 09-11-2019 [facility] ([id number]) ALLERGIES: Allergies As of Date: 02/23/2022 Allergen Noted Reaction NICKEL 12/28/2018 Hives Fully Assessed 01/20/2022 PAST SURGICAL HISTORY Procedure Laterality Date - LAPAROSCOPIC APPENDECTOMY 11/12/2017 early appendicitis and a right hemorrhagic ovarian cyst - NONE - SHOULDER SURGERY HX Right 05/04/2020 FAMILY HISTORY: Allergic rhinitis:yes: mom. Asthma: no. Eczema: no. Cystic fibrosis: no. Immunodeficiency: no. SOCIAL HISTORY: Employer And Job Title: None on file Years Of Education Completed: Not specified Marital Status: Single Social History Tobacco Use Smoking status: Never Smoker Smokeless tobacco: Never Used Graduated from [employer]. Works at [employer] ENVIRONMENTAL HISTORY: Lives in a house Age of home: 9 years Heating: Woodburning/boiler/heat pump Woodburning fireplace in the home: yes but rarely used Air conditioning: Central air Basement: Dry basement Serena: Hardwood floor Dust mite controls: Dust mite controls are not in place. Pets in the home: 5 dogs Outdoor animals: 2 horses, 25 goats,1 alpacas, 2 cats, 10 chickens, 4 ducks, 6 lambs Tobacco smoke: No exposure in the home. Physical Exam: GENERAL APPEARANCE:Well appearing, alert, in no acute distress, well-hydrated, well nourished. HEENT: NCAT. EYES: conjunctiva and sclera normal. EARS: External ears normal. Canals clear. TM's normal. NOSE/SINUS: pallor and moderate edema of the nasal mucosa with scant clear secretions bilaterally THROAT: no erythema NECK:neck supple, no adenopathy HEART:RRR with normal S1 and S2 ,no murmurs, no gallops, no rubs LUNGS: clear to auscultation bilaterally, no wheezes, rales or rhonchi ABDOMEN:soft, nontender, nondistended, without organomegaly or palpable masses EXTREMITIES:Extremities normal, No deformities, No skin discoloration and No edema SKIN: Skin color, texture, turgor normal. No rashes or lesions. ALLERGY SKIN TESTS:Deferred due to patient preference/cost concerns. ASSESSMENT/PLAN: 1.) Allergic Rhinoconjunctivitis: Based on clinical history, suspect that the patient is allergic to tree po (more content not included)...[facility]06-21-[facility] Instructions* Patient Instructions* Bryan Callahan MD - 02/23/2022 9:08 AM EDT You are most likely allergic to tree pollens and, possibly, grass pollens Use triamacinolone nasal spray (nasacort) 2 sprays to each nostril once a day and take levocetirizine (xyzal) once a day on a regular basis from early november through the end of February. If necessary, you may increase xyzal to 5 mg twice a day Use pataday 1-2 drops to each eye once a day as needed. You may also use azelastine nasal spray (astelin) 2 sprays to each nostril twice a day as needed If necessary, we can also start singulair 10 mg one tablet at bedtime. Singulair and astelin are available by prescription only Gentle cleansers: Unscented Dove, Cetaphil, CeraVe Moisturizers: CeraVe cream, Cetaphil restoraderm, Aveeno documented in this encounterCommunity [facility]06-[facility]-2022 Nurse Note* Carolyne Lomeli RN - 02/23/2022 8:32 AM EDT Patient c/o allergy symptoms - started 5 years ago. C/o puffy face, sneezing, runny nose, eyes irritated/red and swollen. These symptoms are worse in Spring. Xyzal helped a little. Zyrtec, Clariting, Olga, and flonase didn't help much. She feels otc medications are not helping much. Has eczema on hands and inside of elbows. Also c/o itching on front of neck. Does not use anything on rash. documented in this encounterCommunity [facility]06-21-2022 History of Present illness Narrative* Bryan Callahan MD - 02/23/2022 8:29 AM EDT This is a consultation requested by Dr. Justice for an allergy and immunology evaluation. My finalrecommendations will be communicated back to the requesting healthcare provider(s) by way of sharedmedical record or via U.S. mail. Reese Mcdonald is a 16 year old female who has symptoms of itchy eyes, watery eyes, clear rhinorrhea, nasal congestion, sneezing, postnasal drip. These symptoms are seasonal with symptomsoccuring in the Spring (December, January, February.) Current triggers include exposure to pollens. The patient has been suffering from these symptoms 5 year(s). Symptoms have been getting worse. She takes Xyzal with fair relief of symptoms. Previously used Nasacort for 1.5 weeks without relief. She has previously taken Claritin, Zyrtec and Olga without relief. No prior allergy testing or allergy immunotherapy. Requires treatment with approx 1 course of antibiotics for sinusitis per year. Denies a history of nasal polyposis or nasal trauma. No prior imaging of the sinuses. She complains of intermittent skin rash involving the antecubital fossa and palmar surface of her hands. Rash on her hands is described as pea-sized erythematous bumps. Also with itching of the anterior neck. She complained of burning associated with use of mometasone cream 0.1%. She bathes using Suave body wash. Denies use of emollients. REVIEW OF SYSTEMS: SINUSITIS: The patient does not suffer from frequent sinopulmonary infections. ASTHMA: The patient has no history of asthma. ECZEMA: See [employer] [place] URTICARIA:The patient does not have a history of urticaria and/or angioedema. GERD: The patient does not have a history of GERD. INSECT STING: The patient does not have a history of systemic reaction to insect sting. FOOD ALLERGY:The patient denies history of food allergy. LATEX: The patient does not have a history of adverse reaction to latex. All other review of systems negative except for those listed above. PAST MEDICAL HISTORY Diagnosis Date Myopia MEDICATIONS: levocetirizine (XYZAL) 5 mg tablet Take 1 tablet by mouth once daily. ketotifen fumarate (ZADITOR) 0.025 % (0.035 %) ophthalmic solution Use 1 Drop in both eyes twice daily. triamcinolone acetonide (NASACORT AQ) 55 mcg nasal inhaler Use 2 Sprays in the nose daily at bedtime. mometasone (ELOCON) 0.1 % cream Apply to affected area once daily. APPLY TO AFFECTED AREA sertraline (ZOLOFT) 50 mg tablet Take 1 tablet by mouth once daily. NORGESTIMATE-ETHINYL ESTRADIOL ORAL Norgestimate-Ethinyl Estradiol Norgestimate- Ethinyl Estradiol Active 1 TAB daily September 11, 2019 9:12am 09-11-2019 [facility] ([id number]) ALLERGIES: Allergies As of Date: 02/23/2022 Allergen Noted Reaction NICKEL 12/28/2018 Hives Fully Assessed 01/20/2022 PAST SURGICAL HISTORY Procedure Laterality Date LAPAROSCOPIC APPENDECTOMY 11/12/2017 early appendicitis and a right hemorrhagic ovarian cyst NONE SHOULDER SURGERY HX Right 05/04/2020 FAMILY HISTORY: Allergic rhinitis:yes: mom. Asthma: no. Eczema: no. Cystic fibrosis: no. Immunodeficiency: no. SOCIAL HISTORY: Employer And Job Title: None on file Years Of Education Completed: Not specified Marital Status: Single Social History Tobacco Use Smoking status: Never Smoker Smokeless tobacco: Never Used Graduated from [employer]. Works at [employer] ENVIRONMENTAL HISTORY: Lives in a house Age of home: 9 years Heating: Woodburning/boiler/heat pump Woodburning fireplace in the home: yes but rarely used Air conditioning: Central air Basement: Dry basement Serena: Hardwood floor Dust mite controls: Dust mite controls are not in place. Pets in the home: 5 dogs Outdoor animals: 2 horses, 25 goats,1 alpacas, 2 cats, 10 chickens, 4 ducks, 6 lambs Tobacco smoke: No exposure in the home. Physical Exam: GENERAL APPEARANCE:Well appearing, alert, in no acute distress, well-hydrated, well nourished. HEENT: NCAT. EYES: conjunctiva and sclera normal. EARS: External ears normal. Canals clear. TM's normal. NOSE/SINUS: pallor and moderate edema of the nasal mucosa with scant clear secretions bilaterally THROAT: no erythema NECK:neck supple, no adenopathy HEART:RRR with normal S1 and S2 ,no murmurs, no gallops, no rubs LUNGS: clear to auscultation bilaterally, no wheezes, rales or rhonchi ABDOMEN:soft, nontender, nondistended, without organomegaly or palpable masses EXTREMITIES:Extremities normal, No deformities, No skin discoloration and No edema SKIN: Skin color, texture, turgor normal. No rashes or lesions. ALLERGY SKIN TESTS:Deferred due to patient preference/cost concerns. ASSESSMENT/PLAN: 1.) Allergic Rhinoconjunctivitis: Based on clinical history, suspect that the patient is allergic to tree pollens and possibly grass pollens Aggressive environmental controls Environmental control measures for pollens were discussed with the patient and her mother. Recommend regular use of Nasacort 2 sprays to each nostril once daily and Xyzal 5 mg daily startingin early November through the end of February. If necessary, Xyzal may be increased to 5 mg twice daily Start Pataday 1 to 2 drops to each eye once a day as needed. Depending on clinical course, may consider adding Astelin nasal spray 2 sprays to each nostril twice daily as needed and/or Singulair 10 mg daily. Patient was instructed to contact the office for prescriptions for Astelin and/or Singulair if she decides to proceed Subcutaneous allergy immunotherapy is a treatment option that may be considered. Depending on patient preference, allergy skin tests may be completed to inhalant allergens (34, horse, goats, feather mix) at a future visit. 2.) Eczema: Recommend aggressive dry skin care. Patient instructed to contact the office if she would like a prescription for topical corticosteroids. (Would likely prescribe triamcinolone ointment 0.1% for use in the antecubital fossa and clobetasol propionate ointment 0.05% for the palms.) 3.) Discussed medication dosage, usage, side effects, and goals of treatment in detail. 4.) Follow-up in December, - patient will return sooner should new symptoms or problems arise. Bryan Callahan MD documented in this encounterCommunity [facility] History of Present illness Narrative* Isi Justice MD - 01/20/2022 1:51 PM EDT PEDIATRIC SICK VISIT SERVICE DATE: 01/20/2022 SUBJECTIVE: Reese Mcdonald is a 16 year old female who presents for evaluation of worsening seasonal allergies. Allergies started around 5 years ago. She has used Zyrtec for a while but then it stopped working. She then tried Olga along with other nasal steroid sprays. She took Benadryl this morning. She has not tried Claritin. She has not tried Xyzal History was obtained from: patient HISTORY: ACTIVE PROBLEM LIST Myopia Anxiety PAST MEDICAL HISTORY Diagnosis Date Myopia PAST SURGICAL HISTORY Procedure Laterality Date LAPAROSCOPIC APPENDECTOMY 11/12/2017 early appendicitis and a right hemorrhagic ovarian cyst NONE SHOULDER SURGERY HX Right 05/04/2020 Allergies: ALLERGIES Allergen Reactions Nickel Hives Medications: NORGESTIMATE-ETHINYL ESTRADIOL ORAL Norgestimate-Ethinyl Estradiol Norgestimate- Ethinyl Estradiol Active 1 TAB daily September 11, 2019 9:12am 09-11-2019 [facility] (01240) mometasone (ELOCON) 0.1 % cream Apply to affected area once daily. APPLY TO AFFECTED AREA sertraline (ZOLOFT) 50 mg tablet Take 1 tablet by mouth once daily. REVIEW OF SYSTEMS: As above, otherwise negative OBJECTIVE: BP 122/72 Pulse 76 Temp 37.2 C (99 F) (Temporal Artery) Resp 18 Wt 99.8 kg (220 lb 2 oz) LMP 01/13/2022 General: alert and active in no apparent distress Eyes: conjunctiva clear Ears: TMs clear: bilaterally Nose: mucosal edema, turbinates pale and boggy OP: moist without lesions Neck: supple, small, benign anterior cervical node Bilateral Lungs: clear to auscultation bilaterally, good air exchange CVS: Normal rate, regular rhythm, no murmur Skin: No rashes, lesions or skin changes ASSESSMENT/PLAN: Encounter Diagnosis ICD-10-CM 1. Seasonal allergies J30.2 CONSULT TO ALLERGY/IMMUNOLOGY levocetirizine (XYZAL) 5 mg tablet ketotifen fumarate (ZADITOR) 0.025 % (0.035 %) ophthalmic solution triamcinolone acetonide (NASACORT AQ) 55 mcg nasal inhaler - Medications as ordered. - Increase fluids. - Follow up for persistent or worsening symptoms, not drinking, decreased urination, or other concerns. SIGNATURE: Isi Justice MD PATIENT NAME: Reese Mcdonald DATE: January 20, 2022 TIME: 1:51 PM documented in this encounterCommunity [facility] Center05-18-2022 Instructions* Patient Instructions* Isi Justice MD - 01/20/2022 1:51 PM EDT 5 to Go!TM Healthy Kids Inside & Out 5 Eat FIVE fruits and veggies a day 4 Give and get FOUR compliments a day 3 Consume THREE calcium products a day 2 Limit media time to TWO hours a day 1 Get at least ONE hour of exercise a day 0 Consume ZERO sugar-sweetened drinks Go! Be healthy, inside and out! 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) PAIN Reason for Visit COVID-19 Acne Dysmenorrhea Menorrhagia with regular cycle [facility] Work Phone: Evaluation note* Diagnosis Onset Date Resolution Status COVID-19 acute Acne acute Dysmenorrhea acute Menorrhagia with regular cycle acute [facility] Work Phone: Evaluation note* Diagnosis Seasonal allergies- Primary Allergic rhinitis, cause unspecified documented in this encounter [facility]* Diagnosis Seasonal allergic rhinitis due to pollen- Primary Allergic conjunctivitis, unspecified laterality Eczema, unspecified type Seasonal allergies Allergic rhinitis, cause unspecified documented [facility] this encounter [facility]* Diagnosis Streptococcal pharyngitis- Primary Streptococcal sore throat documented in this encounter [facility] CenterProgress note Author Viki Case [facility] Note Date/Time May 09, 2025 11:28am [facility] [address], [address] [place] [address] OFFICE VISIT Date of Service: 05/09/25 MR#: [id number] Acct: [id number] Name: REESE MCDONALD Rep #: [id number] : 2005 Provider: Dr. 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 Is patient in pain?: No Allergies nickel Allergy (Mild, Verified 05/09/25 10:58) unknown Medications ?Medication ?Instructions ?Recorded ?Confirmed ?Type magnesium 250 mg tablet 250 mg PO QDAY 11/27/2412/28 History Saccharomyces boulardii 250 mg 250 mg PO QHS 12/18/24 05/09/25 History capsule (Digest Probiotic (S.boulardii)) multivitamin no.47-iron fum 27 cap PO 12/18/24 5 History mg-folate no.1 1 mg-dha 300 mg capsule (PNV-DHA) metoclopramide HCl 10 mg tablet 10 mg PO QACHS PRN reji sea and 02/13/25 05/09/25 Rx (Reglan) vomiting #60 tabs Last Menstrual Period: 10/29/24 Zika: Zika virus screening: Negative : No PFSH PFSH Medical History Acne Dysmenorrhea Seasonal allergies Hx of recurrent urinary tract infection Chronic neck and back pain Asthma Surgical History [place] teeth extracted H/O shoulder surgery History of appendectomy Family History Mother Hypertension Gestational diabetes 2nd only Grandmother Hypertension Maternal Blood clot in leg Diabetes Paternal Grandfather Cancer, Onset Age: 70 Paternal- Smoker Social History adopted: No household members: significant other housing: house number of children: 0 current occupational status: employed 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 Didn't like it. 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 OB Visit LAZARA Calculator Estimated Delivery Date Method Current WG Current Estimate 08/13/25 Ultrasound #1 26w 2d Other Estimates 08/05/25 LMP (Certain) 27w 3d Expected Delivery Route/Plan Labor Preferences- CB/BF classes: [] labor support person: [] labor intervention preferences: [] pain management options preferred: [] cut cord/dad catch: [] : [] PP control planned: [] discussed possible routes of delivery and associated risks: [] special requests: [] Specific Issue/Plans Covid status: unvaccinated Flu vaccine: unvaccinated Tdap vaccine: not up to date Rhogam: [] LARC form signed: [] Problem list reviewed and updated with the most current plan of care details and appropriate orders placed. Relevant counseling for the gestational age provided. Continue routine care and follow up unless otherwise noted in visit notes/problem list details Initial Weight: Not Recorded Date -?-?-?-?-?-?-?-?-?-?-?-?- EGA Weight BP Urine Prot -?-?-?-?-?-?-?-?-?-?-?-?- Glucose FHR FuHt Pres Dilation -?-?-?-?-?-?-?-?-?-?-?-?- Effaced St Visit Note 01/10/25 -?-?-?-?-?-?-?-?-?-?-?-?- 9w 2d 220 lb 6 oz 134/80 -?-?-?-?-?-?-?-?-?-?-?-?- 178 -?-?-?-?-?-?-?-?-?-?-?-?- JV- CRL is 8 day s off from LMP. declines NIPT. wants to return for new ob labs. 02/13/25 -?-?-?-?-?-?-?-?-?-?-?-?- 14w 1d 219 lb 127/79 Negative -?-?-?-?-?-?-?-?-?-?-?-?- Negative 150 -?-?-?-?-?-?-?-?-?-?-?-?- JV- still has na usea. worse after meals. will try reglan. labs reviewed. is a + 03/12/25 -?-?-?-?-?-?-?-?-?-?-?-?- 18w 0d 218 lb 113/72 Negative -?-?-?-?-?-?-?-?-?-?-?-?- Negative 148 -?-?-?-?-?-?-?-?-?-?-?-?- MH-No VB. Jonah miranda fluttannabel. Nausea mostly resolved. No other concerns 04/09/25 -?-?-?-?-?-?-?-?-?-?-?-?- 22w 0d 223 lb 1 oz 124/76 Nega tive -?-?-?-?-?-?-?-?-?-?-?-?- Negative 145 -?-?-?-?-?-?-?-?--?-?-?-?- KW- no vb/sachin tanner. gricelda fm. glucose instructions reviewed. US reviewed. 05/09/25 -?-?-?-?-?-?-?-?-?-?-?-?- 26w 2d 230 lb 5 oz 143/82 Nega tive -?-?-?-?-?-?-?-?-?-?-?-?- Negative 145 26 -?-?-?-?-?-?-?-?-?-?-?-?- SM- no vb lof go od fm no regular ctx cbc gct ACOG First Trimester First Trimester: Desire for , Environmental/Work Hazards, Anticipated Course of Care, Sexual activity, Exercise, Sauna/Hot tub use, Seat Belt use, Childbirth classes/Hospital facilities, Indications for Ultrasound and Screening for Aneuploidy; Discussed Results POC Urinalysis 2 Dip (Clinic) Office Urine Glucose Negative Last Edit by Yahaira Jewell on 05/09/25 11:00 Office Urine Protein Negative Last Edit by Yahaira Jewell on 05/09/25 11:00 Coding Level of Care Code OB Routine Diagnoses Segmental and somatic dysfunction of sacral region M99.04 Marijuana use F12.90 Obesity affecting in second trimester, unspecified obesity type O99.212 Obesity type affecting : unspecified obesity Trimester: second trimester Encounter for supervision of normal first in second trimester Z34.02 Trimester: second trimester 26 weeks gestation of Z3A.26 Weeks of gestation: 26 weeks Segmental and somatic dysfunction of lumbar region M99.03 Segmental and somatic dysfunction of pelvic region M99.05 Segmental and somatic dysfunction of thoracic region M99.02 Segmental and somatic dysfunction of cervical region M99.01 Assessment and Plan Assessment and Plan (1) Segmental and somatic dysfunction of sacral region: Status: Acute (2) Marijuana use: Status: Acute Comment: gummy one time 19st birthday, discussed random drug testing with pt. NEG at NO (3) Obesity affecting : Status: Acute Qualifiers: Obesity type affecting : unspecified obesity Trimester: second trimester Qualified Code(s): O99.212 - Obesity complicating , second trimester Comment: [id number] (4) Supervision of normal first : Status: Acute Qualifiers: Trimester: second trimester Qualified Code(s): Z34.02 - Encounter for supervision of normal first , second trimester Comment: PRR, , LAZARA 08/05/25, Fiance' Robin. Low lying placenta <2cm from os, pelvic rest, report bleeding and rpt US 28 wk. (5) : Status: Acute Qualifiers: Weeks of gestation: 26 weeks Qualified Code(s): Z3A.26 - 26 weeks gestation of Comment: Declines NIPT & Carrier testing; declines AFP (6) Segmental and somatic dysfunction of lumbar region: Status: Acute (7) Segmental and somatic dysfunction of pelvic region: Status: Acute (8) Segmental and somatic dysfunction of thoracic region: Status: Acute (9) Segmental and somatic dysfunction of cervical region: Status: Acute Orders: Orders POC Urinalysis 2 Dip (Clinic) Today Plan Details Goals & Barriers: Goals Decrease spasm Decrease inflammation Improve intersegmental motion Improve ROM 05/09/25 1128 <Electronically signed by Viki henderson MD> Date _ Viki Case MD Cosigner Signature: Date (if applicable) CC: ~ [facility] Work Phone: Progress note Author Gabriela Taveras [facility] Note Date/Time May 23, 2025 11:42am [facility] [address], [address] [place] [address] OFFICE VISIT Date of Service: 05/23/25 MR#: [id number] Acct: [id number] Name: REESE MCDONALD Rep #: [id number] : 2005 Provider: WILBER Taveras Age/Sex: 19/F [place] [facility] [place]: Signed Intake Vital Signs 03/12/25 14:50 05/09/25 10:59 05/23/25 11:17 05/23/25 11:25 Height 5 ft 9 in 5 ft 9 in 5 ft 9 in 5 ft 9 in Weight: 233 lb BMI 34.4 BP 116/68 Intake Visit Reasons: 28 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 Is patient in pain?: No Allergies nickel Allergy (Mild, Verified 05/23/25 11:20) unknown Medications ?Medication ?Instructions ?Recorded ?Confirmed ?Type magnesium 250 mg tablet 250 mg PO QDAY 11/27/2405/06 History Saccharomyces boulardii 250 mg 250 mg PO QHS 12/18/24 05/23/25 History capsule (Digest Probiotic (S.boulardii)) multivitamin no.47-iron fum 27 cap PO 12/18/24 5 History mg-folate no.1 1 mg-dha 300 mg capsule (PNV-DHA) metoclopramide HCl 10 mg tablet 10 mg PO QACHS PRN reji sea and 02/13/25 05/23/25 Rx (Reglan) vomiting #60 tabs Last Menstrual Period: 10/29/24 Zika: Zika virus screening: Negative : No Have you fallen in the past year?: No PFSH PFSH Medical History Acne Dysmenorrhea Seasonal allergies Hx of recurrent urinary tract infection Chronic neck and back pain Asthma Surgical History [place] teeth extracted H/O shoulder surgery History of appendectomy Family History Mother Hypertension Gestational diabetes 2nd only Grandmother Hypertension Maternal Blood clot in leg Diabetes Paternal Grandfather Cancer, Onset Age: 70 Paternal- Smoker Social History adopted: No household members: significant other housing: house number of children: 0 current occupational status: employed current occupation: [employer] current occupational exposures/hazards: No pets and animals: Yes pets and animals: dog(s) and farm animals history of recent travel: No sexually active: Yes Smoking Status: Never smoker alcohol intake: current alcohol intake frequency: holidays/special occasions only details: Not while substance use type: marijuana and other details: Pt tried a gummy one time 19stbirthday. Didn't like it. 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 OB Visit LAZARA Calculator Estimated Delivery Date Method Current WG Current Estimate 08/13/25 Ultrasound #1 28w 2d Other Estimates 08/05/25 LMP (Certain) 29w 3d Expected Delivery Route/Plan Labor Preferences- CB/BF classes: [] labor support person: [] labor intervention preferences: [] pain management options preferred: [] cut cord/dad catch: [] : [] PP control planned: [] discussed possible routes of delivery and associated risks: [] special requests: [] Specific Issue/Plans Covid status: unvaccinated Flu vaccine: unvaccinated Tdap vaccine: not up to date Rhogam: [] LARC form signed: [] Problem list reviewed and updated with the most current plan of care details and appropriate orders placed. Relevant counseling for the gestational age provided. Continue routine care and follow up unless otherwise noted in visit notes/problem list details Initial Weight: Not Recorded Date -?-?-?-?-?-?-?-?-?-?-?-?- EGA Weight BP Urine Prot -?-?-?-?-?-?-?-?-?-?-?-?- Glucose FHR FuHt Pres Dilation -?-?-?-?-?-?-?-?-?-?-?-?- Effaced St Visit Note 01/10/25 -?-?-?-?-?-?-?-?-?-?-?-?- 9w 2d 220 lb 6 oz 134/80 -?-?-?-?-?-?-?-?-?-?-?-?- 178 -?-?-?-?-?-?-?-?-?-?-?-?- JV- CRL is 8 day s off from LMP. declines NIPT. wants to return for new ob labs. 02/13/25 -?-?-?-?-?-?-?-?-?-?-?-?- 14w 1d 219 lb 127/79 Negative -?-?-?-?-?-?-?-?-?-?-?-?- Negative 150 -?-?-?-?-?-?-?-?-?-?-?-?- JV- still has na usea. worse after meals. will try reglan. labs reviewed. is a + 03/12/25 -?-?-?-?-?-?-?-?-?-?-?-?- 18w 0d 218 lb 113/72 Negative -?-?-?-?-?-?-?-?-?-?-?-?- Negative 148 -?-?-?-?-?-?-?-?-?-?-?-?- MH-No VB. Feelin g flutters. Nausea mostly resolved. No other concerns 04/09/25 -?-?-?-?-?-?-?-?-?-?-?-?- 22w 0d 223 lb 1 oz 124/76 Nega tive -?-?-?-?-?-?-?-?-?-?-?-?- Negative 145 -?-?-?-?-?-?-?-?-?-?-?-?- KW- no vb/sachin ng. good fm. glucose instructions reviewed. US reviewed. 05/09/25 -?-?-?-?-?-?-?-?-?-?-?-?- 26w 2d 230 lb 5 oz 143/82 Nega tive -?-?-?-?-?-?-?-?-?-?-?-?- Negative 145 26 -?-?-?-?-?-?-?-?-?-?-?-?- SM- no vb lof go od fm no regular ctx cbc gct 05/23/25 -?-?-?-?-?-?-?-?-?-?-?-?- 28w 2d 233 lb 116/68 Negative -?-?-?-?-?-?-?-?-?-?-?-?- Negative 145 29 -?-?-?-?-?-?-?-?-?-?-?-?- KW- no vb/lof/ct x. good fm. passed 28 week labs. unsure on Tdap. LARC done ACOG First Trimester First Trimester: Desire for , Environmental/Work Hazards, Anticipated Course of Care, Sexual activity, Exercise, Sauna/Hot tub use, Seat Belt use, Childbirth classes/Hospital facilities, Indications for Ultrasound and Screening for Aneuploidy; Discussed ROS Const Reports system reviewed and no additional complaints, except as documented Eyes Reports system reviewed and no additional complaints, except as documented ENT Reports system reviewed and no additional complaints, except as documented Card Reports system reviewed and no additional complaints, except as documented Resp Reports system reviewed and no additional complaints, except as documented GI Reports system reviewed and no additional complaints, except as documented, Denies nausea and Denies vomiting Reports system reviewed and no additional complaints, except as documented Musc Reports system reviewed and no additional complaints, except as documented Skin/Breast Reports system reviewed and no additional complaints, except as documented Neuro Yes system reviewed and no additional complaints, except as documented Psych Reports system reviewed and no additional complaints, except as documented Endo Reports system reviewed and no additional complaints, except as documented Armaan/Lymph Reports system reviewed and no additional complaints, except as documented Aller/Immun Reports system reviewed and no additional complaints, except as documented Exam Const General: cooperative, healthy appearing and no acute distress Orientation: alert, awake and oriented x3 Neck Neck: normal visual inspection and full ROM Resp Effort & Inspection: normal respiratory effort, able to speak in complete sentences and symmetric chest movement GI Inspection: normal to inspection Palpation: soft and other Other: gravid Skin General: no rashes or lesions noted Neuro General: patient alert, patient awake and patient oriented x3 Cognition: normal cognition Speech: speech normal Gait: normal gait Motor: muscle tone normal throughout Extrem General: normal to inspection and full ROM Psych Appearance: grossly normal Mental Status: mental status grossly normal Mood: congruent mood Affect: normal affect Speech and Movement: speech and movement normal Attitude: cooperative Thought Process: normal Thought Content: normal Judgment: judgment good Results POC Urinalysis 2 Dip (Clinic) Office Urine Glucose Negative Last Edit by Delmy Colón RN on 05/23/25 11:27 Office Urine Protein Negative Last Edit by Delmy Colón RN on 05/23/25 11:27 Coding Level of Care Code OB Routine Diagnoses Segmental and somatic dysfunction of sacral region M99.04 Marijuana use F12.90 Obesity affecting in second trimester, unspecified obesity type O99.212 Obesity type affecting : unspecified obesity Trimester: second trimester Encounter for supervision of normal first in second trimester Z34.02 Trimester: second trimester 28 weeks gestation of Z3A.28 Weeks of gestation: 28 weeks Segmental and somatic dysfunction of lumbar region M99.03 Segmental and somatic dysfunction of pelvic region M99.05 Segmental and somatic dysfunction of thoracic region M99.02 Segmental and somatic dysfunction of cervical region M99.01 Assessment and Plan Assessment and Plan (1) Segmental and somatic dysfunction of sacral region: Status: Acute (2) Marijuana use: Status: Acute Comment: laquita one time 19st birthday, discussed random drug testing with pt. NEG at NO (3) Obesity affecting : Status: Acute Qualifiers: Obesity type affecting : unspecified obesity Trimester: second trimester Qualified Code(s): O99.212 - Obesity complicating , second trimester Comment: [id number] (4) Supervision of normal first : Status: Acute Qualifiers: Trimester: second trimester Qualified Code(s): Z34.02 - Encounter for supervision of normal first , second trimester Comment: PRR, , LAZARA 08/05/25, Adri Kelly. Low lying placenta <2cm from os, pelvic rest, report bleeding and rpt US 28 wk. (5) : Status: Acute Qualifiers: Weeks of gestation: 28 weeks Qualified Code(s): Z3A.28 - 28 weeks gestation of Comment: Declines NIPT & Carrier testing; declines AFP (6) Segmental and somatic dysfunction of lumbar region: Status: Acute (7) Segmental and somatic dysfunction of pelvic region: Status: Acute (8) Segmental and somatic dysfunction of thoracic region: Status: Acute (9) Segmental and somatic dysfunction of cervical region: Status: Acute Orders: Orders POC Urinalysis 2 Dip (Clinic) Today Plan Details Additional Comments: ACOG trimester education reviewed and updated. see problem list details for updated plan management information and see below for orders placed at this visit. GA appropriate handout given. Goals & Barriers: Goals Decrease spasm Decrease inflammation Improve intersegmental motion Improve ROM Clinical Quality Measures Falls Risk Screening/Assistive Devices Have you fallen in the past year?: No 05/23/25 1142 <Electronically signed by Gabriela zarate CNM> Date _ Gabriela Taveras CNM Cosigner Signature: Date (if applicable) CC: ~ [facility] Work Phone: Progress note Author Nida Martinez [facility] Note Date/Time May 27, 2025 1:52pm [facility] [address] [place] [address] OFFICE VISIT Date of Service: 05/27/25 MR#: [id number] Acct: [id number] Name: REESE MCDONALD Rep #: [id number] : 2005 Provider: DALTON Martinez Age/Sex: 19/F Location: [facility] [place] Status: Signed Intake Vital Signs 04/09/25 14:14 05/23/25 11:25 Height 5 ft 9 in 5 ft 9 in Intake Visit Reasons: ADJUSTMENT 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: pubic pain, neck discomfort Is patient in pain?: Yes (pubis, pelvis) Pain scale (1-10): 7 Allergies nickel Allergy (Mild, Verified 05/27/25 13:48) unknown Medications ?Medication ?Instructions ?Recorded ?Confirmed ?Type magnesium 250 mg tablet 250 mg PO QDAY 11/27/2405/07 History Saccharomyces boulardii 250 mg 250 mg PO QHS 12/18/24 05/27/25 History capsule (Digest Probiotic (S.boulardii)) multivitamin no.47-iron fum 27 cap PO 12/18/24 5 History mg-folate no.1 1 mg-dha 300 mg capsule (PNV-DHA) metoclopramide HCl 10 mg tablet 10 mg PO QACHS PRN reji sea and 02/13/25 05/27/25 Rx (Reglan) vomiting #60 tabs PFSH Medical History Acne Dysmenorrhea Seasonal allergies Hx of recurrent urinary tract infection Chronic neck and back pain Asthma Surgical History [place] teeth extracted H/O shoulder surgery History of appendectomy Family History Mother Hypertension Gestational diabetes 2nd only Grandmother Hypertension Maternal Blood clot in leg Diabetes Paternal Grandfather Cancer, Onset Age: 70 Paternal- Smoker Social History adopted: No household members: significant other housing: house number of children: 0 current occupational status: employed current occupation: [employer] agency current occupational exposures/hazards: No pets and animals: Yes pets and animals: dog(s) and farm animals history of recent travel: No sexually active: Yes Smoking Status: Never smoker alcohol intake: current alcohol intake frequency: holidays/special occasions only details: Not while substance use type: marijuana and other details: Pt tried a gummy one time 19stbirthday. Didn't like it. 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 Pt. is currently 29 weeks . She states she continues to experience pubic pressure especially when rolling over in bed and when she first stands up from sitting. She states this is a sharp pain and rates it 7/10 when it occurs. She also c/o some neck and upper back tightness equal bilaterally. She states she experiences pelvic pressure when she lifts her legs to put her pants on. She denies new injury, numbness, tingling or radiculopathy. She treats her pain at home with ice and stretching. She states chiropractic treatments are effective to relieve her pain but it gradually returns. Location: neck and low back Duration: intermittent Aggravating or associated factors: sleeping, walking Relieving factors: chiro Pain Quality: aching and dull Exam Musc General: Yes normal posture, normal gait, joint tenderness and decreased range of motion; No muscle weakness Cervical Spine: Yes normal cervical lordosis, Yes cervical muscular tenderness left greater than right diffuse paracervical muscle, trapezius and other, Yes cervical spasm left greater than right diffuse trapezius, paracervical muscles and intrinsics and Yes misalignment misalignment: C2, C3, C4, C5 and C6 Thoracic/Lumber: Yes thoracic and lumbar spine normal to inspection, Yes paraspinal tenderness on the left greater than right (upper thoracic, lumbopelvic), Yes thoraco-lumbar spasm bilaterally (lumbar paraspinal L3-L5) in the lower lumbar and on the left greater than right (trap, QL) and Yes misalignment T3, T4, T5, T6, L3, L4, L5, RIL and LIL Sacrum: Yes misalignment (left) Yes Office Procedures Procedures - Chiropractic Procedures Manipulation: Cervical C5, Lumbar L4, Sacrum (left) and Thoracic T4 Manipulation: 3-4 regions (right) Patient Response: positive Assessment and Plan Assessment and Plan (1) Segmental and somatic dysfunction of cervical region: Status: Acute (2) Segmental and somatic dysfunction of thoracic region: Status: Acute (3) Segmental and somatic dysfunction of pelvic region: Status: Acute (4) Segmental and somatic dysfunction of lumbar region: Status: Acute (5) Segmental and somatic dysfunction of sacral region: Status: Acute Orders: Orders Chiropractic Treatments Today M99.01 - Segmental and somatic dysfunction of cervical region, M99.02 - Segmental and somatic dysfunction of thoracic region, M99.03 - Segmental and somatic dysfunction of lumbar region, M99.04 - Segmental and somatic dysfunction of sacral region, M99.05 - Segmental and somatic dysfunction of pelvic region Plan Patient was treated without incident. Continue care as needed. She is showing improvement after her chiro visits, continue care. Plan Details Goals & Barriers: Goals Decrease spasm Decrease inflammation Improve intersegmental motion Improve ROM Follow Up: 1 Month Coding Level of Care Code No Charge Diagnoses Segmental and somatic dysfunction of cervical region M99.01 Segmental and somatic dysfunction of thoracic region M99.02 Segmental and somatic dysfunction of pelvic region M99.05 Segmental and somatic dysfunction of lumbar region M99.03 Segmental and somatic dysfunction of sacral region M99.04 CPT Codes Procedures - Manipulation: 3-4 regions (09814) 05/27/25 1404 <Electronically signed by Nida Gonzales> Date _ Nida Martinez D.C. Cosigner Signature: Date (if applicable) CC: ~ [facility] Work Phone: Reason for referral (narrative)No reason for referral information availableW[facility] Work Phone: Reason for Referral Specialty Diagnoses / Procedures Referred By Aura t Referred To Contact Allergy Diagnoses Seasonal allergies Procedures CONSULT TO ALLERGY/IMMUNOLOGY OFFICE/OUTPATIENT [facility] 60-74 MINUTES Isi Justice MD [address] [place] [address] Referral ID Status Reason Start Date Expiration Date Visits Requested Visits Authorized [id number] Authorized PCP Requested Referral 01/20/2022 01/20/2023 1 1 Summary Purpose Family History Relationship Condition Age at Onset Recorded Date/T laura mother Hypertension Unknown Gestational diabetes mellitus (GDM) Unkno wn grandmother Hypertension Unknown Blood clot in leg Unknown Diabetes mellitus Unknown grandfather Malignant neoplasm 70 No Family History Records Found Advance Directives No Advanced Directives Records FoundNo Advanced Directives Records Found 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 and Reason for Visit 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 Admit Date Annual (RESIDENT CARE PROVIDER) November 27, 2024 8:0 9am Reason for Visit Admit Date Encounter for routine gynecological exam ination November 27, 2024 8:09am Vaginitis November 27, 2024 8:0 9am 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 Admit Date Annual (RESIDENT CARE PROVIDER) November 27, 2024 8:0 9am PNOB nurse visit December 18, 2024 10: 56am REEVAL December 31, 2024 9:2 7am NOB LMP 10/29January 10, 2025 2:11pm Reason for Visit Admit Date Encounter for routine gynecological exam ination November 27, 2024 8:09am Vaginitis November 27, 2024 8:0 9am Amenorrhea December 18, 2024 10: 56am Segmental and somatic dysfunction of cer vical region December 31, 2024 9:27am Segmental and somatic dysfunction of lum bar region December 31, 2024 9:27am Segmental and somatic dysfunction of pel herrera region December 31, 2024 9:27am Segmental and somatic dysfunction of tho racic region December 31, 2024 9:27am Acne January 10, 2025 2:11pm Amenorrhea January 10, 2025 2:11pm Dysmenorrhea January 10, 2025 2:11pm Marijuana use January 10, 2025 2:11pm Obesity affecting January 10 2:11pm January 10, 2025 2:11pm Supervision of normal first Ma y 2024 2:11pm 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 Admit Date Annual (RESIDENT CARE PROVIDER) November 27, 2024 8:0 9am PNOB nurse visit December 18, 2024 10: 56am REEVAL December 31, 2024 9:2 7am NOB LMP 10/29January 10, 2025 2:11pm E-ORDER January 21, 2025 3:30p m 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 Admit Date Annual (RESIDENT CARE PROVIDER) November 27, 2024 8:0 9am PNOB nurse visit December 18, 2024 10: 56am REEVAL December 31, 2024 9:2 7am NOB LMP 10/29January 10, 2025 2:11pm E-ORDER January 21, 2025 3:30p m ADJUSTMENT January 29, 2025 8:01a m Reason for Visit Admit Date Encounter for routine gynecological exam ination November 27, 2024 8:09am Vaginitis November 27, 2024 8:0 9am Amenorrhea December 18, 2024 10: 56am Segmental and somatic dysfunction of cer vical region December 31, 2024 9:27am Segmental and somatic dysfunction of lum bar region December 31, 2024 9:27am Segmental and somatic dysfunction of pel herrera region December 31, 2024 9:27am Segmental and somatic dysfunction of tho racic region December 31, 2024 9:27am Acne January 10, 2025 2:11pm Amenorrhea January 10, 2025 2:11pm Dysmenorrhea January 10, 2025 2:11pm Marijuana use January 10, 2025 2:11pm Obesity affecting January 10 2:11pm January 10, 2025 2:11pm Supervision of normal first Ma y 2024 2:11pm Segmental and somatic dysfunction of cer vical region January 29, 2025 8:01am Segmental and somatic dysfunction of lum bar region January 29, 2025 8:01am Segmental and somatic dysfunction of pel herrera region January 29, 2025 8:01am Segmental and somatic dysfunction of tho racic region January 29, 2025 8:01am 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 Admit Date Annual (RESIDENT CARE PROVIDER) November 27, 2024 8:0 9am PNOB nurse visit December 18, 2024 10: 56am REEVAL December 31, 2024 9:2 7am NOB LMP 10/29January 10, 2025 2:11pm E-ORDER January 21, 2025 3:30p m ADJUSTMENT January 29, 2025 8:01a m 14 wk OB February 13, 2025 9:34 am Reason for Visit Admit Date Encounter for routine gynecological exam ination November 27, 2024 8:09am Vaginitis November 27, 2024 8:0 9am Amenorrhea December 18, 2024 10: 56am Segmental and somatic dysfunction of cer vical region December 31, 2024 9:27am Segmental and somatic dysfunction of lum bar region December 31, 2024 9:27am Segmental and somatic dysfunction of pel herrera region December 31, 2024 9:27am Segmental and somatic dysfunction of tho racic region December 31, 2024 9:27am Acne January 10, 2025 2:11pm Amenorrhea January 10, 2025 2:11pm Dysmenorrhea January 10, 2025 2:11pm Marijuana use January 10, 2025 2:11pm Obesity affecting January 10 2:11pm January 10, 2025 2:11pm Supervision of normal first Ma y 2024 2:11pm Segmental and somatic dysfunction of cer vical region January 29, 2025 8:01am Segmental and somatic dysfunction of lum bar region January 29, 2025 8:01am Segmental and somatic dysfunction of pel herrera region January 29, 2025 8:01am Segmental and somatic dysfunction of tho racic region January 29, 2025 8:01am Acne February 13, 2025 9:34 am Amenorrhea February 13, 2025 9:34 am Dysmenorrhea February 13, 2025 9:34 am Marijuana use February 13, 2025 9:34 am Obesity affecting February 13 9:34am February 13, 2025 9:34 am Supervision of normal first Ju 2024 9:34am 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 Admit Date Annual (RESIDENT CARE PROVIDER) November 27, 2024 8:0 9am PNOB nurse visit December 18, 2024 10: 56am REEVAL December 31, 2024 9:2 7am NOB LMP 10/29January 10, 2025 2:11pm E-ORDER January 21, 2025 3:30p m ADJUSTMENT January 29, 2025 8:01a m 14 wk OB February 13, 2025 9:34 am ADJUSTMENT March 05, 2025 7:57a m 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 Admit Date Annual (RESIDENT CARE PROVIDER) November 27, 2024 8:0 9am PNOB nurse visit December 18, 2024 10: 56am REEVAL December 31, 2024 9:2 7am NOB LMP 10/29January 10, 2025 2:11pm E-ORDER January 21, 2025 3:30p m ADJUSTMENT January 29, 2025 8:01a m 14 wk OB February 13, 2025 9:34 am ADJUSTMENT March 05, 2025 7:57a m 18wk ob March 12, 2025 2:47p m Reason for Visit Admit Date Encounter for routine gynecological exam ination November 27, 2024 8:09am Vaginitis November 27, 2024 8:0 9am Amenorrhea December 18, 2024 10: 56am Segmental and somatic dysfunction of cer vical region December 31, 2024 9:27am Segmental and somatic dysfunction of lum bar region December 31, 2024 9:27am Segmental and somatic dysfunction of pel herrera region December 31, 2024 9:27am Segmental and somatic dysfunction of tho racic region December 31, 2024 9:27am Marijuana use January 10, 2025 2:11pm Obesity affecting January 10 2:11pm January 10, 2025 2:11pm Supervision of normal first Ma y 2024 2:11pm Acne January 10, 2025 2:11pm Dysmenorrhea January 10, 2025 2:11pm Amenorrhea January 10, 2025 2:11pm Segmental and somatic dysfunction of cer vical region January 29, 2025 8:01am Segmental and somatic dysfunction of lum bar region January 29, 2025 8:01am Segmental and somatic dysfunction of pel herrera region January 29, 2025 8:01am Segmental and somatic dysfunction of tho racic region January 29, 2025 8:01am Marijuana use February 13, 2025 9:34 am Obesity affecting February 13, 2 025 9:34am February 13, 2025 9:34 am Supervision of normal first Ju 2024 9:34am Acne February 13, 2025 9:34 am Dysmenorrhea February 13, 2025 9:34 am Amenorrhea February 13, 2025 9:34 am Segmental and somatic dysfunction of cer vical region March 05, 2025 7:57am Segmental and somatic dysfunction of lum bar region March 05, 2025 7:57am Segmental and somatic dysfunction of sac ral region March 05, 2025 7:57am Segmental and somatic dysfunction of tho racic region March 05, 2025 7:57am Marijuana use March 12, 2025 2:47p m Obesity affecting March 12 2:47pm March 12, 2025 2:47p m Segmental and somatic dysfunction of cer vical region March 12, 2025 2:47pm Segmental and somatic dysfunction of lum bar region March 12, 2025 2:47pm Segmental and somatic dysfunction of pel herrera region March 12, 2025 2:47pm Segmental and somatic dysfunction of sac ral region March 12, 2025 2:47pm Segmental and somatic dysfunction of tho racic region March 12, 2025 2:47pm Supervision of normal first Ju ly 2024 2:47pm 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 Admit Date PNOB nurse visit December 18, 2024 10: 56am REEVAL December 31, 2024 9:2 7am NOB LMP 10/29January 10, 2025 2:11pm E-ORDER January 21, 2025 3:30p m ADJUSTMENT January 29, 2025 8:01a m 14 wk OB February 13, 2025 9:34 am ADJUSTMENT March 05, 2025 7:57a m 18wk ob March 12, 2025 2:47p m ANATOMY March 26, 2025 3:24 pm Reason for Visit Admit Date Amenorrhea December 18, 2024 10: 56am Segmental and somatic dysfunction of cer vical region December 31, 2024 9:27am Segmental and somatic dysfunction of lum bar region December 31, 2024 9:27am Segmental and somatic dysfunction of pel herrera region December 31, 2024 9:27am Segmental and somatic dysfunction of tho racic region December 31, 2024 9:27am Marijuana use January 10, 2025 2:11pm Obesity affecting January 10 2:11pm January 10, 2025 2:11pm Supervision of normal first Ma y 2024 2:11pm Acne January 10, 2025 2:11pm Dysmenorrhea January 10, 2025 2:11pm Amenorrhea January 10, 2025 2:11pm Segmental and somatic dysfunction of cer vical region January 29, 2025 8:01am Segmental and somatic dysfunction of lum bar region January 29, 2025 8:01am Segmental and somatic dysfunction of pel herrera region January 29, 2025 8:01am Segmental and somatic dysfunction of tho racic region January 29, 2025 8:01am Marijuana use February 13, 2025 9:34 am Obesity affecting February 13, 2 025 9:34am February 13, 2025 9:34 am Supervision of normal first Ju ne 2024 9:34am Acne February 13, 2025 9:34 am Dysmenorrhea February 13, 2025 9:34 am Amenorrhea February 13, 2025 9:34 am Segmental and somatic dysfunction of cer vical region March 05, 2025 7:57am Segmental and somatic dysfunction of lum bar region March 05, 2025 7:57am Segmental and somatic dysfunction of sac ral region March 05, 2025 7:57am Segmental and somatic dysfunction of tho racic region March 05, 2025 7:57am Marijuana use March 12, 2025 2:47p m Obesity affecting March 12 2:47pm March 12, 2025 2:47p m Supervision of normal first Ju ly 2024 2:47pm 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 Admit Date PNOB nurse visit December 18, 2024 10: 56am REEVAL December 31, 2024 9:2 7am NOB LMP 10/29January 10, 2025 2:11pm E-ORDER January 21, 2025 3:30p m ADJUSTMENT January 29, 2025 8:01a m 14 wk OB February 13, 2025 9:34 am ADJUSTMENT March 05, 2025 7:57a m 18wk ob March 12, 2025 2:47p m ANATOMY March 26, 2025 3:24 pm ADJUSTMENT April 03, 2025 8:00 am Reason for Visit Admit Date Amenorrhea December 18, 2024 10: 56am Segmental and somatic dysfunction of cer vical region December 31, 2024 9:27am Segmental and somatic dysfunction of lum bar region December 31, 2024 9:27am Segmental and somatic dysfunction of pel herrera region December 31, 2024 9:27am Segmental and somatic dysfunction of tho racic region December 31, 2024 9:27am Marijuana use January 10, 2025 2:11pm Obesity affecting January 10 2:11pm January 10, 2025 2:11pm Supervision of normal first Ma y 2024 2:11pm Acne January 10, 2025 2:11pm Dysmenorrhea January 10, 2025 2:11pm Amenorrhea January 10, 2025 2:11pm Segmental and somatic dysfunction of cer vical region January 29, 2025 8:01am Segmental and somatic dysfunction of lum bar region January 29, 2025 8:01am Segmental and somatic dysfunction of pel herrera region January 29, 2025 8:01am Segmental and somatic dysfunction of tho racic region January 29, 2025 8:01am Marijuana use February 13, 2025 9:34 am Obesity affecting February 13, 2 025 9:34am February 13, 2025 9:34 am Supervision of normal first Ju ne 2024 9:34am Acne February 13, 2025 9:34 am Dysmenorrhea February 13, 2025 9:34 am Amenorrhea February 13, 2025 9:34 am Segmental and somatic dysfunction of cer vical region March 05, 2025 7:57am Segmental and somatic dysfunction of lum bar region March 05, 2025 7:57am Segmental and somatic dysfunction of sac ral region March 05, 2025 7:57am Segmental and somatic dysfunction of tho racic region March 05, 2025 7:57am Marijuana use March 12, 2025 2:47p m Obesity affecting March 12 2:47pm March 12, 2025 2:47p m Supervision of normal first Ju 2024 2:47pm Segmental and somatic dysfunction of cer vical region April 03, 2025 8:00am Segmental and somatic dysfunction of lum bar region April 03, 2025 8:00am Segmental and somatic dysfunction of pel herrera region April 03, 2025 8:00am Segmental and somatic dysfunction of sac ral region April 03, 2025 8:00am Segmental and somatic dysfunction of tho racic region April 03, 2025 8:00am 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 Admit Date PNOB nurse visit December 18, 2024 10: 56am REEVAL December 31, 2024 9:2 7am NOB LMP 10/29January 10, 2025 2:11pm E-ORDER January 21, 2025 3:30p m ADJUSTMENT January 29, 2025 8:01a m 14 wk OB February 13, 2025 9:34 am ADJUSTMENT March 05, 2025 7:57a m 18wk ob March 12, 2025 2:47p m ANATOMY March 26, 2025 3:24 pm ADJUSTMENT April 03, 2025 8:00 am 22 wk ob April 09, 2025 2:0 7pm Reason for Visit Admit Date Amenorrhea December 18, 2024 10: 56am Segmental and somatic dysfunction of cer vical region December 31, 2024 9:27am Segmental and somatic dysfunction of lum bar region December 31, 2024 9:27am Segmental and somatic dysfunction of pel herrera region December 31, 2024 9:27am Segmental and somatic dysfunction of tho racic region December 31, 2024 9:27am Marijuana use January 10, 2025 2:11pm Obesity affecting January 10 2:11pm January 10, 2025 2:11pm Supervision of normal first Ma y 2024 2:11pm Acne January 10, 2025 2:11pm Dysmenorrhea January 10, 2025 2:11pm Amenorrhea January 10, 2025 2:11pm Segmental and somatic dysfunction of cer vical region January 29, 2025 8:01am Segmental and somatic dysfunction of lum bar region January 29, 2025 8:01am Segmental and somatic dysfunction of pel herrera region January 29, 2025 8:01am Segmental and somatic dysfunction of tho racic region January 29, 2025 8:01am Marijuana use February 13, 2025 9:34 am Obesity affecting February 13, 9:34am February 13, 2025 9:34 am Supervision of normal first Ju ne 2024 9:34am Acne February 13, 2025 9:34 am Dysmenorrhea February 13, 2025 9:34 am Amenorrhea February 13, 2025 9:34 am Segmental and somatic dysfunction of cer vical region March 05, 2025 7:57am Segmental and somatic dysfunction of lum bar region March 05, 2025 7:57am Segmental and somatic dysfunction of sac ral region March 05, 2025 7:57am Segmental and somatic dysfunction of tho racic region March 05, 2025 7:57am Marijuana use March 12, 2025 2:47p m Obesity affecting March 12 2:47pm March 12, 2025 2:47p m Supervision of normal first Ju ly 2024 2:47pm Segmental and somatic dysfunction of cer vical region April 03, 2025 8:00am Segmental and somatic dysfunction of lum bar region April 03, 2025 8:00am Segmental and somatic dysfunction of sac ral region April 03, 2025 8:00am Segmental and somatic dysfunction of tho racic region April 03, 2025 8:00am Marijuana use April 09, 2025 2:0 7pm Obesity affecting April 09, 2025 2:07pm April 09, 2025 2:0 7pm Segmental and somatic dysfunction of cer vical region April 09, 2025 2:07pm Segmental and somatic dysfunction of lum bar region April 09, 2025 2:07pm Segmental and somatic dysfunction of pel herrera region April 09, 2025 2:07pm Segmental and somatic dysfunction of sac ral region April 09, 2025 2:07pm Segmental and somatic dysfunction of tho racic region April 09, 2025 2:07pm Supervision of normal first Au 2024 2:07pm 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 Admit Date NOB LMP 10/29January 10, 2025 2:11pm E-ORDER January 21, 2025 3:30p m ADJUSTMENT January 29, 2025 8:01a m 14 wk OB February 13, 2025 9:34 am ADJUSTMENT March 05, 2025 7:57a m 18wk ob March 12, 2025 2:47p m ANATOMY March 26, 2025 3:24 pm ADJUSTMENT April 03, 2025 8:00 am 22 wk ob April 09, 2025 2:0 7pm ADJUSTMENT May 01, 2025 8: 58am Reason for Visit Admit Date Marijuana use January 10, 2025 2:11pm Obesity affecting January 10 2:11pm January 10, 2025 2:11pm Supervision of normal first Ma y 2024 2:11pm Acne January 10, 2025 2:11pm Dysmenorrhea January 10, 2025 2:11pm Amenorrhea January 10, 2025 2:11pm Segmental and somatic dysfunction of cer vical region January 29, 2025 8:01am Segmental and somatic dysfunction of lum bar region January 29, 2025 8:01am Segmental and somatic dysfunction of pel herrera region January 29, 2025 8:01am Segmental and somatic dysfunction of tho racic region January 29, 2025 8:01am Marijuana use February 13, 2025 9:34 am Obesity affecting February 13, 2 025 9:34am February 13, 2025 9:34 am Supervision of normal first Ju 2024 9:34am Acne February 13, 2025 9:34 am Dysmenorrhea February 13, 2025 9:34 am Amenorrhea February 13, 2025 9:34 am Segmental and somatic dysfunction of cer vical region March 05, 2025 7:57am Segmental and somatic dysfunction of lum bar region March 05, 2025 7:57am Segmental and somatic dysfunction of sac ral region March 05, 2025 7:57am Segmental and somatic dysfunction of tho racic region March 05, 2025 7:57am Marijuana use March 12, 2025 2:47p m Obesity affecting March 12 2:47pm March 12, 2025 2:47p m Supervision of normal first Ju 2024 2:47pm Segmental and somatic dysfunction of cer vical region April 03, 2025 8:00am Segmental and somatic dysfunction of lum bar region April 03, 2025 8:00am Segmental and somatic dysfunction of sac ral region April 03, 2025 8:00am Segmental and somatic dysfunction of tho racic region April 03, 2025 8:00am Marijuana use April 09, 2025 2:0 7pm Obesity affecting April 09, 2025 2:07pm April 09, 2025 2:0 7pm Segmental and somatic dysfunction of cer vical region April 09, 2025 2:07pm Segmental and somatic dysfunction of lum bar region April 09, 2025 2:07pm Segmental and somatic dysfunction of pel herrera region April 09, 2025 2:07pm Segmental and somatic dysfunction of sac ral region April 09, 2025 2:07pm Segmental and somatic dysfunction of tho racic region April 09, 2025 2:07pm Supervision of normal first Au 2024 2:07pm 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 Admit Date NOB LMP 10/29January 10, 2025 2:11pm E-ORDER January 21, 2025 3:30p m ADJUSTMENT January 29, 2025 8:01a m 14 wk OB February 13, 2025 9:34 am ADJUSTMENT March 05, 2025 7:57a m 18wk ob March 12, 2025 2:47p m ANATOMY March 26, 2025 3:24 pm ADJUSTMENT April 03, 2025 8:00 am 22 wk ob April 09, 2025 2:0 7pm ADJUSTMENT May 01, 2025 8: 58am 26 wk ob May 09, 2025 10:47am Reason for Visit Admit Date Marijuana use January 10, 2025 2:11pm Obesity affecting January 10 2:11pm January 10, 2025 2:11pm Supervision of normal first Ma y 2024 2:11pm Acne January 10, 2025 2:11pm Dysmenorrhea January 10, 2025 2:11pm Amenorrhea January 10, 2025 2:11pm Segmental and somatic dysfunction of cer vical region January 29, 2025 8:01am Segmental and somatic dysfunction of lum bar region January 29, 2025 8:01am Segmental and somatic dysfunction of pel herrera region January 29, 2025 8:01am Segmental and somatic dysfunction of tho racic region January 29, 2025 8:01am Marijuana use February 13, 2025 9:34 am Obesity affecting February 13 9:34am February 13, 2025 9:34 am Supervision of normal first Ju ne 2024 9:34am Acne February 13, 2025 9:34 am Dysmenorrhea February 13, 2025 9:34 am Amenorrhea February 13, 2025 9:34 am Segmental and somatic dysfunction of cer vical region March 05, 2025 7:57am Segmental and somatic dysfunction of lum bar region March 05, 2025 7:57am Segmental and somatic dysfunction of sac ral region March 05, 2025 7:57am Segmental and somatic dysfunction of tho racic region March 05, 2025 7:57am Marijuana use March 12, 2025 2:47p m Obesity affecting March 12 2:47pm March 12, 2025 2:47p m Supervision of normal first Ju ly 2024 2:47pm Segmental and somatic dysfunction of cer vical region April 03, 2025 8:00am Segmental and somatic dysfunction of lum bar region April 03, 2025 8:00am Segmental and somatic dysfunction of sac ral region April 03, 2025 8:00am Segmental and somatic dysfunction of tho racic region April 03, 2025 8:00am Marijuana use April 09, 2025 2:0 7pm Obesity affecting April 09, 2025 2:07pm April 09, 2025 2:0 7pm Segmental and somatic dysfunction of cer vical region April 09, 2025 2:07pm Segmental and somatic dysfunction of lum bar region April 09, 2025 2:07pm Segmental and somatic dysfunction of pel [place] region April 09, 2025 2:07pm Segmental and somatic dysfunction of sac ral region April 09, 2025 2:07pm Segmental and somatic dysfunction of tho racic region April 09, 2025 2:07pm Supervision of normal first Au 2024 2:07pm May 01, 2025 8: 58am Segmental and somatic dysfunction of cer vical region May 01, 2025 8:58am Segmental and somatic dysfunction of lum bar region May 01, 2025 8:58am Segmental and somatic dysfunction of sac ral region May 01, 2025 8:58am Segmental and somatic dysfunction of tho racic region May 01, 2025 8:58am Marijuana use May 09, 2025 10:47am Obesity affecting May 10:47am May 09, 2025 10:47am Segmental and somatic dysfunction of cer vical region May 09, 2025 10:47am Segmental and somatic dysfunction of lum bar region May 09, 2025 10:47am Segmental and somatic dysfunction of [place] region May 09, 2025 10:47am Segmental and somatic dysfunction of sac ral region May 09, 2025 10:47am Segmental and somatic dysfunction of tho racic region May 09, 2025 10:47am Supervision of normal first Se pt2024 10:47am 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 Admit Date ADJUSTMENT January 29, 2025 8:01a m 14 wk OB February 13, 2025 9:34 am ADJUSTMENT March 05, 2025 7:57a m 18wk ob March 12, 2025 2:47p m ANATOMY March 26, 2025 3:24 pm ADJUSTMENT April 03, 2025 8:00 am 22 wk ob April 09, 2025 2:0 7pm ADJUSTMENT May 01, 2025 8: 58am 26 wk ob May 09, 2025 10:47am LOW LYING [place] May 21, 2025 4:12pm 28 WK OB May 23, 2025 11:14am Reason for Visit Admit Date Segmental and somatic dysfunction of cer vical region January 29, 2025 8:01am Segmental and somatic dysfunction of lum bar region January 29, 2025 8:01am Segmental and somatic dysfunction of pel [place] region January 29, 2025 8:01am Segmental and somatic dysfunction of tho racic region January 29, 2025 8:01am Marijuana use February 13, 2025 9:34 am Obesity affecting February 13 9:34am February 13, 2025 9:34 am Supervision of normal first Ju ne 2024 9:34am Acne February 13, 2025 9:34 am Dysmenorrhea February 13, 2025 9:34 am Amenorrhea February 13, 2025 9:34 am Segmental and somatic dysfunction of cer vical region March 05, 2025 7:57am Segmental and somatic dysfunction of lum bar region March 05, 2025 7:57am Segmental and somatic dysfunction of sac ral region March 05, 2025 7:57am Segmental and somatic dysfunction of tho racic region March 05, 2025 7:57am Marijuana use March 12, 2025 2:47p m Obesity affecting March 12 2:47pm March 12, 2025 2:47p m Supervision of normal first Ju 2024 2:47pm Segmental and somatic dysfunction of cer vical region April 03, 2025 8:00am Segmental and somatic dysfunction of lum bar region April 03, 2025 8:00am Segmental and somatic dysfunction of sac ral region April 03, 2025 8:00am Segmental and somatic dysfunction of tho racic region April 03, 2025 8:00am Marijuana use April 09, 2025 2:0 7pm Obesity affecting April 09, 2025 2:07pm April 09, 2025 2:0 7pm Segmental and somatic dysfunction of cer vical region April 09, 2025 2:07pm Segmental and somatic dysfunction of lum bar region April 09, 2025 2:07pm Segmental and somatic dysfunction of [place] region April 09, 2025 2:07pm Segmental and somatic dysfunction of sac ral region April 09, 2025 2:07pm Segmental and somatic dysfunction of tho racic region April 09, 2025 2:07pm Supervision of normal first Au 2024 2:07pm May 01, 2025 8: 58am Segmental and somatic dysfunction of cer vical region May 01, 2025 8:58am Segmental and somatic dysfunction of lum bar region May 01, 2025 8:58am Segmental and somatic dysfunction of sac ral region May 01, 2025 8:58am Segmental and somatic dysfunction of tho racic region May 01, 2025 8:58am Marijuana use May 09, 2025 10:47am Obesity affecting May 10:47am May 09, 2025 10:47am Segmental and somatic dysfunction of cer vical region May 09, 2025 10:47am Segmental and somatic dysfunction of lum bar region May 09, 2025 10:47am Segmental and somatic dysfunction of [place] region May 09, 2025 10:47am Segmental and somatic dysfunction of sac ral region May 09, 2025 10:47am Segmental and somatic dysfunction of tho racic region May 09, 2025 10:47am Supervision of normal first Se ptember 2024 10:47am Marijuana use May 23, 2025 11:14am Obesity affecting May 232024 11:14am May 23, 2025 11:14am Segmental and somatic dysfunction of cer vical region May 23, 2025 11:14am Segmental and somatic dysfunction of lum bar region May 23, 2025 11:14am Segmental and somatic dysfunction of [place] region May 23, 2025 11:14am Segmental and somatic dysfunction of sac ral region May 23, 2025 11:14am Segmental and somatic dysfunction of tho racic region May 23, 2025 11:14am Supervision of normal first Se ptember 2024 11:14am 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 Admit Date 14 wk OB February 13, 2025 9:34 am ADJUSTMENT March 05, 2025 7:57a m 18wk ob March 12, 2025 2:47p m ANATOMY March 26, 2025 3:24 pm ADJUSTMENT April 03, 2025 8:00 am 22 wk ob April 09, 2025 2:0 7pm ADJUSTMENT May 01, 2025 8: 58am 26 wk ob May 09, 2025 10:47am LOW LYING [place] May 21, 2025 4:12pm 28 WK OB May 23, 2025 11:14am ADJUSTMENT May 27, 2025 1:27pm Reason for Visit Admit Date Marijuana use February 13, 2025 9:34 am Obesity affecting February 13, 2 025 9:34am February 13, 2025 9:34 am Supervision of normal first Ju ne 2024 9:34am Acne February 13, 2025 9:34 am Dysmenorrhea February 13, 2025 9:34 am Amenorrhea February 13, 2025 9:34 am Segmental and somatic dysfunction of cer vical region March 05, 2025 7:57am Segmental and somatic dysfunction of lum bar region March 05, 2025 7:57am Segmental and somatic dysfunction of sac ral region March 05, 2025 7:57am Segmental and somatic dysfunction of tho racic region March 05, 2025 7:57am Marijuana use March 12, 2025 2:47p m Obesity affecting March 12 2:47pm March 12, 2025 2:47p m Supervision of normal first Ju 2024 2:47pm Segmental and somatic dysfunction of cer vical region April 03, 2025 8:00am Segmental and somatic dysfunction of lum bar region April 03, 2025 8:00am Segmental and somatic dysfunction of sac ral region April 03, 2025 8:00am Segmental and somatic dysfunction of tho racic region April 03, 2025 8:00am Marijuana use April 09, 2025 2:0 7pm Obesity affecting April 09, 2025 2:07pm April 09, 2025 2:0 7pm Segmental and somatic dysfunction of cer vical region April 09, 2025 2:07pm Segmental and somatic dysfunction of lum bar region April 09, 2025 2:07pm Segmental and somatic dysfunction of [place] region April 09, 2025 2:07pm Segmental and somatic dysfunction of sac ral region April 09, 2025 2:07pm Segmental and somatic dysfunction of tho racic region April 09, 2025 2:07pm Supervision of normal first Au 2024 2:07pm May 01, 2025 8: 58am Segmental and somatic dysfunction of cer vical region May 01, 2025 8:58am Segmental and somatic dysfunction of lum bar region May 01, 2025 8:58am Segmental and somatic dysfunction of sac ral region May 01, 2025 8:58am Segmental and somatic dysfunction of tho racic region May 01, 2025 8:58am Marijuana use May 09, 2025 10:47am Obesity affecting May 10:47am May 09, 2025 10:47am Segmental and somatic dysfunction of cer vical region May 09, 2025 10:47am Segmental and somatic dysfunction of lum bar region May 09, 2025 10:47am Segmental and somatic dysfunction of [place] region May 09, 2025 10:47am Segmental and somatic dysfunction of sac ral region May 09, 2025 10:47am Segmental and somatic dysfunction of tho racic region May 09, 2025 10:47am Supervision of normal first Se ptember 2024 10:47am Marijuana use May 23, 2025 11:14am Obesity affecting May 232024 11:14am May 23, 2025 11:14am Segmental and somatic dysfunction of cer vical region May 23, 2025 11:14am Segmental and somatic dysfunction of lum bar region May 23, 2025 11:14am Segmental and somatic dysfunction of pel [place] region May 23, 2025 11:14am Segmental and somatic dysfunction of sac ral region May 23, 2025 11:14am Segmental and somatic dysfunction of tho racic region May 23, 2025 11:14am Supervision of normal first Se ptember 2024 11:14am Segmental and somatic dysfunction of cer vical region May 27, 2025 1:27pm Segmental and somatic dysfunction of lum bar region May 27, 2025 1:27pm Segmental and somatic dysfunction of [place] region May 27, 2025 1:27pm Segmental and somatic dysfunction of sac ral region May 27, 2025 1:27pm Segmental and somatic dysfunction of tho racic region May 27, 2025 1:27pm 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 Admit Date 14 wk OB February 13, 2025 9:34 am ADJUSTMENT March 05, 2025 7:57a m 18wk ob March 12, 2025 2:47p m ANATOMY March 26, 2025 3:24 pm ADJUSTMENT April 03, 2025 8:00 am 22 wk ob April 09, 2025 2:0 7pm ADJUSTMENT May 01, 2025 8: 58am 26 wk ob May 09, 2025 10:47am LOW LYING [place] May 21, 2025 4:12pm 28 WK OB May 23, 2025 11:14am ADJUSTMENT May 27, 2025 1:27pm 30 WK OB June 05, 2025 2: 46pm Reason for Visit Admit Date Marijuana use February 13, 2025 9:34 am Obesity affecting February 13, 2 025 9:34am February 13, 2025 9:34 am Supervision of normal first Ju ne 2024 9:34am Acne February 13, 2025 9:34 am Dysmenorrhea February 13, 2025 9:34 am Amenorrhea February 13, 2025 9:34 am Segmental and somatic dysfunction of cer vical region March 05, 2025 7:57am Segmental and somatic dysfunction of lum bar region March 05, 2025 7:57am Segmental and somatic dysfunction of sac ral region March 05, 2025 7:57am Segmental and somatic dysfunction of tho racic region March 05, 2025 7:57am Marijuana use March 12, 2025 2:47p m Obesity affecting March 12 2:47pm March 12, 2025 2:47p m Supervision of normal first Ju 2024 2:47pm Segmental and somatic dysfunction of cer vical region April 03, 2025 8:00am Segmental and somatic dysfunction of lum bar region April 03, 2025 8:00am Segmental and somatic dysfunction of sac ral region April 03, 2025 8:00am Segmental and somatic dysfunction of tho racic region April 03, 2025 8:00am Marijuana use April 09, 2025 2:0 7pm Obesity affecting April 09, 2025 2:07pm April 09, 2025 2:0 7pm Segmental and somatic dysfunction of cer vical region April 09, 2025 2:07pm Segmental and somatic dysfunction of lum bar region April 09, 2025 2:07pm Segmental and somatic dysfunction of [place] region April 09, 2025 2:07pm Segmental and somatic dysfunction of sac ral region April 09, 2025 2:07pm Segmental and somatic dysfunction of tho racic region April 09, 2025 2:07pm Supervision of normal first Au 2024 2:07pm May 01, 2025 8: 58am Segmental and somatic dysfunction of cer vical region May 01, 2025 8:58am Segmental and somatic dysfunction of lum bar region May 01, 2025 8:58am Segmental and somatic dysfunction of sac ral region May 01, 2025 8:58am Segmental and somatic dysfunction of tho racic region May 01, 2025 8:58am Marijuana use May 09, 2025 10:47am Obesity affecting May 10:47am May 09, 2025 10:47am Segmental and somatic dysfunction of cer vical region May 09, 2025 10:47am Segmental and somatic dysfunction of lum bar region May 09, 2025 10:47am Segmental and somatic dysfunction of [place] region May 09, 2025 10:47am Segmental and somatic dysfunction of sac ral region May 09, 2025 10:47am Segmental and somatic dysfunction of tho racic region May 09, 2025 10:47am Supervision of normal first Se ptember 2024 10:47am Marijuana use May 23, 2025 11:14am Obesity affecting May 232024 11:14am May 23, 2025 11:14am Segmental and somatic dysfunction of cer vical region May 23, 2025 11:14am Segmental and somatic dysfunction of lum bar region May 23, 2025 11:14am Segmental and somatic dysfunction of [place] region May 23, 2025 11:14am Segmental and somatic dysfunction of sac ral region May 23, 2025 11:14am Segmental and somatic dysfunction of tho racic region May 23, 2025 11:14am Supervision of normal first Se ptember 2024 11:14am Segmental and somatic dysfunction of cer vical region May 27, 2025 1:27pm Segmental and somatic dysfunction of lum bar region May 27, 2025 1:27pm Segmental and somatic dysfunction of [place] region May 27, 2025 1:27pm Segmental and somatic dysfunction of sac ral region May 27, 2025 1:27pm Segmental and somatic dysfunction of tho racic region May 27, 2025 1:27pm Marijuana use June 05, 2025 2: 46pm Obesity affecting June 05, 2025 2:46pm June 05, 2025 2: 46pm Segmental and somatic dysfunction of cer vical region June 05, 2025 2:46pm Segmental and somatic dysfunction of lum bar region June 05, 2025 2:46pm Segmental and somatic dysfunction of [place] region June 05, 2025 2:46pm Segmental and somatic dysfunction of sac ral region June 05, 2025 2:46pm Segmental and somatic dysfunction of tho racic region June 05, 2025 2:46pm Supervision of normal first Oc tober 2024 2:46pm 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 Admit Date ADJUSTMENT March 05, 2025 7:57a m 18wk ob March 12, 2025 2:47p m ANATOMY March 26, 2025 3:24 pm ADJUSTMENT April 03, 2025 8:00 am 22 wk ob April 09, 2025 2:0 7pm ADJUSTMENT May 01, 2025 8: 58am 26 wk ob May 09, 2025 10:47am LOW LYING [place] May 21, 2025 4:12pm 28 WK OB May 23, 2025 11:14am ADJUSTMENT May 27, 2025 1:27pm 30 WK OB June 05, 2025 2: 46pm 32 WK OB June 17, 2025 2 :17pm ADJUSTMENT June 24, 2025 1 2:57pm Reason for Visit Admit Date Segmental and somatic dysfunction of cer vical region March 05, 2025 7:57am Segmental and somatic dysfunction of lum bar region March 05, 2025 7:57am Segmental and somatic dysfunction of sac ral region March 05, 2025 7:57am Segmental and somatic dysfunction of tho racic region March 05, 2025 7:57am Marijuana use March 12, 2025 2:47p m Obesity affecting March 12 2:47pm March 12, 2025 2:47p m Supervision of normal first Ju ly 2024 2:47pm Segmental and somatic dysfunction of cer vical region April 03, 2025 8:00am Segmental and somatic dysfunction of lum bar region April 03, 2025 8:00am Segmental and somatic dysfunction of sac ral region April 03, 2025 8:00am Segmental and somatic dysfunction of tho racic region April 03, 2025 8:00am Marijuana use April 09, 2025 2:0 7pm Obesity affecting April 09, 2025 2:07pm April 09, 2025 2:0 7pm Segmental and somatic dysfunction of cer vical region April 09, 2025 2:07pm Segmental and somatic dysfunction of lum bar region April 09, 2025 2:07pm Segmental and somatic dysfunction of [place] region April 09, 2025 2:07pm Segmental and somatic dysfunction of sac ral region April 09, 2025 2:07pm Segmental and somatic dysfunction of tho racic region April 09, 2025 2:07pm Supervision of normal first Au 2024 2:07pm May 01, 2025 8: 58am Segmental and somatic dysfunction of cer vical region May 01, 2025 8:58am Segmental and somatic dysfunction of lum bar region May 01, 2025 8:58am Segmental and somatic dysfunction of sac ral region May 01, 2025 8:58am Segmental and somatic dysfunction of tho racic region May 01, 2025 8:58am Marijuana use May 09, 2025 10:47am Obesity affecting May 10:47am May 09, 2025 10:47am Segmental and somatic dysfunction of cer vical region May 09, 2025 10:47am Segmental and somatic dysfunction of lum bar region May 09, 2025 10:47am Segmental and somatic dysfunction of [place] region May 09, 2025 10:47am Segmental and somatic dysfunction of sac ral region May 09, 2025 10:47am Segmental and somatic dysfunction of tho racic region May 09, 2025 10:47am Supervision of normal first Se ptember 2024 10:47am Marijuana use May 23, 2025 11:14am Obesity affecting May 232024 11:14am May 23, 2025 11:14am Segmental and somatic dysfunction of cer vical region May 23, 2025 11:14am Segmental and somatic dysfunction of lum bar region May 23, 2025 11:14am Segmental and somatic dysfunction of [place] region May 23, 2025 11:14am Segmental and somatic dysfunction of sac ral region May 23, 2025 11:14am Segmental and somatic dysfunction of tho racic region May 23, 2025 11:14am Supervision of normal first Se ptember 2024 11:14am Segmental and somatic dysfunction of cer vical region May 27, 2025 1:27pm Segmental and somatic dysfunction of lum bar region May 27, 2025 1:27pm Segmental and somatic dysfunction of [place] region May 27, 2025 1:27pm Segmental and somatic dysfunction of sac ral region May 27, 2025 1:27pm Segmental and somatic dysfunction of tho racic region May 27, 2025 1:27pm Marijuana use June 05, 2025 2: 46pm Obesity affecting June 05, 2025 2:46pm June 05, 2025 2: 46pm Segmental and somatic dysfunction of cer vical region June 05, 2025 2:46pm Segmental and somatic dysfunction of lum bar region June 05, 2025 2:46pm Segmental and somatic dysfunction of [place] region June 05, 2025 2:46pm Segmental and somatic dysfunction of sac ral region June 05, 2025 2:46pm Segmental and somatic dysfunction of tho racic region June 05, 2025 2:46pm Supervision of normal first Oc tober 2024 2:46pm Marijuana use June 17, 2025 2 :17pm Obesity affecting June 2:17pm June 17, 2025 2 :17pm Segmental and somatic dysfunction of cer vical region June 17, 2025 2:17pm Segmental and somatic dysfunction of lum bar region June 17, 2025 2:17pm Segmental and somatic dysfunction of [place] region June 17, 2025 2:17pm Segmental and somatic dysfunction of sac ral region June 17, 2025 2:17pm Segmental and somatic dysfunction of tho racic region June 17, 2025 2:17pm Supervision of normal first Oc tober 2024 2:17pm June 24, 2025 1 2:57pm Segmental and somatic dysfunction of cer vical region June 24, 2025 12:57pm Segmental and somatic dysfunction of lum bar region June 24, 2025 12:57pm Segmental and somatic dysfunction of sac ral region June 24, 2025 12:57pm Segmental and somatic dysfunction of tho racic region June 24, 2025 12:57pm 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 Admit Date ANATOMY March 26, 2025 3:24 pm ADJUSTMENT April 03, 2025 8:00 am 22 wk ob April 09, 2025 2:0 7pm ADJUSTMENT May 01, 2025 8: 58am 26 wk ob May 09, 2025 10:47am LOW LYING [place] May 21, 2025 4:12pm 28 WK OB May 23, 2025 11:14am ADJUSTMENT May 27, 2025 1:27pm 30 WK OB June 05, 2025 2: 46pm 32 WK OB June 17, 2025 2 :17pm ADJUSTMENT June 24, 2025 1 2:57pm 34wk ob July 05, 2025 3 :42pm ADJUSTMENT July 09, 2025 1 2:58pm Reason for Visit Admit Date Segmental and somatic dysfunction of cer vical region April 03, 2025 8:00am Segmental and somatic dysfunction of lum bar region April 03, 2025 8:00am Segmental and somatic dysfunction of sac ral region April 03, 2025 8:00am Segmental and somatic dysfunction of tho racic region April 03, 2025 8:00am Marijuana use April 09, 2025 2:0 7pm Obesity affecting April 09, 2025 2:07pm April 09, 2025 2:0 7pm Segmental and somatic dysfunction of cer vical region April 09, 2025 2:07pm Segmental and somatic dysfunction of lum bar region April 09, 2025 2:07pm Segmental and somatic dysfunction of [place] region April 09, 2025 2:07pm Segmental and somatic dysfunction of sac ral region April 09, 2025 2:07pm Segmental and somatic dysfunction of tho racic region April 09, 2025 2:07pm Supervision of normal first Au 2024 2:07pm May 01, 2025 8: 58am Segmental and somatic dysfunction of cer vical region May 01, 2025 8:58am Segmental and somatic dysfunction of lum bar region May 01, 2025 8:58am Segmental and somatic dysfunction of sac ral region May 01, 2025 8:58am Segmental and somatic dysfunction of tho racic region May 01, 2025 8:58am Marijuana use May 09, 2025 10:47am Obesity affecting May 10:47am May 09, 2025 10:47am Segmental and somatic dysfunction of cer vical region May 09, 2025 10:47am Segmental and somatic dysfunction of lum bar region May 09, 2025 10:47am Segmental and somatic dysfunction of [place] region May 09, 2025 10:47am Segmental and somatic dysfunction of sac ral region May 09, 2025 10:47am Segmental and somatic dysfunction of tho racic region May 09, 2025 10:47am Supervision of normal first Se pt2024 10:47am Marijuana use May 23, 2025 11:14am Obesity affecting May 232024 11:14am May 23, 2025 11:14am Segmental and somatic dysfunction of cer vical region May 23, 2025 11:14am Segmental and somatic dysfunction of lum bar region May 23, 2025 11:14am Segmental and somatic dysfunction of [place] region May 23, 2025 11:14am Segmental and somatic dysfunction of sac ral region May 23, 2025 11:14am Segmental and somatic dysfunction of tho racic region May 23, 2025 11:14am Supervision of normal first Se ptember 2024 11:14am Segmental and somatic dysfunction of cer vical region May 27, 2025 1:27pm Segmental and somatic dysfunction of lum bar region May 27, 2025 1:27pm Segmental and somatic dysfunction of [place] region May 27, 2025 1:27pm Segmental and somatic dysfunction of sac ral region May 27, 2025 1:27pm Segmental and somatic dysfunction of tho racic region May 27, 2025 1:27pm Marijuana use June 05, 2025 2: 46pm Obesity affecting June 05, 2025 2:46pm June 05, 2025 2: 46pm Segmental and somatic dysfunction of cer vical region June 05, 2025 2:46pm Segmental and somatic dysfunction of lum bar region June 05, 2025 2:46pm Segmental and somatic dysfunction of [place] region June 05, 2025 2:46pm Segmental and somatic dysfunction of sac ral region June 05, 2025 2:46pm Segmental and somatic dysfunction of tho racic region June 05, 2025 2:46pm Supervision of normal first Oc tober 2024 2:46pm Marijuana use June 17, 2025 2 :17pm Obesity affecting June 2:17pm June 17, 2025 2 :17pm Segmental and somatic dysfunction of cer vical region June 17, 2025 2:17pm Segmental and somatic dysfunction of lum bar region June 17, 2025 2:17pm Segmental and somatic dysfunction of [place] region June 17, 2025 2:17pm Segmental and somatic dysfunction of sac ral region June 17, 2025 2:17pm Segmental and somatic dysfunction of tho racic region June 17, 2025 2:17pm Supervision of normal first Oc tober 2024 2:17pm June 24, 2025 1 2:57pm Segmental and somatic dysfunction of cer vical region June 24, 2025 12:57pm Segmental and somatic dysfunction of lum bar region June 24, 2025 12:57pm Segmental and somatic dysfunction of sac ral region June 24, 2025 12:57pm Segmental and somatic dysfunction of tho racic region June 24, 2025 12:57pm Marijuana use July 05, 2025 3 :42pm Obesity affecting June 3:42pm July 05, 2025 3 :42pm Segmental and somatic dysfunction of cer vical region July 05, 2025 3:42pm Segmental and somatic dysfunction of lum bar region July 05, 2025 3:42pm Segmental and somatic dysfunction of [place] region July 05, 2025 3:42pm Segmental and somatic dysfunction of sac ral region July 05, 2025 3:42pm Segmental and somatic dysfunction of tho racic region July 05, 2025 3:42pm Supervision of normal first Oc tober 2024 3:42pm July 09, 2025 1 2:58pm Segmental and somatic dysfunction of cer vical region July 09, 2025 12:58pm Segmental and somatic dysfunction of lum bar region July 09, 2025 12:58pm Segmental and somatic dysfunction of sac ral region July 09, 2025 12:58pm Segmental and somatic dysfunction of tho racic region July 09, 2025 12:58pm Additional Source Comments Source Comments (unrecognize d section and content) In the event this informatio n is protected by the Federal Confidentiality of Alcohol and Drug Abuse Patient Records regulations: The Federal rules restrict any use of the information to criminally investigate or prosecute any alcohol or drug abuse patient.[facility] Center[facility] the event this information is protected by the Federal Confidentiality of Alcohol and Drug Abuse Patient Records regulations: The Federal rules restrict any use of the information to criminally investigate or prosecute any alcohol or drug abuse patient.[facility] Center[facility] the event this information is protected by the Federal Confidentiality of Alcohol and Drug Abuse Patient Records regulations: The Federal rules restrict any use of the information to criminally investigate or prosecute any alcohol or drug abuse patient.[facility] Reason for Visit (unrecogniz ed section and content) Reason Comments Allergies ongoing seasonal all ergies progressing, uses OTC but having trouble finding correct medication Specialty Diagnoses / Procedures Referred By Contrico t Referred To Contact Pediatrics / PEDIATRICS Diagnoses ALLERGIES Procedures 4C EST Isi Justice MD [address] [place] [address] Isi Justice MD [address] [place] [address] Referral ID Status Reason Start Date Expiration Date Visits Re quested Visits Authorized [id number] Closed 01/20/2022 04/20/2022 1 1 Reason Comments New Patient allergy consult Specialty Diagnoses / Procedures Referred By Contrico t Referred To Contact Allergy Diagnoses Seasonal allergies Procedures CONSULT TO ALLERGY/IMMUNOLOGY OFFICE/OUTPATIENT NEW HIGH MDM 60-74 MINUTES Isi Justice MD [address] [place] [id number] Referral ID Status Reason Start Date Expiration Date V isits Requested Visits Authorized [id number] Closed PCP Requested Referral 01/20/2022 01/20/2023 1 1 Reason Comments Sore Throat Onset on 01/12, diagn osed with strep per provider on 01/13 (testing was not done per patient)-Throat worse in the mornings and still bothering her. She has had a follow up strep testing that was negative. Fatigue Has been feeling dr guerra fatigued since 01/12 at the onset of illness. Has been having intermittent low grade fevers. Lymph node changes Has been having some soreness in lymph nodes and possible swollen at times per patient. decreased appetite Has been having decr ease in appetite with current illness symptoms Care Teams (unrecognized sec tion and content) Juvenile Justice Specialist Relationship Specialty Start Date End Date Isi Justice MD [address] [facility], [place] [id number] PCP - General Pediatrics 07/31/18 Juvenile Justice Specialist Relationship Specialty Start Date End Date Isi Justice MD [address] [place] [place] [address] PCP - General Pediatrics 07/31/18 Team Status: Active Member Role Status Dates Dr. Isi Justice MD Family Provider Active Dr. Isi Justice MD Primary Care Provider Active Team Status: Inactive Member Role Status Dates Dr. Isi Justice MD Primary Care Provider Active Start: November 27, 2024 End: November 27, 2024 Dr. Isi Justice MD Referring Provider Active Start: November 27, 2024 End: November 27, 2024 Yahaira Juarez SPLITTER HEAD, SPLITTER HEAD-C Attending Provider Active Start: November 27, 2024 End: November 27, 2024 Team Status: Inactive Member Role Status Dates Dr. Isi Justice MD Primary Care Provider Active Start: November 27, 2024 End: November 27, 2024 Yahaira Juarez SPLITTER HEAD, SPLITTER HEAD-C Attending Provider Active Start: November 27, 2024 End: November 27, 2024 Yahaira Juarez SPLITTER HEAD, SPLITTER HEAD-C Referring Provider Active Start: November 27, 2024 End: November 27, 2024 Team Status: Inactive Member Role Status Dates Dr. Isi Justice MD Primary Care Provider Active Start: December 18, 2024 End: December 18, 2024 Dr. Isi Justice MD Referring Provider Active Start: December 18, 2024 End: December 18, 2024 Yahaira Juarez SPLITTER HEAD, SPLITTER HEAD-C Attending Provider Active Start: December 18, 2024 End: December 18, 2024 Team Status: Inactive Member Role Status Dates Dr. Isi Justice MD Primary Care Provider Active Start: December 31, 2024 End: December 31, 2024 Dr. Isi Justice MD Referring Provider Active Start: December 31, 2024 End: December 31, 2024 Dr. Nida Martinez DC Attending Provider Active S tart: December 31, 2024 End: December 31, 2024 Team Status: Inactive Member Role Status Dates Dr. Isi Justice MD Primary Care Provider Active Start: January 10, 2025 End: January 10, 2025 Dr. Isi Justice MD Referring Provider Active Start: January 10, 2025 End: January 10, 2025 Dr. Eugenia Moncada DO Attending Provider Activ e Start: January 10, 2025 End: January 10, 2025 Team Status: Inactive Member Role Status Dates Dr. Isi Justice MD Primary Care Provider Active Start: January 10, 2025 End: January 10, 2025 Yahaira Juarez SPLITTER HEAD, SPLITTER HEAD-C Attending Provider Active Start: January 10, 2025 End: January 10, 2025 Yahaira Juarez SPLITTER HEAD, SPLITTER HEAD-C Referring Provider Active Start: January 10, 2025 End: January 10, 2025 Team Status: Inactive Member Role Status Dates Dr. Isi Justice MD Primary Care Provider Active Start: January 21, 2025 End: January 21, 2025 Dr. Viki Case MD Attending Provider Active Start: January 21, 2025 End: January 21, 2025 Dr. Viki Case MD Referring Provider Active Start: January 21, 2025 End: January 21, 2025 Yahaira Juarez SPLITTER HEAD, SPLITTER HEAD-C Other Provider Active St art: January 21, 2025 End: January 21, 2025 Team Status: Inactive Member Role Status Dates Dr. Isi Justice MD Primary Care Provider Active Start: January 29, 2025 End: January 29, 2025 Dr. Isi Justice MD Referring Provider Active Start: January 29, 2025 End: January 29, 2025 Dr. Nida Martinez DC Attending Provider Active S tart: January 29, 2025 End: January 29, 2025 Team Status: Inactive Member Role Status Dates Dr. Isi Justice MD Primary Care Provider Active Start: February 13, 2025 End: February 13, 2025 Dr. Isi Justice MD Referring Provider Active Start: February 13, 2025 End: February 13, 2025 Dr. Eugenia Moncada DO Attending Provider Activ e Start: February 13, 2025 End: February 13, 2025 Team Status: Active Member Role/Relationship Status Dates Dr. Isi Justcie MD Primary Care Provider Active Team Status: Inactive Member Role/Relationship Status Dates Dr. Isi Justice MD Primary Care Provider Active Start: November 27, 2024 End: November 27, 2024 Dr. Isi Justice MD Referring Provider Active Start: November 27, 2024 End: November 27, 2024 Yahaira Juarez SPLITTER HEAD, SPLITTER HEAD-C Attending Provider Active Start: November 27, 2024 End: November 27, 2024 Team Status: Inactive Member Role/Relationship Status Dates Dr. Isi Justice MD Primary Care Provider Active Start: November 27, 2024 End: November 27, 2024 Yahaira Juarez SPLITTER HEAD, SPLITTER HEAD-C Attending Provider Active Start: November 27, 2024 End: November 27, 2024 Yahaira Juarez SPLITTER HEAD, SPLITTER HEAD-C Referring Provider Active Start: November 27, 2024 End: November 27, 2024 Team Status: Inactive Member Role/Relationship Status Dates Dr. Isi Justice MD Primary Care Provider Active Start: December 18, 2024 End: December 18, 2024 Dr. Isi Justice MD Referring Provider Active Start: December 18, 2024 End: December 18, 2024 Yahaira Juarez SPLITTER HEAD, SPLITTER HEAD-C Attending Provider Active Start: December 18, 2024 End: December 18, 2024 Team Status: Inactive Member Role/Relationship Status Dates Dr. Isi Justice MD Primary Care Provider Active Start: December 31, 2024 End: December 31, 2024 Dr. Isi Justice MD Referring Provider Active Start: December 31, 2024 End: December 31, 2024 Dr. Nida Martinez DC Attending Provider Active S tart: December 31, 2024 End: December 31, 2024 Team Status: Inactive Member Role/Relationship Status Dates Dr. Isi Justice MD Primary Care Provider Active Start: January 10, 2025 End: January 10, 2025 Dr. Isi Justice MD Referring Provider Active Start: January 10, 2025 End: January 10, 2025 Dr. Eugenia Moncada DO Attending Provider Activ e Start: January 10, 2025 End: January 10, 2025 Team Status: Inactive Member Role/Relationship Status Dates Dr. Isi Justice MD Primary Care Provider Active Start: January 10, 2025 End: January 10, 2025 Yahaira Juarez SPLITTER HEAD, SPLITTER HEAD-C Attending Provider Active Start: January 10, 2025 End: January 10, 2025 Yahaira Juarez SPLITTER HEAD, SPLITTER HEAD-C Referring Provider Active Start: January 10, 2025 End: January 10, 2025 Team Status: Inactive Member Role/Relationship Status Dates Dr. Isi Justice MD Primary Care Provider Active Start: January 21, 2025 End: January 21, 2025 Dr. Viki Case MD Attending Provider Active Start: January 21, 2025 End: January 21, 2025 Dr. Viki Case MD Referring Provider Active Start: January 21, 2025 End: January 21, 2025 Yahaira Juarez SPLITTER HEAD, SPLITTER HEAD-C Other Provider Active St art: January 21, 2025 End: January 21, 2025 Team Status: Inactive Member Role/Relationship Status Dates Dr. Isi Justice MD Primary Care Provider Active Start: January 29, 2025 End: January 29, 2025 Dr. Isi Justice MD Referring Provider Active Start: January 29, 2025 End: January 29, 2025 Dr. Nida Martinez DC Attending Provider Active S tart: January 29, 2025 End: January 29, 2025 Team Status: Inactive Member Role/Relationship Status Dates Dr. Isi Justice MD Primary Care Provider Active Start: February 13, 2025 End: February 13, 2025 Dr. Isi Justice MD Referring Provider Active Start: February 13, 2025 End: February 13, 2025 Dr. Eugenia Moncada DO Attending Provider Activ e Start: February 13, 2025 End: February 13, 2025 Team Status: Inactive Member Role/Relationship Status Dates Dr. Isi Justice MD Primary Care Provider Active Start: March 05, 2025 End: March 05, 2025 Dr. Isi Justice MD Referring Provider Active Start: March 05, 2025 End: March 05, 2025 Dr. Nida Martinez DC Attending Provider Active S tart: March 05, 2025 End: March 05, 2025 Team Status: Inactive Member Role/Relationship Status Dates Dr. Isi Justice MD Primary Care Provider Active Start: March 12, 2025 End: March 12, 2025 Dr. Isi Justice MD Referring Provider Active Start: March 12, 2025 End: March 12, 2025 Yahaira Juarez SPLITTER HEAD, SPLITTER HEAD-C Attending Provider Active Start: March 12, 2025 End: March 12, 2025 Team Status: Inactive Member Role/Relationship Status Dates Dr. Isi Justice MD Primary Care Provider Active Start: December 18, 2024 End: December 18, 2024 Dr. Isi Justice MD Referring Provider Active Start: December 18, 2024 End: December 18, 2024 Yahaira Juarez SPLITTER HEAD, SPLITTER HEAD-C Attending Provider Active Start: December 18, 2024 End: December 18, 2024 Team Status: Inactive Member Role/Relationship Status Dates Dr. Isi Justice MD Primary Care Provider Active Start: December 31, 2024 End: December 31, 2024 Dr. Isi Justice MD Referring Provider Active Start: December 31, 2024 End: December 31, 2024 Dr. Nida Martinez DC Attending Provider Active S tart: December 31, 2024 End: December 31, 2024 Team Status: Inactive Member Role/Relationship Status Dates Dr. Isi Justice MD Primary Care Provider Active Start: January 10, 2025 End: January 10, 2025 Dr. Isi Justice MD Referring Provider Active Start: January 10, 2025 End: January 10, 2025 Dr. Eugenia Moncada DO Attending Provider Activ e Start: January 10, 2025 End: January 10, 2025 Team Status: Inactive Member Role/Relationship Status Dates Dr. Isi Justice MD Primary Care Provider Active Start: January 10, 2025 End: January 10, 2025 Yahaira Juarez SPLITTER HEAD, SPLITTER HEAD-C Attending Provider Active Start: January 10, 2025 End: January 10, 2025 Yahaira Juarez SPLITTER HEAD, SPLITTER HEAD-C Referring Provider Active Start: January 10, 2025 End: January 10, 2025 Team Status: Inactive Member Role/Relationship Status Dates Dr. Isi Justice MD Primary Care Provider Active Start: January 21, 2025 End: January 21, 2025 Dr. Viki Case MD Attending Provider Active Start: January 21, 2025 End: January 21, 2025 Dr. Viki Case MD Referring Provider Active Start: January 21, 2025 End: January 21, 2025 Yahaira Juarez SPLITTER HEAD, SPLITTER HEAD-C Other Provider Active St art: January 21, 2025 End: January 21, 2025 Team Status: Inactive Member Role/Relationship Status Dates Dr. Isi Justiec MD Primary Care Provider Active Start: January 29, 2025 End: January 29, 2025 Dr. Isi Justice MD Referring Provider Active Start: January 29, 2025 End: January 29, 2025 Dr. Nida Martinez DC Attending Provider Active S tart: January 29, 2025 End: January 29, 2025 Team Status: Inactive Member Role/Relationship Status Dates Dr. Isi Justice MD Primary Care Provider Active Start: February 13, 2025 End: February 13, 2025 Dr. Isi Justice MD Referring Provider Active Start: February 13, 2025 End: February 13, 2025 Dr. Eugenia Moncada DO Attending Provider Activ e Start: February 13, 2025 End: February 13, 2025 Team Status: Inactive Member Role/Relationship Status Dates Dr. Isi Justice MD Primary Care Provider Active Start: March 05, 2025 End: March 05, 2025 Dr. Isi Justice MD Referring Provider Active Start: March 05, 2025 End: March 05, 2025 Dr. Nida Martinez DC Attending Provider Active S tart: March 05, 2025 End: March 05, 2025 Team Status: Inactive Member Role/Relationship Status Dates Dr. Isi Justice MD Primary Care Provider Active Start: March 12, 2025 End: March 12, 2025 Dr. Isi Justice MD Referring Provider Active Start: March 12, 2025 End: March 12, 2025 Yahaira Juarez SPLITTER HEAD, SPLITTER HEAD-C Attending Provider Active Start: March 12, 2025 End: March 12, 2025 Team Status: Inactive Member Role/Relationship Status Dates Dr. Isi Justice MD Primary Care Provider Active Start: March 26, 2025 End: March 26, 2025 Dr. Eugenia Moncada DO Attending Provider Activ e Start: March 26, 2025 End: March 26, 2025 Dr. Eugenia Moncada DO Referring Provider Activ e Start: March 26, 2025 End: March 26, 2025 Team Status: Inactive Member Role/Relationship Status Dates Dr. Isi Justice MD Primary Care Provider Active Start: April 03, 2025 End: April 03, 2025 Dr. Isi Justice MD Referring Provider Active Start: April 03, 2025 End: April 03, 2025 Dr. Nida Martinez DC Attending Provider Active S tart: April 03, 2025 End: April 03, 2025 Team Status: Inactive Member Role/Relationship Status Dates Dr. Isi Justice MD Primary Care Provider Active Start: April 09, 2025 End: April 09, 2025 Dr. Isi Justice MD Referring Provider Active Start: April 09, 2025 End: April 09, 2025 Gabriela Taveras CNM Attending Provider Active S tart: April 09, 2025 End: April 09, 2025 Team Status: Inactive Member Role/Relationship Status Dates Dr. Isi Justice MD Primary Care Provider Active Start: January 10, 2025 End: January 10, 2025 Dr. Isi Justice MD Referring Provider Active Start: January 10, 2025 End: January 10, 2025 Dr. Eugenia Moncada DO Attending Provider Activ e Start: January 10, 2025 End: January 10, 2025 Team Status: Inactive Member Role/Relationship Status Dates Dr. Isi Justice MD Primary Care Provider Active Start: January 10, 2025 End: January 10, 2025 Yahaira Juarez SPLITTER HEAD, SPLITTER HEAD-C Attending Provider Active Start: January 10, 2025 End: January 10, 2025 Yahaira Juarez SPLITTER HEAD, SPLITTER HEAD-C Referring Provider Active Start: January 10, 2025 End: January 10, 2025 Team Status: Inactive Member Role/Relationship Status Dates Dr. Isi Jutsice MD Primary Care Provider Active Start: January 21, 2025 End: January 21, 2025 Dr. Viki Case MD Attending Provider Active Start: January 21, 2025 End: January 21, 2025 Dr. Viki Case MD Referring Provider Active Start: January 21, 2025 End: January 21, 2025 Yahaira Juarez SPLITTER HEAD, SPLITTER HEAD-C Other Provider Active St art: January 21, 2025 End: January 21, 2025 Team Status: Inactive Member Role/Relationship Status Dates Dr. Isi Justice MD Primary Care Provider Active Start: January 29, 2025 End: January 29, 2025 Dr. Isi Justice MD Referring Provider Active Start: January 29, 2025 End: January 29, 2025 Dr. Nida Martinez DC Attending Provider Active S tart: January 29, 2025 End: January 29, 2025 Team Status: Inactive Member Role/Relationship Status Dates Dr. Isi Justice MD Primary Care Provider Active Start: February 13, 2025 End: February 13, 2025 Dr. Isi Justice MD Referring Provider Active Start: February 13, 2025 End: February 13, 2025 Dr. Eugenia Moncada DO Attending Provider Activ e Start: February 13, 2025 End: February 13, 2025 Team Status: Inactive Member Role/Relationship Status Dates Dr. Isi Justice MD Primary Care Provider Active Start: March 05, 2025 End: March 05, 2025 Dr. Isi Justice MD Referring Provider Active Start: March 05, 2025 End: March 05, 2025 Dr. Nida Martinez DC Attending Provider Active S tart: March 05, 2025 End: March 05, 2025 Team Status: Inactive Member Role/Relationship Status Dates Dr. Isi Justice MD Primary Care Provider Active Start: March 12, 2025 End: March 12, 2025 Dr. Isi Justice MD Referring Provider Active Start: March 12, 2025 End: March 12, 2025 Yahaira Juarez SPLITTER HEAD, SPLITTER HEAD-C Attending Provider Active Start: March 12, 2025 End: March 12, 2025 Team Status: Inactive Member Role/Relationship Status Dates Dr. Isi Justice MD Primary Care Provider Active Start: March 26, 2025 End: March 26, 2025 Dr. Eugenia Moncada DO Attending Provider Activ e Start: March 26, 2025 End: March 26, 2025 Dr. Eugenia Moncada , Referring Provider Activ e Start: March 26, 2025 End: March 26, 2025 Team Status: Inactive Member Role/Relationship Status Dates Dr. Isi Justice MD Primary Care Provider Active Start: April 03, 2025 End: April 03, 2025 Dr. Isi Justice MD Referring Provider Active Start: April 03, 2025 End: April 03, 2025 Dr. Nida Martinez DC Attending Provider Active S tart: April 03, 2025 End: April 03, 2025 Team Status: Inactive Member Role/Relationship Status Dates Dr. Isi Justice MD Primary Care Provider Active Start: April 09, 2025 End: April 09, 2025 Dr. Isi Justice MD Referring Provider Active Start: April 09, 2025 End: April 09, 2025 Gabriela Taveras CNM Attending Provider Active S tart: April 09, 2025 End: April 09, 2025 Team Status: Inactive Member Role/Relationship Status Dates Dr. Isi Justice MD Primary Care Provider Active Start: May 01, 2025 End: May 01, 2025 Dr. Isi Justice MD Referring Provider Active Start: May 01, 2025 End: May 01, 2025 Dr. Nida Martinez DC Attending Provider Active S tart: May 01, 2025 End: May 01, 2025 Team Status: Inactive Member Role/Relationship Status Dates Dr. Isi Justice MD Primary Care Provider Active Start: May 09, 2025 End: May 09, 2025 Dr. Isi Justice MD Referring Provider Active Start: May 09, 2025 End: May 09, 2025 Dr. Viki Case MD Attending Provider Active Start: May 09, 2025 End: May 09, 2025 Team Status: Active Member Role/Relationship Status Dates Dr. Isi Justice MD Primary Care Provider Active Start: May 09, 2025 Dr. Viki Case MD Attending Provider Active Start: May 09, 2025 Dr. Viki Case MD Referring Provider Active Start: May 09, 2025 Team Status: Active Member Role/Relationship Status Dates Dr. Isi Justice MD Primary care physician Activ e Team Status: Inactive Member Role/Relationship Status Dates Dr. Isi Justice MD Primary care physician Activ e Start: January 29, 2025 End: January 29, 2025 Dr. Isi Justice MD Referring Provider Active Start: January 29, 2025 End: January 29, 2025 Dr. Nida Martinez DC Attending physician Active Start: January 29, 2025 End: January 29, 2025 Team Status: Inactive Member Role/Relationship Status Dates Dr. Isi Justice MD Primary care physician Activ e Start: February 13, 2025 End: February 13, 2025 Dr. Isi Justice MD Referring Provider Active Start: February 13, 2025 End: February 13, 2025 Dr. Eugenia Moncada DO Attending physician Acti ve Start: February 13, 2025 End: February 13, 2025 Team Status: Inactive Member Role/Relationship Status Dates Dr. Isi Justice MD Primary care physician Activ e Start: March 05, 2025 End: March 05, 2025 Dr. Isi Justice MD Referring Provider Active Start: March 05, 2025 End: March 05, 2025 Dr. Nida Martinez DC Attending physician Active Start: March 05, 2025 End: March 05, 2025 Team Status: Inactive Member Role/Relationship Status Dates Dr. Isi Justice MD Primary care physician Activ e Start: March 12, 2025 End: March 12, 2025 Dr. Isi Justice MD Referring Provider Active Start: March 12, 2025 End: March 12, 2025 Yahaira Juarez NP, SPLITTER HEAD-C Attending physician Active Start: March 12, 2025 End: March 12, 2025 Team Status: Inactive Member Role/Relationship Status Dates Dr. Isi Justice MD Primary care physician Activ e Start: March 26, 2025 End: March 26, 2025 Dr. Eugenia Moncada DO Attending physician Acti ve Start: March 26, 2025 End: March 26, 2025 Dr. Eugenia Moncada DO Referring Provider Activ e Start: March 26, 2025 End: March 26, 2025 Team Status: Inactive Member Role/Relationship Status Dates Dr. Isi Justice MD Primary care physician Activ e Start: April 03, 2025 End: April 03, 2025 Dr. Isi Justice MD Referring Provider Active Start: April 03, 2025 End: April 03, 2025 Dr. Nida Martinez DC Attending physician Active Start: April 03, 2025 End: April 03, 2025 Team Status: Inactive Member Role/Relationship Status Dates Dr. Isi Justice MD Primary care physician Activ e Start: April 09, 2025 End: April 09, 2025 Dr. Isi Justice MD Referring Provider Active Start: April 09, 2025 End: April 09, 2025 Gabriela Taveras CNM Attending physician Active Start: April 09, 2025 End: April 09, 2025 Team Status: Inactive Member Role/Relationship Status Dates Dr. Isi Justice MD Primary care physician Activ e Start: May 01, 2025 End: May 01, 2025 Dr. Isi Justice MD Referring Provider Active Start: May 01, 2025 End: May 01, 2025 Dr. Nida Martinez DC Attending physician Active Start: May 01, 2025 End: May 01, 2025 Team Status: Inactive Member Role/Relationship Status Dates Dr. Isi Justice MD Primary care physician Activ e Start: May 09, 2025 End: May 09, 2025 Dr. Isi Justice MD Referring Provider Active Start: May 09, 2025 End: May 09, 2025 Dr. Viki Case MD Attending physician Active Start: May 09, 2025 End: May 09, 2025 Team Status: Inactive Member Role/Relationship Status Dates Dr. Isi Justice MD Primary care physician Activ e Start: May 09, 2025 End: May 09, 2025 Dr. Viki Case MD Attending physician Active Start: May 09, 2025 End: May 09, 2025 Dr. Viki Case MD Referring Provider Active Start: May 09, 2025 End: May 09, 2025 Team Status: Active Member Role/Relationship Status Dates Dr. Isi Justice MD Primary care physician Activ e Start: May 21, 2025 Gabriela Taveras CNM Attending physician Active Start: May 21, 2025 Gabriela Taveras CNM Referring Provider Active S tart: May 21, 2025 Team Status: Inactive Member Role/Relationship Status Dates Dr. Isi Justice MD Primary care physician Activ e Start: May 23, 2025 End: May 23, 2025 Dr. Isi Justice MD Referring Provider Active Start: May 23, 2025 End: May 23, 2025 Gabriela Taveras CNM Attending physician Active Start: May 23, 2025 End: May 23, 2025 Team Status: Inactive Member Role/Relationship Status Dates Dr. Isi Justice MD Primary care physician Activ e Start: February 13, 2025 End: February 13, 2025 Dr. Isi Justice MD Referring Provider Active Start: February 13, 2025 End: February 13, 2025 Dr. Eugenia Moncada DO Attending physician Acti ve Start: February 13, 2025 End: February 13, 2025 Team Status: Inactive Member Role/Relationship Status Dates Dr. Isi Justice MD Primary care physician Activ e Start: March 05, 2025 End: March 05, 2025 Dr. Isi Justice MD Referring Provider Active Start: March 05, 2025 End: March 05, 2025 Dr. Nida Martinez DC Attending physician Active Start: March 05, 2025 End: March 05, 2025 Team Status: Inactive Member Role/Relationship Status Dates Dr. Isi Justice MD Primary care physician Activ e Start: March 12, 2025 End: March 12, 2025 Dr. Isi Justice MD Referring Provider Active Start: March 12, 2025 End: March 12, 2025 Yahaira Juarez NP, SPLITTER HEAD-C Attending physician Active Start: March 12, 2025 End: March 12, 2025 Team Status: Inactive Member Role/Relationship Status Dates Dr. Isi Justice MD Primary care physician Activ e Start: March 26, 2025 End: March 26, 2025 Dr. Eugenia Moncada DO Attending physician Acti ve Start: March 26, 2025 End: March 26, 2025 Dr. Eugenia Moncada DO Referring Provider Activ e Start: March 26, 2025 End: March 26, 2025 Team Status: Inactive Member Role/Relationship Status Dates Dr. Isi Justice MD Primary care physician Activ e Start: April 03, 2025 End: April 03, 2025 Dr. Isi Justice MD Referring Provider Active Start: April 03, 2025 End: April 03, 2025 Dr. Nida Martinez DC Attending physician Active Start: April 03, 2025 End: April 03, 2025 Team Status: Inactive Member Role/Relationship Status Dates Dr. Isi Justice MD Primary care physician Activ e Start: April 09, 2025 End: April 09, 2025 Dr. Isi Justice MD Referring Provider Active Start: April 09, 2025 End: April 09, 2025 Gabriela Taveras CNM Attending physician Active Start: April 09, 2025 End: April 09, 2025 Team Status: Inactive Member Role/Relationship Status Dates Dr. Isi uJstice MD Primary care physician Activ e Start: May 01, 2025 End: May 01, 2025 Dr. Isi Justice MD Referring Provider Active Start: May 01, 2025 End: May 01, 2025 Dr. Nida Martinez DC Attending physician Active Start: May 01, 2025 End: May 01, 2025 Team Status: Inactive Member Role/Relationship Status Dates Dr. Isi Justice MD Primary care physician Activ e Start: May 09, 2025 End: May 09, 2025 Dr. Isi Justice MD Referring Provider Active Start: May 09, 2025 End: May 09, 2025 Dr. Viki Case MD Attending physician Active Start: May 09, 2025 End: May 09, 2025 Team Status: Inactive Member Role/Relationship Status Dates Dr. Isi Justice MD Primary care physician Activ e Start: May 09, 2025 End: May 09, 2025 Dr. Viki Case MD Attending physician Active Start: May 09, 2025 End: May 09, 2025 Dr. Viki Case MD Referring Provider Active Start: May 09, 2025 End: May 09, 2025 Team Status: Active Member Role/Relationship Status Dates Dr. Isi Justice MD Primary care physician Activ e Start: May 21, 2025 Gabriela Taveras CNM Attending physician Active Start: May 21, 2025 Gabriela Taveras CNM Referring Provider Active S tart: May 21, 2025 Team Status: Inactive Member Role/Relationship Status Dates Dr. Isi Justice MD Primary care physician Activ e Start: May 23, 2025 End: May 23, 2025 Dr. Isi Justice MD Referring Provider Active Start: May 23, 2025 End: May 23, 2025 Gabriela Taveras CNM Attending physician Active Start: May 23, 2025 End: May 23, 2025 Team Status: Inactive Member Role/Relationship Status Dates Dr. Isi Justice MD Primary care physician Activ e Start: May 27, 2025 End: May 27, 2025 Dr. Isi Justice MD Referring Provider Active Start: May 27, 2025 End: May 27, 2025 Dr. Nida Martinez DC Attending physician Active Start: May 27, 2025 End: May 27, 2025 Team Status: Inactive Member Role/Relationship Status Dates Dr. Isi Justice MD Primary care physician Activ e Start: May 21, 2025 End: May 21, 2025 Gabriela Taveras CNM Attending physician Active Start: May 21, 2025 End: May 21, 2025 Gabriela Taveras CNM Referring Provider Active S tart: May 21, 2025 End: May 21, 2025 Team Status: Inactive Member Role/Relationship Status Dates Dr. Isi Justice MD Primary care physician Activ e Start: June 05, 2025 End: June 05, 2025 Dr. Isi Justice MD Referring Provider Active Start: June 05, 2025 End: June 05, 2025 Dr. Eugenia Moncada DO Attending physician Acti ve Start: June 05, 2025 End: June 05, 2025 Team Status: Inactive Member Role/Relationship Status Dates Dr. Isi Justice MD Primary care physician Activ e Start: March 05, 2025 End: March 05, 2025 Dr. Isi Justice MD Referring Provider Active Start: March 05, 2025 End: March 05, 2025 Dr. Nida Martinez DC Attending physician Active Start: March 05, 2025 End: March 05, 2025 Team Status: Inactive Member Role/Relationship Status Dates Dr. Isi Justice MD Primary care physician Activ e Start: March 12, 2025 End: March 12, 2025 Dr. Isi Justice MD Referring Provider Active Start: March 12, 2025 End: March 12, 2025 Yahaira Juarez SPLITTER HEAD, SPLITTER HEAD-C Attending physician Active Start: March 12, 2025 End: March 12, 2025 Team Status: Inactive Member Role/Relationship Status Dates Dr. Isi Justice MD Primary care physician Activ e Start: March 26, 2025 End: March 26, 2025 Dr. Eugenia Moncada DO Attending physician Acti ve Start: March 26, 2025 End: March 26, 2025 Dr. Eugenia Moncada DO Referring Provider Activ e Start: March 26, 2025 End: March 26, 2025 Team Status: Inactive Member Role/Relationship Status Dates Dr. Isi Justice MD Primary care physician Activ e Start: April 03, 2025 End: April 03, 2025 Dr. Isi Justice MD Referring Provider Active Start: April 03, 2025 End: April 03, 2025 Dr. Nida Martinez DC Attending physician Active Start: April 03, 2025 End: April 03, 2025 Team Status: Inactive Member Role/Relationship Status Dates Dr. Isi Justice MD Primary care physician Activ e Start: April 09, 2025 End: April 09, 2025 Dr. Isi Justice MD Referring Provider Active Start: April 09, 2025 End: April 09, 2025 Gabriela Taveras CNM Attending physician Active Start: April 09, 2025 End: April 09, 2025 Team Status: Inactive Member Role/Relationship Status Dates Dr. Isi Justice MD Primary care physician Activ e Start: May 01, 2025 End: May 01, 2025 Dr. Isi Justice MD Referring Provider Active Start: May 01, 2025 End: May 01, 2025 Dr. Nida Martinez DC Attending physician Active Start: May 01, 2025 End: May 01, 2025 Team Status: Inactive Member Role/Relationship Status Dates Dr. Isi Justice MD Primary care physician Activ e Start: May 09, 2025 End: May 09, 2025 Dr. Isi uJstice MD Referring Provider Active Start: May 09, 2025 End: May 09, 2025 Dr. Viki Case MD Attending physician Active Start: May 09, 2025 End: May 09, 2025 Team Status: Inactive Member Role/Relationship Status Dates Dr. Isi Justice MD Primary care physician Activ e Start: May 09, 2025 End: May 09, 2025 Dr. Viki Case MD Attending physician Active Start: May 09, 2025 End: May 09, 2025 Dr. Viki Case MD Referring Provider Active Start: May 09, 2025 End: May 09, 2025 Team Status: Inactive Member Role/Relationship Status Dates Dr. Isi Justice MD Primary care physician Activ e Start: May 21, 2025 End: May 21, 2025 Gabriela Taveras CNM Attending physician Active Start: May 21, 2025 End: May 21, 2025 Gabriela Taveras CNM Referring Provider Active S tart: May 21, 2025 End: May 21, 2025 Team Status: Inactive Member Role/Relationship Status Dates Dr. Isi Justice MD Primary care physician Activ e Start: May 23, 2025 End: May 23, 2025 Dr. Isi Justice MD Referring Provider Active Start: May 23, 2025 End: May 23, 2025 Gabriela Taveras CNM Attending physician Active Start: May 23, 2025 End: May 23, 2025 Team Status: Inactive Member Role/Relationship Status Dates Dr. Isi Justice MD Primary care physician Activ e Start: May 27, 2025 End: May 27, 2025 Dr. Isi Justice MD Referring Provider Active Start: May 27, 2025 End: May 27, 2025 Dr. Nida Martinez DC Attending physician Active Start: May 27, 2025 End: May 27, 2025 Team Status: Inactive Member Role/Relationship Status Dates Dr. Isi Justice MD Primary care physician Activ e Start: June 05, 2025 End: June 05, 2025 Dr. Isi Justice MD Referring Provider Active Start: June 05, 2025 End: June 05, 2025 Dr. Eugenia Moncada DO Attending physician Acti ve Start: June 05, 2025 End: June 05, 2025 Team Status: Inactive Member Role/Relationship Status Dates Dr. Isi Justice MD Primary care physician Activ e Start: June 17, 2025 End: June 17, 2025 Dr. Isi Justice MD Referring Provider Active Start: June 17, 2025 End: June 17, 2025 Gabriela Taveras CNM Attending physician Active Start: June 17, 2025 End: June 17, 2025 Team Status: Inactive Member Role/Relationship Status Dates Dr. Isi Justice MD Primary care physician Activ e Start: June 17, 2025 End: June 17, 2025 Gabriela Taveras CNM Attending physician Active Start: June 17, 2025 End: June 17, 2025 Team Status: Inactive Member Role/Relationship Status Dates Dr. Isi Justice MD Primary care physician Activ e Start: June 24, 2025 End: June 24, 2025 Dr. Isi Justice MD Referring Provider Active Start: June 24, 2025 End: June 24, 2025 Dr. Nida Martinez DC Attending physician Active Start: June 24, 2025 End: June 24, 2025 Team Status: Inactive Member Role/Relationship Status Dates Dr. Isi Justice MD Primary care physician Activ e Start: March 26, 2025 End: March 26, 2025 Dr. Eugenia Moncada DO Attending physician Acti ve Start: March 26, 2025 End: March 26, 2025 Dr. Eugenia Moncada DO Referring Provider Activ e Start: March 26, 2025 End: March 26, 2025 Team Status: Inactive Member Role/Relationship Status Dates Dr. Isi Justice MD Primary care physician Activ e Start: April 03, 2025 End: April 03, 2025 Dr. Isi Justice MD Referring Provider Active Start: April 03, 2025 End: April 03, 2025 Dr. Nida Martinez DC Attending physician Active Start: April 03, 2025 End: April 03, 2025 Team Status: Inactive Member Role/Relationship Status Dates Dr. Isi Justice MD Primary care physician Activ e Start: April 09, 2025 End: April 09, 2025 Dr. Isi Justice MD Referring Provider Active Start: April 09, 2025 End: April 09, 2025 Gabriela Taveras CNM Attending physician Active Start: April 09, 2025 End: April 09, 2025 Team Status: Inactive Member Role/Relationship Status Dates Dr. Iis Justice MD Primary care physician Activ e Start: May 01, 2025 End: May 01, 2025 Dr. Isi Justice MD Referring Provider Active Start: May 01, 2025 End: May 01, 2025 Dr. Nida Martinez DC Attending physician Active Start: May 01, 2025 End: May 01, 2025 Team Status: Inactive Member Role/Relationship Status Dates Dr. Isi Justice MD Primary care physician Activ e Start: May 09, 2025 End: May 09, 2025 Dr. Isi Justice MD Referring Provider Active Start: May 09, 2025 End: May 09, 2025 Dr. Viki Case MD Attending physician Active Start: May 09, 2025 End: May 09, 2025 Team Status: Inactive Member Role/Relationship Status Dates Dr. Isi Justice MD Primary care physician Activ e Start: May 09, 2025 End: May 09, 2025 Dr. Viki Case MD Attending physician Active Start: May 09, 2025 End: May 09, 2025 Dr. Viki Case MD Referring Provider Active Start: May 09, 2025 End: May 09, 2025 Team Status: Inactive Member Role/Relationship Status Dates Dr. Isi Justice MD Primary care physician Activ e Start: May 21, 2025 End: May 21, 2025 Gabriela Taveras CNM Attending physician Active Start: May 21, 2025 End: May 21, 2025 Gabriela Taveras CNM Referring Provider Active S tart: May 21, 2025 End: May 21, 2025 Team Status: Inactive Member Role/Relationship Status Dates Dr. Isi Justice MD Primary care physician Activ e Start: May 23, 2025 End: May 23, 2025 Dr. Isi Justice MD Referring Provider Active Start: May 23, 2025 End: May 23, 2025 Gabriela Taveras CNM Attending physician Active Start: May 23, 2025 End: May 23, 2025 Team Status: Inactive Member Role/Relationship Status Dates Dr. Isi Justice MD Primary care physician Activ e Start: May 27, 2025 End: May 27, 2025 Dr. Isi Justice MD Referring Provider Active Start: May 27, 2025 End: May 27, 2025 Dr. Nida Martinez DC Attending physician Active Start: May 27, 2025 End: May 27, 2025 Team Status: Inactive Member Role/Relationship Status Dates Dr. Isi Justice MD Primary care physician Activ e Start: June 05, 2025 End: June 05, 2025 Dr. Isi Justice MD Referring Provider Active Start: June 05, 2025 End: June 05, 2025 Dr. Eugenia Moncada DO Attending physician Acti ve Start: June 05, 2025 End: June 05, 2025 Team Status: Inactive Member Role/Relationship Status Dates Dr. Isi Justice MD Primary care physician Activ e Start: June 17, 2025 End: June 17, 2025 Dr. Isi Justice MD Referring Provider Active Start: June 17, 2025 End: June 17, 2025 Gabriela Taveras CNM Attending physician Active Start: June 17, 2025 End: June 17, 2025 Team Status: Inactive Member Role/Relationship Status Dates Dr. Isi Justice MD Primary care physician Activ e Start: June 17, 2025 End: June 17, 2025 Gabriela Taveras CNM Attending physician Active Start: June 17, 2025 End: June 17, 2025 Team Status: Inactive Member Role/Relationship Status Dates Dr. Isi Justice MD Primary care physician Activ e Start: June 24, 2025 End: June 24, 2025 Dr. Isi Justice MD Referring Provider Active Start: June 24, 2025 End: June 24, 2025 Dr. Nida Martinez DC Attending physician Active Start: June 24, 2025 End: June 24, 2025 Team Status: Inactive Member Role/Relationship Status Dates Dr. Isi Justice MD Primary care physician Activ e Start: July 05, 2025 End: July 05, 2025 Dr. Isi Justice MD Referring Provider Active Start: July 05, 2025 End: July 05, 2025 Dr. Viki Case MD Attending physician Active Start: July 05, 2025 End: July 05, 2025 Team Status: Inactive Member Role/Relationship Status Dates Dr. Isi Justice MD Primary care physician Activ e Start: July 09, 2025 End: July 09, 2025 Dr. Isi Justice MD Referring Provider Active Start: July 09, 2025 End: July 09, 2025 Dr. Nida Martinez DC Attending physician Active Start: July 09, 2025 End: July 09, 2025 INFORMATION SOURCE (unrecogn ized section and content) DATE CREATED AUTHOR 02/12/2023 [facility] DATE CREATED AUTHOR AUTHOR'S ORGANIZ ATION 07/11/2025 [facility] FOR RECORDS PERTAINING TO PATIENTS WHO ARE OR HAVE BEEN ENROLLED IN A CHEMICAL DEPENDENCY/SUBSTANCEABUSE PROGRAM, SOME INFORMATION MAY BE OMITTED. This clinical summary was aggregated from multiple sources. Caution should be exercised in using it in the provision of clinical care. This summary normalizes information from multiple sources, and as a consequence, information in this document may materially change the coding, format and clinical context of patient data. In addition, data may be omitted in some cases. CLINICAL DECISIONS SHOULD BE BASED ON THE PRIMARY CLINICAL RECORDS. [employer] provides no warranty or guarantee of the accuracy or completeness of information in this document.
[2025-08-07 17:01] LABS: Syphilis Antibodies Nonreactive (Nonreactive)
--- NOTE | 2025-08-07 17:17 | HP.PCM.OB_ITS ---
HPI - General General Date of Admission: 08/07/25 Date of Service: 08/07/25 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: contractions HPI Narrative REESE WILLSI, is a 19 F who presents in active labor. Membranes intact. She is GBS positive and will receive PCN. is otherwise only complicated by BMI of 36. Maternal Data Information LAZARA Calculator Estimated Delivery Date Method Current WG Current Estimate 08/13/25 Ultrasound #1 39w 1d Other Estimates 08/05/25 LMP (Certain) 40w 2d PFSH PFSH Medical History Acne Dysmenorrhea Seasonal allergies Hx of recurrent urinary tract infection Chronic neck and back pain Asthma Home Medications ?Medication ?Instructions ?Recorded ?Last Taken ?Type magnesium 250 mg tablet 250 mg PO QDAY 11/27/24 1210/30 20:00 History 250 mg multivitamin no.47-iron fum 27 1 cap PO DAILY 12/18/24 08/06/25 20:00 History mg-folate no.1 1 mg-dha 300 mg 1 cap capsule (PNV-DHA) famotidine 20 mg tablet (Pepcid) 20 mg PO BID #60 tabs 07/05/25 08/06/25 20:00 Rx 20 mg Allergy/AdvReac Type Severity Reaction Status Date / Time nickel Allergy Mild unknown Verified 08/07/25 15:44 Family History Mother Hypertension Gestational diabetes 2nd only Grandmother Hypertension Maternal Blood clot in leg Diabetes Paternal Grandfather Cancer, Onset Age: 70 Paternal- Smoker Surgical History [place] teeth extracted H/O shoulder surgery History of appendectomy Social History adopted: No household members: significant other housing: house number of children: 0 current occupational status: employed current occupation: [employer] current occupational exposures/hazards: No pets and animals: Yes pets and animals: dog(s) and farm animals history of recent travel: No sexually active: Yes Smoking Status: Never smoker alcohol intake: current alcohol intake frequency: holidays/special occasions only details: Not while substance use type: marijuana and other details: Pt tried a gummy one time 19st birthday. Didn't like it. 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 History 1 Elective abortions Hx Para 0 Spontaneous abortions Hx # Term Pregnancies Ectopic pregnancies Hx # Pregnancies Multiple births # of living children Visit Details Expected Delivery Route/Plan Labor Preferences- CB/BF classes: [] labor support person: [] labor intervention preferences: [] pain management options preferred: [] cut cord/dad catch: [] : [] PP control planned: [] discussed possible routes of delivery and associated risks: [] special requests: [] Plans Covid status: unvaccinated Flu vaccine: unvaccinated Tdap vaccine: not up to date Rhogam: n/a LARC form signed: [] Problem list reviewed and updated with the most current plan of care details and appropriate orders placed. Relevant counseling for the gestational age provided. Continue routine care and follow up unless otherwise noted in visit notes/problem list details OB Flowsheet Initial Weight: Not Recorded Date -?-?-?-?-?-?-?-?-?-?-?-?- EGA Weight BP Urine Prot -?-?-?-?-?-?-?-?-?-?-?-?- Glucose FHR FuHt Pres Dilation -?-?-?-?-?-?-?-?-?-?-?-?- Effaced St Visit Note 01/10/25 -?-?-?-?-?-?-?-?-?-?-?-?- 9w 2d 220 lb 6 oz 134/80 -?-?-?-?-?-?-?-?-?-?-?-?- 178 -?-?-?-?-?-?-?-?-?-?-?-?- JV- CRL is 8 day s off from LMP. declines NIPT. wants to return for new ob labs. 02/13/25 -?-?-?-?-?-?-?-?-?-?-?-?- 14w 1d 219 lb 127/79 Negative -?-?-?-?-?-?-?-?-?-?-?-?- Negative 150 -?-?-?-?-?-?-?-?-?-?-?-?- JV- still has na usea. worse after meals. will try reglan. labs reviewed. is a + 03/12/25 -?-?-?-?-?-?-?-?-?-?-?-?- 18w 0d 218 lb 113/72 Negative -?-?-?-?-?-?-?-?-?-?-?-?- Negative 148 -?-?-?-?-?-?-?-?-?-?-?-?- MH-No VB. Jonah gordon. Nausea mostly resolved. No other concerns 04/09/25 -?-?-?-?-?-?-?-?-?-?-?-?- 22w 0d 223 lb 1 oz 124/76 Nega tive -?-?-?-?-?-?-?--?-?-?-?-?- Negative 145 -?-?-?-?-?-?-?-?-?-?-?-?- KW- no vb/sachin ng. good fm. glucose instructions reviewed. US reviewed. 05/09/25 -?-?-?-?-?--?-?-?-?-?-?-?- 26w 2d 230 lb 5 oz 143/82 Nega tive -?-?-?-?-?-?-?-?-?-?-?-?- Negative 145 26 -?-?-?-?-?-?-?-?-?-?-?-?- SM- no vb lof go od fm no regular ctx cbc gct 05/23/25 -?-?-?-?-?-?-?-?-?-?-?-?- 28w 2d 233 lb 116/68 Negative -?-?-?-?-?-?-?-?-?-?-?-?- Negative 145 29 -?-?-?-?-?-?-?-?-?-?-?-?- KW- no vb/lof/ct x. good fm. passed 28 week labs. unsure on Tdap. LARC done 06/05/25 -?-?-?-?-?-?-?-?-?-?-?-?- 30w 1d 237 lb 2 oz 121/71 Nega tive -?-?-?-?-?-?-?-?-?-?-?-?- Negative 140 31 -?-?-?-?-?-?-?-?-?-?-?-?- JV- no lof, vagi nal bleeding, or dec fm. declines flu and tdap today 06/17/25 -?-?-?-?-?-?-?-?-?-?-?-?- 31w 6d 238 lb 5 oz 117/75 Nega tive -?-?-?-?-?-?-?-?-?-?-?-?- Negative 135 33 -?-?-?-?-?-?-?-?-?-?-?-?- KW- no vb/lof/ct x. does have increased back cramping and pelvic pressure. UA for possible UTI. good fm 07/05/25 -?-?-?-?-?-?-?-?-?-?-?-?- 34w 3d 240 lb 130/79 Negative -?-?-?-?-?-?-?-?-?-?-?-?- Negative 140 34 Cephalic -?-?-?-?-?-?-?-?-?-?-?-?- SM- no vb lof go od fm no regular ctx SM- no vb lof good fm no reg ular ctx pepcid ordered 07/18/25 -?-?-?-?-?-?-?-?-?-?-?-?- 36w 2d 246 lb 5 oz 120/77 Nega tive -?-?-?-?-?-?-?-?-?-?-?-?- Negative 137 36 Cephalic -?-?-?-?-?-?-?-?-?-?-?-?- JV- patient decl saad pelvic exam. gbs collected. vtx on bedside scan. 07/25/25 -?-?-?-?-?-?-?-?-?-?-?-?- 37w 2d 244 lb 2 oz 136/83 Nega tive -?-?-?-?-?-?-?-?-?-?-?-?- Negative 129 37 -?-?-?-?-?-?-?-?-?-?-?-?- KV- Good FM. No ctx, LOF, or VB. GBS positive. Declines SVE. 08/05/25 -?-?-?-?-?-?-?-?-?-?-?-?- 38w 6d 251 lb 8 oz 122/79 Nega tive -?-?-?-?-?-?-?-?-?-?-?-?- Negative 130 38 Cephalic -?-?-?-?-?-?-?-?-?-?-?-?- SM- no vb lof go od fm no regular ctx NST FHR Rate Baby A Baseline: 135 Variability:: Moderate Accelerations:: 15 x 15 Decelerations:: None NST Reactive:: Yes FHR Category:: Category I Uterine Activity:: q3-5min Vital Signs Vital Signs Vital Signs: 08/07/25 14:39 08/07/25 14:39 08/07/25 14:39 Temperature Temperature Source Temporal Pulse Rate 95 Respiratory Rate Blood Pressure 134/66 H BP Systolic 134 BP Diastolic 66 Pulse Ox 08/07/25 14:39 08/07/25 14:39 08/07/25 14:40 Temperature 97.8 F Temperature Source Pulse Rate 93 Respiratory Rate 16 Blood Pressure BP Systolic BP Diastolic Pulse Ox 08/07/25 14:40 08/07/25 15:54 08/07/25 15:54 Temperature Temperature Source Temporal Pulse Rate Respiratory Rate 16 Blood Pressure BP Systolic BP Diastolic Pulse Ox 99 08/07/25 15:54 08/07/25 16:25 08/07/25 16:25 Temperature 98.1 F Temperature Source Pulse Rate 98 Respiratory Rate Blood Pressure BP Systolic BP Diastolic Pulse Ox 98 Weight Weight: 245 lb 9.519 oz Body Mass Index (BMI) 36.2 PRE- weight 220 lb PRE- Body Mass Index 32.5 (BMI) Physical Exam Const alert and no apparent distress HEENT normocephalic Head and Scalp: atraumatic Resp normal respiratory effort and no use of accessory muscles GI soft to palpation Inspection: gravid Psych mental status grossly normal and affect normal Labs Labs Labs: Blood Type A POSITIVE Antibody Screen NEGATIVE Hct, (37-47) 40.3 % Hgb, (12.0-15.0) 14.1 g/dL Obstetrics Ultrasound Syphilis Total Ab, (Nonreactive) Nonreactive Rubella IgG Antibody, (Nonreactive) REAC Hep Bs Antigen, (Nonreactive) Nonreactive Hepatitis C Antibody, (Nonreactive) Nonreactive Chlamydia DNA (CARA), (Negative) Negative N.gonorrhoeae DNA (CARA), (Negative) Negative HIV 1&2 Antibody, (Nonreactive) Nonreactive Glucose 1 Hr 50 gm, (70-140) 85 mg/dL Assessment & Plan (1) Labor and delivery indication for care or intervention: PLAN: Patient presents IAL, plan expectant management for , pitocin/AROM PRN if needed. Pain management: desires unmedicated delivery, open to epidural though GBS positive plan IV PCN. Management of any complications: none I have reviewed the [facility] and made any clinically relevant updates. (2) Group B streptococcal infection during : COMMENT: treat in labor (3) Marijuana use: COMMENT: bethanymy one time 19st birthday, discussed random drug testing with pt. NEG at NOB (4) Obesity affecting : QUALIFIERS: Obesity type affecting : unspecified obesity Trimester: second trimester Qualified Code(s): O99.212 - Obesity complicating , second trimester COMMENT: [id number]
--- OUTSIDE RECORDS SUMMARY | 2025-08-07 17:22 | XMS RPT_ITS | CCD ---
Author Organization [facility] Care Team Providers Care Critical Care Specialist Name Role Phone Dr. Isi Justice Primary Care Provider Dr. Isi Justice Referring Provider Rosamaria MARIANO, MONTSERRAT Portillo Attending Provider Ann SCALE TECHNICIAN, SCALE TECHNICIAN-C Yahaira Attending Provider Isi Justice MD Primary Care Provider ISI JUSTICE Primary Care Unavailable JUAN SCRUGGS Attending Unavailable ISI JUSTICE Referring Unavailable ISI JUSTICE Primary Care Unavailable BRYAN CALLAHAN Attending Unavailable Isi Justice MD Primary Care Provider Dr. Isi Justice MD Primary Care Provider Dr. Isi Justice MD Referring Provider Ann SCALE TECHNICIAN-CYahaira Attending Provider Ann SCALE TECHNICIAN-C, Yahaira Referring Provider Dr. Nida Martinez DC Attending Provider Dr. Eugenia Moncada DO Attending Provider Dr. Viki Case MD Attending Provider Dr. Viki Case MD Referring Provider Ann SCALE TECHNICIAN-C, Yahaira Other Provider [phone] Dr. Isi Justice MD Primary Care Provider Dr. Isi Justice MD Referring Provider Ann SCALE TECHNICIAN-C, Yahaira Attending Provider [phone] [place] SCALE TECHNICIAN-C, Yahaira Referring Provider [phone] Kiran Nicole DO, Dr. Bello Referring Provider Nitin MERINO, Gabriela Attending Provider [phone] Reshma GUIDO, Dr. Snowden Primary Care Provider Reshma GUIDO, Dr. Snowden Referring Provider Ann SCALE TECHNICIAN-C, Yahaira Attending Provider [phone] Dossi [place], Dr. Alva Attending Provider [phone] Reshma GUIDO, Dr. Snowden Primary Care Physician Reshma GUIDO, Dr. Snowden Referring Provider [phone] Dossi DC, Dr. Alva Attending Physician [phone] Kiran Nicole DO, Dr. Bello Attending Physician Ann SCALE TECHNICIAN-C, Yahaira Attending Physician [phone] Nitin MERINO, Gabriela Attending Physician [phone] Manpreet GUIDO, Dr. Drew Attending Physician Manpreet GUIDO, Dr. Drew Referring Provider Nitin MERINO, Gabriela Referring Provider [phone] Reshma GUIDO, Dr. Snowden Primary Care Physician Reshma GUIDO, Dr. Snowden Referring Provider [phone] Dosjeremias HOFFMAN, Dr. Alva Attending Physician [phone] Reshma GUIDO, Dr. Snowden Primary Care Physician Reshma GUIDO, Dr. Snowden Referring Provider [phone] Kiran Nicole DO, Dr. Bello Attending Physician Seifjennifer, Isi Referring Unavailable Ann SCALE TECHNICIAN, Yahaira Attending Unavailable Seifried, Isi Primary Care Unavailable Seifried, Sii Referring Unavailable Nida Martinez Attending Unavailable Seifried, Isi Primary Care Unavailable Seifried, Isi Referring Unavailable Gabriela Taveras Attending Unavailable Seifried, Isi Primary Care Unavailable Seifried, Isi Primary Care Unavailable Seifried, Isi Referring Unavailable Gabriela Taveras Attending Unavailable Seifried, Isi Primary Care Unavailable Viki Case Attending Unavailable ZarinaonyViki Referring Unavailable [place] SCALE TECHNICIAN, Yahaira Attending Unavailable [place] SCALE TECHNICIAN, Yahaira Referring Unavailable Seifried, Isi Primary Care [...] Unavailable Seifried, Isi Primary Care Unavailable Ann SCALE TECHNICIAN, Yahaira Attending Unavailable [place] SCALE TECHNICIAN, Yahaira Referring Unavailable Seifried, Isi Primary Care Unavailable Seifried, Isi Primary Care Unavailable Seifried, Isi Referring Unavailable Viki Case Attending Unavailable Seifried, Isi Referring Unavailable Dossi, Nida Attending Unavailable Seifried, Isi Primary Care Unavailable [place] SCALE TECHNICIAN, Yahaira Consulting Unavailable Viki Case Attending Unavailable Viki Case Referring Unavailable Seifried, Isi Primary Care Unavailable Seifried, Isi Primary Care Unavailable Gabriela Taveras Attending Unavailable Gabriela Taveras Referring Unavailable Seifried, Isi Primary Care Unavailable Seifried, Isi Referring Unavailable Ann SCALE TECHNICIAN, Yahaira Attending Unavailable Seifried, Isi Primary Care Unavailable Seifried, Isi Referring Unavailable Dosjeremias, Nida Attending Unavailable Seifried, Isi Primary Care Unavailable Seifried, Isi Referring Unavailable Gabriela Taveras Attending Unavailable Seifried, Isi Primary Care Unavailable Seifried, Isi Referring Unavailable Dossi, Nida Attending Unavailable Seifried, Isi Referring Unavailable Ann SCALE TECHNICIAN, Yahaira Attending Unavailable Seifried, Isi Primary Care Unavailable Reshma GUIDO, Dr. Snowden Primary Care Physician Dr. Eugenia Moncada DO Attending Physician Dr. Eugenia Moncada DO Referring Provider Dr. Isi Justice MD Referring Provider Dr. Nida Martinez DC Attending Physician Gabriela Taveras CNM Attending Physician [phone] Dr. Viki Case MD Attending Physician Dr. Viki Case MD Referring Provider Gabriela Taveras CNM Referring Provider [phone] Allergies Allergy Classification Reported Allergen(s) Allergy Type Date of Onset Reaction(s) Facility (20 sources) nickel; Translations: [NICKEL] Drug Allergy 12-28-2018 [facility] (1 source) nickel Drug Allergy 07-09-2025 [facility] Repository Medications Current Medications Medication Drug Class(es) [...] 2025 11:00pm Complies with drug therapy Multivit 74-Ixmz-Qmbusf 1-Dha (Pnv-Dha) 27 mg iron-1 mg -300 mg capsule (18 sources) Start: 12-18-2024 Multivit 04-Vqto-Tycmfi 1-Dha (Pnv-Dha) 27 mg iron-1 mg -300 [...] TAB daily September 11, 2019 9:12am 09-11-2019 [facility] (07505) 0 09/11/2019 Active Comment on above: Norgestimate-Ethinyl Estradiol Norgestimate-Ethinyl Estradiol Active 1 TAB daily September 11, 2019 9:12am 09-11-2019 [facility] (14996) nystatin [id number] unt/ml oral suspension (20 sources) Polyene Antifungal [...] trimester] 12-18-2024 Chronic Comment on above: [id number] [id number] Other complications of (1 source) Obesity complicating [...] Range Facility Chiropractic Reporton 2024 Chiropractic Report [facility] [address] [place] [address] [id number] OFFICE VISIT Date of Service: 07/09/25 MR#: [id number] Acct: [id number] Name: REESE PASTOR Rep #: [id number] : 2005 Provider: DALTON Casas Age/Sex: 19/F Location: [facility] Status: Signed Intake Vital Signs 06/17/25 14:21 07/05/25 15:54 Height 5 ft 9 in 5 ft 9 in Weight: 240 lb BMI 35.4 BP 130/79 H Intake Visit Reasons: ADJUSTMENT 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: B/L hip pain, LBP, pelvic and pubic pain [place] Machine Operator Required: No Accompanied by: Self Is patient [...] neck and back pain Asthma Surgical History [place] teeth extracted H/O shoulder surgery History of [...] chores frequency: daily duration: > 90 minutes/day cara/evangelical: None seatbelt use: always do you feel safe at home: Yes additional social history: Fiance- Robin- mechanical integrity engineer HPI ADJUSTMENT 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: neck and low [...] Procedures Manipulatio (more content not included)... Normal [facility] - Chemistry and C hemistry - challengeOrdered By: Viki Case on 07-05-2025 Glucose Ql (U) Negative [facility] - UrinalysisOrder ed By: Viki Case on 07-05-2025 Protein Ql (U) Negative [facility] Administrative Intern Office Visit Reporton 07-05-2025 Administrative Intern Office Visit Report [facility] [address], [address] [place] [address] OFFICE VISIT Date of Service: 07/05/25 MR#: [id number] Acct: [id number] Name: REESE WILLIS Rep #: [id number] : 2005 Provider: Dr. Viki rankin MD Age/Sex: 19/F Location: [facility] Status: Signed Intake Vital Signs 05/23/25 11:25 06/17/25 14:21 07/05/25 15:54 Height 5 ft 9 in 5 ft 9 in 5 ft 9 in Weight: 240 lb BMI 35.4 BP 130/79 H Intake Visit Reasons: 34wk ob [place] Machine Operator Required: No Is patient in pain?: No [...] neck and back pain Asthma Surgical History [place] teeth extracted H/O shoulder surgery History of appendectomy Family History Mother Hypertension Gestational diabetes 2nd only Grandmother Hypertension Maternal Blood clot in leg Diabetes Paternal Grandfather Cancer, Onset Age: 70 Paternal- Smoker Social History adopted: No household members: significant other housing: house number of children: 0 current occupational status: employed current occupation: [employer] current occupational exposures/hazards: No pets [...] chores frequency: daily duration: > 90 minutes/day cara/evangelical: None seatbelt use: always do you feel safe at home: Yes additional social history: Fiance- Robin- mechanical integrity engineer History 1 Elective abortions Hx Para 0 [...] 8 day (more content not included)... Normal [facility] Chiropractic Reporton 2024 Chiropractic Report [facility] [address] [place] [address] OFFICE VISIT Date of Service: 06/24/25 MR#: [id number] Acct: [id number] Name: REESE WILLIS Rep #: [id number] : 2005 Provider: DALTON Casas Age/Sex: 19/F Location: [facility] Status: Signed Intake Vital Signs 05/23/25 11:25 [...] neck and back pain Asthma Surgical History [place] teeth extracted H/O shoulder surgery History of appendectomy Family History Mother Hypertension Gestational diabetes 2nd only Grandmother Hypertension Maternal Blood clot in leg Diabetes Paternal Grandfather Cancer, Onset Age: 70 Paternal- Smoker Social History adopted: No household members: significant other housing: house number of children: 0 current occupational status: employed current occupation: [employer] current occupational exposures/hazards: No pets [...] chores frequency: daily duration: > 90 minutes/day cara/evangelical: None seatbelt use: always do you feel safe at home: Yes additional social history: Fiance- Robin- mechanical integrity engineer HPI ADJUSTMENT 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: neck and low [...] T4 Manipulation (more content not included)... Normal [facility] Urine Cultureon 06-19-2025 URC Mixed Gram Positive Organisms [place] Count 11,000-25,000 MIXC Mixed contaminants. Submit a new specimen if indicated. Normal [facility] Comment on above: Performed By: #### M 100.2200 #### [facility] [address] [place] [address]. [place], [place], [id number] Urine cultureOrdered By: Pablo Taveras on 06-18-2025 Bacteria identified Cx Nom (U) Positive Abnormal [facility] - Chemistry and C hemistry - challengeOrdered By: Gabriela Taveras on 06-17-2025 Bilirubin Ql (U) Negative [facility] Glucose Ql (U) Negative [facility] Ketones Ql (U) Negative [facility] pH (U) 8 [pH] [facility] Specific gravity (U) [Rel density] 1.010 [facility] Urobilinogen (U) [Mass/Vol] Negative [facility] - Hematology and Cell countsOrdered By: Gabriela Taveras on 06-17-2025 Hemoglobin Ql (U) Negative [facility] - Specimen inform ationOrdered By: Gabriela Taveras on 06-17-2025 Clarity (U) Cloudy [facility] Color (U) YELLOW [facility] - UrinalysisOrder ed By: Gabriela Taveras on 06-17-2025 Nitrite Ql (U) Negative [facility] Protein Ql (U) Negative [facility] No Panel InformationOrdered By: Gabriela Taveras on 06-17-2025 Urine Leukocytes Positive [facility] Urine Non-Hemolyzed Blood [facility] Administrative Intern Office Visit Reporton 06-17-2025 Administrative Intern Office Visit Report [facility] [address], [address] [place] [address] OFFICE VISIT Date of Service: 06/17/25 MR#: [id number] Acct: [id number] Name: REESE MCDONALD Rep #: [id number] : 2005 Provider: WILBER Chavira ams Age/Sex: 19/F Location: [facility] Status: Signed Intake Vital Signs 05/09/25 10:59 06/05/25 14:54 06/17/25 14:21 Height 5 ft 9 in 5 ft 9 in 5 ft 9 in Weight: 238 lb 5 oz BMI 35.2 BP 117/75 Intake Visit Reasons: 32 WK OB 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: 32wk OB [place] Machine Operator Required: No Is patient in pain?: No [...] neck and back pain Asthma Surgical History [place] teeth extracted H/O shoulder surgery History of appendectomy Family History Mother Hypertension Gestational diabetes 2nd only Grandmother Hypertension Maternal Blood clot in leg Diabetes Paternal Grandfather Cancer, Onset Age: 70 Paternal- Smoker Social History adopted: No household members: significant other housing: house number of children: 0 current occupational status: employed current occupation: [employer] current occupational exposures/hazards: No pets and [...] chores frequency: daily duration: > 90 minutes/day cara/evangelical: None seatbelt use: always do you feel safe at home: Yes additional social history: Fiance- Robin- mechanical integrity engineer History 1 Elective abortions Hx Para 0 [...] labs. 06 (more content not included)... Normal [facility] Urine cultureOrdered By: Pablo Taveras on 06-17-2025 Bacteria identified Cx Nom (U) Positive Abnormal [facility] - Chemistry and C hemistry - challengeOrdered By: Eugenia Nicole on 06-05-2025 Glucose Ql (U) Negative [facility] - UrinalysisOrder ed By: Eugenia Nicole on 06-05-2025 Protein Ql (U) Negative [facility] Administrative Intern Office Visit Reporton 06-05-2025 Administrative Intern Office Visit Report [facility]'s [address], [address] [place] [address] OFFICE VISIT Date of Service: 06/05/25 MR#: [id number] Acct: [id number] Name: REESE MCDONALD Rep #: [id number] : 2005 Provider: Dr. Eugenia Cordoba DO Age/Sex: 19/F Location: [facility] Status: Signed Intake Vital Signs 05/09/25 10:59 05/23/25 11:25 06/05/25 14:54 Height 5 ft 9 in 5 ft 9 in 5 ft 9 in Weight: 237 lb 2 oz BMI 35.0 BP 121/71 H Intake Visit Reasons: 30 WK OB [place] Machine Operator Required: No Is patient in pain?: No [...] neck and back pain Asthma Surgical History [place] teeth extracted H/O shoulder surgery History of appendectomy Family History Mother Hypertension Gestational diabetes 2nd only Grandmother Hypertension Maternal Blood clot in leg Diabetes Paternal Grandfather Cancer, Onset Age: 70 Paternal- Smoker Social History adopted: No household members: significant other housing: house number of children: 0 current occupational status: employed current occupation: [employer] current occupational exposures/hazards: No pets [...] chores frequency: daily duration: > 90 minutes/day cara/evangelical: None seatbelt use: always do you feel safe at home: Yes additional social history: Fiance- Robin- mechanical integrity engineer History 1 Elective abortions Hx Para 0 [...] to re (more content not included)... Normal [facility] Chiropractic Reporton 2024 Chiropractic Report [facility] [address] [place] [address] OFFICE VISIT Date of Service: 05/27/25 MR#: [id number] Acct: [id number] Name: REESE MCDONALD Rep #: [id number] : 2005 Provider: DALTON Casas Age/Sex: 19/F Location: [facility] Status: Signed Intake Vital Signs 04/09/25 14:14 [...] neck and back pain Asthma Surgical History [place] teeth extracted H/O shoulder surgery History of [...] chores frequency: daily duration: > 90 minutes/day cara/evangelical: None seatbelt use: always do you feel safe at home: Yes additional social history: Fiance- Robin- mechanical integrity engineer HPI ADJUSTMENT 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: neck and low [...] Response: po (more content not included)... Normal [facility] - Chemistry and C hemistry - challengeOrdered By: Gabriela Taveras on 05-23-2025 Glucose Ql (U) Negative [facility] - UrinalysisOrder ed By: Gabriela Taveras on 05-23-2025 Protein Ql (U) Negative [facility] Administrative Intern Office Visit Reporton 05-23-2025 Administrative Intern Office Visit Report [facility], [address] [place] [address] OFFICE VISIT Date of Service: 05/23/25 MR#: [id number] Acct: [id number] Name: REESE MCDONALD Rep #: [id number] : 2005 Provider: WILBER Chavira ams Age/Sex: 19/F Location: [facility] Status: Signed Intake Vital Signs 03/12/25 14:50 05/09/25 10:59 05/23/25 11:17 05/23/25 11:25 Height 5 ft 9 in 5 ft 9 in 5 ft 9 in 5 ft 9 in Weight: 233 lb BMI 34.4 BP 116/68 Intake Visit Reasons: 28 WK OB [place] Machine Operator Required: No Is patient in pain?: No [...] neck and back pain Asthma Surgical History [place] teeth extracted H/O shoulder surgery History of appendectomy Family History Mother Hypertension Gestational diabetes 2nd only Grandmother Hypertension Maternal Blood clot in leg Diabetes Paternal Grandfather Cancer, Onset Age: 70 Paternal- Smoker Social History adopted: No household members: significant other housing: house number of children: 0 current occupational status: employed current occupation: [employer] current occupational exposures/hazards: No pets [...] chores frequency: daily duration: > 90 minutes/day cara/evangelical: None seatbelt use: always do you feel safe at home: Yes additional social history: Fiance- Robin- mechanical integrity engineer History 1 Elective abortions Hx Para 0 [...] LMP. declines (more content not included)... Normal [facility] OB Limited With Biometricson 05-21-2025 OB Limited With Biometrics [facility] Imaging Services [address] [place], [place] [id number] OB Limited With Biometrics MR#: [id number] Acct: [id number] Name: REESE MCDONALD Rep #: [id number] : 2005 F 19 From: Tennille Sherwood MD PCP: Dr. Isi Justice MD Status: [facility] CLI Study: OB Limited With Biometrics Date of Exam: 05/21 Exam# [id number] Ordering Dr: Gabriela Taveras CNM ADDENDUM by Dr. Tennille Sherwood MD on 05/29/25 at 2329 The lower margin of the placenta is 2.3 cm from the internal os. No evidence of a low lying placenta. Reading Location: [id number] 05/29/25 7780 Date cc: WILBER Taveras; Dr. Isi Justice [...] 2. No acute abnormality detected. Reading Location: [facility] [place] CC: WILBER Taveras; Dr. Isi Justice MD Pharmacy Picking Tech: Signed Normal [facility] Absolute lymphocyte countOrd ered By: Gabriela Taveras on 05-09-2025 Lymphocytes Auto (Unsp spec) [#/Vol] 1.66 10*3/uL 0.83-4.51 [facility] Absolute neutrophil countOrd ered By: Gabriela Taveras on 05-09-2025 Neutrophils (Bld) [#/Vol] 8.5 10*3/uL High 2.0-7.7 [facility] Automated lymphocyte count a s percentage of total leukocytesOrdered By: Gabriela Taveras on 05-09-2025 Lymphocytes/100 WBC Auto (Unsp spec) 14.9 % Low 19-41 [facility] Basophil percentageOrdered B y: Gabriela Taveras on 05-09-2025 Basophils/100 WBC (Bld) 0.5 % 0-1 [facility] CBC W/Diff, Automatedon Absolute Lymph 1.66 X10 3/uL Normal 0.83-4.51 [facility] Comment on above: Performed By: #### L 3890.6006, L501.0250, L509.8002, L100.0100 ####[facility] [address] [place], [address] Absolute Neut 8.5 X10 3/uL High 2.0-7.7 [facility] Comment on above: Performed By: #### L 3890.6006, L501.0250, L509.8002, L100.0100 ####[facility] [address] [place], [address] Basophils/100 WBC (Bld) 0.5 % Normal 0-1 [facility] Comment on above: Performed By: #### L 3890.6006, L501.0250, L509.8002, L100.0100 ####[facility] [address] [place], [address] Eosinophils/100 WBC (Bld) 0.6 % Normal 0-5 [facility] Comment on above: Performed By: #### L 3890.6006, L501.0250, L509.8002, L100.0100 ####[facility] [address] [place], [address] Erythrocyte distribution width (RBC) [Ratio] 12.4 % Normal 11.6-14.6 [facility] Comment on above: Performed By: #### L 3890.6006, L501.0250, L509.8002, L100.0100 ####[facility] [address] [place], [address] Hematocrit (Bld) [Volume fraction] 39.3 % Normal 37-47 [facility] Comment on above: Performed By: #### L 3890.6006, L501.0250, L509.8002, L100.0100 ####[facility] [address] [place], [address] Hemoglobin (Bld) [Mass/Vol] 13.4 g/dL Normal 12.0-15.0 [facility] Comment on above: Performed By: #### L 3890.6006, L501.0250, L509.8002, L100.0100 ####[facility] [address] [place], [address] IG% 1.100 High 0.0-0.9 [facility] Comment on above: Result Comment: IG% - Immature Granulocytes (promyelocytes, myelocytes and metamyelocytes) > 1% indicates that a LEFT SHIFT is Present. Performed By: #### L 3890.6006, L501.0250, L509.8002, L100.0100 ####[facility] [address] [place], [address] Lymphocytes/100 WBC (Bld) 14.9 % Low 19-41 [facility] Comment on above: Performed By: #### L 3890.6006, L501.0250, L509.8002, L100.0100 ####[facility] [address] [place], [address] MCH (RBC) [Entitic mass] 31.0 pg Normal 27.0-32.0 [facility] Comment on above: Performed By: #### L 3890.6006, L501.0250, L509.8002, L100.0100 ####[facility] [address] [place], [address] MCHC (RBC) [Mass/Vol] 34.1 g/dL Normal 32-36 [facility] Comment on above: Performed By: #### L 3890.6006, L501.0250, L509.8002, L100.0100 ####[facility] [address] [place], [address] MCV (RBC) [Entitic vol] 91.0 fL Normal 81-99 [facility] Comment on above: Performed By: #### L 3890.6006, L501.0250, L509.8002, L100.0100 ####[facility] [address] [place], [address] Monocytes/100 WBC (Bld) 7.0 % Normal 0-10 [facility] Comment on above: Performed By: #### L 3890.6006, L501.0250, L509.8002, L100.0100 ####[facility] [address] [place], [address] Neutrophils/100 WBC (Bld) 75.9 % High 47-70 [facility] Comment on above: Performed By: #### L 3890.6006, L501.0250, L509.8002, L100.0100 ####[facility] [address] [place], [address] Nucleated RBC (Bld) [#/Vol] 0 10*3/uL Normal 0-5 [facility] Comment on above: Performed By: #### L 3890.6006, L501.0250, L509.8002, L100.0100 ####[facility] [address] [place], [address] Platelet mean volume (Bld) [Entitic vol] 9.9 fL Normal 6.2-12.0 [facility] Comment on above: Performed By: #### L 3890.6006, L501.0250, L509.8002, L100.0100 ####[facility] [address] [place], [address] Platelets (Bld) [#/Vol] 288 10*3/uL Normal 150-450 [facility] Comment on above: Performed By: #### L 3890.6006, L501.0250, L509.8002, L100.0100 ####[facility] [address] [place], [address] RBC (Bld) [#/Vol] 4.32 10*6/uL Normal 4.2-5.4 [facility] Comment on above: Performed By: #### L 3890.6006, L501.0250, L509.8002, L100.0100 ####[facility] [address] [place], [address] RDW SD 41.0 fl Normal 35.1-43.9 [facility] Comment on above: Performed By: #### L 3890.6006, L501.0250, L509.8002, L100.0100 ####[facility] [address] [place], [address] WBC (Bld) [#/Vol] 11.1 10*3/uL High 4.4-11.0 [facility] Comment on above: Performed By: #### L 3890.6006, L501.0250, L509.8002, L100.0100 ####[facility] [address] [place], [address] Eosinophil percentageOrdered By: Gabriela Taveras on 05-09-2025 Eosinophils/100 WBC (Bld) 0.6 % 0-5 [facility] Erythrocyte distribution wid th ratioOrdered By: Gabriela Taveras on 05-09-2025 Erythrocyte distribution width (RBC) [Ratio] 12.4 % 11.6-14.6 [facility] Erythrocyte distribution wid th standard deviationOrdered By: Gabriela Taveras on 05-09-2025 Erythrocyte distribution width (RBC) [Ratio] 41.0 fl 35.1-43.9 [facility] Glucose Challenge Gest 1H 50 [place] 05-09-2025 GLU GEST 50g 1H 85 mg/dL Normal 70-140 [facility] Comment on above: Performed By: #### L 3890.6006, L501.0250, L509.8002, L100.0100 ####[facility] [address] [place], [address] Glucose measurement at 2 yoana rs post-dose gestational glucose tolerance testOrdered By: Gabriela Taveras on 05-09-2025 Glucose [Mass/Vol] 85 mg/dL 70-140 [facility] HIVon 05-09-2025 HIV Non-Reactive Normal Nonreactive [facility] Comment on above: Result Comment: Non- Reactive Reactive Repeatedly reactive samples must be confirmed according to CDC recommended confirmatory algorithms. The subresults for either HIVAG or AHIV can be used as an aid in the selection of the confirmation algorithm for reactive samples. Send out specimens with Reactive results to [facility] for confirmation. Order the HIV antibody detection and differentiation: lc#[id number] Performed By: #### L 3890.6006, L501.0250, L509.8002, L100.0100 ####[facility] [address] [place], [address] Hematocrit Auto (Bld) [Volum e fraction]Ordered By: Gabriela Taveras on 05-09-2025 Hematocrit (Bld) [Volume fraction] 39.3 % 37-47 [facility] Hemoglobin measurementOrdere d By: Gabriela Taveras on 05-09-2025 Hemoglobin (Bld) [Mass/Vol] 13.4 g/dL 12.0-15.0 [facility] Immature granulocytes/100 WB C Auto (Bld)Ordered By: Gabriela Taveras on 05-09-2025 Immature granulocytes/100 WBC (Bld) 1.100 % High 0.0-0.9 [facility] Comment on above: IG% - Immature Granu locytes (promyelocytes, myelocytes and metamyelocytes) > 1% indicates that a LEFT SHIFT is Present. Laboratory - Chemistry and C hemistry - challengeOrdered By: Viki Case on 05-09-2025 Glucose Ql (U) Negative [facility] Laboratory - UrinalysisOrder ed By: Viki Case on 05-09-2025 Protein Ql (U) Negative [facility] MCV (mean corpuscular volume ) determinationOrdered By: Gabriela Taveras on 05-09-2025 MCV (RBC) [Entitic vol] 91.0 fL 81-99 [facility] Mean corpuscular hemoglobin (MCH) determinationOrdered By: Gabriela Taveras on 05-09-2025 MCH (RBC) [Entitic mass] 31.0 pg 27.0-32.0 [facility] Mean corpuscular hemoglobin concentration (MCHC) determinationOrdered By: Gabriela Taveras on 05-09-2025 MCHC (RBC) [Mass/Vol] 34.1 g/dL 32-36 [facility] Mean platelet volume determi nationOrdered By: Gabriela Taveras on 05-09-2025 Platelet mean volume (Bld) [Entitic vol] 9.9 fL 6.2-12.0 [facility] Monocyte percentageOrdered B y: Gabriela Taveras on 05-09-2025 Monocytes/100 WBC (Bld) 7.0 % 0-10 [facility] Neutrophil percentageOrdered By: Gabriela Taveras on 05-09-2025 Neutrophils/100 WBC (Bld) 75.9 % High 47-70 [facility] No Panel InformationOrdered By: Gabriela Taveras on 05-09-2025 HIV (1&2) Antibody Non-Reactive Nonreactive [facility] Comment on above: Non-ReactiveReactive Repeatedly reactive samples must be confirmed according to CDC recommended confirmatory algorithms. The subresults for either HIVAG or AHIV can be used as an aid in the selection of the confirmation algorithm for reactive samples.Send out specimens with Reactive results to [facility] for confirmation.Order the HIV antibody detection and differentiation: #[id number] Nucleated red blood cell per centageOrdered By: Gabriela Taveras on 05-09-2025 Nucleated RBC/100 WBC (Bld) [Ratio] 0 % 0-5 [facility] Administrative Intern Office Visit Reporton 05-09-2025 Administrative Intern Office Visit Report [facility] [address], [address] [place] [address] OFFICE VISIT Date of Service: 05/09/25 MR#: [id number] Acct: [id number] Name: REESE MCDONALD Rep #: [id number] : 2005 Provider: Dr. Viki rankin MD Age/Sex: 19/F Location: [facility] [place] Status: Signed Intake Vital Signs 03/12/25 14:50 04/09/25 14:14 05/09/25 10:59 05/09/25 10:59 Height 5 ft 9 in 5 ft 9 in 5 ft 9 in 5 ft 9 in Weight: 230 lb 5 oz BMI 34.0 BP 143/82 H Intake Visit Reasons: 26 wk ob [place] Machine Operator Required: No Is patient in pain?: No [...] neck and back pain Asthma Surgical History [place] teeth extracted H/O shoulder surgery History of [...] chores frequency: daily duration: > 90 minutes/day cara/evangelical: None seatbelt use: always do you feel safe at home: Yes additional social history: Fiance- Robin- mechanical integrity engineer History 1 Elective abortions Hx Para 0 [...] return fo (more content not included)... Normal [facility] Platelet countOrdered By: Isra Taveras on 05-09-2025 Platelets (Bld) [#/Vol] 288 10*3/uL 150-450 [facility] RBC Auto (Bld) [#/Vol]Ordere d By: Gabriela Taveras on 05-09-2025 RBC (Bld) [#/Vol] 4.32 10*6/uL 4.2-5.4 [facility] Syphilis Antibodieson 2024 Syphilis Abs Non-Reactive Normal Nonreactive [facility] Comment on above: Performed By: #### L 3890.6006, L501.0250, L509.8002, L100.0100 ####[facility] [address] [place], [place], [id number] White blood cell (WBC) count Ordered By: Gabriela Taveras on 05-09-2025 WBC (Bld) [#/Vol] 11.1 10*3/uL High 4.4-11.0 [facility] Chiropractic Reporton 2024 Chiropractic Report [facility] [address] [place] [id number] OFFICE VISIT Date of Service: 05/01/25 MR#: [id number] Acct: [id number] Name: REESE MCDONALD Rep #: [id number] : 2005 Provider: DALTON Casas Age/Sex: 19/F Location: [facility] [place] Status: Signed Intake Vital Signs 03/12/25 14:50 04/09/25 14:14 Height 5 ft 9 in 5 ft 9 in Weight: 223 lb 1 oz BMI 32.9 BP 124/76 H Intake Visit Reasons: ADJUSTMENT 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: 22wk OB Allergies nickel Allergy (Mild, Verified 04/09/25 14:10) unknown [facility] Medical History Acne Dysmenorrhea Seasonal allergies Hx of recurrent urinary tract infection Chronic neck and back pain Asthma Surgical History [place] teeth extracted H/O shoulder surgery History of [...] chores frequency: daily duration: > 90 minutes/day cara/evangelical: None seatbelt use: always do you feel safe at home: Yes additional social history: Fiance- Robin- mechanical integrity engineer HPI ADJUSTMENT 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: neck and low [...] of cervi (more content not included)... Normal [facility] Laboratory - Chemistry and C hemistry - challengeOrdered By: Gabriela Taveras on 04-09-2025 Glucose Ql (U) Negative [facility] - UrinalysisOrder ed By: Gabriela Taveras on 04-09-2025 Protein Ql (U) Negative [facility] Administrative Intern Office Visit Reporton 04-09-2025 Administrative Intern Office Visit Report [facility] [address], [address] [place] [address] OFFICE VISIT Date of Service: 04/09/25 MR#: [id number] Acct: [id number] Name: REESE MCDONALD Rep #: [id number] : 2005 Provider: WILBER Chavira ams Age/Sex: 19/F Location: [facility] [place] Status: Signed Intake Vital Signs 03/12/25 14:50 04/09/25 14:14 Height 5 ft 9 in 5 ft 9 in Weight: 218 lb 223 lb 1 oz BMI 32.1 32.9 BP 113/72 124/76 H Intake Visit Reasons: 22 wk ob 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: 22wk OB [place] Machine Operator Required: No Is patient in pain?: No [...] neck and back pain Asthma Surgical History [place] teeth extracted H/O shoulder surgery History of appendectomy Family History Mother Hypertension Gestational diabetes 2nd only Grandmother Hypertension Maternal Blood clot in leg Diabetes Paternal Grandfather Cancer, Onset Age: 70 Paternal- Smoker Social History adopted: No household members: significant other housing: house number of children: 0 current occupational status: employed current occupation: [employer] agency current occupational exposures/hazards: No pets [...] chores frequency: daily duration: > 90 minutes/day cara/evangelical: None seatbelt use: always do you feel safe at home: Yes additional social history: Fiance- Robin- mechanical integrity engineer History 1 Elective abortions Hx Para 0 [...] -???-???-???-???-???- ???-???-???-???- (more content not included)... Normal [facility] Chiropractic Reporton 2024 Chiropractic Report [facility] [address] [place] [address] OFFICE VISIT Date of Service: 04/03/25 MR#: [id number] Acct: [id number] Name: REESE MCDONALD Rep #: [id number] : 2005 Provider: DALTON Casas Age/Sex: 19/F Location: [facility] Status: Signed Intake Vital Signs 02/13/25 09:50 [...] neck and back pain Asthma Surgical History [place] teeth extracted H/O shoulder surgery History of [...] chores frequency: daily duration: > 90 minutes/day cara/evangelical: None seatbelt use: always do you feel safe at home: Yes additional social history: Fiance- Robin- mechanical integrity engineer [facility] ADJUSTMENT 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: neck and low back [...] bee sting. (more content not included)... Normal [facility] OB Anatomy Scanon 03-26-2025 OB Anatomy Scan [facility] Imaging Services [address] [place] [address] OB Anatomy Scan MR#: [id number] Acct: [id number] Name: REESE MCDONALD Rep #: [id number] : 2005 F 19 From: Tennille Sherwood MD PCP: Dr. Isi Justice MD Status: REG CLI Study: OB Anatomy Scan Date of Exam: 03/26/25 Exam# [id number] Ordering Dr: Eugenia Moncada DO PROCEDURE: OB [...] equals dates. 2. Low-lying placenta. Reading Location: [id number] CC: Dr. Eugenia Moncada DO; Dr. Isi Justice MD Pharmacy Picking Tech: Signed Normal [facility] Laboratory - Chemistry and C hemistry - challengeOrdered By: Yahaira Juarez on 03-12-2025 Glucose Ql (U) Negative [facility] - UrinalysisOrder ed By: Yahaira Juarez on 03-12-2025 Protein Ql (U) Negative [facility] Administrative Intern Office Visit Reporton 03-12-2025 Administrative Intern Office Visit Report [facility] [address], [address] [place] [address] OFFICE VISIT Date of Service: 03/12/25 MR#: [id number] Acct: [id number] Name: REESE MCDONALD Rep #: [id number] : 2005 Provider: VERA campo Age/Sex: 19/F Location: [facility] Status: Signed Intake Vital Signs 01/10/25 14:19 02/13/25 09:50 03/12/25 14:50 Height 5 ft 9 in 5 ft 9 in 5 ft 9 in Weight: 218 lb BMI 32.1 BP 113/72 Intake Visit Reasons: 18wk ob 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: 18 Week OB [place] Machine Operator Required: No Is patient in pain?: No [...] neck and back pain Asthma Surgical History [place] teeth extracted H/O shoulder surgery History of appendectomy Family History Mother Hypertension Gestational diabetes 2nd only Grandmother Hypertension Maternal Blood clot in leg Diabetes Paternal Grandfather Cancer, Onset Age: 70 Paternal- Smoker Social History adopted: No household members: significant other housing: house number of children: 0 current occupational status: employed 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 Normal [facility] Chiropractic Reporton 2024 Chiropractic Report [facility] Chiropractic [facility] [place] [address] OFFICE VISIT Date of Service: 03/05/25 MR#: [id number] Acct: [id number] Name: REESE MCDONALD Rep #: [id number] : 2005 Provider: DALTON Casas Age/Sex: 19/F Location: [facility] Status: Signed Intake Vital Signs 01/10/25 14:19 [...] neck and back pain Asthma Surgical History [place] teeth extracted H/O shoulder surgery History of appendectomy Family History Mother Hypertension Gestational diabetes 2nd only Grandmother Hypertension Maternal Blood clot in leg Diabetes Paternal Grandfather Cancer, Onset Age: 70 Paternal- Smoker Social History adopted: No household members: significant other housing: house number of children: 0 current occupational status: employed current occupation: [employer] current occupational exposures/hazards: No pets [...] chores frequency: daily duration: > 90 minutes/day cara/evangelical: None seatbelt use: always do you feel safe at home: Yes additional social history: Fiance- Robin- mechanical integrity engineer HPI ADJUSTMENT 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: neck and low [...] Acute (3) (more content not included)... Normal [facility] Laboratory - Chemistry and C hemistry - challengeOrdered By: Eugenia Nicole on 02-13-2025 Glucose Ql (U) Negative [facility] - UrinalysisOrder ed By: Eugenia Nicole on 02-13-2025 Protein Ql (U) Negative [facility] Administrative Intern Office Visit Reporton 02-13-2025 Administrative Intern Office Visit Report [address], [address] [place] [address] OFFICE VISIT Date of Service: 02/13/25 MR#: [id number] Acct: [id number] Name: REESE MCDONALD Rep #: [id number] : 2005 Provider: Dr. Eugenia Cordoba DO Age/Sex: 19/F Location: [facility] [place] Status: Signed Intake Vital Signs 12/18/24 11:03 01/10/25 14:19 02/13/25 09:47 02/13/25 09:50 Height 5 ft 8.5 in 5 ft 9 in 5 ft 9 in 5 ft 9 in Weight: 219 lb BMI 32.3 BP 127/79 H Intake Visit Reasons: 14 wk OB [place] Machine Operator Required: No Is patient in pain?: No [...] neck and back pain Asthma Surgical History [place] teeth extracted H/O shoulder surgery History of [...] chores frequency: daily duration: > 90 minutes/day cara/evangelical: None seatbelt use: always do you feel safe at home: Yes additional social history: Fiance- Robin- mechanical integrity engineer History 1 Elective abortions Hx Para 0 [...] ob labs. (more content not included)... Normal [facility] Chiropractic Reporton 2024 Chiropractic Report [facility] [address] [place] [address] OFFICE VISIT Date of Service: 01/29/25 MR#: [id number] Acct: [id number] Name: ERESE MCDONALD Rep #: [id number] : 2005 Provider: DALTON Alva Do ssi Age/Sex: 19/F Location: [facility] Status: Signed Intake Vital Signs 12/31/24 09:36 01/10/25 14:19 Height 5 ft 9 in 5 ft 9 in Intake Visit Reasons: ADJUSTMENT 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: Adjustment Allergies nickel Allergy (Mild, Verified 01/10/25 14:16) unknown [facility] Medical History Seasonal allergies Hx of recurrent urinary tract infection Chronic neck and back pain Asthma Surgical History [place] teeth extracted H/O shoulder surgery History of appendectomy Family History Mother Hypertension Gestational diabetes 2nd only Grandmother Hypertension Maternal Blood clot in leg Diabetes Paternal Grandfather Cancer, Onset Age: 70 Paternal- Smoker Social History adopted: No household members: significant other housing: house number of children: 0 current occupational status: employed 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 She was seen by her MATERIAL CUTTER and confirmed she is currently 12 weeks [...] showing improve (more content not included)... Normal [facility] Absolute lymphocyte countOrd ered By: Yahaira Juarez on 01-21-2025 Lymphocytes Auto (Unsp spec) [#/Vol] 2.89 10*3/uL 0.83-4.51 [facility] Absolute neutrophil countOrd ered By: Yahaira Juarez on 01-21-2025 Neutrophils (Bld) [#/Vol] 8.4 10*3/uL High 2.0-7.7 [facility] Automated lymphocyte count a s percentage of total leukocytesOrdered By: Yahaira Juarez on 01-21-2025 Lymphocytes/100 WBC Auto (Unsp spec) 23.2 % - [facility] Basophil percentageOrdered B y: Yahaira Juarez on 01-21-2025 Basophils/100 WBC (Bld) 0.6 % 0-1 [facility] CBC W/Diff, Automatedon 01-03 Absolute Lymph 2.89 X10 3/uL Normal 0.83-4.51 [facility] Comment on above: Performed By: #### L 3890.6102, L3890.6006, L509.8002, L509.4006, L501.9985, BTS, L100.0100, L3890.6301 #### [facility] [address] [place], [address] Absolute Neut 8.4 X10 3/uL High 2.0-7.7 [facility] Comment on above: Performed By: #### L 3890.6102, L3890.6006, L509.8002, L509.4006, L501.9985, BTS, L100.0100, L3890.6301 #### [facility] [address] [place], [address] Basophils/100 WBC (Bld) 0.6 % Normal 0-1 [facility] Comment on above: Performed By: #### L 3890.6102, L3890.6006, L509.8002, L509.4006, L501.9985, BTS, L100.0100, L3890.6301 #### [facility] [address] [place], [address] Eosinophils/100 WBC (Bld) 1.8 % Normal 0-5 [facility] Comment on above: Performed By: #### L 3890.6102, L3890.6006, L509.8002, L509.4006, L501.9985, BTS, L100.0100, L3890.6301 #### [facility] [address] [place], [address] Erythrocyte distribution width (RBC) [Ratio] 12.4 % Normal 11.6-14.6 [facility] Comment on above: Performed By: #### L 3890.6102, L3890.6006, L509.8002, L509.4006, L501.9985, BTS, L100.0100, L3890.6301 #### [facility] [address] [place], [address] Hematocrit (Bld) [Volume fraction] 40.7 % Normal 37-47 [facility] Comment on above: Performed By: #### L 3890.6102, L3890.6006, L509.8002, L509.4006, L501.9985, BTS, L100.0100, L3890.6301 #### [facility] [address] [place], [address] Hemoglobin (Bld) [Mass/Vol] 14.2 g/dL Normal 12.0-15.0 [facility] Comment on above: Performed By: #### L 3890.6102, L3890.6006, L509.8002, L509.4006, L501.9985, BTS, L100.0100, L3890.6301 #### [facility] [address] [place], [address] IG% 0.400 Normal 0.0-0.9 [facility] Comment on above: Result Comment: IG% - Immature Granulocytes (promyelocytes, myelocytes and metamyelocytes) > 1% indicates that a LEFT SHIFT is Present. Performed By: #### L 3890.6102, L3890.6006, L509.8002, L509.4006, L501.9985, BTS, L100.0100, L3890.6301 #### [facility] [address] [place], [address] Lymphocytes/100 WBC (Bld) 23.2 % Normal 19-41 [facility] Comment on above: Performed By: #### L 3890.6102, L3890.6006, L509.8002, L509.4006, L501.9985, BTS, L100.0100, L3890.6301 #### [facility] [address] [place], [address] MCH (RBC) [Entitic mass] 30.5 pg Normal 27.0-32.0 [facility] Comment on above: Performed By: #### L 3890.6102, L3890.6006, L509.8002, L509.4006, L501.9985, BTS, L100.0100, L3890.6301 #### [facility] [address] [place], [address] MCHC (RBC) [Mass/Vol] 34.9 g/dL Normal 32-36 [facility] Comment on above: Performed By: #### L 3890.6102, L3890.6006, L509.8002, L509.4006, L501.9985, BTS, L100.0100, L3890.6301 #### [facility] [address] [place], [address] MCV (RBC) [Entitic vol] 87.5 fL Normal 81-99 [facility] Comment on above: Performed By: #### L 3890.6102, L3890.6006, L509.8002, L509.4006, L501.9985, BTS, L100.0100, L3890.6301 #### [facility] [address] [place], [address] Monocytes/100 WBC (Bld) 6.6 % Normal 0-10 [facility] Comment on above: Performed By: #### L 3890.6102, L3890.6006, L509.8002, L509.4006, L501.9985, BTS, L100.0100, L3890.6301 #### [facility] [address] [place], [address] Neutrophils/100 WBC (Bld) 67.4 % Normal 47-70 [facility] Comment on above: Performed By: #### L 3890.6102, L3890.6006, L509.8002, L509.4006, L501.9985, BTS, L100.0100, L3890.6301 #### [facility] [address] [place], [address] Nucleated RBC (Bld) [#/Vol] 0 10*3/uL Normal 0-5 [facility] Comment on above: Performed By: #### L 3890.6102, L3890.6006, L509.8002, L509.4006, L501.9985, BTS, L100.0100, L3890.6301 #### [facility] [address] [facility] [place], [address] Platelet mean volume (Bld) [Entitic vol] 9.4 fL Normal 6.2-12.0 [facility] Comment on above: Performed By: #### L 3890.6102, L3890.6006, L509.8002, L509.4006, L501.9985, BTS, L100.0100, L3890.6301 #### [facility] [address] [place], [address] Platelets (Bld) [#/Vol] 332 10*3/uL Normal 150-450 [facility] Comment on above: Performed By: #### L 3890.6102, L3890.6006, L509.8002, L509.4006, L501.9985, BTS, L100.0100, L3890.6301 #### [facility] [address] [place], [address] RBC (Bld) [#/Vol] 4.65 10*6/uL Normal 4.2-5.4 [facility] Comment on above: Performed By: #### L 3890.6102, L3890.6006, L509.8002, L509.4006, L501.9985, BTS, L100.0100, L3890.6301 #### [facility] [address] [place], [address] RDW SD 39.0 fl Normal 35.1-43.9 [facility] Comment on above: Performed By: #### L 3890.6102, L3890.6006, L509.8002, L509.4006, L501.9985, BTS, L100.0100, L3890.6301 #### [facility] [address] [place], [address] WBC (Bld) [#/Vol] 12.4 10*3/uL High 4.4-11.0 [facility] Comment on above: Performed By: #### L 3890.6102, L3890.6006, L509.8002, L509.4006, L501.9985, BTS, L100.0100, L3890.6301 #### [facility] [address] [place], [address] Eosinophil percentageOrdered By: Yahaira Juarez on 01-21-2025 Eosinophils/100 WBC (Bld) 1.8 % 0-5 [facility] Erythrocyte distribution wid th ratioOrdered By: Yahaira Juarez on 01-21-2025 Erythrocyte distribution width (RBC) [Ratio] 12.4 % 11.6-14.6 [facility] Erythrocyte distribution wid th standard deviationOrdered By: Yahaira Juarez on 01-21-2025 Erythrocyte distribution width (RBC) [Ratio] 39.0 fl 35.1-43.9 [facility] HIVon 01-21-2025 HIV Non-Reactive Normal Nonreactive [facility] Comment on above: Result Comment: Non- Reactive Reactive Repeatedly reactive samples must be confirmed according to CDC recommended confirmatory algorithms. The subresults for either HIVAG or AHIV can be used as an aid in the selection of the confirmation algorithm for reactive samples. Send out specimens with Reactive results to [facility] for confirmation. Order the HIV antibody detection and differentiation: lc#[id number] Performed By: #### L 3890.6102, L3890.6006, L509.8002, L509.4006, L501.9985, BTS, L100.0100, L3890.6301 ####[facility] [address] [place], [place], [id number] Hematocrit Auto (Bld) [Volum e fraction]Ordered By: Yahaira Juarez on 01-21-2025 Hematocrit (Bld) [Volume fraction] 40.7 % 37-47 [facility] Hemoglobin A1con 01-21-2025 HbA1c (Bld) [Mass fraction] 5.0 % Normal <=5.6 [facility] Comment on above: Result Comment: Norm al < 5.7 % Prediabetic 5.7 - 6.4 % Diabetic >or= 6.5 % Please note range changes. Performed By: #### L 3890.6102, L3890.6006, L509.8002, L509.4006, L501.9985, BTS, L100.0100, L3890.6301 #### [facility] [address] [place], [place], [id number] Hemoglobin A1c percentageOrd ered By: Yahaira Juarez on 01-21-2025 HbA1c (Bld) [Mass fraction] 5.0 % <5.7 [facility] Comment on above: Normal < 5.7 % Predi abetic 5.7 - 6.4 % Diabetic >or= 6.5 % Please note range changes. Hemoglobin measurementOrdere d By: Yahaira Juarez on 01-21-2025 Hemoglobin (Bld) [Mass/Vol] 14.2 g/dL 12.0-15.0 [facility] Hepatitis C Antibodyon 01-21 Hepatitis C Ab Non-Reactive Normal Nonreactive [facility] Comment on above: Result Comment: Reac tive: Presumptive evidence of antibodies to HCV. Follow CDC recommendations for supplemental testing. Non-Reactive: Antibodies to HCV were not detected; does not exclude the possibility of exposure to HCV Reactive Results are presumptive evidence of antibodies to HCV. Follow CDC recommendations for supplemental testing. Order confirmation testing: HCV Quant by PCR testing - [facility]PCR #[id number] Non Reactive: < 0.8 Equivocal: >/= 0.8 to < 1.0 Reactive: >/= 1.0 The [facility] requires that a reactive/equivocal HCV antibody result be sent out for confirmation. HCV Quant by PCR testing. Performed By: #### L 3890.6102, L3890.6006, L509.8002, L509.4006, L501.9985, BTS, L100.0100, L3890.6301 ####[facility] [address] [facility]. [place], [address] Immature granulocytes/100 WB C Auto (Bld)Ordered By: Yahaira Juarez on 01-21-2025 Immature granulocytes/100 WBC (Bld) 0.400 % 0.0-0.9 [facility] Comment on above: IG% - Immature Granu locytes (promyelocytes, myelocytes and metamyelocytes) > 1% indicates that a LEFT SHIFT is Present. L3890.6102on 01-21-2025 HEP B Surf Ag Non-Reactive Normal Nonreactive [facility] Comment on above: Result Comment: Reac tive: Presumptive evidence of HBV. Repeatedly reactive samples must be confirmed using a neutralization test (Elecsys HBsAg Confirmatory Test) Non-Reactive: HBsAg not detected; does not exclude the possibility of exposure to HBV Performed By: #### L 3890.6102, L3890.6006, L509.8002, L509.4006, L501.9985, BTS, L100.0100, L3890.6301 ####[facility] [address] [place], [address] L509.4006on 01-21-2025 Rubella IgG REAC Normal Nonreactive [facility] Comment on above: Result Comment: Anti body Result: Interpretation Non-Reactive: Non-Immune Reactive: Immune The following results were obtained with the Elecsys Rubella IgG assay. Results from assays of other manufacturers cannot be used interchangeably. Performed By: #### L 3890.6102, L3890.6006, L509.8002, L509.4006, L501.9985, BTS, L100.0100, L3890.6301 #### [facility] [address] [facility] [place], [address] Laboratory - Microbiology an d Antimicrobial susceptibilityOrdered By: Yahaira Juarez on 01-21-2025 HBV surface Ag Ql (S) Non-Reactive Nonreactive [facility] Comment on above: Reactive: Presumptiv e evidence of HBV. Repeatedly reactive samples must be confirmed using a neutralization test (Elecsys HBsAg Confirmatory Test)Non-Reactive: HBsAg not detected; does not exclude the possibility of exposure to HBV MCV (mean corpuscular volume ) determinationOrdered By: Yahaira Juarez on 01-21-2025 MCV (RBC) [Entitic vol] 87.5 fL 81-99 [facility] Mean corpuscular hemoglobin (MCH) determinationOrdered By: Yahaira Juarez on 01-21-2025 MCH (RBC) [Entitic mass] 30.5 pg 27.0-32.0 [facility] Mean corpuscular hemoglobin concentration (MCHC) determinationOrdered By: Yahaira Juarez on 01-21-2025 MCHC (RBC) [Mass/Vol] 34.9 g/dL 32-36 [facility] Mean platelet volume determi nationOrdered By: Yahaira Juarez on 01-21-2025 Platelet mean volume (Bld) [Entitic vol] 9.4 fL 6.2-12.0 [facility] Monocyte percentageOrdered B y: Yahaira Juarez on 01-21-2025 Monocytes/100 WBC (Bld) 6.6 % 0-10 [facility] Neutrophil percentageOrdered By: Yahaira Juarez on 01-21-2025 Neutrophils/100 WBC (Bld) 67.4 % 47-70 [facility] No Panel InformationOrdered By: Yahaira Juarez on 01-21-2025 HIV (1&2) Antibody Non-Reactive Nonreactive [facility] Comment on above: Non-ReactiveReactive Repeatedly reactive samples must be confirmed according to CDC recommended confirmatory algorithms. The subresults for either HIVAG or AHIV can be used as an aid in the selection of the confirmation algorithm for reactive samples.Send out specimens with Reactive results to [facility] for confirmation.Order the HIV antibody detection and differentiation: #[id number] Nucleated red blood cell per centageOrdered By: Yahaira Juarez on 01-21-2025 Nucleated RBC/100 WBC (Bld) [Ratio] 0 % 0-5 [facility] Platelet countOrdered By: Eran Juarez on 01-21-2025 Platelets (Bld) [#/Vol] 332 10*3/uL 150-450 [facility] RBC Auto (Bld) [#/Vol]Ordere d By: Yahaira Juarez on 01-21-2025 RBC (Bld) [#/Vol] 4.65 10*6/uL 4.2-5.4 [facility] Serum human chorionic gonado tropin detection for pregnancyOrdered By: Viki Case on 01-21-2025 HCG ( test) [place]l [address] mIU/mL High <9 [facility] Comment on above: Gestational Age0.2-1 Week: 5-50 mIU/mL1-2 Weeks: 50-500 mIU/mL2-3 Weeks: 100-5000 mIU/mL3-4 Weeks: 500-10,000 mIU/mL4-5 Weeks:1000-50,000 mIU/mL5-6 Weeks: 10,000-100,000 mIU/mL6-8 Weeks: 15,000-200,000 mIU/mL2-3 Months:10,000-100,000 mIU/mL Syphilis Antibodieson 2024 Syphilis Abs Non-Reactive Normal Nonreactive [facility] Comment on above: Performed By: #### L 3890.6102, L3890.6006, L509.8002, L509.4006, L501.9985, BTS, L100.0100, L3890.6301 #### [facility] [address] [place], [address] Type AND Screenon 01-21-2025 ABO and Rh group Nom (Bld) Blood group A Rh(D) positive Normal [facility] Comment on above: Order Comment: PN Performed By: #### L 3890.6102, L3890.6006, L509.8002, L509.4006, L501.9985, BTS, L100.0100, L3890.6301 ####[facility] [address] [place], [address] White blood cell (WBC) count Ordered By: Yahaira Juarez on 01-21-2025 WBC (Bld) [#/Vol] 12.4 10*3/uL High 4.4-11.0 [facility] hCG Titer Quant., Serumon HCG QUANT. 16301 mIU/mL High <9 non-preg [facility] Comment on above: Order Comment: Seria l quants 48 hours apart Result Comment: Gest ational Age 0.2-1 Week: 5-50 mIU/mL 1-2 Weeks: 50-500 mIU/mL 2-3 Weeks: 100-5000 mIU/mL 3-4 Weeks: 500-10,000 mIU/mL 4-5 Weeks:1000-50,000 mIU/mL 5-6 Weeks: 10,000-100,000 mIU/mL 6-8 Weeks: 15,000-200,000 mIU/mL 2-3 Months:10,000-100,000 mIU/mL Performed By: #### L 700.8000 ####[facility] [address] [place], [address] PAP I-G w/rfx hrHPV-Aptimaon 01-15-2025 ADEQ Comment Normal . [facility] Comment on above: Order Comment: Speci men Comment: [id number] Comment: No. of containers..01 ThinPrep Vial Result Comment: Sati sfactory for evaluation. Endocervical and/or squamous metaplastic cells (endocervical component) are present. Performed By: #### L 7400.0353 ####[facility] [address] [place], [place], [address] COMM . Normal . [facility] Comment on above: Order Comment: Speci men Comment: [id number] Comment: No. of containers..01 ThinPrep Vial Performed By: #### L 7400.0353 ####[facility] [address] [place], [address] COMMENT Comment Normal . [facility] Comment on above: Order Comment: Speci men Comment: [id number] Comment: No. of containers..01 ThinPrep Vial Result Comment: This liquid based ThinPrep(R) pap test was screened with the use of an image guided system. Performed By: #### L 7400.0353 ####[facility] [address] [place], [address] DIAG Comment Normal . [facility] Comment on above: Order Comment: Speci men Comment: [id number] Comment: No. of containers..01 ThinPrep Vial Result Comment: NEGA TIVE FOR INTRAEPITHELIAL LESION OR MALIGNANCY. Performed By: #### L 7400.0353 ####[facility] [address] [place], [address] HPV RFLX Comment Normal . [facility] Comment on above: Order Comment: Speci men Comment: [id number] Comment: No. of containers..01 ThinPrep Vial Result Comment: The HPV DNA reflex criteria were not met with this specimen result therefore, no HPV testing was performed. Performed at: [address] [place] [address], [place] [id number] Manufacturing Planner: Gudelia Cook MD, Phone: [phone] Performed By: #### L 7400.0353 ####[facility] [address] [place], [address] PAPSMR Comment Normal . [facility] Comment on above: Order Comment: Speci men Comment: [id number] Comment: No. of containers..01 ThinPrep Vial Result Comment: The Pap smear is a screening test designed to aid in the detection of premalignant and malignant conditions of the uterine cervix. It is not a diagnostic procedure and should not be used as the sole means of detecting cervical cancer. Both false-positive and false-negative reports do occur. Performed By: #### L 7400.0353 ####[facility] [address] [place], [address] PERFORM Comment Normal . [facility] Comment on above: Order Comment: Speci men Comment: [id number] Comment: No. of containers..01 ThinPrep Vial Result Comment: Malika Paul Timber Surveyor (ASCP) Performed By: #### L 7400.0353 ####[facility] [address] [place], [address] Chlamydia/GC CARA aptimaon CHLAMY,NUC ACID Negative Normal Negative [facility] Comment on above: Performed By: #### L 505.5000, L7000.1800, M100.2200 ####[facility] [address] [place], [address] GC BY NUC ACID Negative Normal Negative [facility] Comment on above: Result Comment: Perf ormed at: =G - [facility] [address] [id number] Manufacturing Planner: Gudelia Cook MD, Phone: [phone] Performed By: #### L 505.5000, L7000.1800, M100.2200 ####[facility] [address] [place], [address] Urine Cultureon 01-12-2025 URC Below infection level. Mixed Gram Positive Organisms [place] Count 1000-10,000 MIXC Mixed contaminants. Submit a new specimen if indicated. Normal [facility] Comment on above: Performed By: #### L 505.5000, L7000.1800, M100.2200 ####[facility] [address] [facility] [place], [address] Amphetamine detection with 1 000 ng/mL as cutoffOrdered By: Yahaira Juarez on 01-10-2025 Amphetamines Screen method >1000 ng/mL Ql (U) Negative < 200 ng/mL [facility] Cervical or vagninal specime n microscopic examination by cytology stain (reported asOrdered By: Eugenia Nicole on 01-10-2025 Cytology report Cyto stain Doc (Cvx/Vag) Comment . [facility] Comment on above: The Pap smear is [...] rRNA CARA+probe Ql (Unsp spec) Negative Negative [facility] - CytologyOrdered By: Eugenia Nicole on 01-10-2025 Timber Surveyor Cyto stain Nom (Cvx/Vag) [ID] Comment . [facility] Comment on above: Logan Escobedo (ASCP) Laboratory - Miscellaneous t estsOrdered By: Eugenia Nicole on 01-10-2025 Service comment (Unsp spec) [Interp] . . [facility] Neisseria gonorrhoeae nuclei c acid detection by amplified probe techniqueOrdered By: Yahaira Juarez on 01-10-2025 N. gonorrhoeae DNA CARA+probe Ql (Unsp spec) Negative Negative [facility] Comment on above: Performed at: [address] [id number] Director: Gudelia Cook MD, Phone: [phone] No Panel InformationOrdered By: Eugenia Nicole on 01-10-2025 Pap Smear Specimen Adequacy Comment . [facility] Comment on above: Satisfactory for gary luation. Endocervical and/or squamous metaplasticcells (endocervical component) are present. No Panel InformationOrdered By: Yahaira Juarez on 01-10-2025 Urine Buprenorphine Qualitative Negative < 200 ng/mL [facility] Urine Oxycodone Screen Negative < 100 ng/mL [facility] Administrative Intern Office Visit Reporton 01-10-2025 Administrative Intern Office Visit Report [facility] [address], [address] [place] [address] OFFICE VISIT Date of Service: 01/10/25 MR#: [id number] Acct: [id number] Name: REESE MCDONALD Rep #: [id number] : 2005 Provider: Dr. Eugenia Cordoba DO Age/Sex: 19/F Location: [facility] Status: Signed Intake Vital Signs 11/27/24 08:17 12/31/24 09:36 01/10/25 14:16 01/10/25 14:19 Height 5 ft 8.5 in 5 ft 9 in 5 ft 8.5 in 5 ft 9 in Weight: 220 lb 6 oz BMI 33.0 BP 134/80 H Intake Visit Reasons: NOB LMP 10/29 [place] Machine Operator Required: No Is patient in pain?: No [...] neck and back pain Asthma Surgical History [place] teeth extracted H/O shoulder surgery History of appendectomy Family History Mother Hypertension Gestational diabetes 2nd only Grandmother Hypertension Maternal Blood clot in leg Diabetes Paternal Grandfather Cancer, Onset Age: 70 Paternal- Smoker Social History adopted: No household members: significant other housing: house financial difficulty paying for basics: decline to answer service: No current occupational status: employed current occupation: [employer] current occupational exposures/hazards: No pets [...] 7 frequency: daily duration: > 90 minutes/day cara/evangelical: None seatbelt use: always do you feel safe at home: Yes additional social history: Fiance- Robin- mechanical integrity engineer History 1 Elective abortions Hx Para 0 [...] ??-???- 178 (more content not included)... Normal [facility] Quantitative urine opiates m easurementOrdered By: Yahaira Juarez on 01-10-2025 Opiates Ql (U) Negative < 300 ng/mL [facility] Screening urine fentanyl yvonne surementOrdered By: Yahairacarolina Juarez on 01-10-2025 fentaNYL Screen Ql (U) Negative [facility] Urine Drug Screen (VISTA)on 01-10-2025 AMPHETAMINES Negative Normal <1000 ng/mL [facility] Comment on above: Order Comment: UNK Performed By: #### L 505.5000, L7000.1800, M100.2200 ####[facility] [address] [place], [address] BARBITIURATES Negative Normal < 200 ng/mL [facility] Comment on above: Order Comment: UNK Performed By: #### L 505.5000, L7000.1800, M100.2200 ####[facility] [address] [place], [address] BENZODIAZIPINE Negative Normal < 200 ng/mL [facility] Comment on above: Order Comment: UNK Performed By: #### L 505.5000, L7000.1800, M100.2200 ####[facility] [address] [place], [address] BUP Ur Drug Scr Negative Normal < 200 ng/mL [facility] Comment on above: Order Comment: UNK Performed By: #### L 505.5000, L7000.1800, M100.2200 ####[facility] [address] [place], [address] COCAINE Negative Normal < 300 ng/mL [facility] Comment on above: Order Comment: UNK Performed By: #### L 505.5000, L7000.1800, M100.2200 ####[facility] [address] [place], [address] Fentanyl Negative Normal [facility] Comment on above: Order Comment: UNK Performed By: #### L 505.5000, L7000.1800, M100.2200 ####[facility] [address] [place], [address] METHADONE Negative Normal < 300 ng/mL [facility] Comment on above: Order Comment: UNK Performed By: #### L 505.5000, L7000.1800, M100.2200 ####[facility] [address] [place], [address] OPIATES Negative Normal < 300 ng/mL [facility] Comment on above: Order Comment: UNK Performed By: #### L 505.5000, L7000.1800, M100.2200 ####[facility] [address] [place], [address] OXYCODONE Negative Normal < 100 ng/mL [facility] Comment on above: Order Comment: UNK Performed By: #### L 505.5000, L7000.1800, M100.2200 ####[facility] [address] [place], [address] PCP Negative Normal < 25 ng/mL [facility] Comment on above: Order Comment: UNK Performed By: #### L 505.5000, L7000.1800, M100.2200 ####[facility] [address] [place], [address] THC Negative Normal < 50 ng/mL [facility] Comment on above: Order Comment: UNK Performed By: #### L 505.5000, L7000.1800, M100.2200 ####[facility] [address] [place], [address] Urine benzodiazepine levelOr dered By: Yahaira Juarez on 01-10-2025 Benzodiazepines Ql (U) Negative < 200 ng/mL [facility] Urine cocaine levelOrdered B y: Yahaira Juarez on 01-10-2025 Cocaine Ql (U) Negative < 300 ng/mL [facility] Urine cultureOrdered By: Andi Juarez on 01-10-2025 Bacteria identified Cx Nom (U) Positive Abnormal [facility] Urine henfg-0-sawbzmuhseakqw abinol (THC) measurementOrdered By: Yahaira Juarez on 01-10-2025 Cannabinoids Screen Ql (U) Negative < 50 ng/mL [facility] Urine phencyclidine (PCP) de tectionOrdered By: Yahaira Juarez on 01-10-2025 Phencyclidine Ql (U) Negative < 25 ng/mL [facility] Chiropractic Reporton 2024 Chiropractic Report [facility] [address] [place] [address] OFFICE VISIT Date of Service: 12/31/24 MR#: [id number] Acct: [id number] Name: REESE MCDONALD Rep #: [id number] : 2005 Provider: DALTON Casas Age/Sex: 19/F Location: [facility] Status: Signed Intake Vital Signs 11/27/24 08:17 [...] neck and back pain Asthma Surgical History [place] teeth extracted H/O shoulder surgery History of appendectomy Family History Mother Hypertension Gestational diabetes 2nd only Grandmother Hypertension Maternal Blood clot in leg Diabetes Paternal Grandfather Cancer, Onset Age: 70 Paternal- Smoker Social History adopted: No household members: significant other housing: house current occupational status: employed current occupation: [employer] current occupational exposures/hazards: No pets [...] chores frequency: daily duration: > 90 minutes/day cara/evangelical: None seatbelt use: always do you feel safe at home: Yes additional social history: Fiance- Robin- mechanical integrity engineer HPI REEVAL 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: adjustment Visit Number: [...] Manipulation: 3- (more content not included)... Normal [facility] - Chemistry and C hemistry - challengeOrdered By: Yahaira Juarez on 12-18-2024 HCG ( test) Ql (U) Positive [facility] Office Visit Reporton 2024 Office Visit Report [facility] [address] [place] [address] OFFICE VISIT Date of Service: 12/18/24 MR#: [id number] Acct: [id number] Patient: REESE MCDONALD Rep #: [id number] : 2005 Provider: VERA campo Age/Sex: 19/F Location: [facility] Status: Signed Intake Vital Signs 12/11/24 10:07 12/18/24 11:03 Height 5 ft 8.5 in 5 ft 8.5 in Weight: 218 lb 6 oz BMI 32.7 BP 108/58 L Blood Pressure Location Lt brachial Position Sitting Intake Visit Reasons: PNOB nurse visit 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: Annual [place] Machine Operator Required: No Is patient in pain?: Yes [...] ROM 12/18/24 1212 Date Yahaira Juarez NP SCALE TECHNICIAN-C Cosigner Signature: Date (if applicable) CC: Normal [facility] Genital Culture Comprehensiv dari 11-30-2024 VAC Reason for Exam: vaginal irritation Genital Culture Comprehensive Genital Culture Comprehensive Streptococcus agalactiae (B) Amount Growth 1+ Presumptive C albicans Presumptive C albicans Streptococcus agalactiae (B): REACTION Ampicillin Islt MIL <=0.25 S cefTRIAXone Islt MIL <=0.12 Clindamycin Islt MIL >=1 R Clindamycin.induced Susc Islt NEG Linezolid Islt MIL <=2 S Vancomycin Islt MIL 0.5 S Normal [facility] Comment on above: Performed By: #### L 7000.1800, M1.1999, M100.3200 ####[facility] [address] [place], [address] Chlamydia/GC CARA aptimaon CHLAMY,NUC ACID Negative Normal Negative [facility] Comment on above: Performed By: #### L 7000.1800, .1999, M100.3200 ####[facility] [address] [place], [address] GC BY NUC ACID Negative Normal Negative [facility] Comment on above: Result Comment: Perf ormed at: =G - [facility] [address] [id number] Manufacturing Planner: Gudelia Cook MD, Phone: [phone] Performed By: #### L 7000.1800, .1999, M100.3200 ####[facility] [address] [place], [address] C. trachomatis rRNA CARA+prob e Ql (Unsp spec)Ordered By: Yahaira Juarez on 11-27-2024 Chlamydia DNA (CARA) Negative Negative [facility] Chlamydia trachomatis rRNA d etection by probe and target amplification methodOrdered By: Yahaira Juarez on 11-27-2024 C. trachomatis rRNA CARA+probe Ql (Unsp spec) Negative Negative [facility] Genital cultureOrdered By: Bandar Juarez on 11-27-2024 Genital Culture Streptococcus agalactiae (B) Abnormal [facility] Genital Culture Presumptive C albicans Abnormal [facility] Source specific culture Streptococcus agalactiae (B) Abnormal [facility] Gram Stainon 11-27-2024 GS Reason for Exam: vaginal irritation Gram Stain 1+ Epithelial cells No Gram negative diplococci 4+ Gram positive rods Score = 0 Interpretation: 0-3 Normal, 4-6 Intermediate, 7-10 Positive BV Normal [facility] Comment on above: Performed By: #### L 7000.1800, M100.2000, M100.3200 ####[facility] [address] [place], [address] Gram stainOrdered By: Yahaira Juarez on 11-27-2024 Microscopic observation Gram stain Nom (Unsp spec) [facility] Neisseria gonorrhoeae nuclei c acid detection by amplified probe techniqueOrdered By: Yahaira Juarez on 11-27-2024 N. gonorrhoeae DNA CARA+probe Ql (Unsp spec) Negative Negative [facility] Comment on above: Performed at: =[address] [id number] Director: Gudelia Cook MD, Phone: [phone] No Panel InformationOrdered By: Yahaira Juarez on 11-27-2024 POC Bacterial Vaginitis (Rapid) Negative [facility] POC Trichomonas (Rapid) Negative [facility] Administrative Intern Office Visit Reporton 11-27-2024 Administrative Intern Office Visit Report [facility] [address], [address] [place] [address] OFFICE VISIT Date of Service: 11/27/24 MR#: [id number] Acct: [id number] Name: REESE MCDONALD Rep #: [id number] : 2005 Provider: VERA campo Age/Sex: 18/F Location: [facility] Status: Signed Intake Vital Signs 05/22/24 09:05 11/27/24 08:12 11/27/24 08:17 Height 5 ft 8.5 in 5 ft 8.5 in 5 ft 8.5 in Weight: 221 lb 2 oz BMI 33.1 BP 126/72 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 Normal [facility] CNOVon 02-02-2023 CNOV Office Visit (PEDSWS ) REESE MCDONALD ([id number]) 1 F Date Time Provider Department 02/02/23 [...] TAB daily September 11, 2019 9:12am 09-11-2019 [facility] ([id number]) amoxicillin-clavulani c acid (AUGMENTIN) 875-125 mg per [...] or fo (more content not included)... Normal [facility] [place] STREP A MOLECULAR (POC)on Procedural Control Valid [facility] Strep A (POCT) Positive Abnormal Negative [facility] CNOVon 02-23-2022 CNOV Office Visit (ALLMED ) REESE MCDONALD ([id number]) 1 F Date Time Provider Department 02/23/22 [...] record or via U.S. mail. Reese Merlosaristeo Mcdonadl is a 16 year old female who [...] has no history of asthma. ECZEMA: See [place] URTICARIA:The patient does not have a history [...] TAB daily September 11, 2019 9:12am 09-11-2019 [facility] ([id number]) ALLERGIES: Allergies As of Date: 02/23/2022 Allergen [...] Smoker Smokeless tobacco: Never Used Graduated from [employer]. 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 Normal [facility] CNCOon 02-15-[address] [facility] Basophil percentageon 2021 C. trachomatis DNA CARA+probe Ql (Unsp spec) Negative Negative [facility] Work Phone: Neisseria gonorrhoeae detect ion by PCRon 10-05-2021 N. gonorrhoeae DNA CARA+probe Ql (Cervical mucus) Negative Negative [facility] Work Phone: No Panel Informationon 09-09 Influenza Types A,B Rapid (Clinic) Negative [facility] Work Phone: POC SARS CoV-2 Antigen Positive [facility] Work Phone: Vital Signs Date Time Vital Sign Value Performing Clinician Facility 07-05-2025 15:54-0400 Body height 175.[address] Isi Justice MD Work Phone: [phone] [place] [address] 07-05-2025 15:54-0400 Body mass index (BMI) [Ratio] 35.4 kg/m2 Dr. Isi Justice MD Work Phone: [phone] [place] [address] 07-05-2025 15:54-0400 Body weight 108.[address] Isi Justice MD Work Phone: [phone] [place] [address] 07-05-2025 15:54-0400 Diastolic blood pressure 79 mm[Hg] Dr. Isi Justice MD Work Phone: [phone] [place] [address] 07-05-2025 15:54-0400 Systolic blood pressure 130 mm[Hg] Dr. Isi Justice MD Work Phone: [phone] [place] [address] 06-17-2025 14:21-0400 Body height 175.[address] Isi Justice MD Work Phone: [phone] [place] [address] 06-17-2025 14:21-0400 Body mass index (BMI) [Ratio] 35.2 kg/m2 Dr. Isi Justice MD Work Phone: 6(434)305-576947 [place] [address] 06-17-2025 14:21-0400 Body weight 108.[address] Isi Justice MD Work Phone: 0(595)984-141047 [place] [address] 06-17-2025 14:21-0400 Diastolic blood pressure 75 mm[Hg] Dr. Isi Justice MD Work Phone: 7(750)999-108047 [place] [address] 06-17-2025 14:21-0400 Systolic blood pressure 117 mm[Hg] Dr. Isi Justice MD Work Phone: 9(909)762-627747 [place] [address] 06-05-2025 14:54-0400 Body height 175.[address] Isi Justice MD Work Phone: 4(979)636-823747 [place] [address] 06-05-2025 14:54-0400 Body mass index (BMI) [Ratio] 35 kg/m2 Dr. Isi Justice MD Work Phone: 1(951)611-558647 [place] [address] 06-05-2025 14:54-0400 Body weight 107.[address] Isi Justice MD Work Phone: 1(512)216-190247 [place] [address] 06-05-2025 14:54-0400 Diastolic blood pressure 71 mm[Hg] Dr. Isi Justice MD Work Phone: 5(385)258-038247 [place] [address] 06-05-2025 14:54-0400 Systolic blood pressure 121 mm[Hg] Dr. Isi Justice MD Work Phone: 5(362)808-022547 [place] [address] 05-23-2025 11:25-0400 Body height 175.[address] Isi Justice MD Work Phone: 0(011)618-654447 [place] [address] 05-23-2025 11:17-0400 Body mass index (BMI) [Ratio] 34.4 kg/m2 Dr. Isi Justice MD Work Phone: 7(359)622-418647 [place] [address] 05-23-2025 11:17-0400 Body weight 105.[address] Isi Justice MD Work Phone: 9(683)942-871747 [place] [address] 05-23-2025 11:17-0400 Diastolic blood pressure 68 mm[Hg] Dr. Isi Justice MD Work Phone: 0(481)380-259847 [place] [address] 05-23-2025 11:17-0400 Systolic blood pressure 116 mm[Hg] Dr. Isi Justice MD Work Phone: 9(736)815-819547 [place] [address] 05-09-2025 10:59-0400 Body height 175.[address] Isi Justice MD Work Phone: 2(443)827-237747 [place] [address] 05-09-2025 10:59-0400 Body mass index (BMI) [Ratio] 34 kg/m2 Dr. Isi Justice MD Work Phone: 1(815)479-644447 [place] [address] 05-09-2025 10:59-0400 Body weight 104.[address] Isi Justice MD Work Phone: 6(923)152-570547 [place] [address] 05-09-2025 10:59-0400 Diastolic blood pressure 82 mm[Hg] Dr. Isi Justice MD Work Phone: 8(625)383-861847 [place] [address] 05-09-2025 10:59-0400 Systolic blood pressure 143 mm[Hg] Dr. Isi Justice MD Work Phone: 3(336)589-270047 [place] [address] 04-09-2025 14:14-0400 Body height 175.[address] Isi Justice MD Work Phone: 5(686)483-849247 [place] [address] 04-09-2025 14:14-0400 Body mass index (BMI) [Ratio] 32.9 kg/m2 Dr. Isi Justice MD Work Phone: 1(365)712-678347 [place] [address] 04-09-2025 14:14-0400 Body weight 101.[address] Iis Justice MD Work Phone: 4(783)109-853647 [place] [address] 04-09-2025 14:14-0400 Diastolic blood pressure 76 mm[Hg] Dr. Isi Justice MD Work Phone: 2(608)082-383647 [place] [address] 04-09-2025 14:14-0400 Systolic blood pressure 124 mm[Hg] Dr. Isi Justice MD Work Phone: 0(621)785-033847 [place] [address] 03-12-2025 14:50-0400 Body height 175.[address] Isi Justice MD Work Phone: 8(581)643-474047 [place] [address] 03-12-2025 14:50-0400 Body mass index (BMI) [Ratio] 32.1 kg/m2 Dr. Isi Justice MD Work Phone: 6(858)982-650647 [place] [address] 03-12-2025 14:50-0400 Body weight 98.[address] Isi Justice MD Work Phone: 5(884)957-541247 [place] [address] 03-12-2025 14:50-0400 Diastolic blood pressure 72 mm[Hg] Dr. Isi Justice MD Work Phone: 4(349)293-346647 [place] [address] 03-12-2025 14:50-0400 Systolic blood pressure 113 mm[Hg] Dr. Isi Justice MD Work Phone: 3(588)544-175547 [place] [address] 02-13-2025 09:50-0400 Body height 175.[address] Isi Justice MD Work Phone: 8(472)683-915347 [place] [address] 02-13-2025 09:47-0400 Body mass index (BMI) [Ratio] 32.3 kg/m2 Dr. Isi Justice MD Work Phone: 1(950)404-755247 [place] [address] 02-13-2025 09:47-0400 Body weight 99.[address] Isi Justice MD Work Phone: 7(217)359-321947 [place] [address] 02-13-2025 09:47-0400 Diastolic blood pressure 79 mm[Hg] Dr. Isi Justice MD Work Phone: 4(340)222-905347 [place] [address] 02-13-2025 09:47-0400 Systolic blood pressure 127 mm[Hg] Dr. Isi Justice MD Work Phone: 4(142)303-656447 [place] [address] 01-10-2025 14:19-0400 Body height 175.[address] Isi Justice MD Work Phone: 3(517)026-859547 [place] [address] 01-10-2025 14:16-0400 Body mass index (BMI) [Ratio] 33 kg/m2 Dr. Isi Justice MD Work Phone: 0(031)021-809247 [place] [address] 01-10-2025 14:16-0400 Body weight 99.[address] Isi Justice MD Work Phone: 9(258)735-325247 [place] [address] 01-10-2025 14:16-0400 Diastolic blood pressure 80 mm[Hg] Dr. Isi Justice MD Work Phone: 2(590)548-900247 [place] [address] 01-10-2025 14:16-0400 Systolic blood pressure 134 mm[Hg] Dr. Isi Justice MD Work Phone: 4(495)672-553647 [place] [address] 12-31-2024 09:36-0400 Body mass index (BMI) [Ratio] 32 kg/m2 Dr. Isi Justice MD Work Phone: 8(776)002-961047 [place] [address] 12-31-2024 09:36-0400 Body weight 98.[address] Isi Justice MD Work Phone: 6(759)538-042747 [place] [address] 12-31-2024 09:36-0400 Diastolic blood pressure 82 mm[Hg] Dr. Isi Justice MD Work Phone: 6(270)085-081647 [place] [address] 12-31-2024 09:36-0400 Systolic blood pressure 128 mm[Hg] Dr. Isi Justice MD Work Phone: 9(938)489-847547 [place] [address] 12-18-2024 11:03-0400 Body mass index (BMI) [Ratio] 32.7 kg/m2 Dr. Isi Justice MD Work Phone: 1(627)620-511847 [place] [address] 12-18-2024 11:03-0400 Body weight 99.[address] Isi Justice MD Work Phone: 7(533)908-505247 [place] [address] 12-18-2024 11:03-0400 Diastolic blood pressure 58 mm[Hg] Dr. Isi Justice MD Work Phone: 3(041)110-849847 [place] [address] 12-18-2024 11:03-0400 Systolic blood pressure 108 mm[Hg] Dr. Isi Justice MD Work Phone: 7(647)160-532147 [place] [address] 11-27-2024 08:17-0400 Body height 173.[address] Isi Justice MD Work Phone: 5(768)421-812247 [place] [address] 11-27-2024 08:12-0400 Body mass index (BMI) [Ratio] 33.1 kg/m2 Dr. Isi Justice MD Work Phone: 1(713)626-546047 [place] [address] 11-27-2024 08:12-0400 Body weight 100.[address] Isi Justice MD Work Phone: 6(063)577-173247 [place] [address] 11-27-2024 08:12-0400 Diastolic blood pressure 72 mm[Hg] Dr. Isi Justice MD Work Phone: 1(922)224-081947 [place] [address] 11-27-2024 08:12-0400 Systolic blood pressure 126 mm[Hg] Dr. Isi Justice MD Work Phone: 3(312)932-105847 [place] [address] 02-02-2023 08:33-0400 Body temperature 98.49 [degF] Juan Scruggs GREEN PIPEFITTER.INTELLIGENT SYSTEMS ENGINEER Work Phone: [facility] 02-02-2023 08:33-0400 Body weight 98.97 kg Juan Scruggs GREEN PIPEFITTER.INTELLIGENT SYSTEMS ENGINEER Work Phone: [facility] 02-02-2023 08:33-0400 Diastolic blood pressure 70 mm[Hg] Juan Scruggs GREEN PIPEFITTER.INTELLIGENT SYSTEMS ENGINEER Work Phone: [facility] 02-02-2023 08:33-0400 Heart rate 60 /min Juan Scruggs GREEN PIPEFITTER.INTELLIGENT SYSTEMS ENGINEER Work Phone: [facility] 02-02-2023 08:33-0400 Respiratory rate 12 /min Juan Scruggs GREEN PIPEFITTER.INTELLIGENT SYSTEMS ENGINEER Work Phone: [facility] 02-02-2023 08:33-0400 Systolic blood pressure 112 mm[Hg] Juan Scruggs GREEN PIPEFITTER.INTELLIGENT SYSTEMS ENGINEER Work Phone: [facility] 02-23-2022 08:37-0400 Body weight 99.79 kg Bryan Callahan MD Work Phone: [facility] 02-23-2022 08:37-0400 Diastolic blood pressure 64 mm[Hg] Bryan Callahan MD Work Phone: [facility] 02-23-2022 08:37-0400 Heart rate 61 /min Bryan Callahan MD Work Phone: [facility] 02-23-2022 08:37-0400 SaO2% (BldA) [Mass fraction] 98 % Bryan Callahan MD Work Phone: [facility] 02-23-2022 08:37-0400 Systolic blood pressure 116 mm[Hg] Bryan Callahan MD Work Phone: [facility] 01-20-2022 13:46-0400 Body temperature 99 [degF] Isi Justice MD Work Phone: [facility] 01-20-2022 13:46-0400 Body weight 99.85 kg Isi Justice MD Work Phone: [facility] 01-20-2022 13:46-0400 Diastolic blood pressure 72 mm[Hg] Isi Justice MD Work Phone: [facility] 01-20-2022 13:46-0400 Heart rate 76 /min Isi Justice MD Work Phone: [facility] 01-20-2022 13:46-0400 Respiratory rate 18 /min Isi Justice MD Work Phone: [facility] 01-20-2022 13:46-0400 Systolic blood pressure 122 mm[Hg] Isi Justice MD Work Phone: [facility] 10-05-2021 07:16-0500 Body height 172.[address] Isi Justice Work Phone: [facility] Work Phone: 10-05-2021 07:16-0500 Body mass index (BMI) [Ratio] 32.8 kg/m2 Dr. Isi Justice Work Phone: [facility] Work Phone: 10-05-2021 07:16-0500 Body weight 97.[address] Isi Justice Work Phone: [facility] Work Phone: 10-05-2021 07:16-0500 Diastolic blood pressure 62 mm[Hg] Dr. Isi Justice Work Phone: [facility] Work Phone: 10-05-2021 07:16-0500 Systolic blood pressure 108 mm[Hg] Dr. Isi Justice Work Phone: [facility] Work Phone: 09-09-2021 08:38-0500 Body mass index (BMI) [Ratio] 32.1 kg/m2 Dr. Isi Justice Work Phone: [facility] Work Phone: 09-09-2021 08:38-0500 Body temperature 97.9 [degF] Dr. Isi Justice Work Phone: [facility] Work Phone: 09-09-2021 08:38-0500 Body weight 95.[address] Isi Justice Work Phone: [facility] Work Phone: 09-09-2021 08:38-0500 Diastolic blood pressure 80 mm[Hg] Dr. Isi Justice Work Phone: [facility] Work Phone: 09-09-2021 08:38-0500 Heart rate 86 /min Dr. Isi Justice Work Phone: [facility] Work Phone: 09-09-2021 08:38-0500 Respiratory rate 16 /min Dr. Isi Justice Work Phone: [facility] Work Phone: 09-09-2021 08:38-0500 SaO2% (BldA) [Mass fraction] 97 % Dr. Isi Justice Work Phone: [facility] Work Phone: 09-09-2021 08:38-0500 Systolic blood pressure 126 mm[Hg] Dr. Isi Justice Work Phone: [facility] Work Phone: Encounters Encounter Date Encounter Type Care Provider Facility Start: 07-09-2025 End: 07-09-2025 ambulatory Isi Justice Facility:[facility] Start: 07-05-2025 End: [facility] Start: 06-24-2025 End: 06-24-[address] Nida Martinez [facility] Work Phone: Start: 06-24-2025 End: 06-24-2025 [facility] Start: 06-17-2025 End: 06-17-2025 Patient encounter procedure Gabriela Taveras CNM -Laboratory Specimen Work Phone: Start: 06-17-2025 End: 06-17-2025 Patient encounter procedure Gabriela CRUZ -[facility] [place] Work Phone: Start: 06-17-2025 End: 06-17-[address] Isi Justice MD Work Phone: [facility] Start: 06-17-2025 End: 06-17-2025 ambulatory Gabriela Taveras Facility:[facility] Start: 06-05-2025 End: 06-05-[address] Isi Justice MD Work Phone: [facility] Start: 06-05-2025 End: 06-05-[address] Eugenia Moncada DO -[facility] Work Phone: Start: 05-27-2025 End: 05-27-[address] Nida Martinez [place] -[facility] Work Phone: Start: 05-27-2025 End: 05-27-[address] Isi Justice MD Work Phone: [facility] Start: 05-23-2025 End: 05-23-2025 Patient encounter procedure Gabriela Taveras CNM -[facility] Work Phone: Start: 05-23-2025 End: 05-23-[address] Isi Justice MD Work Phone: [facility] Start: 05-21-2025 End: 05-21-[address] Isi Justice MD Work Phone: -[facility]ound [facility] Start: 05-21-2025 End: 05-21-2025 Patient encounter procedure Gabriela Taveras CNM -[facility]ound [facility] Work Phone: Start: 05-21-2025 End: 05-21-2025 ambulatory Isi Justice Facility:[facility] Start: 05-09-2025 End: 05-09-[address] Viki Case MD -[facility] Work Phone: Start: 05-09-2025 End: 05-09-[address] Isi Justice MD Work Phone: [facility] Start: 05-09-2025 End: 05-09-2025 ambulatory Isi Justice Facility:[facility] Start: 05-01-2025 End: 05-01-[address] Nida Martinez [place] -[facility] Work Phone: Start: 05-01-2025 End: 05-01-[address] Isi Justice MD Work Phone: -[facility] Start: 04-09-2025 End: 04-09-2025 Patient encounter procedure Gabriela Taveras CNM -[facility] Work Phone: Start: 04-09-2025 End: 04-09-[address] Isi Justice MD Work Phone: [facility] Start: 04-03-2025 End: 04-03-[address] Nida Martinez [place] -[facility] Work Phone: Start: 04-03-2025 End: 04-03-[address] Isi Justice MD Work Phone: [facility] Start: 03-26-2025 End: 03-26-[address] Isi Justice MD Work Phone: -[facility]ound [facility] Start: 03-26-2025 End: 03-26-[address] Eugenia Moncada DO -Ultrasound [facility] Work Phone: Start: 03-26-2025 End: 03-26-2025 ambulatory Eugenia Moncada Facility:[facility] Start: 03-12-2025 End: 03-12-2025 Patient encounter procedure Yahaira Juarez SCALE TECHNICIAN-C -[facility] Work Phone: Start: 03-12-2025 End: 03-12-[address] Isi Justice MD Work Phone: -[facility] Start: 03-05-2025 End: 03-05-[address] Nida Martinez DC -[facility] Work Phone: Start: 03-05-2025 End: 03-05-[address] Isi Justice MD Work Phone: -[facility] Start: 02-13-2025 End: 02-13-[address] Eugenia Moncada DO -[facility] Work Phone: Start: 02-13-2025 End: 02-13-[address] Isi Justice MD Work Phone: [facility] Work Phone: Start: 01-29-2025 End: 01-29-[address] Nida Martinez DC -[facility] Work Phone: Start: 01-29-2025 End: 01-29-[address] Isi Justice MD Work Phone: [facility] Work Phone: Start: 01-21-2025 End: 01-21-[address] Isi Justice MD Work Phone: [facility] Work Phone: Start: 01-21-2025 End: 01-21-[address] Viki Case MD -Laboratory Work Phone: Start: 01-21-2025 End: 01-21-2025 ambulatory Yahaira Juarez SCALE TECHNICIAN Facility:[facility] Start: 01-10-2025 End: 01-10-[address] Isi Justice MD Work Phone: [facility] Work Phone: Start: 01-10-2025 End: 01-10-2025 Patient encounter procedure Yahaira Juarez SCALE TECHNICIAN-C -Laboratory, Specimen Work Phone: Start: 01-10-2025 End: 01-10-[address] Eugenia Moncada DO -[facility] Work Phone: Start: 01-10-2025 End: 01-10-2025 ambulatory Isi Justice Facility:[facility] Start: 01-10-2025 End: 01-10-2025 ambulatory Yahaira Juarez SCALE TECHNICIAN Facility:[facility] Start: 12-31-2024 End: 12-31-[address] Nida Martinez [place] -[facility] Work Phone: Start: 12-31-2024 End: 12-31-2024 ambulatory Isi Justice Facility:[facility] Start: 12-18-2024 End: 12-18-2024 Patient encounter procedure Yahaira Juarez SCALE TECHNICIAN-C -[facility] Work Phone: Start: 12-18-2024 End: 12-18-2024 ambulatory Isi Justice Facility:[facility] Start: 11-27-2024 End: 11-27-[address] Isi Justice MD Work Phone: [facility] Work Phone: Start: 11-27-2024 End: 11-27-2024 Patient encounter procedure Yahaira Juarez SCALE TECHNICIAN-C -Lab, [facility] Start: 11-27-2024 End: 11-27-2024 Patient encounter procedure Yahaira Juarez SCALE TECHNICIAN-C -[facility] Work Phone: Start: 11-27-2024 End: 11-27-2024 Patient encounter status Yahaira Juarez SCALE TECHNICIAN-C [facility] Start: 11-27-2024 End: 11-27-2024 ambulatory Isi Justice Facility:[facility] Start: 11-27-2024 End: 11-27-2024 ambulatory Yahairacarolina Lindas SCALE TECHNICIAN Facility:[facility] Start: 07-25-2024 ambulatory Isi Justice Facili ty:[facility] Start: 02-02-2023 End: 02-03-2023 ambulatory ISI JUSTICE Facility:[facility] Start: 02-02-2023 End: 02-02-2023 Patient encounter procedure Juan Scruggs APRN.CNP Work Phone: [facility] Comment on above: Streptococcal pharyn gitis (Primary Dx) Start: 02-23-2022 End: 02-23-2022 ambulatory [place] [facility]ENN[facility] Facility:[facility] Start: 02-23-2022 End: 02-23-2022 Patient encounter procedure Bryan Callahan MD Work Phone: Allergy Comment on above: Seasonal allergic rh initis due to pollen (Primary Dx); Allergic conjunctivitis, unspecified laterality; Eczema, unspecified type; Seasonal allergies Start: 01-20-2022 End: 01-20-2022 Patient encounter procedure Isi Justice MD Work Phone: [facility] Comment on above: Seasonal allergies ( Primary Dx) Start: 12-25-2021 End: 12-25-[address] Isi Justice Work Phone: [facility]-Ultrasound, [facility] Start: 10-05-2021 End: 10-05-[address] Isi Justice Work Phone: [facility]-Laboratory, Specimen Start: 10-05-2021 End: 10-05-[address] Isi Justice Work Phone: [facility] Start: 09-09-2021 End: 09-09-[address] Isi Justice Work Phone: [facility] Procedures Date Procedure Procedure Detail Performing Clinician Start: 06-17-[address] Yuli Justice MD Work Phone: Start: 05-21-2025 Ultrasound scan for growth Dr. Isi Justice MD Work Phone: Start: 05-09-2025 Serologic test for syphilis Dr. Isi Justice MD Work Phone: Start: 03-26-[address] Isi Justice MD Work Phone: Start: 01-21-2025 Hepatitis C antibody measurement Dr. Isi Justice MD Work Phone: Comment on above: Reactive: Presumptiv e evidence of antibodies to HCV. Follow CDC recommendations for supplemental testing.Non-Reactive: Antibodies to HCV were not detected; does not exclude the possibility of exposure to HCVReactive Results are presumptive evidence of antibodies to HCV. Follow CDC recommendations for supplemental testing.Order confirmation testing: HCV Quant by PCR testing - HCVPCR [id number] Non Reactive: < 0.8 Equivocal: >/= 0.8 [...] therefore, no HPV testing was performed.Performed at: [address] [id number] Director: Gudelia Cook MD, Phone: [phone] Start: 01-10-2025 Methadone measurement, urine Dr. Isi Justice MD Work Phone: Start: 01-10-[address] Yuli Justice MD Work Phone: Start: 11-27-2024 Gram stain microscopy D fabi Justice MD Work Phone: Start: 11-27-2024 End: 11-27-[address] Isi rodriguez MD Work Phone: Start: 02-02-2023 STREP A MOLECULAR (POC) Juan Scruggs APRN.INTELLIGENT SYSTEMS ENGINEER Work Phone: Start: 12-25-[address] Bandar Justice Work Phone: Start: 12-25-[address] Isi Justice Work Phone: Start: 11-05-2020 Adult depression scr eening assessment Isi Justice MD Work Phone: Plan of Treatment Date Care Activity Detail Author Start: 08-11-2025 Urine microalbumin profile DTAP,TDAP,TD (7 - Td or Tdap) [facility] Start: 07-09-2025 End: 07-09-2025 Patient encounter procedure -[facility] Work Phone: Start: 07-05-2025 End: 07-05-2025 Patient encounter procedure Marijuana use -[facility] Work Phone: Start: 06-24-2025 End: 06-24-2025 Patient encounter procedure -[facility] Work Phone: Start: 05-27-2025 End: 05-27-2025 Patient encounter procedure Segmental and somatic dysfunction of cervical region -[facility] Work Phone: Start: 05-09-2025 CBC W Auto Differential panel - Blood [facility] Start: 05-09-2025 Measurement of glucose 2 hours after glucose challenge for glucose tolerance test [facility] Start: 05-09-2025 Serologic test for syphilis [facility] Start: 05-09-2025 [facility] Start: 05-06-2023 Influenza vaccination INFLUENZA (Season Ended) [facility] patricia Start: 09-05-2022 DEPRESSION ASSESSMENT DEPRESSION ASSESSMENT [facility] Start: 05-06-2022 Influenza vaccination INFLUENZA (Season Ended) [facility] Start: 12-02-2021 CHLAMYDIA SCREENING (18-24) CHLAMYDIA SCREENING (18-24) [facility] Start: 12-02-2021 GC (GONORRHEA) SCREENING (18-24) GC (GONORRHEA) SCREENING (18-24) [facility] Start: 12-02-2021 HEPATITIS C SCREENING HEPATITIS C SCREENING [facility] Start: 12-02-2021 HIV SCREENING HIV SCREENING [facility] Start: 11-05-2021 Adult depression screening assessment DEPRESSION SCREENING [facility] Start: 12-02-2017 PEDS TO ADULT TRANSITION ANNUAL ASSESSMENT PEDS TO ADULT TRANSITION ANNUAL ASSESSMENT [facility] Start: 2015 PEDS TO ADULT TRANSITION INITIAL DISCUSSION PEDS TO ADULT TRANSITION INITIAL DISCUSSION [facility] Start: 12-02-2013 MENINGOCOCCAL B: Consider based on risk (1 of 2 - Risk Bexsero 2-dose series) MENINGOCOCCAL B: Consider based on risk (1 of 2 - Risk Bexsero 2-dose series) [facility] Start: 12-02-2008 COVID-19 VACCINE (#1) COVID-19 VACCINE (#1) [facility] Start: 06-04-2004 COVID-19 VACCINE (#1) COVID-19 VACCINE (#1) [facility] CBC W Auto Different ial panel - Blood [facility] CBC W Auto Different ial panel - Blood [facility] Erythrocyte mean corpuscular volume determination [facility] anatomy study [facility] Hematocrit [Volume Fraction] of Blood [facility] Hemoglobin [Mass/vol ume] in Blood [facility] Hemoglobin A1c/Hemoglobin.total in Blood [facility] Hepatitis C antibody measurement [facility] Leukocytes [#/volume ] in Blood [facility] Mean corpuscular hemoglobin concentration determination [facility] Mean corpuscular hemoglobin determination [facility] Measurement of gluco se 2 hours after glucose challenge for glucose tolerance test [facility] Neutrophil count [facility] Neutrophil percent differential count [facility] Platelets [#/volume] in Blood [facility] Red blood cell count [facility] Red cell distributio n width determination [facility] Rubella IgG measurement [facility] Serologic test for syphilis [facility] Serologic test for syphilis [facility] Ultrasound scan for growth [facility] Immunizations Immunization Date Immunization Notes Care Provider Bobby cerrato 11-05-2020 meningococcal polysaccharide (groups A, C, Y and W-135) diphtheria toxoid conjugate vaccine (MCV4P) Isi Justice MD Work Phone: [facility] 07-31-2018 Human Papillomavirus 9-valent vaccine Isi Justice MD Work Phone: [facility] 04-03-2018 hepatitis A vaccine, pediatric/adolescent dosage, 2 dose schedule Isi Justice MD Work Phone: [facility] 11-01-2017 Human Papillomavirus 9-valent vaccine Isi Justice MD Work Phone: [facility] 08-11-2015 influenza, injectabl e, quadrivalent, contains preservative Isi Justice MD Work Phone: [facility] Work Phone: 08-11-2015 meningococcal polysaccharide (groups A, C, Y and W-135) diphtheria toxoid conjugate vaccine (MCV4P) Isi Justice MD Work Phone: [facility] Work Phone: 08-11-2015 tetanus toxoid, redu doni diphtheria toxoid, and acellular pertussis vaccine, adsorbed Isi Justice MD Work Phone: [facility] Work Phone: 04-12-2011 hepatitis A vaccine, pediatric/adolescent dosage, 2 dose schedule Isi Justice MD Work Phone: [facility] Work Phone: 07-20-2008 measles, mumps and rubella virus vaccine Isi Justice MD Work Phone: [facility] Work Phone: 07-17-2008 Diphtheria, tetanus toxoids and acellular pertussis vaccine, and poliovirus vaccine, inactivated Isi Justice MD Work Phone: [facility] Work Phone: 07-17-2008 poliovirus vaccine, inactivated Isi Justice MD Work Phone: [facility] Work Phone: 07-17-2008 varicella virus vaccine Sivan Justice MD Work Phone: [facility] Work Phone: 06-08-2005 poliovirus vaccine, inactivated Isi Justice MD Work Phone: [facility] Work Phone: 03-10-2005 diphtheria, tetanus toxoids and acellular pertussis vaccine Isi Justice MD Work Phone: [facility] Work Phone: 03-10-2005 pneumococcal Conjuga te, unspecified formulation Isi Justice MD Work Phone: [facility] Work Phone: 12-10-2004 haemophilus influenz ae type b vaccine, HbOC conjugate Isi Justice MD Work Phone: [facility] Work Phone: 12-10-2004 hepatitis B vaccine, pediatric or pediatric/adolescent dosage Isi Justice MD Work Phone: [facility] Work Phone: 12-10-2004 measles, mumps and rubella virus vaccine Isi Justice MD Work Phone: [facility] Work Phone: 12-10-2004 varicella virus vaccine Sivan Justice MD Work Phone: [facility] Work Phone: 08-08-2004 influenza virus vacc ine, unspecified formulation Isi Justice MD Work Phone: [facility] Work Phone: 06-12-2004 diphtheria, tetanus toxoids and acellular pertussis vaccine Isi Justice MD Work Phone: [facility] Work Phone: 06-12-2004 influenza virus vacc ine, unspecified formulation Isi Justice MD Work Phone: [facility] Work Phone: 06-12-2004 pneumococcal Conjuga te, unspecified formulation Isi Justice MD Work Phone: [facility] Work Phone: 03-30-2004 diphtheria, tetanus toxoids and acellular pertussis vaccine Isi Justice MD Work Phone: [facility] Work Phone: 03-30-2004 haemophilus influenz ae type b vaccine, HbOC conjugate Isi Justice MD Work Phone: [facility] Work Phone: 03-30-2004 hepatitis B vaccine, pediatric or pediatric/adolescent dosage Isi Justice MD Work Phone: [facility] Work Phone: 03-30-2004 pneumococcal Conjuga te, unspecified formulation Isi Justice MD Work Phone: [facility] Work Phone: 03-30-2004 poliovirus vaccine, inactivated Isi Justice MD Work Phone: [facility] Work Phone: 01-23-2004 diphtheria, tetanus toxoids and acellular pertussis vaccine Isi Justice MD Work Phone: [facility] Work Phone: 01-23-2004 haemophilus influenz ae type b vaccine, HbOC conjugate Isi Justice MD Work Phone: [facility] Work Phone: 01-23-2004 hepatitis B vaccine, pediatric or pediatric/adolescent dosage Isi Justice MD Work Phone: [facility] Work Phone: 01-23-2004 pneumococcal Conjuga te, unspecified formulation Isi Justice MD Work Phone: [facility] Work Phone: 01-23-2004 poliovirus vaccine, inactivated Isi Justice MD Work Phone: [facility] Work Phone: 2003 hepatitis B vaccine, pediatric or pediatric/adolescent dosage Isi Justice MD Work Phone: [facility] Work Phone: Payers Date Payer Category Payer Self-pay [id number] 2022 Private Health Insurance [id number] 2022 Private Health Insurance [facility] [place] [employer]ab [id number] 2022-Present [phone] [address] [place] [address] PPO [id number] 2019 Unknown [id number] 2019 Unknown MMO MMO TPA [id number] 2019-Present [address] [id number] PPO [id number] Unknown [id number] 2.16.840.1.482230.3.579.2.4 62 Unknown [id number] 2.16.840.1.556089.3.579.2.4 62 Unknown [id number] 2.16.840.1.357940.3.579.2.4 62 Unknown [id number] 2.16.840.1.099852.3.579.2.4 62 Unknown [id number] 2.16.840.1.939711.3.579.2.4 62 Unknown [id number] 2.16.840.1.383893.3.579.2.4 62 Unknown [id number] 2.16.840.1.693724.3.579.2.4 62 Unknown [id number] 2.16.840.1.526046.3.579.2.4 62 Unknown [id number] 2.16.840.1.211976.3.579.2.4 62 Unknown [id number] 2.16.840.1.414736.3.579.2.4 62 Unknown [id number] 2.16.840.1.435899.3.579.2.4 62 Unknown [id number] 2.16.840.1.980755.3.579.2.4 62 Unknown [id number] 2.16.840.1.083258.3.579.2.4 62 Unknown [id number] 2.16.840.1.824539.3.579.2.4 62 Unknown [id number] 2.16.840.1.925268.3.579.2.4 62 Unknown [id number] 2.16.840.1.793406.3.579.2.4 62 Unknown [id number] 2.16.840.1.207032.3.579.2.4 62 Unknown [id number] 2.16.840.1.762834.3.579.2.4 62 Unknown [id number] 2.16.840.1.862436.3.579.2.4 62 Unknown [id number] 2.16.840.1.310468.3.579.2.4 62 Unknown [id number] 2.16.840.1.068406.3.579.2.4 62 Unknown [id number] 2.16.840.1.739816.3.579.2.4 62 Unknown [id number] 2.16.840.1.791876.3.579.2.4 62 Unknown [id number] 2.16.840.1.736022.3.579.2.4 62 Unknown [id number] 2.16.840.1.170167.3.579.2.4 62 Unknown [id number] 2.16.840.1.570963.3.579.2.4 62 Unknown [id number] 2.16.840.1.125477.3.579.2.4 62 Social History Date Type Detail Facility Start: 10-05-2021 Tobacco smoking stat us WIIS Unknown if ever smoked [facility] Work Phone: Start: 04-14-2020 Non-smoker [facility] Start: 2005 Sex Assigned At Female [facility] Start: 07-16-2015 End: 01-04-2025 Tobacco smoking status WIIS Never smoked tobacco [facility] Start: 07-16-2015 End: 02-02-2023 Tobacco use and exposure Smokeless tobacco non-user [facility] Start: 01-20-2022 End: 02-02-2023 Alcohol intake Current non-drinker of alcohol (finding) [facility] Start: 11-05-2020 History SDOH Physica l Activity DPW 5 [facility] Start: 11-05-2020 History SDOH Physica l Activity MPS 3 [facility] Start: 11-05-2020 History SDOH Financial 4 [facility] Start: 11-05-2020 History SDOH Food Worry 1 [facility] Start: 11-05-2020 History SDOH Transpo rt Med 2 [facility] Start: 01-09-2022 End: 01-19-2022 Exposure to SARS-CoV-2 (event) Not sure [facility] Work Phone: Start: 11-12-2017 None None [facility] Start: 11-12-2017 With Family With Family [facility] Start: 2024 Sex Female (finding) [facility] Gender Identity Identifies as fe male gender (finding) [facility] Sexual Orientation Heterosexual (finding) [facility] NEGATED: Highlighted rowStart: NINF History of tobacco use Passive smoker [facility] Medical Equipment Procedure Code Equipment [...] & Type Note Facility 06-24-2025 Progress note [facility] 06-24-2025 Progress note Note Date/Time June 24, 2025 2:35pm [facility] [address] [place] [id number] OFFICE VISIT Date of Service: 06/24/25 MR#: [id number] Acct: [id number] Name: REESE WILLIS Rep #: [id number] : 2005 Provider: DALTON Martinez Age/Sex: 19/F Location: [facility] Status: Signed Intake Vital Signs 05/23/25 [...] neck and back pain Asthma Surgical History [place] teeth extracted H/O shoulder surgery History of [...] chores frequency: daily duration: > 90 minutes/day cara/evangelical: None seatbelt use: always do you feel safe at home: Yes additional social history: Fiance- Robin- mechanical integrity engineer HPI ADJUSTMENT 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: neck and low [...] CPT Codes Procedures - Manipulation: 3-4 regions (90594) 06/24/25 1425 <Electronically signed by Nida Gonzales> Date _ Nida Martinez D.C. Cosigner Signature: Date (if applicable) CC: ~ [facility] Work Phone: 1(224) 682-195810-13-2025 Progress [facility] [address] [place] [address], [address] [place] [address] OFFICE VISIT Date of Service: 06/17/25 MR#: [id number] Acct: [id number] Name: REESE MCDONALD Rep #: [id number] : 2005 Provider: WILBER Taveras Age/Sex: 19/F Location: [facility] Status: Signed Intake Vital Signs 05/09/25 10:59 06/05/25 14:54 06/17/25 14:21 Height 5 ft 9 in 5 ft 9 in 5 ft 9 in Weight: 238 lb 5 oz BMI 35.2 BP 117/75 Intake Visit Reasons: 32 WK OB 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: 32wk OB [place] Machine Operator Required: No Is patient in pain?: No [...] neck and back pain Asthma Surgical History [place] teeth extracted H/O shoulder surgery History of appendectomy Family History Mother Hypertension Gestational diabetes 2nd only Grandmother Hypertension Maternal Blood clot in leg Diabetes Paternal Grandfather Cancer, Onset Age: 70 Paternal- Smoker Social History adopted: No household members: significant other housing: house number of children: 0 current occupational status: employed current occupation: [employer] current occupational exposures/hazards: No pets [...] chores frequency: daily duration: > 90 minutes/day cara/evangelical: None seatbelt use: always do you feel safe at home: Yes additional social history: Fiance- Robin- mechanical integrity engineer History 1 Elective abortions Hx Para 0 [...] - Obesity complicating , second trimester Comment: [id number] (4) Supervision of normal first : Status: [...] Cosigner Signature: Date (if applicable) CC: ~ [facility]10-13-2025 Progress note Author Gabriela Taveras [facility] Note Date/Time June 17, 2025 2 :36pm [facility] [address], [address] [place] [address] OFFICE VISIT Date of Service: 06/17/25 MR#: [id number] Acct: [id number] Name: REESE MCDONALD Rep #: [id number] : 2005 Provider: WILBER Taveras Age/Sex: 19/F Location: [facility] Status: Signed Intake Vital Signs 05/09/25 10:59 06/05/25 14:54 06/17/25 14:21 Height 5 ft 9 in 5 ft 9 in 5 ft 9 in Weight: 238 lb 5 oz BMI 35.2 BP 117/75 Intake Visit Reasons: 32 WK OB 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: 32wk OB [place] Machine Operator Required: No Is patient in pain?: No [...] neck and back pain Asthma Surgical History [place] teeth extracted H/O shoulder surgery History of appendectomy Family History Mother Hypertension Gestational diabetes 2nd only Grandmother Hypertension Maternal Blood clot in leg Diabetes Paternal Grandfather Cancer, Onset Age: 70 Paternal- Smoker Social History adopted: No household members: significant other housing: house number of children: 0 current occupational status: employed current occupation: [employer] current occupational exposures/hazards: No pets and [...] chores frequency: daily duration: > 90 minutes/day cara/evangelical: None seatbelt use: always do you feel safe at home: Yes additional social history: Fiance- Robin- mechanical integrity engineer History 1 Elective abortions Hx Para 0 [...] - Obesity complicating , second trimester Comment: [id number] (4) Supervision of normal first : Status: [...] Cosigner Signature: Date (if applicable) CC: ~ [facility] Work Phone: 1(636) 119-320810-01-2025 Progress [facility] [address] [place] [address], [address] [place] [address] OFFICE VISIT Date of Service: 06/05/25 MR#: [id number] Acct: [id number] Name: REESE MCDONALD Rep #: [id number] : 2005 Provider: Dr. Joan Moncada DO Age/Sex: 19/F Location: [facility] Status: Signed Intake Vital Signs 05/09/25 10:59 05/23/25 11:25 06/05/25 14:54 Height 5 ft 9 in 5 ft 9 in 5 ft 9 in Weight: 237 lb 2 oz BMI 35.0 BP 121/71 H Intake Visit Reasons: 30 WK OB [place] Machine Operator Required: No Is patient in pain?: No [...] neck and back pain Asthma Surgical History [place] teeth extracted H/O shoulder surgery History of appendectomy Family History Mother Hypertension Gestational diabetes 2nd only Grandmother Hypertension Maternal Blood clot in leg Diabetes Paternal Grandfather Cancer, Onset Age: 70 Paternal- Smoker Social History adopted: No household members: significant other housing: house number of children: 0 current occupational status: employed current occupation: [employer] current occupational exposures/hazards: No pets [...] chores frequency: daily duration: > 90 minutes/day cara/evangelical: None seatbelt use: always do you feel safe at home: Yes additional social history: Fiance- Robin- mechanical integrity engineer History 1 Elective abortions Hx Para 0 [...] - Obesity complicating , second trimester Comment: [id number] (4) Supervision of normal first : Status: [...] Nicole DO> Date _ Eugenia Moncada DO [facility] Signature: Date (if applicable) CC: ~ [facility]10-01-2025 Progress note Author Eugenia Nicole [facility] Note Date/Time June 05, 2025 3: 24pm [facility] [address] [place] [address], [address] [place] [address] OFFICE VISIT Date of Service: 06/05/25 MR#: [id number] Acct: [id number] Name: REESE MCDONALD Rep #: [id number] : 2005 Provider: Dr. Joan Moncada, Age/Sex: 19/F Location: [facility] Status: Signed Intake Vital Signs 05/09/25 10:59 05/23/25 11:25 06/05/25 14:54 Height 5 ft 9 in 5 ft 9 in 5 ft 9 in Weight: 237 lb 2 oz BMI 35.0 BP 121/71 H Intake Visit Reasons: 30 WK OB [place] Machine Operator Required: No Is patient in pain?: No [...] neck and back pain Asthma Surgical History [place] teeth extracted H/O shoulder surgery History of appendectomy Family History Mother Hypertension Gestational diabetes 2nd only Grandmother Hypertension Maternal Blood clot in leg Diabetes Paternal Grandfather Cancer, Onset Age: 70 Paternal- Smoker Social History adopted: No household members: significant other housing: house number of children: 0 current occupational status: employed current occupation: [employer] current occupational exposures/hazards: No pets [...] chores frequency: daily duration: > 90 minutes/day cara/evangelical: None seatbelt use: always do you feel safe at home: Yes additional social history: Fiance- Robin- mechanical integrity engineer History 1 Elective abortions Hx Para 0 [...] - Obesity complicating , second trimester Comment: [id number] (4) Supervision of normal first : Status: Acute Qualifiers: Trimester: second trimester Qualified Code(s): Z34.02 - Encounter for supervision of normal first , second trimester Comment: PRR, , LAZARA 08/05/25, Adri Kelyl. Low lying placenta <2cm from os, pelvic [...] Cosigner Signature: Date (if applicable) CC: ~ [facility] Work Phone: 1(451) 766-421009-24-2025 Radiology Diagnostic study note [facility] Imaging Services [address] [place], [place] [address] OB Limited With Biometrics MR#: [id number] Acct: [id number] Name: REESE MCDONALD Rep #: [id number] : 2005 F 19 From: Misty Sherwood MD PCP: Dr. Isi Justice MD Status: R EG CLI Study:OB Limited With Biometrics Date of Exam : 05/21/25 Exam# [id number] Ordering Dr: Gabriela Taveras CNM ADDENDUM by Dr. Tennille Sherwood MD on 05/29/25 at 2329 The lower margin of the placenta is 2.3 cm from the internal os. No evidence ofa low lying placenta. Reading Location: [id number] 05/29/25 1750 Date cc: WILBER Taveras; Dr. Isi Justice [...] 2. No acute abnormality detected. Reading Location: [id number] CC: WILBER Taveras; Dr. Isi Justice MD ~ Pharmacy Picking Tech: Signed [facility]09-22-2025 Progress [facility] [address] [place] [address] OFFICE VISIT Date of Service: 05/27/25 MR#: [id number] Acct: [id number] Name: REESE MCDONALD Rep #: [id number] : 2005 Provider: DALTON Martinez Age/Sex: 19/F Location: [facility] Status: Signed Intake Vital Signs 04/09/25 14:14 [...] neck and back pain Asthma Surgical History [place] teeth extracted H/O shoulder surgery History of appendectomy Family History Mother Hypertension Gestational diabetes 2nd only Grandmother Hypertension Maternal Blood clot in leg Diabetes Paternal Grandfather Cancer, Onset Age: 70 Paternal- Smoker Social History adopted: No household members: significant other housing: house number of children: 0 current occupational status: employed current occupation: [employer] current occupational exposures/hazards: No pets [...] chores frequency: daily duration: > 90 minutes/day cara/evangelical: None seatbelt use: always do you feel safe at home: Yes additional social history: Fiance- Robin- mechanical integrity engineer HPI ADJUSTMENT 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: neck and low [...] CPT Codes Procedures - Manipulation: 3-4 regions (19837) 05/27/25 1404 .C.> Date _ Nida Locke Signature: Date (if applicable) CC: ~ [facility]09-18-2025 Progress [facility] [address], [facility] [address] [place] [address] OFFICE VISIT Date of Service: 05/23/25 MR#: [id number] Acct: [id number] Name: REESE MCDONALD Rep #: [id number] : 2005 Provider: WILBER Taveras Age/Sex: 19/F Location: [facility] Status: Signed Intake Vital Signs 03/12/25 14:50 05/09/25 10:59 05/23/25 11:17 05/23/25 11:25 Height 5 ft 9 in 5 ft 9 in 5 ft 9 in 5 ft 9 in Weight: 233 lb BMI 34.4 BP 116/68 Intake Visit Reasons: 28 WK OB [place] Machine Operator Required: No Is patient in pain?: No [...] neck and back pain Asthma Surgical History [place] teeth extracted H/O shoulder surgery History of appendectomy Family History Mother Hypertension Gestational diabetes 2nd only Grandmother Hypertension Maternal Blood clot in leg Diabetes Paternal Grandfather Cancer, Onset Age: 70 Paternal- Smoker Social History adopted: No household members: significant other housing: house number of children: 0 current occupational status: employed current occupation: [employer] current occupational exposures/hazards: No pets [...] chores frequency: daily duration: > 90 minutes/day cara/evangelical: None seatbelt use: always do you feel safe at home: Yes additional social history: Fiance- Robin- mechanical integrity engineer History 1 Elective abortions Hx Para 0 [...] - Obesity complicating , second trimester Comment: [id number] (4) Supervision of normal first : Status: [...] Chisamlinda Signature: Date (if applicable) CC: ~ [facility]09-04-2025 Progress [facility] [address] [place] [address], [address] [place] [address] OFFICE VISIT Date of Service: 05/09/25 MR#: [id number] Acct: [id number] Name: REESE MCDONALD Rep #: [id number] : 2005 Provider: Dr. Alfred Case MD Age/Sex: 19/F Location: [facility] Status: Signed Intake Vital Signs 03/12/25 14:50 04/09/25 14:14 05/09/25 10:59 05/09/25 10:59 Height 5 ft 9 in 5 ft 9 in 5 ft 9 in 5 ft 9 in Weight: 230 lb 5 oz BMI 34.0 BP 143/82 H Intake Visit Reasons: 26 wk ob [place] Machine Operator Required: No Is patient in pain?: No [...] neck and back pain Asthma Surgical History [place] teeth extracted H/O shoulder surgery History of appendectomy Family History Mother Hypertension Gestational diabetes 2nd only Grandmother Hypertension Maternal Blood clot in leg Diabetes Paternal Grandfather Cancer, Onset Age: 70 Paternal- Smoker Social History adopted: No household members: significant other housing: house number of children: 0 current occupational status: employed current occupation: [employer] current occupational exposures/hazards: No pets [...] chores frequency: daily duration: > 90 minutes/day cara/evangelical: None seatbelt use: always do you feel safe at home: Yes additional social history: Fiance- Robin- mechanical integrity engineer History 1 Elective abortions Hx Para 0 [...] - Obesity complicating , second trimester Comment: [id number] (4) Supervision of normal first : Status: [...] santiago GUIDO> Date _ Viki Case MD [facility] Signature: Date (if applicable) CC: ~ [facility]08-05-2025 Progress [facility] [address] [place] [address], [address] [place] [address] OFFICE VISIT Date of Service: 04/09/25 MR#: [id number] Acct: [id number] Name: REESE MCDONALD Rep #: [id number] : 2005 Provider: WILBER Taveras Age/Sex: 19/F Location: [facility] Status: Signed Intake Vital Signs 03/12/25 14:50 04/09/25 14:14 Height 5 ft 9 in 5 ft 9 in Weight: 218 lb 223 lb 1 oz BMI 32.1 32.9 BP 113/72 124/76 H Intake Visit Reasons: 22 wk ob 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: 22wk OB [place] Machine Operator Required: No Is patient in pain?: No [...] neck and back pain Asthma Surgical History [place] teeth extracted H/O shoulder surgery History of [...] chores frequency: daily duration: > 90 minutes/day cara/evangelical: None seatbelt use: always do you feel safe at home: Yes additional social history: Fiance- Robin- mechanical integrity engineer History 1 Elective abortions Hx Para 0 [...] - Obesity complicating , second trimester Comment: [id number] (4) Supervision of normal first : Status: [...] Cosigner Signature: Date (if applicable) CC: ~ [facility]08-05-2025 Progress note Author Gabriela Taveras [facility] Note Date/Time April 09, 2025 2:4 1pm [facility] [address] [place] [address], [address] [place] [address] OFFICE VISIT Date of Service: 04/09/25 MR#: [id number] Acct: [id number] Name: REESE MCDONALD Rep #: [id number] : 2005 Provider: WILBER Taveras Age/Sex: 19/F Location: [facility] Status: Signed Intake Vital Signs 03/12/25 14:50 04/09/25 14:14 Height 5 ft 9 in 5 ft 9 in Weight: 218 lb 223 lb 1 oz BMI 32.1 32.9 BP 113/72 124/76 H Intake Visit Reasons: 22 wk ob 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: 22wk OB [place] Machine Operator Required: No Is patient in pain?: No [...] neck and back pain Asthma Surgical History [place] teeth extracted H/O shoulder surgery History of appendectomy Family History Mother Hypertension Gestational diabetes 2nd only Grandmother Hypertension Maternal Blood clot in leg Diabetes Paternal Grandfather Cancer, Onset Age: 70 Paternal- Smoker Social History adopted: No household members: significant other housing: house number of children: 0 current occupational status: employed current occupation: [employer] current occupational exposures/hazards: No pets [...] chores frequency: daily duration: > 90 minutes/day cara/evangelical: None seatbelt use: always do you feel safe at home: Yes additional social history: Fiance- Robin- mechanical integrity engineer History 1 Elective abortions Hx Para 0 [...] - Obesity complicating , second trimester Comment: [id number] (4) Supervision of normal first : Status: [...] Cosigner Signature: Date (if applicable) CC: ~ [facility] Work Phone: 1(134) 656-617207-30-2025 Evaluation note* Diagnosis Onset Date Resolution Status [...] of thoracic region acute July 09 12:58pm [facility] Work Phone: 1(289) 329-205207-25-2025 Radiology Diagnostic study note [facility] Imaging Services [address] [place], [place] [address] OB Anatomy Scan MR#: [id number] Acct: [id number] Name: REESE MCDONALD Rep #: [id number] : 2005 F 19 From: Misty Sherwood MD PCP: Dr. Isi Justice MD Status: R EG CLI Study:OB Anatomy Scan Date of Exam: 03/06 10/30 Exam# [id number] Ordering Dr: Eugenia Dorman DO PROCEDURE: OB [...] equals dates. 2. Low-lying placenta. Reading Location: [facility] CC: Dr. Eugenia Moncada DO; Dr. Isi Justice MD ~ Pharmacy Picking Tech: Signed [facility]07-01-2025 Evaluation note* Diagnosis Onset Date Resolution Status [...] of thoracic region acute June 24 12:57pm [facility] Work Phone: [phone]) 717-292006-11-2025 Evaluation note* Diagnosis Onset Date Resolution Status [...] thoracic region acute May 27, 2025 1:27pm [facility] Work Phone: 1(457) 910-467506-11-2025 Evaluation note* Diagnosis Onset Date Resolution Status [...] of normal first acute June 05 2:46pm [facility] Work Phone: 1([phone]) 434-910405-27-2025 Evaluation note* Diagnosis Onset Date Resolution Status [...] normal first acute May 23, 2025 11:14am [facility] Work Phone: 1([phone]) 570-930805-08-2025 Evaluation note* Diagnosis Onset Date Resolution Status Admit Date Marijuana use acute January 10 2:11pm Obesity affecting acute January 10, 2025 2:11pm acute January 10, 2025 2:11pm Supervision of normal first acute January 10, 2025 2: 11pm Acne inactive January 10, 2025 2:11pm Dysmenorrhea inactive January 10 2:11pm Amenorrhea deleted January 10, 2025 2:11pm Segmental and somatic dysfunction of cervical region acute [facility] 2024 8:01am Segmental and somatic dysfunction of lumbar region acute January 29, 2025 8:01am Segmental and somatic dysfunction of pelvic region acute January 29, 2025 8:01am Segmental and somatic dysfunction of thoracic region acute [facility] 2024 8:01am Marijuana use acute February 13, [...] normal first acute April 09, 2025 2:07pm [facility] Work Phone: 1([phone]) 997-920705-08-2025 Evaluation note* Diagnosis Onset Date Resolution Status [...] of normal first acute May 09 10:47am [facility] Work Phone: 1(542) 314-231504-15-2025 Evaluation note* Diagnosis Onset Date Resolution Status [...] first acute March 12, 2025 2 :47pm [facility] Work Phone: 1([phone]) 885-862804-15-2025 Evaluation note* Diagnosis Onset Date Resolution Status [...] of thoracic region acute J 2024 8:00am [facility] Work Phone: 1(846) 723-763304-15-2025 Evaluation note* Diagnosis Onset Date Resolution Status [...] normal first acute April 09, 2025 2:07pm [facility] Work Phone: 1(574) 697-875203-25-2025 Evaluation note* Diagnosis Onset Date Resolution Status Admit Date Encounter for routine gynecological examination noneactive November 27, 2024 8:09am Vaginitis noneactive November 27 8:09am [facility] Work Phone: 1(512) 230-476703-25-2025 Evaluation note* Diagnosis Onset Date Resolution Status [...] first acute January 10, 2025 2: 11pm [facility] Work Phone: 1([phone] 513-591903-25-2025 Evaluation note* Diagnosis Onset Date Resolution Status [...] and somatic dysfunction of thoracic region acute [facility] 2024 8:01am [facility] Work Phone: 1([phone]) 934-691403-25-2025 Evaluation note* Diagnosis Onset Date Resolution Status [...] and somatic dysfunction of cervical region acute [facility] 2024 8:01am Segmental and somatic dysfunction of lumbar region acute January 29, 2025 8:01am Segmental and somatic dysfunction of pelvic region acute January 29, 2025 8:01am Segmental and somatic dysfunction of thoracic region acute [facility] 2024 8:01am Acne acute February 13 9:34am Amenorrhea acute February 13 9:34am Dysmenorrhea acute February 13 025 9:34am Marijuana use acute February 13, 2025 9:34am Obesity affecting acute February 13, 2025 9:34am acute February 13 9:34am Supervision of normal first acute February 13, 2025 9:34am [facility] Work Phone: 1([phone]) 337-474603-25-2025 Evaluation note* Diagnosis Onset Date Resolution Status [...] first acute March 12, 2025 2 :47pm [facility] Work Phone: [phone] 162-767405-31-2023 NoteHNO ID: [id number] Author: Juan Scruggs APRN.INTELLIGENT SYSTEMS ENGINEER Service: ? Author Type: Nurse Practitioner Type: [...] TAB daily September 11, 2019 9:12am 09-11-2019 [facility] ([id number]) amoxicillin-clavulanic acid (AUGMENTIN) 875-125 mg per tablet [...] treatment, or for other concerns Juan Scruggs APRN.[facility]St[facility] History of Present illness Narrative* Juan Scruggs APRN.INTELLIGENT SYSTEMS ENGINEER - 02/02/2023 8:30 AM EDT PEDIATRIC SICK [...] TAB daily September 11, 2019 9:12am 09-11-2019 [facility] ([id number]) amoxicillin-clavulanic acid (AUGMENTIN) 875-125 mg per tablet [...] concerns Juan Scruggs APRN.CESAR documented in this encounter[facility]22 NoteHNO ID: [id number] Author: Bryan Callahan MD Service: ? Author [...] has no history of asthma. ECZEMA: See POINT LAY IRA URTICARIA:The patient does not have a history [...] TAB daily September 11, 2019 9:12am 09-11-2019 [facility] ([id number]) ALLERGIES: Allergies As of Date: 02/23/2022 Allergen [...] Smoker Smokeless tobacco: Never Used Graduated from [employer]. Works at [employer] ENVIRONMENTAL HISTORY: Lives in a house [...] allergic to tree po (more content not included)...[facility] Instructions* Patient Instructions* Bryan Callahan MD - [...] cream, Cetaphil restoraderm, Aveeno documented in this encounterMet[facility]06-21-2022 Nurse Note* Carolyne Lomeli RN [...] use anything on rash. documented in this encounterMet[facility]06-21-2022 History of Present illness Narrative* [...] has no history of asthma. ECZEMA: See PO[place] LAY IRA URTICARIA:The patient does not have a history [...] TAB daily September 11, 2019 9:12am 09-11-2019 [facility] ([id number]) ALLERGIES: Allergies As of Date: 02/23/2022 Allergen [...] Smoker Smokeless tobacco: Never Used Graduated from [employer]. Works at [employer] ENVIRONMENTAL HISTORY: Lives in a house Age [...] arise. Bryan Callahan MD documented in this encounterMet[facility]05-18-2022 History of Present illness Narrative* [...] TAB daily September 11, 2019 9:12am 09-11-2019 [facility] ([id number]) mometasone (ELOCON) 0.1 % cream Apply to [...] 2022 TIME: 1:51 PM documented in this encounterMet[facility]05-18-2022 Instructions* Patient Instructions* Isi Justice [...] drinks Go! Be healthy, inside and out! 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) PAIN Reason for Visit COVID-19 Acne Dysmenorrhea Menorrhagia with regular cycle [facility] Work Phone: Evaluation note* Diagnosis Onset Date Resolution Status COVID-19 acute Acne acute Dysmenorrhea acute Menorrhagia with regular cycle acute [facility] Work Phone: Evaluation note* Diagnosis Seasonal allergies- Primary Allergic rhinitis, cause unspecified documented in this encounter [facility] CenterEvaluwilming[facility] note* Diagnosis Seasonal allergic rhinitis due to pollen- Primary Allergic conjunctivitis, unspecified laterality Eczema, unspecified type Seasonal allergies Allergic rhinitis, cause unspecified documented in this encounter [facility] CenterEvaluation note* Diagnosis Streptococcal pharyngitis- Primary Streptococcal sore throat documented in this encounter [facility] CenterProgress note Author Viki Case [facility] Note Date/Time May 09, 2025 11:28am [facility] [address], [address] [place] [address] OFFICE VISIT Date of Service: 05/09/25 MR#: [id number] Acct: [id number] Name: REESE MCDONALD Rep #: [id number] : 2005 Provider: Dr. Alfred Case MD Age/Sex: 19/F Location: [facility] Status: Signed Intake Vital Signs 03/12/25 14:50 04/09/25 14:14 05/09/25 10:59 05/09/25 10:59 Height 5 ft 9 in 5 ft 9 in 5 ft 9 in 5 ft 9 in Weight: 230 lb 5 oz BMI 34.0 BP 143/82 H Intake Visit Reasons: 26 wk ob [place] Machine Operator Required: No Is patient in pain?: No [...] neck and back pain Asthma Surgical History [place] teeth extracted H/O shoulder surgery History of appendectomy Family History Mother Hypertension Gestational diabetes 2nd only Grandmother Hypertension Maternal Blood clot in leg Diabetes Paternal Grandfather Cancer, Onset Age: 70 Paternal- Smoker Social History adopted: No household members: significant other housing: house number of children: 0 current occupational status: employed current occupation: [employer] current occupational exposures/hazards: No pets [...] chores frequency: daily duration: > 90 minutes/day cara/evangelical: None seatbelt use: always do you feel safe at home: Yes additional social history: Fiance- Robin- mechanical integrity engineer History 1 Elective abortions Hx Para 0 [...] Urine Protein Negative Last Edit by Yahaira Jweell on 05/09/25 11:00 Coding Level of Care [...] - Obesity complicating , second trimester Comment: [id number] (4) Supervision of normal first : Status: [...] Cosigner Signature: Date (if applicable) CC: ~ [facility] Work Phone: Progress note Author Gabriela Taveras [facility] Note Date/Time May 23, 2025 11:42am [facility] [address], [address] [place] [address] OFFICE VISIT Date of Service: 05/23/25 MR#: [id number] Acct: [id number] Name: REESE MCDONALD Rep #: [id number] : 2005 Provider: WILBER Taveras Age/Sex: 19/F Location: [facility] Status: Signed Intake Vital Signs 03/12/25 14:50 05/09/25 10:59 05/23/25 11:17 05/23/25 11:25 Height 5 ft 9 in 5 ft 9 in 5 ft 9 in 5 ft 9 in Weight: 233 lb BMI 34.4 BP 116/68 Intake Visit Reasons: 28 WK OB [place] Machine Operator Required: No Is patient in pain?: No [...] neck and back pain Asthma Surgical History [place] teeth extracted H/O shoulder surgery History of [...] chores frequency: daily duration: > 90 minutes/day cara/evangelical: None seatbelt use: always do you feel safe at home: Yes additional social history: Fiance- Robin- mechanical integrity engineer History 1 Elective abortions Hx Para 0 [...] - Obesity complicating , second trimester Comment: [id number] (4) Supervision of normal first : Status: [...] Cosigner Signature: Date (if applicable) CC: ~ [facility] Work Phone: Progress note Author Nida Martinez [facility] Note Date/Time May 27, 2025 1:52pm [facility] [address] [place] [address] OFFICE VISIT Date of Service: 05/27/25 MR#: [id number] Acct: [id number] Name: REESE MCDONALD Rep #: [id number] : 2005 Provider: DALTON Martinez Age/Sex: 19/F Location[facility] Status: Signed Intake Vital Signs 04/09/25 [...] neck and back pain Asthma Surgical History [place] teeth extracted H/O shoulder surgery History of appendectomy Family History Mother Hypertension Gestational diabetes 2nd only Grandmother Hypertension Maternal Blood clot in leg Diabetes Paternal Grandfather Cancer, Onset Age: 70 Paternal- Smoker Social History adopted: No household members: significant other housing: house number of children: 0 current occupational status: employed current occupation: [employer] current occupational exposures/hazards: No pets [...] chores frequency: daily duration: > 90 minutes/day cara/evangelical: None seatbelt use: always do you feel safe at home: Yes additional social history: Fiance- Robin- mechanical integrity engineer HPI ADJUSTMENT 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: neck and low [...] CPT Codes Procedures - Manipulation: 3-4 regions ([id number]) 05/27/25 1404 <Electronically signed by Nida Gonzales> Date _ Nida Martinez D.C. Cosigner Signature: Date (if applicable) CC: ~ [facility] Work Phone: Reason for referral (narrative)No reason for referral information availableWLakeHealth TriPoint Medical Center Work Phone: Reason for Referral Specialty Diagnoses / Procedures Referred By Aura t Referred To Contact Allergy Diagnoses Seasonal allergies Procedures CONSULT TO ALLERGY/IMMUNOLOGY OFFICE/OUTPATIENT [facility] 60-74 MINUTES Isi Justice MD [address] [place] [address] Referral ID Status Reason Start Date Expiration Date Visits Requested Visits Authorized [id number] Authorized PCP Requested Referral 01/20/2022 01/20/2023 1 1 Summary Purpose Family History Relationship Condition Age at Onset Recorded Date/T lauar mother Hypertension Unknown Gestational diabetes mellitus (GDM) Unkno wn grandmother Hypertension Unknown Blood clot in leg Unknown Diabetes mellitus Unknown grandfather Malignant neoplasm 70 No Family History Records Found Advance Directives No Advanced Directives Records FoundNo Advanced Directives Records Found 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 and Reason for Visit 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 Admit Date Annual (BUNDLE CUTTER) November 27, 2024 8:0 9am Reason for Visit Admit Date Encounter for routine gynecological exam ination November 27, 2024 8:09am Vaginitis November 27, 2024 8:0 9am 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 Admit Date Annual (BUNDLE CUTTER) November 27, 2024 8:0 9am PNOB nurse [...] 2024 2:11pm 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 Admit Date Annual (BUNDLE CUTTER) November 27, 2024 8:0 9am PNOB nurse visit December 18, 2024 10: 56am REEVAL December 31, 2024 9:2 7am NOB LMP 10/29January 10, 2025 2:11pm E-ORDER January 21, 2025 3:30p m 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 Admit Date Annual (BUNDLE CUTTER) November 27, 2024 8:0 9am PNOB nurse [...] 2025 8:01am 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 Admit Date Annual (BUNDLE CUTTER) November 27, 2024 8:0 9am PNOB nurse [...] 2024 9:34am 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 Admit Date Annual (BUNDLE CUTTER) November 27, 2024 8:0 9am PNOB nurse visit December 18, 2024 10: 56am REEVAL December 31, 2024 9:2 7am NOB LMP 10/29January 10, 2025 2:11pm E-ORDER January 21, 2025 3:30p m ADJUSTMENT January 29, 2025 8:01a m 14 wk OB February 13, 2025 9:34 am ADJUSTMENT March 05, 2025 7:57a m 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 Admit Date Annual (BUNDLE CUTTER) November 27, 2024 8:0 9am PNOB nurse [...] or prosecute any alcohol or drug abuse patient.[facility] CenterIn the event this information is protected by the Federal Confidentiality of Alcohol and Drug Abuse Patient Records regulations: The Federal rules restrict any use of the information to criminally investigate or prosecute any alcohol or drug abuse patient.[facility] CenterIn the event this information is protected by the Federal Confidentiality of Alcohol and Drug Abuse Patient Records regulations: The Federal rules restrict any use of the information to criminally investigate or prosecute any alcohol or drug abuse patient.[facility] Reason for Visit (unrecogniz ed section and content) Reason Comments Allergies ongoing seasonal all ergies progressing, uses OTC but having trouble finding correct medication Specialty Diagnoses / Procedures Referred By Contrico t Referred To Contact Pediatrics / PEDIATRICS Diagnoses ALLERGIES Procedures 4C EST Isi Justice MD [address] [place] [address] Isi Justice MD [address] [place] [address] Referral ID Status Reason Start Date Expiration Date Visits Re quested Visits Authorized [id number] Closed 01/20/2022 04/20/2022 1 1 Reason Comments New Patient allergy consult Specialty Diagnoses / Procedures Referred By Contrico t Referred To Contact Allergy Diagnoses Seasonal allergies Procedures CONSULT TO ALLERGY/IMMUNOLOGY OFFICE/OUTPATIENT NEW HIGH MDM 60-74 MINUTES Isi Justice MD [address] [place] [id number] Referral ID Status Reason Start Date Expiration Date V isits Requested Visits Authorized [id number] Closed PCP Requested Referral 01/20/2022 01/20/2023 1 [...] Care Teams (unrecognized sec tion and content) Critical Care Specialist Relationship Specialty Start Date End Date Isi Justice MD [address] [facility], [place] [phone] PCP - General Pediatrics 07/31/18 Critical Care Specialist Relationship Specialty Start Date End Date Isi Justice MD [address] [place] [address] PCP - General Pediatrics 07/31/18 Team [...] 2024 End: November 27, 2024 Yahaira Juarez SCALE TECHNICIAN, SCALE TECHNICIAN-C Attending Provider Active Start: November 27, 2024 End: November 27, 2024 Team Status: Inactive Member Role Status Dates Dr. Isi Justice MD Primary Care Provider Active Start: November 27, 2024 End: November 27, 2024 Yahaira Juarez SCALE TECHNICIAN, SCALE TECHNICIAN-C Attending Provider Active Start: November 27, 2024 End: November 27, 2024 Yahaira Juarez SCALE TECHNICIAN, SCALE TECHNICIAN-C Referring Provider Active Start: November 27, 2024 End: November 27, 2024 Team Status: Inactive Member Role Status Dates Dr. Isi Justice MD Primary Care Provider Active Start: December 18, 2024 End: December 18, 2024 Dr. Isi Justice MD Referring Provider Active Start: December 18, 2024 End: December 18, 2024 Yahaira Juarez SCALE TECHNICIAN, SCALE TECHNICIAN-C Attending Provider Active Start: December 18, 2024 [...] 2025 End: January 10, 2025 Yahaira Juarez SCALE TECHNICIAN, SCALE TECHNICIAN-C Attending Provider Active Start: January 10, 2025 End: January 10, 2025 Yahaira Juarez SCALE TECHNICIAN, SCALE TECHNICIAN-C Referring Provider Active Start: January 10, 2025 [...] 2025 End: January 21, 2025 Yahaira Juarez SCALE TECHNICIAN, SCALE TECHNICIAN-C Other Provider Active St art: January 21, [...] 2025 End: February 13, 2025 Dr. Isi Justiec MD Referring Provider Active Start: February 13, [...] 2024 End: November 27, 2024 Yahaira Juarez SCALE TECHNICIAN, SCALE TECHNICIAN-C Attending Provider Active Start: November 27, 2024 End: November 27, 2024 Team Status: Inactive Member Role/Relationship Status Dates Dr. Isi Justice MD Primary Care Provider Active Start: November 27, 2024 End: November 27, 2024 Yahaira Juarez SCALE TECHNICIAN, SCALE TECHNICIAN-C Attending Provider Active Start: November 27, 2024 End: November 27, 2024 Yahaira Juarez SCALE TECHNICIAN, SCALE TECHNICIAN-C Referring Provider Active Start: November 27, 2024 End: November 27, 2024 Team Status: Inactive Member Role/Relationship Status Dates Dr. Isi Justice MD Primary Care Provider Active Start: December 18, 2024 End: December 18, 2024 Dr. Isi Justice MD Referring Provider Active Start: December 18, 2024 End: December 18, 2024 Yahaira Juarez SCALE TECHNICIAN, SCALE TECHNICIAN-C Attending Provider Active Start: December 18, 2024 [...] 2025 End: January 10, 2025 Yahaira Juarez SCALE TECHNICIAN, SCALE TECHNICIAN-C Attending Provider Active Start: January 10, 2025 End: January 10, 2025 Yahaira Juarez SCALE TECHNICIAN, SCALE TECHNICIAN-C Referring Provider Active Start: January 10, 2025 [...] 2025 End: January 21, 2025 Yahaira Juarez SCALE TECHNICIAN, SCALE TECHNICIAN-C Other Provider Active St art: January 21, [...] 2025 End: March 12, 2025 Yahaira Juarez SCALE TECHNICIAN, SCALE TECHNICIAN-C Attending Provider Active Start: March 12, 2025 End: March 12, 2025 Team Status: Inactive Member Role/Relationship Status Dates Dr. Isi Justice MD Primary Care Provider Active Start: December 18, 2024 End: December 18, 2024 Dr. Isi Justice MD Referring Provider Active Start: December 18, 2024 End: December 18, 2024 Yahaira Juarez SCALE TECHNICIAN, SCALE TECHNICIAN-C Attending Provider Active Start: December 18, 2024 [...] 2025 End: January 10, 2025 Yahaira Juarez SCALE TECHNICIAN, SCALE TECHNICIAN-C Attending Provider Active Start: January 10, 2025 End: January 10, 2025 Yahaira Juarez SCALE TECHNICIAN, SCALE TECHNICIAN-C Referring Provider Active Start: January 10, 2025 [...] 2025 End: January 21, 2025 Yahaira Juarez SCALE TECHNICIAN, SCALE TECHNICIAN-C Other Provider Active St art: January 21, [...] 2025 End: March 12, 2025 Yahaira Juarez SCALE TECHNICIAN, SCALE TECHNICIAN-C Attending Provider Active Start: March 12, 2025 [...] 2025 End: January 10, 2025 Yahaira Juarez SCALE TECHNICIAN, SCALE TECHNICIAN-C Attending Provider Active Start: January 10, 2025 End: January 10, 2025 Yahaira Juarez SCALE TECHNICIAN, SCALE TECHNICIAN-C Referring Provider Active Start: January 10, 2025 [...] 2025 End: January 21, 2025 Yahaira Juarez SCALE TECHNICIAN, SCALE TECHNICIAN-C Other Provider Active St art: January 21, [...] 2025 End: March 05, 2025 Dr. Nida Matrinez DC Attending Provider Active S tart: March 05, 2025 End: March 05, 2025 Team Status: Inactive Member Role/Relationship Status Dates Dr. Isi Justice MD Primary Care Provider Active Start: March 12, 2025 End: March 12, 2025 Dr. Isi Justice MD Referring Provider Active Start: March 12, 2025 End: March 12, 2025 Yahaira Juarez SCALE TECHNICIAN, SCALE TECHNICIAN-C Attending Provider Active Start: March 12, 2025 [...] End: March 12, 2025 Yahaira Juarez NP, SCALE TECHNICIAN-C Attending physician Active Start: March 12, 2025 [...] physician Active Start: May 21, 2025 Gabriela Tavears CNM Referring Provider Active S tart: May [...] End: March 12, 2025 Yahaira Juarez NP, SCALE TECHNICIAN-C Attending physician Active Start: March 12, 2025 [...] 2025 End: March 12, 2025 Yahaira Juarez SCALE TECHNICIAN, SCALE TECHNICIAN-C Attending physician Active Start: March 12, 2025 [...] section and content) DATE CREATED AUTHOR 02/12/2023 [facility] DATE CREATED AUTHOR AUTHOR'S ORGANIZ ATION 07/11/2025 [facility] FOR RECORDS PERTAINING TO PATIENTS WHO ARE [...] BE BASED ON THE PRIMARY CLINICAL RECORDS. [employer] provides no warranty or guarantee of the accuracy or completeness of information in this document.
[2025-08-07] MEDS: Penicillin G 3,000,000 Units 50 ML 100 UNITS IV (19:55)
[2025-08-07] MEDS: Lactated Ringers 1,000 ML 999 ML IV (20:35)
[2025-08-07] MEDS: fentaNYL-bupivacaine (epidural) 100 ML BAG EPIDURAL (22:13)
--- NOTE | 2025-08-07 23:03 | PN.OBGYN_ITS ---
Subjective Subjective Patient comfortable with epidural. SVE /-1. AROM @ 2257 for clear fluid. Objective Data Objective Data Vital Signs: Vital Signs Temp Pulse Resp BP Pulse Ox 98.0 F 93 14 136/79 H 100 08/07/25 22:24 08/07/25 22:31 08/07/25 22:29 08/07/25 22:31 08/07/25 22:31 Weight: 245 lb 9.519 oz Body Mass Index (BMI) 36.2 Intake & Output: Intake and Output for Last 24 Hours 08/05/25 08/06/25 08/07/25 23:59 23:59 23:59 Intake Total 1498.33 / 1498.33 Balance 1498.33 / 1498.33 Lab / Micro Data 08/07/25 15:25 Labs: Laboratory Results - last 24 hr 08/07/25 15:25: WBC 17.1 H, RBC 4.72, Hgb 14.1, Hct 40.3, MCV 85.4, MCH 29.9, MCHC 35.0, RDW Std Deviation 40.8, RDW Coeff of Nataly 13.1, Plt Count 314, MPV 9.4, Immature Gran % (Auto) 1.100 H, Neut % (Auto) 83.2 H, Lymph % (Auto) 9.4 L, Ware % (Auto) 5.8, Eos % (Auto) 0.1, Baso % (Auto) 0.4, Absolute Neuts (auto) 14.2 H, Absolute Lymphs (auto) 1.60, Nucleated RBC % 0, Syphilis Total Ab Nonreactive, Blood Type A POSITIVE, Antibody Screen NEGATIVE NST FHR Rate Baby A Baseline: 135 Variability:: Moderate Accelerations:: 15 x 15 Decelerations:: None NST Reactive:: Yes FHR Category:: Category I Uterine 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 Patient in active phase with ruptured membranes now. Anticipate .
[2025-08-08] VITALS (47 sets, daily range): BP systolic 81–132; BP diastolic 38–68; PULSE 74–117; RESP 15–18; TEMP 35.7–38.3; O2SAT 94–100
[2025-08-08] MEDS: Penicillin G 3,000,000 Units 50 ML 100 UNITS IV (00:31)
[2025-08-08] MEDS: Lactated Ringers 1,000 ML 200 ML IV (01:38)
[2025-08-08] MEDS: Oxytocin 15 Units/NS 250ml 15 UNITS/250 ML IV.SOLN 334 UNITS IV (02:12)
[2025-08-08] MEDS: Oxytocin 15 Units/NS 250ml 15 UNITS/250 ML IV.SOLN 83 UNITS IV (02:49)
[2025-08-08] MEDS: Lactated Ringers 1,000 ML 999 ML IV (02:53)
--- NOTE | 2025-08-08 04:17 | EX.PCM.OBVAG ---
Maternal Data Information LAZARA Calculator Estimated Delivery Date Method Current WG Current Estimate 08/13/25 Ultrasound #1 39w 2d Other Estimates 08/05/25 LMP (Certain) 40w 3d Vaginal Delivery Maternal Presentation Maternal Presentation: Active Labor Maternal Presentation: Angelic Fields is a 19 year old, now , who presented at 39w1d in active labor at 6cm. She was GBS positive and received several doses of penicillin. was only complicated by BMI of 36. She received an epidural and AROM was performed. She progressed along the labor curve to 10cm dilated. Patient began pushing and delivered the head in the BREA presentation. The head was delivered atraumatically and a loose nuchal cord ?1 was identified and easily reduced over the 's head. The anterior and posterior shoulders delivered without complication followed by the rest of the infant and the infant was placed on the maternal abdomen. Delayed cord clamping was employed for approximately 60 seconds. Cord was clamped and cut and gentle traction was applied to the cord and the placenta delivered spontaneously immediately following it was noted to be intact with three-vessel cord. The perineum and vagina were inspected and noted to have a 1st degree laceration that was repaired in the usual fashion with 3-0 vicryl rapide. Uterine atony was noted so bimanual uterine massage was performed to express clots and retrieve an adherent piece of membrane. Methergine IM was also given. Uterine tone was then adequate. EBL was 400cc. Patient and infant tolerated delivery well. Type of Induction: Amniotomy Vaginal Delivery Information Procedure Performed: Spontaneous Vaginal Delivery Surgeon/Practitioner: Gabriela Cummings Date of Procedure: 08/08/25 Pre-Procedure Diagnosis: labor, GBS+ Post-Procedure Diagnosis: spontaneous vaginal delivery Type of anesthesia: Epidural Special Medications: IV pitocin, IM methergine Estimated Blood Loss: 400 Time of Delivery: 02:06 Findings Description of procedure: spontaneous vaginal delivery Procedure findings: male Presentation: BREA Amniotic Membrane Rupture Type: Artificial Amniotic Fluid Description: Clear Placental Delivery Description: Spontaneous Placenta Disposition: [facility] Specimen collected: No Cord Vessel Description: 3 Vessels Infant A Gender: Male (1 minute): 8 (5 minute): 9 Delayed Cord Clamping: Yes [employer] entrance guard: No Post Vaginal Deli Medications given after delivery: IV Pitocin and IM Methergin Episiotomy Description: None Laceration: 1st degree Complication Complications: No
[2025-08-08] MEDS: Cefazolin 2 GM in 0.9% Normal Saline (100mL Bag) 100 ML IV (04:32)
[2025-08-08] MEDS: 0.9% Saline Lock 10 ML Syringe IV (06:04)
[2025-08-08] MEDS: Senna/Docusate Sodium 1 Tablet PO (14:54)
[2025-08-09] VITALS: BP 120/72; PULSE 73; RESP 16; TEMP 36.3; O2SAT 97
[2025-08-09 04:35] VITALS: BP 119/63; PULSE 61; RESP 16; TEMP 36.6; O2SAT 98
--- NOTE | 2025-08-09 07:57 | DCINST_ITS ---
Discharge Instructions DC O2, CPAP, BIPAP needs Home O2 Discharge instructions: No Dressing / Incision Discharge Activity: Return to Normal Activity, May Not Drive (while taking narcotic pain medications.) and May Shower May resume sexual activity in: 4-6 weeks Dressing / Incision Call your doctor if your incision/area has: Continuous Slow Oozing, Sudden Increased Bleeding and Foul Smelling Discharge Call your doctor if you observe: Fever of 101 or Higher and Chest pain Follow Up Care When: Call [phone] to make an appointment with your doctor in 6 weeks. If you had elevated blood pressure or 4th degree laceration, you will need to be seen in 2 weeks. Test Results: Test results from this visit will be discussed in further detail at your follow- up appointment, if applicable. Discharge Plan Admission Admit Date/Time: 08/07/25 14:55 Primary Reason for Your Visit: labor and delivery Attending Provider: Gabriela Cummings Primary Care Provider: Isi Justice Discharge Orders/Prescriptions Prescriptions: New acetaminophen 500 mg Tablet 1,000 mg PO Q6H PRN PRN (Reason: Pain 1-10 Or Fever) Qty: 30 0RF Continued magnesium 250 mg tablet 250 mg PO QDAY PNV-DHA 27 mg iron-1 mg -300 mg capsule 1 cap PO DAILY famotidine [Pepcid] 20 mg tablet 20 mg PO BID Qty: 60 6RF Referrals / Follow Up: Isi Justice MD [Primary Care Provider, Pediatrics] Disposition Disposition (needs filled in before D/C Order can be placed): Home, Self Care
--- NOTE | 2025-08-09 08:07 | PCM.PN.BLA ---
Progress Note Patient doing well without complaints. Tolerating PO. Ambulating and voiding without difficulty. Feeding well. Denies chest pain, shortness of breath, calf pain/swelling, fevers, chills, lightheadedness. Physical Exam Const alert, oriented x3 and no apparent distress HEENT Head and Scalp: normocephalic and atraumatic Resp normal respiratory effort Effort and Inspection: able to speak in complete sentences and symmetric chest movement Cardio regular rate and regular rhythm GI soft to palpation and non-tender Bimanual Exam - Vag & Uterus: uterus non-tender Uterus Palpation: uterus fundus firm (below Umbilicus) Assessment & Plan Assessment/Plan (1) Spontaneous vaginal delivery: PLAN: s/p PPD # 1 1. routine post delivery care 2. breast feeding- support given 3. rh positive 4. rubella immune 5. BP reviewed, isolated mild range otherwise wnl 6. anticipate home today after baby's testing and circumcision
--- NOTE | 2025-08-09 08:12 | PCM.DC.SUM ---
Providers Date of Admission: 08/07/25 Primary Care Physician: Dr. Isi Justice MD Reason For Visit: VAGINAL DELIVERY Diagnosis Discharge Diagnosis (1) Spontaneous vaginal delivery: Status: Acute Code(s): O80 - Encounter for full-term uncomplicated delivery Plan: s/p PPD # 1 1. routine post delivery care 2. breast feeding- support given 3. rh positive 4. rubella immune 5. BP reviewed, isolated mild range otherwise wnl 6. anticipate home today after baby's testing and circumcision Medications at Discharge Home Medications magnesium 250 mg tablet 250 mg PO QDAY 11/27/24 multivitamin no.47-iron fum 27 mg-folate no.1 1 mg-dha 300 mg capsule (PNV-DHA) 1 cap PO DAILY 12/18/24 famotidine 20 mg tablet (Pepcid) 20 mg PO BID #60 tabs 07/05/25 acetaminophen 500 mg tablet 1,000 mg (2 x 500 mg) PO Q6H PRN PRN Pain 1-10 Or Fever #30 tabs 08/09/25 Hospital Course Summary of Care Provided Hospital Course: Angelic Perez is a 19-year-old, now , who presented in active labor and had an uncomplicated spontaneous vaginal delivery of a baby boy with apgars of 8 and 9. Weight / BMI Weight Weight: 245 lb 9.519 oz Body Mass Index (BMI) 36.2 PRE- weight 220 lb PRE- Body Mass Index 32.5 (BMI) ABG / Lab / Microbiology Data 08/07/25 15:25 D/C Instructions May resume sexual activity in: 4-6 weeks Call your doctor if your incision/area has: Continuous Slow Oozing, Sudden Increased Bleeding and Foul Smelling Discharge Call your doctor if you observe: Fever of 101 or Higher and Chest pain DC O2, CPAP, BIPAP Needs Home O2 Discharge instructions: No When: Call [phone] to make an appointment with your doctor in 6 weeks. If you had elevated blood pressure or 4th degree laceration, you will need to be seen in 2 weeks. Meaningful Use Info Meaningful Use Meaningful Use Diagnoses (Choose all that apply): None applicable Discharge Plan Admission Admit Date/Time: 08/07/25 14:55 Primary Reason for Your Visit: labor and delivery Attending Provider: Gabriela Cummings Primary Care Provider: Isi Justice Discharge Orders/Prescriptions Prescriptions: New acetaminophen 500 mg Tablet 1,000 mg PO Q6H PRN PRN (Reason: Pain 1-10 Or Fever) Qty: 30 0RF Continued magnesium 250 mg tablet 250 mg PO QDAY PNV-DHA 27 mg iron-1 mg -300 mg capsule 1 cap PO DAILY famotidine [Pepcid] 20 mg tablet 20 mg PO BID Qty: 60 6RF Referrals / Follow Up: Isi Jsutice MD [Primary Care Provider, Pediatrics] Disposition Disposition (needs filled in before D/C Order can be placed): Home, Self Care
[2025-08-09 08:16] VITALS: BP 119/70; PULSE 66; RESP 14; TEMP 36.1; O2SAT 98
[2025-08-09 12:30] VITALS: BP 120/61; PULSE 87; RESP 16; TEMP 36.6; O2SAT 98
== END 2025-08-09 15:00 | disposition home or self-care (01) | DRG 807 ==
LOC: WPOUT 15:00 → WP 15:00
PROVIDERS: Admitting Provider Student in an Organized Health Care Education/Training Program; PCP Pediatrics; Referring Provider Student in an Organized Health Care Education/Training Program; Visit Provider Student in an Organized Health Care Education/Training Program
DX: O99.824 Streptococcus B carrier state complicating childbirth (principal); Z37.0 Single live birth; K21.9 Gastro-esophageal reflux disease without esophagitis; O99.214 Obesity complicating childbirth; O99.62 Diseases of the digestive system complicating childbirth; O69.81X0 Labor and delivery complicated by cord around neck, without compression, not applicable or unspecified; O70.0 First degree perineal laceration during delivery; O62.2 Other uterine inertia; Z3A.39 39 weeks gestation of pregnancy; Z79.899 Other long term (current) drug therapy
CPT/HCPCS: 59025; 59050; 85025; 86780; 86850; 86900; 86901; 99221; A4216; G0378